=== PATIENT | female | born 1955 | race Caucasian/White ===

== ENCOUNTER → 2021-04-14 12:00 | Outpatient (CLI) | payer BC, MEDICARE, SELFPAY ==
[2021-04-14 13:32] LABS: Alanine Aminotransferase 19 IU/L (<35); Albumin 4.6 g/dL (3.5-5.0); Albumin Globulin Ratio 1.8 (1.0-2.8); Alkaline Phosphatase 68 U/L (38-126); Aspartate Aminotransferase 23 IU/L (14-36); BUN Creatinine Ratio 15.7 (6-22); Bilirubin Total 0.5 mg/dL (0.2-1.3); Blood Urea Nitrogen 17 mg/dL (7-17); Calcium 10.2 mg/dL (8.4-10.2); Carbon Dioxide 30 mmol/L (22-32); Chloride 105 mmol/L (98-107); Cholesterol 207 mg/dL (140-199); Estimated Glomerular Filt Rate 50.9 mL/min (>60); Globulin 2.5 g/dL (1.7-4.1); Glucose 101 mg/dL (80-110); HDL Cholesterol 75 mg/dL (40-60); HEMOLYSIS < 15 (0-50); LDL Cholesterol Calculated 109 mg/dL (<100); Sodium 140 mmol/L (137-145); Total Protein 7.1 g/dL (6.3-8.2); Triglycerides 116 mg/dL (35-150)
== END ==
PROVIDERS: PCP Internal Medicine; Referring Provider Internal Medicine; Visit Provider Internal Medicine
DX: I10 Essential (primary) hypertension (principal); Z13.220 Encounter for screening for lipoid disorders
CPT/HCPCS: 36415; 80053; 80061; 84443

== ENCOUNTER → 2021-12-23 15:49 | Outpatient (CLI) | payer BC, MEDICARE, SELFPAY ==
--- NOTE | 2021-12-23 15:51 | DI.MG.S_ITS ---
BILATERAL DIGITAL SCREENING MAMMOGRAM 3D/2D WITH CAD: 12/23/2021 CLINICAL: Routine screening. Family history of breast cancer. Comparison is made to exams dated: 11/26/2020 mammogram, 10/07/2019 mammogram, and 04/11/2018 mammogram - outside facility. There are scattered areas of fibroglandular density in both breasts (category b / 25%-50% glandular tissue). Current study was also evaluated with a Computer Aided Detection (CAD) system. No significant masses, calcifications, or other findings are seen in either breast. There has been no significant interval change. IMPRESSION: NEGATIVE There is no mammographic evidence of malignancy. A 1 year screening mammogram is recommended. This exam was interpreted at Station ID: [id number]. NOTE: For mammograms, a report in lay terms will be sent to the patient. Approximately 15% of breast malignancies will not be visualized mammographically. In the management of a palpable breast mass, a negative mammogram must not discourage biopsy of a clinically suspicious lesion. Electronically Signed By: Audi Moore M.D., jr/lina:12/26/2021 10:44:18 letter sent: Normal Exam ACR BI-RADS Category 1: Negative [id number]
== END ==
PROVIDERS: PCP Internal Medicine; Referring Provider Internal Medicine; Visit Provider Internal Medicine
DX: Z12.31 Encounter for screening mammogram for malignant neoplasm of breast (principal); Z80.3 Family history of malignant neoplasm of breast
CPT/HCPCS: 77063; 77067

== ENCOUNTER → 2022-06-29 12:20 | Outpatient (CLI) | payer MEDICARE, OTHER, SELFPAY ==
[2022-06-29 13:01] LABS: Add Manual Diff / Slide Review NO; Basophils Absolute Auto 100 /uL (0-100); Basophils Percent Auto 0.9 % (0-2); Eosinophils Absolute Auto 200 /uL (0-450); Eosinophils Percent Auto 2.9 % (2-4); Hematocrit 40.2 % (36-46); Hemoglobin 13.6 g/dL (12.0-16.0); Lymphocytes Absolute Auto 1100 /uL (1100-4500); Lymphocytes Percent Auto 16.3 % (25-40); Mean Corpuscular HGB Conc 33.9 % (30-36); Mean Corpuscular Hemoglobin 30.3 PG (26-34); Mean Corpuscular Volume 89.5 fL (80-100); Monocytes Absolute Auto 600 /uL (0-900); Monocytes Percent Auto 9.2 % (3-14); Neutrophils Absolute Auto 4700 /uL (1500-7000); Neutrophils Percent Auto 70.7 % (50-75); Platelet Count 244 X10^3/uL (150-400); Red Cell Distribution Width 13.7 % (11.6-14.8); White Blood Cell Count 6.6 X10^3/uL (4.5-11.0)
[2022-06-29 13:45] LABS: Alanine Aminotransferase 31 IU/L (<35); Albumin 4.3 g/dL (3.5-5.0); Albumin Globulin Ratio 1.3 (1.0-2.8); Alkaline Phosphatase 69 U/L (38-126); Aspartate Aminotransferase 29 IU/L (14-36); BUN Creatinine Ratio 19.3 (6-22); Bilirubin Total 0.3 mg/dL (0.2-1.3); Blood Urea Nitrogen 23 mg/dL (7-17); Calcium 10.1 mg/dL (8.4-10.2); Carbon Dioxide 27 mmol/L (22-32); Chloride 103 mmol/L (98-107); Estimated Glomerular Filt Rate 50 mL/min (>60); Globulin 3.2 g/dL (1.7-4.1); Glucose 108 mg/dL (80-110); HEMOLYSIS < 15 (0-50); Magnesium 1.9 mg/dL (1.6-2.3); Potassium 3.4 mmol/L (3.4-5.1); Sodium 139 mmol/L (137-145); Total Protein 7.5 g/dL (6.3-8.2)
[2022-06-29 13:47] LABS: D Dimer 774 ng/ml (<500)
[2022-06-29 14:14] LABS: Free T4, Direct Thyroxine 1.29 ng/dL (0.78-2.19)
[2022-06-29 14:28] LABS: Thyroid Stimulating Hormone 2.31 uIU/mL (0.47-4.68)
== END ==
PROVIDERS: PCP Internal Medicine; Referring Provider Internal Medicine; Visit Provider Internal Medicine
DX: I10 Essential (primary) hypertension (principal); N18.31 Chronic kidney disease, stage 3a; R00.1 Bradycardia, unspecified; R55 Syncope and collapse
CPT/HCPCS: 36415; 80053; 83735; 84439; 84443; 85025; 85379

== ENCOUNTER → 2022-06-30 12:42 | Outpatient (CLI) | payer MEDICARE, OTHER, SELFPAY ==
--- NOTE | 2022-06-30 12:44 | DI.US.S_ITS ---
PROCEDURE: US PERIPH VENOUS LOW EXTREM LT INDICATIONS: R/O DVT TECHNIQUE: Real-time imaging, as well as color and pulse Doppler interrogation, were performed of the lower extremity deep veins from the inguinal ligament to the popliteal fossa. COMPARISON: None. FINDINGS: The common femoral, femoral and popliteal veins are normally compressible, and free of intraluminal thrombus. Color and pulse Doppler demonstrate normal phasic intraluminal flow. There is normal augmentation response to distal compression maneuver. IMPRESSION: No DVT found left lower extremity. Dictated by: Lester Garduno M.D. on 06/30/2022 at 15:37 Approved by: Lester Garduno M.D. on 06/30/2022 at 15:37
== END ==
PROVIDERS: PCP Internal Medicine; Referring Provider Internal Medicine; Visit Provider Internal Medicine
DX: I82.409 Acute embolism and thrombosis of unspecified deep veins of unspecified lower extremity (principal); R22.42 Localized swelling, mass and lump, left lower limb
CPT/HCPCS: 93971

== ENCOUNTER 2022-07-04 11:41 | Observation (INO) | payer MEDICARE, OTHER, SELFPAY ==
[2022-07-04] VITALS (22 sets, daily range): BP systolic 147–231; BP diastolic 69–110; PULSE 25–130; RESP 16–20; TEMP 36.4–36.9; O2SAT 92–98; BMI 37.2
--- NOTE | 2022-07-04 11:48 | DI.RAD.S_ITS ---
PROCEDURE: XR CHEST 1V INDICATIONS: chest pain TECHNIQUE: One view of the chest was acquired. COMPARISON: None. FINDINGS: Surgical changes and devices: None. Lungs and pleura: Lungs are clear. No pleural effusions or pneumothorax. Mediastinum: Mediastinal contours appear normal. Heart size is normal. Bones and chest wall: No suspicious bony lesions. Overlying soft tissues appear unremarkable. IMPRESSION: No acute cardiopulmonary abnormality. Dictated by: Micky Hollins M.D. on 07/04/2022 at 12:17 Approved by: Micky Hollins M.D. on 07/04/2022 at 12:19
[2022-07-04] MEDS: ASPIRIN 81 MG CHEW TAB 324 MG PO (11:55)
--- NOTE | 2022-07-04 12:08 | PC.NURSE ---
Pt reports similar episodes in April, May, and May. Lasting from 12 hours to 24 hours. States she has followed up regarding events with her PCP, but was not able to catch an abnormal rhythms as she was not seen during an episode. Has a Holter Monitor scheduled in approximately 2 weeks.
[2022-07-04 12:15] LABS: Add Manual Diff / Slide Review NO; Basophils Absolute Auto 100 /uL (0-100); Basophils Percent Auto 0.7 % (0-2); Eosinophils Absolute Auto 300 /uL (0-450); Eosinophils Percent Auto 3.5 % (2-4); Hematocrit 42.7 % (36-46); Hemoglobin 14.3 g/dL (12.0-16.0); Lymphocytes Absolute Auto 1900 /uL (1100-4500); Lymphocytes Percent Auto 24.9 % (25-40); Mean Corpuscular HGB Conc 33.5 % (30-36); Mean Corpuscular Volume 89.6 fL (80-100); Monocytes Absolute Auto 800 /uL (0-900); Monocytes Percent Auto 9.9 % (3-14); Neutrophils Absolute Auto 4700 /uL (1500-7000); Platelet Count 237 X10^3/uL (150-400); Red Blood Cell Count 4.77 X10^6/uL (4.0-5.2); Red Cell Distribution Width 14.1 % (11.6-14.8); White Blood Cell Count 7.8 X10^3/uL (4.5-11.0)
[2022-07-04 12:17] LABS: Prothrombin Time 10.9 SECONDS (10.1-12.7)
[2022-07-04 12:19] LABS: PTT Partial Thromboplastin Tim 31 SECONDS (26-36)
[2022-07-04 12:23] LABS: Alanine Aminotransferase 29 IU/L (<35); Albumin 4.5 g/dL (3.5-5.0); Albumin Globulin Ratio 1.4 (1.0-2.8); Alkaline Phosphatase 79 U/L (38-126); Aspartate Aminotransferase 27 IU/L (14-36); BUN Creatinine Ratio 23.9 (6-22); Bilirubin Total 0.5 mg/dL (0.2-1.3); Blood Urea Nitrogen 21 mg/dL (7-17); Calcium 10.2 mg/dL (8.4-10.2); Carbon Dioxide 25 mmol/L (22-32); Chloride 105 mmol/L (98-107); Creatine Kinase 159 U/L (30-135); Estimated Glomerular Filt Rate > 60 mL/min (>60); Globulin 3.2 g/dL (1.7-4.1); Glucose 123 mg/dL (80-110); HEMOLYSIS < 15 (0-50); Lipase 74 U/L (23-300); Magnesium 1.9 mg/dL (1.6-2.3); Potassium 3.4 mmol/L (3.4-5.1); Sodium 140 mmol/L (137-145); Total Protein 7.7 g/dL (6.3-8.2)
[2022-07-04 12:24] LABS: COVID19 -Nasal RAPID Negative (Negative)
[2022-07-04 12:33] LABS: Troponin I 0.018 ng/mL (0.01-0.034)
--- NOTE | 2022-07-04 12:34 | ED_ITS ---
HPI - Chest Pain General Chief Complaint: Chest Pain Stated Complaint: sent by DR/chest pain/pressure/SOB Time Seen by Provider: 07/04/22 12:00 Source: patient Mode of arrival: Wheelchair Limitations: no limitations History of Present Illness HPI narrative: Patient 67-year-old female history hypertension, presenting today palpitations. She is had at least 3 episodes over the past few months palpitations and dizz iness associated with it. She saw her PCP 5 days ago who tried sitting up Holter monitor can be set up until next week. Today she describes irregular heart beat and some dizziness. No shortness of breath no lightheadedness no nausea or vomiting. She has a watch to help monitor her heart rate. This is happened to her April, May and now July. She denies any prior stroke. She is on atenolol for blood pressure control she has cut that down from 25 mg 3 times a day to 12.5 mg in the morning and 12.5 in the afternoon 25 at bedtime. She reports that she did this because her heart rate dropped into the 40s. Her heart rate currently in the emergency department anywhere from 105 -140 irregular atrial fibrillation. She reports that she has had PVCs in the past but this is different. Related Data Home Medications Medication Instructions Recorded Confirmed Calcium Carbonate 1 tab PO DAILY 03/17/21 06/29/22 Magnesium Malate 1 tab PO DAILY 03/17/21 06/29/22 Probiotic 10 Capsule 1 tab PO DAILY 03/17/21 06/29/22 Turmeric 1 tab PO DAILY 03/17/21 06/29/22 Vitamin D 1 tab PO DAILY 03/17/21 06/29/22 ascorbic acid (vitamin C) 1,000 mg 1 g PO DAILY 03/17/21 06/29/22 tablet cranberry extract 650 mg capsule 650 mg PO DAILY 03/17/21 06/29/22 multivitamin 1 tab PO DAILY 03/17/21 06/29/22 atenolol 25 mg tablet 25 mg PO BID 06/29/22 06/29/22 Previous Rx's Medication Instructions Recorded amlodipine 10 mg tablet 10 mg PO DAILY #90 tabs 11/25/21 ramipril 10 mg capsule 10 mg PO BID #180 caps 11/25/21 terazosin 10 mg capsule 10 mg PO BID #180 caps 11/25/21 nystatin 100,000 unit/gram topical 1 applic topical TID #60 grams 06/29/22 powder Allergies Allergy/AdvReac Type Severity Reaction Status Date / Time guanfacine [From Tenex] AdvReac Intermediate arrythmia Verified 07/04/22 11:49 Review of Systems Review of Systems ROS Unobtainable: All systems reviewed & are unremarkable except as noted in HPI and below Patient History Medical History Cataracts, bilateral (~2017) Chicken pox (~1962) Chronic migraine Chronic renal failure, stage 3a Diverticular disease of colon (~1987) Endometriosis (~1995) Essential hypertension (~1989) Fractures (~2010) Frequent UTI Measles (~1964) Migraines Near sighted Ovarian cyst (~1995) Urinary incontinence (~2001) Surgical History Anesthesia History of foot surgery (~2010) Status post appendectomy (~1995) Status post right oophorectomy (~1995) Family History Father History of heart disease Hypertension Hyperlipidemia Mother Breast cancer Stroke Brother History of heart disease Hyperlipidemia Hypertension Brother Diabetes mellitus Hypertension Grandfather History of heart disease Hyperlipidemia Hypertension Grandmother Stroke Grandfather History of heart disease Hyperlipidemia Hypertension Grandmother Tuberculosis Social History household members: spouse Smoking Status: Never smoker Smoking Status: Never smoker alcohol intake frequency: holidays/special occasions only Substance Use Type: does not use Exam Initial Vital Signs Initial Vital Signs: Vital Signs Temperature 98.4 F 07/04/22 11:43 Pulse Rate 65 07/04/22 11:43 Respiratory Rate 20 07/04/22 11:43 Blood Pressure 160/95 H 07/04/22 11:43 Pulse Oximetry 97 07/04/22 11:43 Oxygen Delivery Method Room Air 07/04/22 11:43 GENERAL: Alert pleasant 67-year-old female and in no acute distress. HEENT: Head atraumatic,EOMI, pupils reactive, face symmetric, moist mucous membranes CARDIOVASCULAR: Irregularly irregular RESPIRATORY: Breath sounds equal bilaterally, no wheezes rales or rhonchi. ABDOMEN: Soft, nontender. Normoactive bowel sounds all 4 quadrants. No guarding or rebound. : No CVA tenderness EXTREMITIES: Normal range of motion, no clubbing or edema. Neurovascularly in tact NEUROLOGICAL: Alert and oriented x4. SKIN: Warm, dry, no laceration, no petechiae, no rashes or lesions. Course Orders Ordered: ED Orders 07/04/22 11:48 XR chest 1V Stat BNP [NT-proBNP (BNP-Adult 18+)] Stat Complete Blood Count AUTO DIFF Stat Comprehensive Metabolic Panel Stat Lipase Stat Magnesium Stat PTT Partial Thromboplastin Donte Stat Prothrombin Time INR Stat TSH [Thyroid Stimulating Hormone] Stat Troponin & CK Cardiac Panel Stat EKG-12 Lead Stat 07/04/22 11:53 COVID19 -Nasal RAPID Stat 07/04/22 15:09 EC echo doppler complete Routine Free T4, Direct Thyroxine Routine Acetaminophen (Acetaminophen 325 Mg Tablet) 650 mg PO Q6H PRN PRN Reason: Fever/Mild Pain (1-3) Apixaban (Apixaban 5 Mg Tablet) 5 mg PO BID [facility] Diltiazem HCl (Diltiazem 30 Mg Tablet) 30 mg PO TID [facility] Last Admin: 07/04/22 16:06 Dose: 30 mg Documented By: AA Naloxone HCl (Naloxone 0.4 Mg/Ml Vial) 0.2 mg IV Q2MIN PRN PRN Reason: Opiate Reversal Ramipril 10 Mg (Capsule) 10 mg PO BID [facility] Terazosin HCl (Terazosin 5 Mg Capsule) 10 mg PO BID [facility] Discontinued Medications Aspirin (Aspirin 81 Mg Chew Tab) 324 mg PO NOW ONE Stop: 07/04/22 11:49 Last Admin: 07/04/22 11:55 Dose: 324 mg Documented By: VANESSA Diltiazem HCl (Diltiazem 5 Mg/Ml Sdv) 5 mg IV NOW ONE Stop: 07/04/22 13:08 Last Admin: 07/04/22 13:35 Dose: Not Given Documented By: FIDE Diltiazem HCl (Diltiazem Sr 60 Mg) 30 mg PO TID [facility] Vital Signs Vital signs: Vital Signs - 8 hr 07/04/22 11:43 07/04/22 11:46 07/04/22 11:47 Temperature 98.4 F Pulse Rate 65 76 Respiratory Rate 20 Blood Pressure 160/95 H Pulse Oximetry 97 97 92 Oxygen Delivery Method Room Air Room Air 07/04/22 11:47 07/04/22 12:00 07/04/22 12:00 Temperature Pulse Rate 130 H Respiratory Rate Blood Pressure 160/95 H 166/69 H Pulse Oximetry 95 Oxygen Delivery Method Room Air 07/04/22 12:30 07/04/22 12:30 07/04/22 13:00 Temperature Pulse Rate 128 H 25 L Respiratory Rate Blood Pressure 171/110 H Pulse Oximetry 95 96 Oxygen Delivery Method 07/04/22 13:01 07/04/22 13:01 07/04/22 13:35 Temperature Pulse Rate 50 L 51 L Respiratory Rate Blood Pressure 164/108 H 186/89 H Pulse Oximetry 96 Oxygen Delivery Method 07/04/22 13:24 07/04/22 13:24 07/04/22 13:30 Temperature Pulse Rate 54 L Respiratory Rate Blood Pressure 178/80 H 186/89 H Pulse Oximetry 98 Oxygen Delivery Method 07/04/22 13:30 07/04/22 14:00 07/04/22 14:01 Temperature Pulse Rate 50 L 44 L Respiratory Rate Blood Pressure 182/82 H Pulse Oximetry 97 98 Oxygen Delivery Method Room Air Room Air 07/04/22 14:01 07/04/22 14:30 07/04/22 14:31 Temperature Pulse Rate 44 L 56 L Respiratory Rate Blood Pressure 170/84 H Pulse Oximetry 98 96 Oxygen Delivery Method 07/04/22 14:31 Temperature Pulse Rate 55 L Respiratory Rate Blood Pressure Pulse Oximetry 97 Oxygen Delivery Method Room Air MDM - Chest Pain Lab Data 07/04/22 11:48 07/04/22 11:48 Labs: Lab Results 07/04/22 07/04/22 07/04/22 Range/Units 11:48 11:48 11:48 WBC 7.8 (4.5-11.0) X10^3/uL RBC 4.77 (4.0-5.2) X10^6/uL Hgb 14.3 (12.0-16.0) g/dL Hct 42.7 (36-46) % MCV 89.6 (80-100) fL MCH 30.0 (26-34) PG MCHC 33.5 (30-36) % RDW 14.1 (11.6-14.8) % Plt Count 237 (150-400) X10^3/uL Neut % (Auto) 61.0 (50-75) % Lymph % (Auto) 24.9 L (25-40) % [place] % (Auto) 9.9 (3-14) % Eos % (Auto) 3.5 (2-4) % Baso % (Auto) 0.7 (0-2) % Neut # (Auto) 4700 (1010-9366) /uL Lymph # (Auto) 1900 (6493-2164) /uL [place] # (Auto) 800 (0-900) /uL Eos # (Auto) 300 (0-450) /uL Baso # (Auto) 100 (0-100) /uL PT 10.9 (10.1-12.7) SECONDS INR 1.0 (0.9-1.3) APTT 31 (26-36) SECONDS Sodium 140 (137-145) mmol/L Potassium 3.4 (3.4-5.1) mmol/L Chloride 105 (98-107) mmol/L Carbon Dioxide 25 (22-32) mmol/L BUN 21 H (7-17) mg/dL Creatinine 0.88 (0.52-1.04) mg/dL Estimated GFR > 60 (>60) mL/min BUN/Creatinine Ratio 23.9 H (6-22) Glucose 123 H (80-110) mg/dL Calcium 10.2 (8.4-10.2) mg/dL Magnesium 1.9 (1.6-2.3) mg/dL Total Bilirubin 0.5 (0.2-1.3) mg/dL AST 27 (14-36) IU/L ALT 29 (<35) IU/L Alkaline Phosphatase 79 (38-126) U/L Total Creatine Kinase 159 H (30-135) U/L CK-MB (CK-2) 3.63 H (<2.37) ng/mL CK-MB (CK-2) Rel Index 2.3 (1.5-5.0) % Troponin I 0.018 (0.01-0.034) ng/mL NT-Pro-B Natriuret Pep (<125) pg/mL Total Protein 7.7 (6.3-8.2) g/dL Albumin 4.5 (3.5-5.0) g/dL Globulin 3.2 (1.7-4.1) g/dL Albumin/Globulin Ratio 1.4 (1.0-2.8) Lipase 74 (23-300) U/L TSH (0.47-4.68) uIU/mL SARS-CoV-2 (PCR) (Negative) 07/04/22 07/04/22 07/04/22 Range/Units 11:48 11:48 11:53 WBC (4.5-11.0) X10^3/uL RBC (4.0-5.2) X10^6/uL Hgb (12.0-16.0) g/dL Hct (36-46) % MCV (80-100) fL MCH (26-34) PG MCHC (30-36) % RDW (11.6-14.8) % Plt Count (150-400) X10^3/uL Neut % (Auto) (50-75) % Lymph % (Auto) (25-40) % [place] % (Auto) (3-14) % Eos % (Auto) (2-4) % Baso % (Auto) (0-2) % Neut # (Auto) (7825-1163) /uL Lymph # (Auto) (9104-4929) /uL [place] # (Auto) (0-900) /uL Eos # (Auto) (0-450) /uL Baso # (Auto) (0-100) /uL PT (10.1-12.7) SECONDS INR (0.9-1.3) APTT (26-36) SECONDS Sodium (137-145) mmol/L Potassium (3.4-5.1) mmol/L Chloride (98-107) mmol/L Carbon Dioxide (22-32) mmol/L BUN (7-17) mg/dL Creatinine (0.52-1.04) mg/dL Estimated GFR (>60) mL/min BUN/Creatinine Ratio (6-22) Glucose (80-110) mg/dL Calcium (8.4-10.2) mg/dL Magnesium (1.6-2.3) mg/dL Total Bilirubin (0.2-1.3) mg/dL AST (14-36) IU/L ALT (<35) IU/L Alkaline Phosphatase (38-126) U/L Total Creatine Kinase (30-135) U/L CK-MB (CK-2) (<2.37) ng/mL CK-MB (CK-2) Rel Index (1.5-5.0) % Troponin I (0.01-0.034) ng/mL NT-Pro-B Natriuret Pep 457 H (<125) pg/mL Total Protein (6.3-8.2) g/dL Albumin (3.5-5.0) g/dL Globulin (1.7-4.1) g/dL Albumin/Globulin Ratio (1.0-2.8) Lipase (23-300) U/L TSH 2.85 D (0.47-4.68) uIU/mL SARS-CoV-2 (PCR) Negative (Negative) Urine Dip Bedside Urine Glucose Negative Bedside Urine Bilirubin - Negative Bedside Urine Ketone - Negative Urine Specific [place] 1.005 Bedside Urine Occult Blood - Negative Bedside Urine pH 6.5 Bedside Urine Protein - Negative Bedside Urine Urobilinogen - Negative Bedside Urine Nitrite - Negative Bedside Urine Leukocytes - Negative Esterase Imaging Data Chest x-ray: Radiologist's Impression: PROCEDURE:? XR CHEST 1V ? INDICATIONS:? chest pain ? TECHNIQUE:? One view of the chest was acquired.? ? COMPARISON:? None. ? FINDINGS:? ? Surgical changes and devices:? None.? ? Lungs and pleura:? Lungs are clear.? No pleural effusions or pneumothorax.? ? Mediastinum:? Mediastinal contours appear normal.? Heart size is normal.? ? Bones and chest wall:? No suspicious bony lesions.? Overlying soft tissues appear unremarkable.? ? IMPRESSION:? No acute cardiopulmonary abnormality. ? ? ? Dictated by: Micky Hollins M.D. on 07/04/2022 at 12:17 ? ? Approved by: Micky Hollins M.D. on 07/04/2022 at 12:19 ? ECG Data Interpretation: AFib with RVR rate 137 no priors to compare EKG 2. Sinus rhythm rate 49 DC interval 188 QRS [address] changes Q-wave noted in lead 3 MDM Narrative Medical decision making narrative: Patient 67-year-old female history of hypertension presents with probable paroxysmal atrial fibrillation. Currently AFib RVR heart rate into the 140s. She reports that she has reactive vitals typically gets very tachycardic and hypertensive. Blood work overall reassuring no leukocytosis no anemia no electrolyte abnormality no JESSICA troponin is negative. TSH was checked last week and 2.31. Was going to give a small dose of diltiazem however patient self converted into a sinus bradycardia heart rate in the 40s. Patient is already taking half of the atenolol that she normally should. She is asymptomatic. Chads Vasc score of 3 needs anticoagulation. I have discussed this with patient. She is very hesitant to take any medication she is had multiple side effects from many 14:30 Dr. Combs cardiology updated patient's symptoms test results. At this time due to patient's bradycardia from secondary to atenolol and paroxysmal AFib recommends transitioning over to Cardizem however due to severe bradycardia would suggest doing in the hospital. Also recommends getting referred over to Dr. Rose Mary GARCIA for probable pacemaker. Dr. Cintron updated patient's symptoms test results Cardiology recommendations and kindly accepts GLENDY?DS?-VASc Score for Atrial Fibrillation Stroke Risk from [email or web address] on 07/04/2022 All calculations should be rechecked by clinician prior to use RESULT SUMMARY: 3 points Stroke risk was 3.2% per year in >90,000 patients (the [place] Atrial Fibrillation Cohort Study) and 4.6% risk of stroke/TIA/systemic embolism. One recommendation suggests a 0 score for men or 1 score for women (no clinical risk factors) is ?low? risk and may not require anticoagulation; a 1 score for men or 2 score for women is ?low-moderate? risk and should consider antiplatelet or anticoagulation; and a score >= for men or >= for women is ?moderate-high? risk and should otherwise be an anticoagulation candidate. INPUTS: Age ?> 1 = 65-74 Sex ?> 1 = Female CHF history ?> 0 = No Hypertension history ?> 1 = Yes Stroke/TIA/thromboembolism history ?> 0 = No Vascular disease history (prior [place], peripheral artery disease, or aortic plaque) ?> 0 = No Diabetes history ?> 0 = No Discharge Plan Departure Patient Disposition: Admitted as Observation Clinical Impression: AF (paroxysmal atrial fibrillation), Bradycardia, Hypertension Admit Date/Time: 07/04/22 14:35 Admit Provider: Raymundo Cintron
[2022-07-04 12:38] LABS: CKMB % Relative Index 2.3 % (1.5-5.0); Creatine Kinase MB 3.63 ng/mL (<2.37)
[2022-07-04 13:01] LABS: NT-proBNP (BNP-Adult 18+) 457 pg/mL (<125)
--- NOTE | 2022-07-04 14:02 | PC.NURSE ---
At approximately 1320, pt heart rate noted at 55. Dr. Mcgee notified.
[2022-07-04 14:20] LABS: Thyroid Stimulating Hormone 2.85 uIU/mL (0.47-4.68)
--- NOTE | 2022-07-04 14:35 | P.HP_ITS ---
History of Present Illness History of Present Illness Date Patient Seen: 07/04/22 Time Patient Seen: 14:36 Chief complaint: sent by DR/chest pain/pressure/SOB Narrative: 67-year-old female who had several episodes of heart palpitations while traveling in [place] in the process of having this evaluated who had persistent symptoms today. She came to my office with the symptoms I directed her to the emergency department where she is found to be in atrial fibrillation with rapid ventricular response. She spontaneously converted back to sinus rhythm with a heart rate in the 40s. Patient apparently has a longstanding history of significant bradycardia to m edication has proven to be very sensitive to medication when tried for her hypertension and is quite apprehensive about different cardiac medications After conversion her heart rate was in the 40s blood pressure was in the 180 systolic. She was relatively asymptomatic. Cardiology was consulted who recommended switching her to oral diltiazem in an effort to better control her atrial fibrillation and her blood pressure. She would then need to be seen by an web site designer for further evaluation as she may well be someone who needs pacemaker placement to allow for appropriate treatment of her atrial fibrillation and its associated tachycardia As noted above patient longstanding history of hypertension on an interesting an unusual combination of antihypertensives because of her intolerance of various medications (details of which are not available, except for concerns around bradycardia) [facility] Medical History Cataracts, bilateral (~2017) Chicken pox (~1962) Chronic migraine Chronic renal failure, stage 3a Diverticular disease of colon (~1987) Endometriosis (~1995) Essential hypertension (~1989) Fractures (~2010) Frequent UTI Measles (~1964) Migraines Near sighted Ovarian cyst (~1995) Urinary incontinence (~2001) Surgical History Anesthesia History of foot surgery (~2010) Status post appendectomy (~1995) Status post right oophorectomy (~1995) Family History Father History of heart disease Hypertension Hyperlipidemia Mother Breast cancer Stroke Brother History of heart disease Hyperlipidemia Hypertension Brother Diabetes mellitus Hypertension Grandfather History of heart disease Hyperlipidemia Hypertension Grandmother Stroke Grandfather History of heart disease Hyperlipidemia Hypertension Grandmother Tuberculosis Social History Smoking Status: Never smoker Meds Home Medications and Allergies Home Medications Medication Instructions Recorded Confirmed Type Calcium Carbonate 1 tab PO DAILY 03/17/21 06/29/22 History Magnesium Malate 1 tab PO DAILY 03/17/21 06/29/22 History Probiotic 10 Capsule 1 tab PO DAILY 03/17/21 06/29/22 History Turmeric 1 tab PO DAILY 03/17/21 06/29/22 History Vitamin D 1 tab PO DAILY 03/17/21 06/29/22 History ascorbic acid (vitamin C) 1,000 mg 1 g PO DAILY 03/17/21 06/29/22 History tablet cranberry extract 650 mg capsule 650 mg PO DAILY 03/17/21 06/29/22 History multivitamin 1 tab PO DAILY 03/17/21 06/29/22 History amlodipine 10 mg tablet 10 mg PO DAILY #90 tabs 11/25/21 06/29/22 Rx ramipril 10 mg capsule 10 mg PO BID #180 caps 11/25/21 06/29/22 Rx terazosin 10 mg capsule 10 mg PO BID #180 caps 11/25/21 06/29/22 Rx atenolol 25 mg tablet 25 mg PO BID 06/29/22 06/29/22 History nystatin 100,000 unit/gram topical 1 applic topical TID #60 grams 06/29/22 06/29/22 Rx powder Allergies Allergy/AdvReac Type Severity Reaction Status Date / Time guanfacine [From Tenex] AdvReac Intermediate arrythmia Verified 07/04/22 11:49 Review of Systems Review of Systems ROS: Yes All systems reviewed with the patient and are negative except as otherwise documented Exam Vital Signs (past 8 hours): - 07/04/22 11:43 07/04/22 11:46 07/04/22 11:47 Temperature 98.4 F Pulse Rate 65 76 Respiratory Rate 20 Blood Pressure 160/95 H Pulse Oximetry 97 97 92 Oxygen Delivery Method Room Air Room Air 07/04/22 11:47 07/04/22 12:00 07/04/22 12:00 Temperature Pulse Rate 130 H Respiratory Rate Blood Pressure 160/95 H 166/69 H Pulse Oximetry 95 Oxygen Delivery Method Room Air 07/04/22 12:30 07/04/22 12:30 07/04/22 13:00 Temperature Pulse Rate 128 H 25 L Respiratory Rate Blood Pressure 171/110 H Pulse Oximetry 95 96 Oxygen Delivery Method 07/04/22 13:01 07/04/22 13:01 07/04/22 13:35 Temperature Pulse Rate 50 L 51 L Respiratory Rate Blood Pressure 164/108 H 186/89 H Pulse Oximetry 96 Oxygen Delivery Method 07/04/22 13:24 07/04/22 13:24 07/04/22 13:30 Temperature Pulse Rate 54 L Respiratory Rate Blood Pressure 178/80 H 186/89 H Pulse Oximetry 98 Oxygen Delivery Method 07/04/22 13:30 07/04/22 14:00 07/04/22 14:01 Temperature Pulse Rate 50 L 44 L Respiratory Rate Blood Pressure 182/82 H Pulse Oximetry 97 98 Oxygen Delivery Method Room Air Room Air 07/04/22 14:01 Temperature Pulse Rate 44 L Respiratory Rate Blood Pressure Pulse Oximetry 98 Oxygen Delivery Method Oxygen Delivery Method Room Air Objective Labs 07/04/22 11:48 07/04/22 11:48 Labs: Laboratory Results - last 24 hr 07/04/22 07/04/22 07/04/22 11:48 11:48 11:48 WBC 7.8 RBC 4.77 Hgb 14.3 Hct 42.7 MCV 89.6 MCH 30.0 MCHC 33.5 RDW 14.1 Plt Count 237 Neut % (Auto) 61.0 Lymph % (Auto) 24.9 L Ciales % (Auto) 9.9 Eos % (Auto) 3.5 Baso % (Auto) 0.7 Neut # (Auto) 4700 Lymph # (Auto) 1900 C[place] # (Auto) 800 Eos # (Auto) 300 Baso # (Auto) 100 PT 10.9 INR 1.0 APTT 31 Sodium 140 Potassium 3.4 Chloride 105 Carbon Dioxide 25 BUN 21 H Creatinine 0.88 Estimated GFR > 60 BUN/Creatinine Ratio 23.9 H Glucose 123 H Calcium 10.2 Magnesium 1.9 Total Bilirubin 0.5 AST 27 ALT 29 Alkaline Phosphatase 79 Total Creatine Kinase 159 H CK-MB (CK-2) 3.63 H CK-MB (CK-2) Rel Index 2.3 Troponin I 0.018 NT-Pro-B Natriuret Pep Total Protein 7.7 Albumin 4.5 Globulin 3.2 Albumin/Globulin Ratio 1.4 Lipase 74 TSH SARS-CoV-2 (PCR) 07/04/22 07/04/22 07/04/22 11:48 11:48 11:53 WBC RBC Hgb Hct MCV MCH MCHC RDW Plt Count Neut % (Auto) Lymph % (Auto) Ciales % (Auto) Eos % (Auto) Baso % (Auto) Neut # (Auto) Lymph # (Auto) Cial[place] # (Auto) Eos # (Auto) Baso # (Auto) PT INR APTT Sodium Potassium Chloride Carbon Dioxide BUN Creatinine Estimated GFR BUN/Creatinine Ratio Glucose Calcium Magnesium Total Bilirubin AST ALT Alkaline Phosphatase Total Creatine Kinase CK-MB (CK-2) CK-MB (CK-2) Rel Index Troponin I NT-Pro-B Natriuret Pep 457 H Total Protein Albumin Globulin Albumin/Globulin Ratio Lipase TSH 2.85 D SARS-CoV-2 (PCR) Negative Assessment & Plan Assessment & Plan narrative: 1. New onset atrial fibrillation-patient has been having episodes of this would seem based on her history. She spontaneously converted back to sinus rhythm actually sinus bradycardia as above. As per Cardiology will try her on immediate release diltiazem and assuming she tolerates 1 or 2 doses of this will switch her to long-acting diltiazem presumably tomorrow. She needs her thyroid evaluated with her blood work and would recommend echocardiography as well. Eventually she will need cardiac stress testing for evaluation of possible myocardial ischemia but that is not essential for this hospitalization I would agree that eventually she would best be served by seeing an web site designer for consideration of ongoing treatment of her atrial fibrillation and possible need for pacemaker placement because of tachy-dipesh syndrome kind of a process She would also benefit from anticoagulation with a direct oral anticoagulant and so Eliquis has been ordered as well. This will be for stroke risk reduction given her episodic paroxysmal atrial fibrillation 2. Hypertension-patient is somewhat hypertensive as above. Will cautiously try diltiazem in addition to the HANY-inhibitor she is already on. May need to bump up the HANY-inhibitor depending on response till diltiazem. As part of this we are going to discontinue her amlodipine and atenolol. 3. Chronic renal failure stage 3 a-patient's numbers are actually quite stable to somewhat improved. No active issues here. Her renal dysfunction is not alejandro ugh to be concerned about a direct oral anticoagulant 4. VTE prophylaxis-as above patient be started on a direct oral anticoagulant for stroke risk reduction and further anticoagulation for VTE prophylaxis not indicated 5. Code status-patient should be a full code event of sudden cardiac or resp iratory arrest which is her wishes well
--- NOTE | 2022-07-04 15:09 | DI.ECHO.S_ITS ---
[place] [facility]---------+ [facility] +---------+ : : [address] : : : : [id number] : : : : Phone: [phone] Echocardiogram Report + + :Name: JACQUELYN PANCHAL Study Date: 07/05/2022 Height: 68 in : :[facility] ReadingLocation: Weight: 245 lb : : Gender: Female BSA: 2.2 m2 : :: 1955 Age: 67 yrs BP: 188/83 mmHg: :Reason For Study: ATRIAL FIBRILLATION : :Ordering Physician: MICHAEL, : :THMO Land Performed By: Ragini Baeza : :Referring: THOM RODRIGUEZ : + + Interpretation Summary There is mild concentric left ventricular hypertrophy. The ejection fraction is estimated to be 60-65%. Diastolic function could not be accurately assessed due to contradictory data. The left atrium is mildly dilated. The right ventricle is normal in size and function. There is mild tricuspid regurgitation. The right ventricular systolic pressure is estimated to be at least 31 mmHg based on an estimated right atrial pressure of 3 mm Hg. Procedure: A two-dimensional transthoracic echocardiogram with color flow and Doppler was performed. The study quality was technically adequate. There is no prior echocardiogram noted for this patient. The patient was in sinus bradycardia with heart rates between 47-55 bpm during the exam. Left Ventricle: The left ventricle is normal in size. There is mild concentric left ventricular hypertrophy. The ejection fraction is estimated to be 60-65%. Diastolic function could not be accurately assessed due to contradictory data. Right Ventricle: The right ventricle is normal in size and function. Atria: The left atrium is mildly dilated. Right atrial size is normal. There is no Doppler evidence for an interatrial shunt. Mitral Valve: The mitral valve is normal in structure and function. There is trace mitral regurgitation. Aortic Valve: The aortic valve is trileaflet. The aortic valve opens well. The aortic valve is slightly calcified. There is no aortic valve stenosis. No aortic regurgitation is present. Tricuspid Valve: The tricuspid valve is normal in structure and function. There is mild tricuspid regurgitation. The right ventricular systolic pressure is estimated to be at least 31 mmHg based on an estimated right atrial pressure of 3 mm Hg. Pulmonic Valve: The pulmonic valve leaflets are thin and pliable; valve motion is normal. There is no pulmonic valvular regurgitation. Great Vessels: The aortic root is normal size. The dimensions of the ascending aorta are normal. The IVC is of normal diameter and collapses greater than 50% with a sniff. This suggests a low right atrial pressure of 3 mm Hg. Pericardium/ Pleura There is no pericardial effusion. There is no pleural effusion. MMode/2D Measurements & Calculations LVIDd: 5.1 cm LVOT diam: 2.2 cm LVIDs: 3.0 cm Ao root diam: 2.9 cm FS: 42.1 % asc Aorta Diam: 3.5 cm EPSS: 0.60 cm Ao Arch Diam (Prox Trans): 2.6 cm IVSd: 1.1 cm LVPWd: 1.0 cm LV hinds. diameter/BSA (cm/m^2): 2.3 LV sys. diameter/BSA (cm/m^2): 1.3 LA A2 area: 19.6 cm2 RA long axis: 4.1 cm LA A4 area: 20.1 cm2 RA area: 16.0 cm2 LA length (vol): 5.2 cm RA vol: 52.4 ml LA vol: 64.7 ml RA : 23.5 ml/m2 LA vol index: 29.0 ml/m2 IVC diam: 1.7 cm RVD1 (basal): 2.8 cm TAPSE: 1.8 cm Doppler Measurements & Calculations Ao V2 max: 177.2 cm/sec LVOT Max Ayaan: 115.8 cm/sec Ao V2 mean: 115.6 cm/sec LV V1 max P.4 mmHg Ao max P.6 mmHg LV V1 VTI: 27.4 cm Ao mean P.1 mmHg SRINIVAS(I,D): 2.7 cm2 Ao V2 VTI: 40.5 cm SRINIVAS(V,D): 2.6 cm2 sev ratio: 0.68 SRINIVAS indexed to BSA (cm^2/m^2): 1.2 MV E max ayaan: 61.8 cm/sec TR max ayaan: 263.7 cm/sec MV A max ayaan: 62.2 cm/sec TR max P.8 mmHg MV E/A: 0.99 PA V2 max: 134.1 cm/sec Med Peak E' Ayaan: 4.4 cm/sec PA V2 mean: 87.7 cm/sec E/E' med: 14.1 PA mean P.6 mmHg Lat Peak E' Ayaan: 7.2 cm/sec E/E' lat: 8.5 E/e' average: 11.3 MV dec time: 0.32 sec SV(LVOT): 107.9 ml Reading Physician:10:56 AM
[2022-07-04 16:02] LABS: Free T4, Direct Thyroxine 1.52 ng/dL (0.78-2.19)
[2022-07-04] MEDS: dilTIAZem 30 MG TABLET PO ×2 (16:06→20:57)
[2022-07-04] MEDS: TERAZOSIN 5 MG CAPSULE 10 MG PO (20:55)
[2022-07-04] MEDS: APIXABAN 5 MG TABLET PO (20:55)
[2022-07-05] VITALS (7 sets, daily range): BP systolic 155–210; BP diastolic 63–83; PULSE 50–66; RESP 15–18; TEMP 36.1–36.7; O2SAT 96–98
[2022-07-05] MEDS: APIXABAN 5 MG TABLET PO ×2 (08:46→20:35)
[2022-07-05] MEDS: NYSTATIN POWDER 15GM 1 APPLIC TOP ×2 (08:46→20:36)
[2022-07-05] MEDS: TERAZOSIN 5 MG CAPSULE 10 MG PO ×2 (08:46→20:35)
[2022-07-05] MEDS: dilTIAZem CD 180 MG CAP PO (08:46)
--- NOTE | 2022-07-05 10:45 | PC.NURSE ---
Day Shift Alert and oriented x3. Denies dizziness when up but instructed to notify nursing staff if she does experience any dizziness. SBA/indep in room. SB in the 40-50s. Received long acting diltiazem this AM per MD order. Call light within reach, using appropriately to make needs known.
--- NOTE | 2022-07-05 11:10 | PM.PN.1 ---
Subjective Subjective Date Patient Seen: 07/05/22 Time Patient Seen: 08:15 Interval history: Patient with an uneventful evening. Somewhat hypertensive but otherwise uneventful. No further dysrhythmias Heart rate has been been in the 50s consistently Exam Vital Signs (past 8 hours): - 07/05/22 04:00 07/05/22 08:00 07/05/22 08:50 Temperature 97.3 F L 97.2 F L Pulse Rate 50 L 55 L Respiratory Rate 17 15 Blood Pressure 187/80 H 210/83 H Pulse Oximetry 97 97 Oxygen Delivery Method Room Air Oxygen Flow Rate 0 07/05/22 08:50 Temperature Pulse Rate Respiratory Rate Blood Pressure Pulse Oximetry 97 Oxygen Delivery Method Room Air Oxygen Flow Rate 0 Oxygen Delivery Method Room Air Oxygen Flow Rate 0 Objective Imaging Echo: Radiologist's impression: ? Echocardiogram Report + + :Name: JACQUELYN PANCHAL ? Study Date: 07/05/2022 ? Height: 68 in? : :[facility] ? ? ReadingLocation: ? Weight: 245 lb : : ? Gender: Female ? BSA: 2.2 m2? ? : :: 1955? Age: 67 yrs? BP: 188/83 mmHg: :Reason For Study: ATRIAL FIBRILLATION? : :Ordering Physician: MICHAEL,? : :THOM Land ? Performed By: Ragini Baeza? : :Referring: THOM CINTRON? : + + Interpretation Summary There is mild concentric left ventricular hypertrophy. The ejection fraction is estimated to be 60-65%. Diastolic function could not be accurately assessed due to contradictory data. The left atrium is mildly dilated. The right ventricle is normal in size and function. There is mild tricuspid regurgitation. The right ventricular systolic pressure is estimated to be at least 31 mmHg based on an estimated right atrial pressure of 3 mm Hg. ? Procedure: ? A two-dimensional transthoracic echocardiogram with color flow and Doppler was performed. The study quality was technically adequate. There is no prior echocardiogram noted for this patient. The patient was in sinus bradycardia with heart rates between 47-55 bpm during the exam. Left Ventricle: ? The left ventricle is normal in size. There is mild concentric left ventricular hypertrophy. The ejection fraction is estimated to be 60-65%. Diastolic function could not be accurately assessed due to contradictory data. Right Ventricle: ? The right ventricle is normal in size and function. Atria: ? The left atrium is mildly dilated. Right atrial size is normal. There is no Doppler evidence for an interatrial shunt. Mitral Valve: ? The mitral valve is normal in structure and function. There is trace mitral regurgitation. Aortic Valve: ? The aortic valve is trileaflet. The aortic valve opens well. The aortic valve is slightly calcified. There is no aortic valve stenosis. No aortic regurgitation is present. Tricuspid Valve: ? The tricuspid valve is normal in structure and function. There is mild tricuspid regurgitation. The right ventricular systolic pressure is estimated to be at least 31 mmHg based on an estimated right atrial pressure of 3 mm Hg. Pulmonic Valve: ? The pulmonic valve leaflets are thin and pliable; valve motion is normal. There is no pulmonic valvular regurgitation. Great Vessels: ? The aortic root is normal size. The dimensions of the ascending aorta are normal. The IVC is of normal diameter and collapses greater than 50% with a sniff. This suggests a low right atrial pressure of 3 mm Hg. Pericardium/ Pleura ? There is no pericardial effusion. There is no pleural effusion. ? MMode/2D Measurements & Calculations LVIDd: 5.1 cm? LVOT diam: 2.2 cm LVIDs: 3.0 cm? Ao root diam: 2.9 cm FS: 42.1 % ? asc Aorta Diam: 3.5 cm EPSS: 0.60 cm? Ao Arch Diam (Prox Trans): 2.6 cm IVSd: 1.1 cm LVPWd: 1.0 cm LV hinds. diameter/BSA (cm/m^2): 2.3 LV sys. diameter/BSA (cm/m^2): 1.3 ? LA A2 area: 19.6 cm2 ? RA long axis: 4.1 cm LA A4 area: 20.1 cm2 ? RA area: 16.0 cm2 LA length (vol): 5.2 cm? RA vol: 52.4 ml LA vol: 64.7 ml? RA : 23.5 ml/m2 LA vol index: 29.0 ml/m2 ? IVC diam: 1.7 cm ? RVD1 (basal): 2.8 cm TAPSE: 1.8 cm ? Doppler Measurements & Calculations Ao V2 max: 177.2 cm/sec ? LVOT Max Ayaan: 115.8 cm/sec Ao V2 mean: 115.6 cm/sec? LV V1 max P.4 mmHg Ao max P.6 mmHg? LV V1 VTI: 27.4 cm Ao mean P.1 mmHg? SRINIVAS(I,D): 2.7 cm2 Ao V2 VTI: 40.5 cm? SRINIVAS(V,D): 2.6 cm2 ? sev ratio: 0.68 ? SRINIVAS indexed to BSA (cm^2/m^2): 1.2 ? MV E max ayaan: 61.8 cm/sec ? TR max ayaan: 263.7 cm/sec MV A max ayaan: 62.2 cm/sec ? TR max P.8 mmHg MV E/A: 0.99? PA V2 max: 134.1 cm/sec Med Peak E' Ayaan: 4.4 cm/sec ? ? ? PA V2 mean: 87.7 cm/sec E/E' med: 14.1? PA mean P.6 mmHg Lat Peak E' Ayaan: 7.2 cm/sec E/E' lat: 8.5 E/e' average: 11.3 MV dec time: 0.32 sec ? SV(LVOT): 107.9 ml Labs 07/04/22 11:48 07/04/22 11:48 Labs: Laboratory Results - last 24 hr 07/04/22 07/04/22 07/04/22 11:48 11:48 11:48 WBC 7.8 RBC 4.77 Hgb 14.3 Hct 42.7 MCV 89.6 MCH 30.0 MCHC 33.5 RDW 14.1 Plt Count 237 Neut % (Auto) 61.0 Lymph % (Auto) 24.9 L Elbert % (Auto) 9.9 Eos % (Auto) 3.5 Baso % (Auto) 0.7 Neut # (Auto) 4700 Lymph # (Auto) 1900 Elbert # (Auto) 800 Eos # (Auto) 300 Baso # (Auto) 100 PT 10.9 INR 1.0 APTT 31 Sodium 140 Potassium 3.4 Chloride 105 Carbon Dioxide 25 BUN 21 H Creatinine 0.88 Estimated GFR > 60 BUN/Creatinine Ratio 23.9 H Glucose 123 H Calcium 10.2 Magnesium 1.9 Total Bilirubin 0.5 AST 27 ALT 29 Alkaline Phosphatase 79 Total Creatine Kinase 159 H CK-MB (CK-2) 3.63 H CK-MB (CK-2) Rel Index 2.3 Troponin I 0.018 NT-Pro-B Natriuret Pep Total Protein 7.7 Albumin 4.5 Globulin 3.2 Albumin/Globulin Ratio 1.4 Lipase 74 TSH Free T4 SARS-CoV-2 (PCR) 07/04/22 07/04/22 07/04/22 11:48 11:48 11:53 WBC RBC Hgb Hct MCV MCH MCHC RDW Plt Count Neut % (Auto) Lymph % (Auto) Elbert % (Auto) Eos % (Auto) Baso % (Auto) Neut # (Auto) Lymph # (Auto) Elbert # (Auto) Eos # (Auto) Baso # (Auto) PT INR APTT Sodium Potassium Chloride Carbon Dioxide BUN Creatinine Estimated GFR BUN/Creatinine Ratio Glucose Calcium Magnesium Total Bilirubin AST ALT Alkaline Phosphatase Total Creatine Kinase CK-MB (CK-2) CK-MB (CK-2) Rel Index Troponin I NT-Pro-B Natriuret Pep 457 H Total Protein Albumin Globulin Albumin/Globulin Ratio Lipase TSH 2.85 D Free T4 SARS-CoV-2 (PCR) Negative 07/04/22 15:09 WBC RBC Hgb Hct MCV MCH MCHC RDW Plt Count Neut % (Auto) Lymph % (Auto) Elbert % (Auto) Eos % (Auto) Baso % (Auto) Neut # (Auto) Lymph # (Auto) Elbert # (Auto) Eos # (Auto) Baso # (Auto) PT INR APTT Sodium Potassium Chloride Carbon Dioxide BUN Creatinine Estimated GFR BUN/Creatinine Ratio Glucose Calcium Magnesium Total Bilirubin AST ALT Alkaline Phosphatase Total Creatine Kinase CK-MB (CK-2) CK-MB (CK-2) Rel Index Troponin I NT-Pro-B Natriuret Pep Total Protein Albumin Globulin Albumin/Globulin Ratio Lipase TSH Free T4 1.52 SARS-CoV-2 (PCR) [facility] Medical History Cataracts, bilateral (~2017) Chicken pox (~1962) Chronic migraine Chronic renal failure, stage 3a Diverticular disease of colon (~1987) Endometriosis (~1995) Essential hypertension (~1989) Fractures (~2010) Frequent UTI Measles (~1964) Migraines Near sighted Ovarian cyst (~1995) Urinary incontinence (~2001) Surgical History Anesthesia History of foot surgery (~2010) Status post appendectomy (~1995) Status post right oophorectomy (~1995) Family History Father History of heart disease Hypertension Hyperlipidemia Mother Breast cancer Stroke Brother History of heart disease Hyperlipidemia Hypertension Brother Diabetes mellitus Hypertension Grandfather History of heart disease Hyperlipidemia Hypertension Grandmother Stroke Grandfather History of heart disease Hyperlipidemia Hypertension Grandmother Tuberculosis Social History household members: spouse Smoking Status: Never smoker Assessment & Plan Assessment & Plan narrative: 1. Paroxysmal atrial fibrillation-no evidence of recurrence. Continue with calcium channel mathieu switching to long-acting version today. Echo shows mild left ventricular hypertrophy consistent with her known long-term diagnosis of hypertension otherwise no significant valvular disease and only mild dilatation of left atrium. Thyroid studies normal. Continues on anticoagulation which should be continued at discharge as well 2. Hypertension-not well controlled. Now off atenolol and off amlodipine trying to find a correct dose of diltiazem. Continue with ramipril and terazosin which are both of her antihypertensives. Thus far it seems like she can tolerate a fair dose of the diltiazem, and will likely be able to discharge her perhaps later today on that combination Quality VTE Deep Vein Thrombosis/Pulmonary Embolism Present on Admission: No
--- NOTE | 2022-07-05 12:14 | CM.DANOTE ---
DC Assessment: Patient is a 67 yr old female who was admitted for AFIB with RVR. CM met with patient at the bedside who was alert and oriented x4 during meeting. patient currently lives in [place] with her Amrik who is currently out of the state until next . Patient states she is Independent with all ADls and drives at her baseline. Patient plans on DC home with no need will just need her medications sent to [facility] so she can pick them up here before she DC home when she is medically stable to do so. PCP: Dr lyles Insurance: MCR and [employer] PLAN: DC home when medically stable with new RX sent to [facility] here at the hospital so she can refill them prior to DC home when medically ready. CM team will continue to follow to help support patient with any new DC planning needs that may arise. Mariela Seth RNbankruptcy attorney Discharge Planning/Care Management CM Discharge Assessment Start: 07/05/22 12:13 Freq: Status: Active Protocol: Document 07/05/22 12:13 HS (Rec: 07/05/22 12:14 HS [id number]) Discharge Planning Assessment Assigned Tradeshow Worker Mariela Seth RNadvertising traffic manager Advance Directives? No History Provided By Patient,Medical Record Has Patient been admitted in last 30 No days? Prior Living Arrangements House Household Members spouse Type of transporation used prior to Drives own vehicle admit Independent with ADL's Yes Is patient alert and oriented? Yes Caregiver for Another No Barriers to Discharge No Discharge Plan Home Referrals Initiated None needed Whiteboard Updated in Patient Room with Yes name and ext. # of Tradeshow Worker Review Status In Process Next Review Type Continued Stay Review
[2022-07-06] VITALS: BP 156/77; PULSE 57; RESP 17; TEMP 36.1; O2SAT 98
[2022-07-06 04:00] VITALS: BP 153/75; PULSE 55; RESP 16; TEMP 36.4; O2SAT 98
--- NOTE | 2022-07-06 06:43 | P.DS_ITS ---
History of Present Illness History of Present Illness Date Patient Seen: 07/06/22 Time Patient Seen: 06:44 Chief complaint: sent by DR/chest pain/pressure/SOB Narrative: 67-year-old female who had several episodes of heart palpitations while traveling in [place] in the process of having this evaluated who had persistent symptoms today. She came to my office with the symptoms I directed her to the emergency department where she is found to be in atrial fibrillation with rapid ventricular response. She spontaneously converted back to sinus rhythm with a heart rate in the 40s. Patient apparently has a longstanding history of significant bradycardia to m edication has proven to be very sensitive to medication when tried for her hypertension and is quite apprehensive about different cardiac medications After conversion her heart rate was in the 40s blood pressure was in the 180 systolic. She was relatively asymptomatic. Cardiology was consulted who recommended switching her to oral diltiazem in an effort to better control her atrial fibrillation and her blood pressure. She would then need to be seen by an charter boat operator for further evaluation as she may well be someone who needs pacemaker placement to allow for appropriate treatment of her atrial fibrillation and its associated tachycardia As noted above patient longstanding history of hypertension on an interesting an unusual combination of antihypertensives because of her intolerance of various medications (details of which are not available, except for concerns around bradycardia) Discharge Providers Provider Date of admission: 07/04/22 14:35 Discharge Date: 07/06/22 Primary care physician: Raymundo Cintron MD Discharge provider: Raymundo Cintron MD Summary Hospital Course Discharge Diagnosis: 1. Paroxysmal atrial fibrillation 2. Sinus bradycardia 3. Hypertension 4. Chronic renal failure stage 3 a 5. Chronic migraine headache disorder Hospital Course: Patient presented to the emergency department with atrial fibrillation and rapid ventricular response. She spontaneously self converted back to sinus rhythm with sinus bradycardia. Discussion was held with Cardiology as noted in her history and physical who recommended discontinuing beta-mathieu therapy and instituting diltiazem orally in effort to better control rate and or prevent recurrent atrial fibrillation. This was successful. She came into the hospital taking amlodipine plus atenolol and both of these were discontinued in favor of diltiazem CD which seem to be fairly accurate in controlling blood pressure. Patient continued on her alpha mathieu and HANY inhibitor as well. There is no evidence of recurrent atrial fibrillation Echocardiography was essentially unremarkable although perhaps early signs of le ft ventricular hypertrophy consistent with a longstanding history of hypertension Status at Discharge Cognitive/behavioral status at discharge: at baseline, oriented Functional status at discharge: independent ambulation Overall status at discharge: patient is back to baseline Exam Vital Signs (past 8 hours): - 07/06/22 00:00 07/06/22 04:00 Temperature 97.0 F L 97.6 F Pulse Rate 57 L 55 L Respiratory Rate 17 16 Blood Pressure 156/77 H 153/75 H Pulse Oximetry 98 98 Oxygen Delivery Method Room Air Oxygen Flow Rate 0 Objective Labs 07/04/22 11:48 07/04/22 11:48 [facility] Medical History Cataracts, bilateral (~2017) Chicken pox (~1962) Chronic migraine Chronic renal failure, stage 3a Diverticular disease of colon (~1987) Endometriosis (~1995) Essential hypertension (~1989) Fractures (~2010) Frequent UTI Measles (~1964) Migraines Near sighted Ovarian cyst (~1995) Urinary incontinence (~2001) Surgical History Anesthesia History of foot surgery (~2010) Status post appendectomy (~1995) Status post right oophorectomy (~1995) Family History Father History of heart disease Hypertension Hyperlipidemia Mother Breast cancer Stroke Brother History of heart disease Hyperlipidemia Hypertension Brother Diabetes mellitus Hypertension Grandfather History of heart disease Hyperlipidemia Hypertension Grandmother Stroke Grandfather History of heart disease Hyperlipidemia Hypertension Grandmother Tuberculosis Social History household members: spouse Smoking Status: Never smoker Discharge Assessment & Plan Assessment and Plan Plan of Treatment: Patient will be discharged on listed medications which is basically discontinuation of atenolol and amlodipine in favor of diltiazem 180 mg CD Patient will be set up for an outpatient evaluation with electrophysiology at [facility] Patient also be seen in the outpatient clinic by Dr. Cintron, her PCP Discharge Plan Discharge Plan Patient Disposition: Home Discharge orders & Medications Prescriptions: New Eliquis 5 mg Tablet 5 mg PO BID Qty: 60 8RF diltiazem HCl 180 mg capsule,extended release 24hr 180 mg PO DAILY Qty: 30 6RF Continued ramipril 10 mg capsule 10 mg PO BID Qty: 180 3RF terazosin 10 mg capsule 10 mg PO BID Qty: 180 3RF Calcium Carbonate 1,200 mg 1 tab PO DAILY multivitamin Tablet 1 tab PO DAILY Vitamin D 60 mcg 1 tab PO DAILY ascorbic acid (vitamin C) 1,000 mg tablet 1 g PO DAILY cranberry extract 650 mg capsule 650 mg PO DAILY Rx Instructions: administer with a meal Magnesium Malate 625 mg 1 tab PO DAILY Probiotic 10 Capsule 170 mg 1 tab PO DAILY nystatin 100,000 unit/gram powder 1 applic topical TID Qty: 60 3RF Discontinued amlodipine 10 mg tablet 10 mg PO DAILY Qty: 90 3RF atenolol 25 mg tablet 25 mg PO BID Patient Comments: 12.5 in am, 12.5 afternoon, 25 at bedtime Follow up/Referrals: Raymundo Cintron MD [Primary Care Provider] - 1 Week Discharge Health Status Multidrug resistant organism: No MDRO Diet/Activity/Treatments Diet: Diet as Tolerated Visit Report/Discharge Packet Stand Alone Forms: Patient Portal/API Discharge Data Primary Care Provider: Raymundo Cintron Attending Provider: Raymundo Cintron Admit Date/Time: 07/04/22 14:35 Quality VTE Deep Vein Thrombosis/Pulmonary Embolism Present on Admission: No
[2022-07-06 07:00] VITALS: O2SAT 96
--- NOTE | 2022-07-06 07:00 | PC.NURSE ---
Pt has slept most of the shift; she ambulates in the halls independently; she is probable discharge for today
[2022-07-06 08:00] VITALS: BP 110/59; PULSE 85; RESP 20; TEMP 36.2; O2SAT 96
[2022-07-06] MEDS: TERAZOSIN 5 MG CAPSULE 10 MG PO (08:50)
[2022-07-06] MEDS: dilTIAZem CD 180 MG CAP PO (08:50)
[2022-07-06] MEDS: APIXABAN 5 MG TABLET PO (08:50)
[2022-07-06] MEDS: NYSTATIN POWDER 15GM 1 APPLIC TOP (08:51)
--- NOTE | 2022-07-06 15:09 | CM.DPNOTE ---
DC Note Discharge home as expected, close outpatient follow up, no CM team needs identified JW
== END 2022-07-06 11:15 | disposition home or self-care (01) ==
LOC: ED 14:29 → AC 14:36
PROVIDERS: Admitting Provider Internal Medicine; Emergency Provider Emergency Medicine; PCP Internal Medicine; Referring Provider Emergency Medicine; Visit Provider Internal Medicine
DX: I48.0 Paroxysmal atrial fibrillation (principal); R00.1 Bradycardia, unspecified; I12.9 Hypertensive chronic kidney disease with stage 1 through stage 4 chronic kidney disease, or unspecified chronic kidney disease; N18.31 Chronic kidney disease, stage 3a; G43.809 Other migraine, not intractable, without status migrainosus; Z20.822 Contact with and (suspected) exposure to COVID-19
CPT/HCPCS: 36415; 71045; 80053; 81003; 82550; 82553; 83690; 83735; 83880; 84439; 84443; 84484; 85025; 85610; 85730; 87635; 93005; 93306; 99223; 99233; 99238; 99284; C9803; G0378

== ENCOUNTER → 2022-07-19 13:21 | Outpatient (CLI) | payer MEDICARE, OTHER, SELFPAY ==
[2022-07-04 15:10] VITALS: BMI 37.2
--- NOTE | 2022-07-19 13:41 | DI.US.S_ITS ---
PROCEDURE: [facility] VENOUS LOW EXTREM LT INDICATIONS: LEFT POSTERIOR KNEE PAIN TECHNIQUE: Real-time imaging, as well as color and pulse Doppler interrogation, were performed of the lower extremity deep veins from the inguinal ligament to the popliteal fossa. COMPARISON: [facility], , [facility] VENOUS LOW EXTREM LT, 06/30/2022, 13:23. FINDINGS: The common femoral, femoral and popliteal veins are normally compressible, and free of intraluminal thrombus. Color and pulse Doppler demonstrate normal phasic intraluminal flow. There is normal augmentation response to distal compression maneuver. There is a popliteal fossa cyst which measures 2.3 x 3.7 x 1.2 cm. IMPRESSION: 1. No deep vein thrombosis of the left lower extremity. 2. Su's cyst. Dictated by: Tabitha Sorto M.D. on 07/19/2022 at 14:28 Approved by: Tabitha Sorto M.D. on 07/19/2022 at 14:29
== END ==
PROVIDERS: Family Provider Internal Medicine; PCP Internal Medicine; Referring Provider Physician Assistant; Visit Provider Physician Assistant
DX: M71.22 Synovial cyst of popliteal space [Baker], left knee (principal); M79.652 Pain in left thigh
CPT/HCPCS: 93971

== ENCOUNTER → 2022-08-23 10:18 | Outpatient (CLI) | payer MEDICARE, OTHER, SELFPAY ==
[2022-07-04 15:10] VITALS: BMI 37.2
--- NOTE | 2022-08-23 | DI.NM.S_ITS ---
PROCEDURE: NM NOEMI PERF SPECT R&S PHARM Rest and pharmacological stress myocardial perfusion SPECT with gated imaging and ejection fraction RADIOPHARMACEUTICAL: 24.8 mCi Tc-99m tetrafosmin IV at rest and 24.6 mCi Tc-99m tetrafosmin IV at peak effect of pharmacological stress. [id number] was performed. INDICATIONS: Chest pain, unspecified TECHNIQUE: Radiopharmaceutical was injected at peak stress test, and also at rest. SPECT images were obtained. SPECT myocardial perfusion images were displayed in short axis, horizontal long axis, and vertical long axis views. Gated images were reviewed using [employer] software. COMPARISON: None. CARDIAC STRESS: A pharmacologic stress test was performed under the supervision of an attending staff, using an infusion of regadenoson 0.4 mg IV. Hemodynamic data: There is normal blood pressure and heart rate response to pharmacologic stress. Symptoms: The patient denied anginal chest pain. EKG: No diagnostic changes of ischemia; no ectopy. FINDINGS: Raw data: There is good myocardial uptake of radiotracer. No significant motion artifacts. Left ventricle function: Gated images demonstrate normal left ventricular wall thickening. No segmental wall motion abnormalities. No transient ischemic dilation; TID is 0.91 (normal less than 1.3). Left ventricle resting end diastolic volume is 142 mL. Left ventricle stress ejection fraction is 72%; normal range is above 45%. Myocardial perfusion: There is small size, mild intensity fixed anterior apical defect that resolves in prone imaging. No reversible perfusion defects. IMPRESSION: Low risk study. No evidence of pharmacologic induced ischemia or scar. The fixed anteroapical wall defect resolves in prone imaging making this most consistent with attenuation artifact. Normal LV function with an increased calculated LVEDV. Dictated by: Deja Andrews D.O. on 08/24/2022 at 15:27 Approved by: Deja Andrews D.O. on 08/24/2022 at 15:31
== END ==
PROVIDERS: Family Provider Internal Medicine; PCP Internal Medicine; Referring Provider Internal Medicine Cardiovascular Disease; Visit Provider Internal Medicine Cardiovascular Disease
DX: R07.89 Other chest pain (principal)
CPT/HCPCS: 78452; 93017; A9502; J2785

== ENCOUNTER → 2022-10-17 10:50 | Outpatient (CLI) | payer MEDICARE, OTHER, SELFPAY ==
[2022-08-25 14:35] VITALS: BMI 37.2
[2022-10-17 12:15] LABS: Cholesterol 267 mg/dL (140-199); HDL Cholesterol 71 mg/dL (40-60); LDL Cholesterol Calculated 167 mg/dL (<100); Triglycerides 146 mg/dL (35-150)
[2022-10-17 12:45] LABS: TSH w/ Reflex to FT4 2.77 uIU/mL (0.47-4.68)
[2022-10-18 06:05] LABS: Labcorp Hemoglobin (Hb) A1c 5.4 % (4.8-5.6)
== END ==
PROVIDERS: Family Provider Internal Medicine; PCP Internal Medicine; Referring Provider Internal Medicine Cardiovascular Disease; Visit Provider Internal Medicine Cardiovascular Disease
DX: I48.0 Paroxysmal atrial fibrillation (principal); R73.9 Hyperglycemia, unspecified; Z13.220 Encounter for screening for lipoid disorders
CPT/HCPCS: 36415; 80061; 83036; 84443

== ENCOUNTER 2022-10-18 12:00 | Outpatient (RCR) | payer MEDICARE, OTHER, SELFPAY ==
[2022-07-04 15:10] VITALS: BMI 37.2
--- NOTE | 2022-07-27 11:23 | PT.OIE ---
Current Diagnoses Pain in left knee (07/26/22) Past Medical History (Last Reviewed 07/14/22 @ 11:13 by Jenna Alexandra PA-C) Cataracts, bilateral (~2017) Chicken pox (~1962) Chronic migraine Chronic renal failure, stage 3a Diverticular disease of colon (~1987) Endometriosis (~1995) Essential hypertension (~1989) Fractures (~2010) Frequent UTI Measles (~1964) Migraines Near sighted Ovarian cyst (~1995) Urinary incontinence (~2001) Past Surgical History (Last Reviewed 07/14/22 @ 11:13 by Jenna Alexandra PA-C) Anesthesia History of foot surgery (~2010) Status post appendectomy (~1995) Status post right oophorectomy (~1995) Visit Care Team Role Provider Type Raymundo Cintron MD Attending Provider Physician Family Provider Primary Care Provider Referring Provider Specialty: Internal Medicine Address: [address] [place] [address], [facility] Email: [email or web address] Physical Therapy Initial Evaluation PT-OP-A Visit Information Start: 07/26/22 10:09 Freq: Status: Active Protocol: Document 07/26/22 10:27 [facility] (Rec: 07/26/22 10:52 [facility] [id number]) Out-Patient Physical Therapy Visit Information Visit Information Visit Type Initial Evaluation Visit Start Time 10:30 Visit Stop Time 11:15 Total Visit Minutes 45 Visit Number 1 Evaluation Information Evaluation Date 07/26/22 PT-OP-B Current Condition Start: 07/26/22 10:09 Freq: Status: Active Protocol: Document 07/26/22 10:27 [facility] (Rec: 07/26/22 10:52 [facility] [id number]) Current Condition History of Current Condition Onset Date mid may 2022 History of Current Condition She was walking 6 days a week 45 min - 1 hour. One day she didn't have much sleep the night before and she was in her recliner with her body turned to the left. A hour leter when she got up she had pain down the back of the left leg with pain behind her knee . Now if she sits down everytime she gets up she has pain behind her left knee. After she has been standing for a while the pain seems to decrease. Recently the pain started to radiate up the lateral side of her left leg and lateral side. Being in the car for a long time is the worst. Once she gets out it takes a bit for her to be able to walk off the pain. After she has walked around for awhile it decreases. She has tried icing but it didn't make any difference. She is unable to sleep on either side at this time. She tries to keep her left leg straight, its something about having it bent that causes pain. If she straightens her legs out for 30 min before getting out of bed it helps her walking. pain is in the back but more on the outside. Prior Treatments and Tests SHe had a ultrasound last sunday that was negative for blood clot but did show a bakers cysts. PT-OP-C Subjective Start: 07/26/22 10:09 Freq: Status: Active Protocol: Document 07/26/22 10:30 [facility] (Rec: 07/26/22 13:50 [facility] [id number]) Patient Questionnaires Lower Extremity Functional Scale LEFS Score 33 LEFS Impairment 40 to 59% Impaired (Score 32- 47) OP-PT Pain Assessment Location left knee posterior lateral pain Intensity 6 Scale Used Numeric (0 - 10) Description- Other worse after and with sitting PT-OP-F Manual Assessment Start: 07/26/22 10:09 Freq: Status: Active Protocol: Document 07/26/22 10:30 [facility] (Rec: 07/27/22 11:14 [facility] [id number]) Manual Assessments Soft Tissue Assessment Soft Tissue Mobility Assessment tightness in the lateral gastroc musculature and peroneal muscles, tightness from distal ITB insertion up the lateral left leg, tightness throughout the left hamstrings especially at distal insertions Joint Mobility Assessment Joint Mobility Assessment tenderness over the left tib/ fib joint, difficult to assess joint mobility, pain with knee flexion, pt notes improvement of symptoms with knee extension PT-OP-J Posture/Palpation/Skin Start: 07/26/22 10:09 Freq: Status: Active Protocol: Document 07/26/22 10:30 [facility] (Rec: 07/26/22 11:43 [facility] [id number]) Palpation Assessment Location left lateral gastroc musculature Palpation Findings Soft Tissue Tightness,Muscle Guarding,Tenderness LEFT ITB Palpation Findings Soft Tissue Tightness,Spasm, Muscle Guarding,Tenderness Palpation Details tenderness along the left lateral ITB from orgin to insertion especially at the lateral tibia attachment left lateral tib fib joint Palpation Findings Soft Tissue Tightness,Spasm, Tenderness Palpation Details tenderness to palpation at the left lateral tib/fib joint PT-OP-K Range of Motion Start: 07/26/22 10:09 Freq: Status: Active Protocol: Document 07/26/22 10:30 [facility] (Rec: 07/26/22 11:43 [facility] [id number]) Hip Goniometric Range of Motion Hip Right Hip ROM WFL No Testing Position Supine Straight Leg Raise 55 Left Hip ROM WFL No Testing Position Supine Straight Leg Raise 45 Hip ROM Limitations Hip ROM Limitations Soft Tissue Tightness Comments left greater than right hamstring and ITB tightness Knee Goniometric Range of Motion Knee Left Knee ROM WFL No Patient Position Supine Flexion Active (degrees) 118 Flexion Passive (degrees) 120 Comments pain is reproduced at the lateral posterior knee with knee flexion PT-OP-M Strength Start: 07/26/22 10:09 Freq: Status: Active Protocol: Document 07/26/22 10:30 [facility] (Rec: 07/27/22 11:11 [facility] [id number]) Knee Strength Knee Manual Muscle Testing Left Flexion (S2) 3 Fair Extension (L3) 3 Fair Comments pain with resisted knee flexion at the lateral knee PT-OP-Q Treatments Start: 07/26/22 10:09 Freq: Status: Active Protocol: Document 07/26/22 11:37 [facility] (Rec: 07/26/22 11:43 [facility] [id number]) Therapeutic Exercises Supine Exercises SUPINE ITB STRETCH Reps/Minutes 2 reps holding 30sec to 1 min Comments opp knee bent SUPINE HAMSTRING STRETCH WITH STRAP Side bilateral Reps/Minutes 2 reps holding 30 sec to 1 min Comments opp knee bent Sitting Exercises seated hamstring stretch Reps/Minutes hold 1-2 min Standing Exercises standing calf stretch Side bilateral Reps/Minutes hold 30 sec to 1 min x 2 Comments cues to keep back foot straight Manual Therapy Treatment Soft Tissue Mobilization STM over the lateral tib fib calf and ITB attachments Mobilization Type Myofascial Release Intensity/Depth Moderate Body Position Prone Comments good tolerance and pt noted decreased tenderness following MFR techniques PT-OP-T Assessment and Plan Start: 07/26/22 10:09 Freq: Status: Active Protocol: Document 07/26/22 10:30 [facility] (Rec: 07/26/22 13:47 [facility] [id number]) Physical Therapy Assessment Rehab Potential Rehabilitation Potential Good Evaluation Complexity Number of Personal Factors/Comorbidities 0 Number of Body Systems Impaired 1-2 Clinical Presentation at Evaluation Stable Impairments Impairments Activity Tolerance,Edema, Functional Activities, Functional Mobility,Gait,Pain, ROM,Soft Tissue Mobility, Strength Goals 3 Impairment pt notes quite a bit of difficulty with functional activities such at going up and down a flight of stairs and walking more than 2 blocks . Hat Braider Goal (LTG) Kelsie is able to return to her walks of 2-3 miles adding in stretches at the end of her walks to decrease tightness and pulling on her knee, she is able to return to her baseline for functional activities such as her ability to ambulate up and down stairs. LTG Duration 12 weeks 2 Impairment tightness of the ITB distal attachments on the left, lateral calf musculature, and hamstring tightness Short Term Goal (STG) pt is educated in a home stretching program for her calf, ITB, and hamstrings STG Duration 4 weeks Long-Term Goal (LTG) Pt demonstrates with decreased tightness and improvements in muscle length. Her SLR is 50 deg or greater on the left side LTG Duration 12 weeks 1 Impairment pain in the left lateral and posterior knee rated 6/10, worse after she has been sitting or after riding in the car Long-Term Goal (LTG) With PT and a home stretching program Kelsie reports a overall reduction in her pain levels to 1-2/10 and notes she is able to sit without a increase pain in her left knee LTG Duration 12 weeks Assessment Summary Assessment Kelsie is a 67 year old female referred to PT with c/o left sided posterior lateral knee pain that began in May 2022. Pt notes her pain came on with in insidious onset after she had been sitting in her recliner with both knees turned to the left and fell asleep in this position x 1 hour. Her pain is worse with sitting or driving and better as she walks. She has pain initially after standing and she has to walk out the pain and then things get better. Kelsie has had a ultrasound to rule out blood clots and this was negative for a blood clot but did show a bakers cyst behind the left knee. She had been walking 45 min - 1 hour 6-7 days a week prior to her pain beginning in may . Pt notes that she has found if she straightens her legs out in bed prior to getting up it makes the pain decrease. With examination today she is tender along the ITB attachment and especially at the lateral tibia. She has tenderness at the proximal tib /fib joint and along the lateral calf attachments to the LE. There is some tenderness over the bakers cyst region but not as much tenderness as at the lateral tib fib joint. Kelsie is tight in her hamstrings, ITB and calf muscles left greater than right. She lacks full knee ROM into flexion on the left and pain is reproduced at 118 degrees flexion. Kelsie would benefit from a LE stretching program that she can do after her walks as well as throughout the day to help with pain. I did do some MFR over the ITB and lateral calf attachment today and Kelsie tolerated this well. Our goal will be to return her to walking. She is nervous at this time to go out walking that her knee will start to hurt and she won't be able to get back home. We discussed getting a set of walking sticks for extra support for her and to try a flat trail with shorter distances such as the walking path around [place]. Kelsie tolerated treatment well today and is a good candidate for PT Physical Therapy Plan Frequency and Duration Frequency of Treatment 2x/Week Duration of treatment (weeks) 12 Plan of Care Start Date 07/26/22 Plan of Care End Date 10/18/22 Therapeutic Interventions Therapeutic Interventions Home Exercise Program,Manual Therapy,Patient/Caregiver Education,Self-Care/Home Management,Soft Tissue Mobilization,Therapeutic Exercises Modalities Cold Pack/Ice Massage Next Visit Focus/Plan Next Note Type Treatment Note Next Visit Plan review stretches given today, manual therapy work over the calf and ITB attachments to the tib/fib joint, trial of the recumbent bike or biodex next visit
--- NOTE | 2022-08-01 12:52 | PT.OTN ---
Current Diagnoses Pain in left knee (08/01/22) Physical Therapy Treatment Note PT-OP-A Visit Information Start: 07/26/22 10:09 Freq: Status: Active Protocol: Document 08/01/22 09:00 [facility] (Rec: 08/01/22 09:48 [facility] [id number]) Out-Patient Physical Therapy Visit Information Visit Information Visit Type Treatment Note Visit Start Time 09:00 Visit Stop Time 09:45 Total Visit Minutes 45 Visit Number 2 Evaluation Information Evaluation Date 07/26/22 PT-OP-B Current Condition Start: 07/26/22 10:09 Freq: Status: Active Protocol: Document 07/26/22 10:27 [facility] (Rec: 07/26/22 10:52 [facility] [id number]) Current Condition History of Current Condition Onset Date mid may 2022 History of Current Condition She was walking 6 days a week 45 min - 1 hour. One day she didn't have much sleep the night before and she was in her recliner with her body turned to the left. A hour leter when she got up she had pain down the back of the left leg with pain behind her knee . Now if she sits down everytime she gets up she has pain behind her left knee. After she has been standing for a while the pain seems to decrease. Recently the pain started to radiate up the lateral side of her left leg and lateral side. Being in the car for a long time is the worst. Once she gets out it takes a bit for her to be able to walk off the pain. After she has walked around for awhile it decreases. She has tried icing but it didn't make any difference. She is unable to sleep on either side at this time. She tries to keep her left leg straight, its something about having it bent that causes pain. If she straightens her legs out for 30 min before getting out of bed it helps her walking. pain is in the back but more on the outside. Prior Treatments and Tests SHe had a ultrasound last sunday that was negative for blood clot but did show a bakers cysts. PT-OP-C Subjective Start: 07/26/22 10:09 Freq: Status: Active Protocol: Document 08/01/22 09:00 [facility] (Rec: 08/01/22 09:48 [facility] [id number]) OP-PT Subjective Patient Comments Patient Comments pt reports the stretches help but they are only temporary. If she sits for any length of time she will feel tight again especially when she stands in the left posterior lateral knee PT-OP-F Manual Assessment Start: 07/26/22 10:09 Freq: Status: Active Protocol: Document 07/26/22 10:30 [facility] (Rec: 07/27/22 11:14 [facility] [id number]) Manual Assessments Soft Tissue Assessment Soft Tissue Mobility Assessment tightness in the lateral gastroc musculature and peroneal muscles, tightness from distal ITB insertion up the lateral left leg, tightness throughout the left hamstrings especially at distal insertions Joint Mobility Assessment Joint Mobility Assessment tenderness over the left tib/ fib joint, difficult to assess joint mobility, pain with knee flexion, pt notes improvement of symptoms with knee extension PT-OP-J Posture/Palpation/Skin Start: 07/26/22 10:09 Freq: Status: Active Protocol: Document 07/26/22 10:30 [facility] (Rec: 07/26/22 11:43 [facility] [id number]) Palpation Assessment Location left lateral gastroc musculature Palpation Findings Soft Tissue Tightness,Muscle Guarding,Tenderness LEFT ITB Palpation Findings Soft Tissue Tightness,Spasm, Muscle Guarding,Tenderness Palpation Details tenderness along the left lateral ITB from orgin to insertion especially at the lateral tibia attachment left lateral tib fib joint Palpation Findings Soft Tissue Tightness,Spasm, Tenderness Palpation Details tenderness to palpation at the left lateral tib/fib joint PT-OP-K Range of Motion Start: 07/26/22 10:09 Freq: Status: Active Protocol: Document 07/26/22 10:30 [facility] (Rec: 07/26/22 11:43 [facility] [id number]) Hip Goniometric Range of Motion Hip Right Hip ROM WFL No Testing Position Supine Straight Leg Raise 55 Left Hip ROM WFL No Testing Position Supine Straight Leg Raise 45 Hip ROM Limitations Hip ROM Limitations Soft Tissue Tightness Comments left greater than right hamstring and ITB tightness Knee Goniometric Range of Motion Knee Left Knee ROM WFL No Patient Position Supine Flexion Active (degrees) 118 Flexion Passive (degrees) 120 Comments pain is reproduced at the lateral posterior knee with knee flexion PT-OP-M Strength Start: 07/26/22 10:09 Freq: Status: Active Protocol: Document 07/26/22 10:30 [facility] (Rec: 07/27/22 11:11 [facility] [id number]) Knee Strength Knee Manual Muscle Testing Left Flexion (S2) 3 Fair Extension (L3) 3 Fair Comments pain with resisted knee flexion at the lateral knee PT-OP-Q Treatments Start: 07/26/22 10:09 Freq: Status: Active Protocol: Document 08/01/22 09:00 [facility] (Rec: 08/01/22 09:48 [facility] [id number]) Therapeutic Exercises Supine Exercises quad set Reps/Minutes x 10 supine bridge with theraband and slight hip abduction Equipment Used level 3 theraband Reps/Minutes x 10 reps supine hip ER with level 3 theraband Equipment Used level 3 resistance Reps/Minutes 3x10 SUPINE ITB STRETCH Reps/Minutes 2 reps holding 30sec to 1 min Comments opp knee bent SUPINE HAMSTRING STRETCH WITH STRAP Side bilateral Reps/Minutes 2 reps holding 30 sec to 1 min Comments opp knee bent Sitting Exercises seated hamstring stretch Reps/Minutes hold 1-2 min Comments pt to pull up her foot into DF for calf stretch as well Standing Exercises standing calf stretch Standing Exercise Name HOLD Comments pt notes she cant feel the stretch as well with this exercise Manual Therapy Treatment Soft Tissue Mobilization STM over the lateral tib fib calf and ITB attachments Body Location left side Mobilization Type Myofascial Release Intensity/Depth Moderate Body Position Prone Comments good tolerance and pt noted decreased tenderness following MFR techniques Manual Techniques prone quad stretch L Type left side Body Location quad Body Position Prone Reps/Duration 2 min hold Comments manual quad stretch in prone PT-OP-T Assessment and Plan Start: 07/26/22 10:09 Freq: Status: Active Protocol: Document 08/01/22 09:00 [facility] (Rec: 08/01/22 09:48 [facility] [id number]) Physical Therapy Assessment Assessment Summary Assessment pts left hip tends to IR in sitting, I added in hip ER today and we discussed slight hip ER prior to standing up to avoid torque at her proximal tib/fib joint. She notes her knee is always fine when it is stretched out, its after bending that it hurts. Her quad did go into a spasm today when working on her stretches for her hamstrings. She is tight as well in her quads so I added in manual prone quad stretch. If she tolerated this well we can add to HEP next visit. The bakers cyst was felt today and is more lateral on her posterior left knee. Physical Therapy Plan Frequency and Duration Frequency of Treatment 2x/Week Duration of treatment (weeks) 12 Plan of Care Start Date 07/26/22 Plan of Care End Date 10/18/22 Therapeutic Interventions Therapeutic Interventions Home Exercise Program,Manual Therapy,Patient/Caregiver Education,Self-Care/Home Management,Soft Tissue Mobilization,Therapeutic Exercises Modalities Cold Pack/Ice Massage Next Visit Focus/Plan Next Note Type Treatment Note Next Visit Plan review new exercises added in last visit, check in with how pt is doing watching that she doesn't let her left knee IR when going from sit-stand, add in a quad stretch if pt tolerated this. MFR techniques for the lateral calf and ITB attachments
--- NOTE | 2022-08-08 17:06 | PT.OTN ---
Current Diagnoses Pain in left knee (08/08/22) Physical Therapy Treatment Note PT-OP-A Visit Information Start: 07/26/22 10:09 Freq: Status: Active Protocol: Document 08/08/22 16:01 [facility] (Rec: 08/08/22 17:06 [facility] [id number]) Out-Patient Physical Therapy Visit Information Visit Information Visit Type Treatment Note Visit Start Time 16:00 Visit Stop Time 16:45 Total Visit Minutes 45 Visit Number 3 PT-OP-B Current Condition Start: 07/26/22 10:09 Freq: Status: Active Protocol: Document 07/26/22 10:27 [facility] (Rec: 07/26/22 10:52 [facility] [id number]) Current Condition History of Current Condition Onset Date mid may 2022 History of Current Condition She was walking 6 days a week 45 min - 1 hour. One day she didn't have much sleep the night before and she was in her recliner with her body turned to the left. A hour leter when she got up she had pain down the back of the left leg with pain behind her knee . Now if she sits down everytime she gets up she has pain behind her left knee. After she has been standing for a while the pain seems to decrease. Recently the pain started to radiate up the lateral side of her left leg and lateral side. Being in the car for a long time is the worst. Once she gets out it takes a bit for her to be able to walk off the pain. After she has walked around for awhile it decreases. She has tried icing but it didn't make any difference. She is unable to sleep on either side at this time. She tries to keep her left leg straight, its something about having it bent that causes pain. If she straightens her legs out for 30 min before getting out of bed it helps her walking. pain is in the back but more on the outside. Prior Treatments and Tests SHe had a ultrasound last sunday that was negative for blood clot but did show a bakers cysts. PT-OP-C Subjective Start: 07/26/22 10:09 Freq: Status: Active Protocol: Document 08/08/22 16:01 [facility] (Rec: 08/08/22 17:06 [facility] [id number]) OP-PT Subjective Patient Comments Patient Comments pt notes she has been trying to walk [place] she does like the benches to rest but every step is hurting her. She feels like anything that bends her knee is aggravating her. She walked 3 laps today and before that it wasd 2 laps PT-OP-F Manual Assessment Start: 07/26/22 10:09 Freq: Status: Active Protocol: Document 07/26/22 10:30 [facility] (Rec: 07/27/22 11:14 [facility] [id number]) Manual Assessments Soft Tissue Assessment Soft Tissue Mobility Assessment tightness in the lateral gastroc musculature and peroneal muscles, tightness from distal ITB insertion up the lateral left leg, tightness throughout the left hamstrings especially at distal insertions Joint Mobility Assessment Joint Mobility Assessment tenderness over the left tib/ fib joint, difficult to assess joint mobility, pain with knee flexion, pt notes improvement of symptoms with knee extension PT-OP-J Posture/Palpation/Skin Start: 07/26/22 10:09 Freq: Status: Active Protocol: Document 07/26/22 10:30 [facility] (Rec: 07/26/22 11:43 [facility] [id number]) Palpation Assessment Location left lateral gastroc musculature Palpation Findings Soft Tissue Tightness,Muscle Guarding,Tenderness LEFT ITB Palpation Findings Soft Tissue Tightness,Spasm, Muscle Guarding,Tenderness Palpation Details tenderness along the left lateral ITB from orgin to insertion especially at the lateral tibia attachment left lateral tib fib joint Palpation Findings Soft Tissue Tightness,Spasm, Tenderness Palpation Details tenderness to palpation at the left lateral tib/fib joint PT-OP-K Range of Motion Start: 07/26/22 10:09 Freq: Status: Active Protocol: Document 07/26/22 10:30 [facility] (Rec: 07/26/22 11:43 [facility] [id number]) Hip Goniometric Range of Motion Hip Right Hip ROM WFL No Testing Position Supine Straight Leg Raise 55 Left Hip ROM WFL No Testing Position Supine Straight Leg Raise 45 Hip ROM Limitations Hip ROM Limitations Soft Tissue Tightness Comments left greater than right hamstring and ITB tightness Knee Goniometric Range of Motion Knee Left Knee ROM WFL No Patient Position Supine Flexion Active (degrees) 118 Flexion Passive (degrees) 120 Comments pain is reproduced at the lateral posterior knee with knee flexion PT-OP-M Strength Start: 07/26/22 10:09 Freq: Status: Active Protocol: Document 07/26/22 10:30 [facility] (Rec: 07/27/22 11:11 [facility] [id number]) Knee Strength Knee Manual Muscle Testing Left Flexion (S2) 3 Fair Extension (L3) 3 Fair Comments pain with resisted knee flexion at the lateral knee PT-OP-Q Treatments Start: 07/26/22 10:09 Freq: Status: Active Protocol: Document 08/08/22 16:01 [facility] (Rec: 08/08/22 17:06 [facility] [id number]) Cardio Equipment Recumbent Elliptical (Biodex) Resistance 2 Seat Position 5 Therapeutic Exercises Supine Exercises quad set Supine Exercise Name HEP supine bridge with theraband and slight hip abduction Supine Exercise Name HEP supine hip ER with level 3 theraband Equipment Used level 3 resistance Reps/Minutes 3x10 SUPINE ITB STRETCH Supine Exercise Name HEP SUPINE HAMSTRING STRETCH WITH STRAP Supine Exercise Name HEP Sitting Exercises sit-stand with theraband Reps/Minutes x 10 reps seated hamstring stretch Reps/Minutes hold 1-2 min Comments pt to pull up her foot into DF for calf stretch as well Standing Exercises standing side steps with theraband Equipment Used level 2 theraband Reps/Minutes x 3 min Comments in parallel bars Other Exercises standing calf stretch on the LILIANE Reps/Minutes 2 x 30 sec Comments pt notes good calf stretch with the LILIANE Manual Therapy Treatment Soft Tissue Mobilization STM over the lateral tib fib calf and ITB attachments Body Location left side Mobilization Type Myofascial Release Intensity/Depth Moderate Body Position Prone Comments good tolerance and pt noted decreased tenderness following MFR techniques PT-OP-T Assessment and Plan Start: 07/26/22 10:09 Freq: Status: Active Protocol: Document 08/08/22 16:01 [facility] (Rec: 08/08/22 17:06 [facility] [id number]) Physical Therapy Assessment Assessment Summary Assessment worked on cueing hip ER with sit-stand, used band around thighs for sit-stand and side steps with TB. Started the biodex today and Kelsie tolerated this well, she will start using her recumbant bike at home. I can still feel the bakers cyst on the posterior lateral aspect of her knee. Her calf muscles were not as night today. She is still photographer at the distal ITB attachment. Continue working on lateral hip stabilization as well as stretching Physical Therapy Plan Frequency and Duration Frequency of Treatment 2x/Week Duration of treatment (weeks) 12 Plan of Care Start Date 07/26/22 Plan of Care End Date 10/18/22 Therapeutic Interventions Therapeutic Interventions Home Exercise Program,Manual Therapy,Patient/Caregiver Education,Self-Care/Home Management,Soft Tissue Mobilization,Therapeutic Exercises Modalities Cold Pack/Ice Massage Next Visit Focus/Plan Next Note Type Treatment Note Next Visit Plan begin with recumbent bike, review new exercises added in last visit, check in with how pt is doing watching that she doesn't let her left knee IR when going from sit-stand, add in a quad stretch if pt tolerated this. MFR techniques for the lateral calf and ITB attachments
--- NOTE | 2022-08-10 16:53 | PT.OTN ---
Current Diagnoses Pain in left knee (08/10/22) Physical Therapy Treatment Note PT-OP-A Visit Information Start: 07/26/22 10:09 Freq: Status: Active Protocol: Document 08/10/22 14:17 [facility] (Rec: 08/10/22 15:05 [facility] [id number]) Out-Patient Physical Therapy Visit Information Visit Information Visit Type Treatment Note Visit Start Time 14:20 Visit Stop Time 15:15 Total Visit Minutes 40 Visit Number 4 PT-OP-B Current Condition Start: 07/26/22 10:09 Freq: Status: Active Protocol: Document 07/26/22 10:27 [facility] (Rec: 07/26/22 10:52 [facility] [id number]) Current Condition History of Current Condition Onset Date mid may 2022 History of Current Condition She was walking 6 days a week 45 min - 1 hour. One day she didn't have much sleep the night before and she was in her recliner with her body turned to the left. A hour leter when she got up she had pain down the back of the left leg with pain behind her knee . Now if she sits down everytime she gets up she has pain behind her left knee. After she has been standing for a while the pain seems to decrease. Recently the pain started to radiate up the lateral side of her left leg and lateral side. Being in the car for a long time is the worst. Once she gets out it takes a bit for her to be able to walk off the pain. After she has walked around for awhile it decreases. She has tried icing but it didn't make any difference. She is unable to sleep on either side at this time. She tries to keep her left leg straight, its something about having it bent that causes pain. If she straightens her legs out for 30 min before getting out of bed it helps her walking. pain is in the back but more on the outside. Prior Treatments and Tests SHe had a ultrasound last sunday that was negative for blood clot but did show a bakers cysts. PT-OP-C Subjective Start: 07/26/22 10:09 Freq: Status: Active Protocol: Document 08/10/22 14:17 [facility] (Rec: 08/10/22 15:05 [facility] [id number]) OP-PT Subjective Patient Comments Patient Comments pt reports after stretching she is loose for awhile and her knee feels better but as soon as she has to sit in the car she has pain getting out in the lateral posterior knee. She was able to walk 30 min around [employer] and has been riding her stationary bike at home. Stretching helps, sittingmakes it worse Patient Reported Progress Improving PT-OP-F Manual Assessment Start: 07/26/22 10:09 Freq: Status: Active Protocol: Document 07/26/22 10:30 [facility] (Rec: 07/27/22 11:14 [facility] [id number]) Manual Assessments Soft Tissue Assessment Soft Tissue Mobility Assessment tightness in the lateral gastroc musculature and peroneal muscles, tightness from distal ITB insertion up the lateral left leg, tightness throughout the left hamstrings especially at distal insertions Joint Mobility Assessment Joint Mobility Assessment tenderness over the left tib/ fib joint, difficult to assess joint mobility, pain with knee flexion, pt notes improvement of symptoms with knee extension PT-OP-J Posture/Palpation/Skin Start: 07/26/22 10:09 Freq: Status: Active Protocol: Document 07/26/22 10:30 [facility] (Rec: 07/26/22 11:43 [facility] [id number]) Palpation Assessment Location left lateral gastroc musculature Palpation Findings Soft Tissue Tightness,Muscle Guarding,Tenderness LEFT ITB Palpation Findings Soft Tissue Tightness,Spasm, Muscle Guarding,Tenderness Palpation Details tenderness along the left lateral ITB from orgin to insertion especially at the lateral tibia attachment left lateral tib fib joint Palpation Findings Soft Tissue Tightness,Spasm, Tenderness Palpation Details tenderness to palpation at the left lateral tib/fib joint PT-OP-K Range of Motion Start: 07/26/22 10:09 Freq: Status: Active Protocol: Document 07/26/22 10:30 [facility] (Rec: 07/26/22 11:43 [facility] [id number]) Hip Goniometric Range of Motion Hip Right Hip ROM WFL No Testing Position Supine Straight Leg Raise 55 Left Hip ROM WFL No Testing Position Supine Straight Leg Raise 45 Hip ROM Limitations Hip ROM Limitations Soft Tissue Tightness Comments left greater than right hamstring and ITB tightness Knee Goniometric Range of Motion Knee Left Knee ROM WFL No Patient Position Supine Flexion Active (degrees) 118 Flexion Passive (degrees) 120 Comments pain is reproduced at the lateral posterior knee with knee flexion PT-OP-M Strength Start: 07/26/22 10:09 Freq: Status: Active Protocol: Document 07/26/22 10:30 [facility] (Rec: 07/27/22 11:11 [facility] [id number]) Knee Strength Knee Manual Muscle Testing Left Flexion (S2) 3 Fair Extension (L3) 3 Fair Comments pain with resisted knee flexion at the lateral knee PT-OP-Q Treatments Start: 07/26/22 10:09 Freq: Status: Active Protocol: Document 08/10/22 14:17 [facility] (Rec: 08/10/22 15:05 [facility] [id number]) Cardio Equipment Recumbent Elliptical (Biodex) Resistance 2 Seat Position 5 Therapeutic Exercises Supine Exercises supine bridge with theraband and slight hip abduction Supine Exercise Name HEP supine hip ER with level 3 theraband Equipment Used level 3 resistance Reps/Minutes 3x10 SUPINE ITB STRETCH Supine Exercise Name HEP SUPINE HAMSTRING STRETCH WITH STRAP Supine Exercise Name HEP Sitting Exercises sit-stand with theraband Equipment Used level 2 TB Reps/Minutes x 10 reps seated hamstring stretch Reps/Minutes hold 1-2 min Comments pt to pull up her foot into DF for calf stretch as well Standing Exercises standing side steps with theraband Equipment Used level 2 theraband Reps/Minutes x 3 min Comments in parallel bars Other Exercises standing hamstring stretch in stair case Side bilateral Reps/Minutes 1-2 min standing calf stretch on the LILIANE Reps/Minutes 2 x 30 sec Comments pt notes good calf stretch with the LILIANE Manual Therapy Treatment Soft Tissue Mobilization STM over the lateral tib fib calf and ITB attachments Body Location left side Mobilization Type Myofascial Release Intensity/Depth Moderate Body Position Prone Comments the left lateral calf muscle was not as tight today and overall decreased tenderness PT-OP-T Assessment and Plan Start: 07/26/22 10:09 Freq: Status: Active Protocol: Document 08/10/22 14:17 [facility] (Rec: 08/10/22 16:53 [facility] [id number]) Physical Therapy Assessment Assessment Summary Assessment pt is doing well not letting her left knee IR with standing , her calf muscle was not as tight today so this is improving. Continue working hip stability. I think the Bakers cyst is contributing to her pain she gets with sitting and getting in and out of the car Physical Therapy Plan Frequency and Duration Frequency of Treatment 2x/Week Duration of treatment (weeks) 12 Plan of Care Start Date 07/26/22 Plan of Care End Date 10/18/22 Therapeutic Interventions Therapeutic Interventions Home Exercise Program,Manual Therapy,Patient/Caregiver Education,Self-Care/Home Management,Soft Tissue Mobilization,Therapeutic Exercises Modalities Cold Pack/Ice Massage Next Visit Focus/Plan Next Note Type Treatment Note Next Visit Plan begin with recumbent bike, review new exercises added in last visit, check in with how pt is doing watching that she doesn't let her left knee IR when going from sit-stand, add in a quad stretch if pt tolerated this. MFR techniques for the lateral calf and ITB attachments
--- NOTE | 2022-08-16 13:36 | PT.OTN ---
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 One day she didn't have much sleep the night before and she was in her recliner with her body turned to the left. A hour leter when she got up she had pain down the back of the left leg with pain behind her knee . Now if she sits down everytime she gets up she has pain behind her left knee. After she has been standing for a while the pain seems to decrease. Recently the pain started to radiate up the lateral side of her left leg and lateral side. Being in the car for a long time is the worst. Once she gets out it takes a bit for her to be able to walk off the pain. After she has walked around for awhile it decreases. She has tried icing but it didn't make any difference. She is unable to sleep on either side at this time. She tries to keep her left leg straight, its something about having it bent that causes pain. If she straightens her legs out for 30 min before getting out of bed it helps her walking. pain is in the back but more on the outside. Prior Treatments and Tests SHe had a ultrasound last sunday that was negative for blood clot but did show a bakers cysts. PT-OP-C Subjective Start: 07/26/22 10:09 Freq: Status: Active Protocol: Document 08/16/22 12:50 SP (Rec: 08/16/22 13:37 SP [id number]) OP-PT Subjective Patient Comments Patient Comments Pt reports continues to have tightness posterolateral L sub distal HS attachment. She has to stop 1/2 through walk at [employer] to restretch at curb. Pt reports TB didn't seem very strong, loose. PT-OP-F Manual Assessment Start: 07/26/22 10:09 Freq: Status: Active Protocol: Document 07/26/22 10:30 [facility] (Rec: 07/27/22 11:14 [facility] [id number]) Manual Assessments Soft Tissue Assessment Soft Tissue Mobility Assessment tightness in the lateral gastroc musculature and peroneal muscles, tightness from distal ITB insertion up the lateral left leg, tightness throughout the left hamstrings especially at distal insertions Joint Mobility Assessment Joint Mobility Assessment tenderness over the left tib/ fib joint, difficult to assess joint mobility, pain with knee flexion, pt notes improvement of symptoms with knee extension PT-OP-J Posture/Palpation/Skin Start: 07/26/22 10:09 Freq: Status: Active Protocol: Document 07/26/22 10:30 [facility] (Rec: 07/26/22 11:43 [facility] [id number]) Palpation Assessment Location left lateral gastroc musculature Palpation Findings Soft Tissue Tightness,Muscle Guarding,Tenderness LEFT ITB Palpation Findings Soft Tissue Tightness,Spasm, Muscle Guarding,Tenderness Palpation Details tenderness along the left lateral ITB from orgin to insertion especially at the lateral tibia attachment left lateral tib fib joint Palpation Findings Soft Tissue Tightness,Spasm, Tenderness Palpation Details tenderness to palpation at the left lateral tib/fib joint PT-OP-K Range of Motion Start: 07/26/22 10:09 Freq: Status: Active Protocol: Document 07/26/22 10:30 [facility] (Rec: 07/26/22 11:43 [facility] [id number]) Hip Goniometric Range of Motion Hip Right Hip ROM WFL No Testing Position Supine Straight Leg Raise 55 Left Hip ROM WFL No Testing Position Supine Straight Leg Raise 45 Hip ROM Limitations Hip ROM Limitations Soft Tissue Tightness Comments left greater than right hamstring and ITB tightness Knee Goniometric Range of Motion Knee Left Knee ROM WFL No Patient Position Supine Flexion Active (degrees) 118 Flexion Passive (degrees) 120 Comments pain is reproduced at the lateral posterior knee with knee flexion PT-OP-M Strength Start: 07/26/22 10:09 Freq: Status: Active Protocol: Document 07/26/22 10:30 [facility] (Rec: 07/27/22 11:11 [facility] [id number]) Knee Strength Knee Manual Muscle Testing Left Flexion (S2) 3 Fair Extension (L3) 3 Fair Comments pain with resisted knee flexion at the lateral knee PT-OP-Q Treatments Start: 07/26/22 10:09 Freq: Status: Active Protocol: Document 08/16/22 12:50 SP (Rec: 08/16/22 13:37 SP [id number]) Therapeutic Exercises Supine Exercises supine bridge with theraband and slight hip abduction Supine Exercise Name HEP supine hip ER with level 3 theraband Equipment Used level 3 green> blue #4 Reps/Minutes 3x10 SUPINE ITB STRETCH Supine Exercise Name HEP Side bilateral Equipment Used w/ Strap support Reps/Minutes 60 Comments good form SUPINE HAMSTRING STRETCH WITH STRAP Supine Exercise Name HEP: 3 positions added 08/16 Side bilateral Equipment Used w/ Strap Reps/Minutes 60 4x/day Sitting Exercises sit-stand with theraband Equipment Used level 2>4 TB Reps/Minutes x 10 reps Comments good effort response Standing Exercises standing side steps with theraband Equipment Used level 2 theraband> #4 blue Reps/Minutes x 3 min Comments open space Other Exercises standing calf stretch on the LILIANE Other Exercise Name 3 position: more emphasis on lateral stretch Resistance off step Reps/Minutes 2 x 30 sec Comments pt notes good medial calf stretch toe turned out off step Manual Therapy Treatment Soft Tissue Mobilization STM over the lateral tib fib calf and ITB attachments Body Location left side Mobilization Type Myofascial Release Intensity/Depth Moderate Body Position Prone Comments the left lateral calf muscle was not as tight today, sensitive sub distal bicep femoris/ ITB and overall decreased tenderness post manual. PT-OP-T Assessment and Plan Start: 07/26/22 10:09 Freq: Status: Active Protocol: Document 08/16/22 12:50 SP (Rec: 08/16/22 13:37 SP [id number]) Physical Therapy Assessment Goals 3 Impairment pt notes quite a bit of difficulty with functional activities such at going up and down a flight of stairs and walking more than 2 blocks . Display Coordinator Goal (LTG) Kelsie is able to return to her walks of 2-3 miles adding in stretches at the end of her walks to decrease tightness and pulling on her knee, she is able to return to her baseline for functional activities such as her ability to ambulate up and down stairs. LTG Duration 12 weeks 2 Impairment tightness of the ITB distal attachments on the left, lateral calf musculature, and hamstring tightness Short Term Goal (STG) pt is educated in a home stretching program for her calf, ITB, and hamstrings STG Duration 4 weeks Residential Goal (LTG) Pt demonstrates with decreased tightness and improvements in muscle length. Her SLR is 50 deg or greater on the left side LTG Duration 12 weeks 1 Impairment pain in the left lateral and posterior knee rated 6/10, worse after she has been sitting or after riding in the car Display Coordinator Goal (LTG) With PT and a home stretching program Kelsie reports a overall reduction in her pain levels to 1-2/10 and notes she is able to sit without a increase pain in her left knee LTG Duration 12 weeks Assessment Summary Assessment Pt good feedback response to manual. CUed hip IR with HS strap stretch better lateral distal HS focus and calf stretch off step toe turned in for lateral calf focus stretch. Pt good feedback inc rease resistance to resisted side step and hip abd supine with slow eccentric return control. Physical Therapy Plan Frequency and Duration Frequency of Treatment 2x/Week Duration of treatment (weeks) 12 Plan of Care Start Date 07/26/22 Plan of Care End Date 10/18/22 Therapeutic Interventions Therapeutic Interventions Home Exercise Program,Manual Therapy,Patient/Caregiver Education,Self-Care/Home Management,Soft Tissue Mobilization,Therapeutic Exercises Modalities Cold Pack/Ice Massage Next Visit Focus/Plan Next Note Type Treatment Note Next Visit Plan begin with recumbent bike, review new exercises added in last visit, add in a quad stretch if pt tolerated this. MFR techniques for the lateral calf prox, distal sub HS bicep femoris and ITB attachments
--- NOTE | 2022-08-18 10:50 | PT.OTN ---
Current Diagnoses Pain in left knee (08/18/22) Physical Therapy Treatment Note PT-OP-A Visit Information Start: 07/26/22 10:09 Freq: Status: Active Protocol: Document 08/18/22 10:02 SP (Rec: 08/18/22 10:56 SP [id number]) Out-Patient Physical Therapy Visit Information Visit Information Visit Type Treatment Note Visit Start Time 10:02 Visit Stop Time 10:50 Total Visit Minutes 48 Visit Number 6 Number of ADULT BASIC EDUCATION MANAGER Visits 2 Evaluation Information Evaluation Date 07/26/22 PT-OP-B Current Condition Start: 07/26/22 10:09 Freq: Status: Active Protocol: Document 07/26/22 10:27 [facility] (Rec: 07/26/22 10:52 AM[facility] [id number]) Current Condition History of Current Condition Onset Date mid may 2022 History of Current Condition She was walking 6 days a week 45 min - 1 hour. One day she didn't have much sleep the night before and she was in her recliner with her body turned to the left. A hour leter when she got up she had pain down the back of the left leg with pain behind her knee . Now if she sits down everytime she gets up she has pain behind her left knee. After she has been standing for a while the pain seems to decrease. Recently the pain started to radiate up the lateral side of her left leg and lateral side. Being in the car for a long time is the worst. Once she gets out it takes a bit for her to be able to walk off the pain. After she has walked around for awhile it decreases. She has tried icing but it didn't make any difference. She is unable to sleep on either side at this time. She tries to keep her left leg straight, its something about having it bent that causes pain. If she straightens her legs out for 30 min before getting out of bed it helps her walking. pain is in the back but more on the outside. Prior Treatments and Tests SHe had a ultrasound last sunday that was negative for blood clot but did show a bakers cysts. PT-OP-C Subjective Start: 07/26/22 10:09 Freq: Status: Active Protocol: Document 08/18/22 10:02 SP (Rec: 08/18/22 10:56 SP [id number]) OP-PT Subjective Patient Comments Patient Comments Pt reports rest of day after last tx did grab as much, walked more freely, think got to better angle of tightness. She found the resistance last tx was helpful and found more effective but forgot to bring home, wants to get more today. The dorothy of turning foot out for lateral stretch was good Patient Reported Progress Improving PT-OP-F Manual Assessment Start: 07/26/22 10:09 Freq: Status: Active Protocol: Document 07/26/22 10:30 [facility] (Rec: 07/27/22 11:14 [facility] [id number]) Manual Assessments Soft Tissue Assessment Soft Tissue Mobility Assessment tightness in the lateral gastroc musculature and peroneal muscles, tightness from distal ITB insertion up the lateral left leg, tightness throughout the left hamstrings especially at distal insertions Joint Mobility Assessment Joint Mobility Assessment tenderness over the left tib/ fib joint, difficult to assess joint mobility, pain with knee flexion, pt notes improvement of symptoms with knee extension PT-OP-J Posture/Palpation/Skin Start: 07/26/22 10:09 Freq: Status: Active Protocol: Document 07/26/22 10:30 [facility] (Rec: 07/26/22 11:43 [facility] [id number]) Palpation Assessment Location left lateral gastroc musculature Palpation Findings Soft Tissue Tightness,Muscle Guarding,Tenderness LEFT ITB Palpation Findings Soft Tissue Tightness,Spasm, Muscle Guarding,Tenderness Palpation Details tenderness along the left lateral ITB from orgin to insertion especially at the lateral tibia attachment left lateral tib fib joint Palpation Findings Soft Tissue Tightness,Spasm, Tenderness Palpation Details tenderness to palpation at the left lateral tib/fib joint PT-OP-K Range of Motion Start: 07/26/22 10:09 Freq: Status: Active Protocol: Document 07/26/22 10:30 [facility] (Rec: 07/26/22 11:43 [facility] [id number]) Hip Goniometric Range of Motion Hip Right Hip ROM WFL No Testing Position Supine Straight Leg Raise 55 Left Hip ROM WFL No Testing Position Supine Straight Leg Raise 45 Hip ROM Limitations Hip ROM Limitations Soft Tissue Tightness Comments left greater than right hamstring and ITB tightness Knee Goniometric Range of Motion Knee Left Knee ROM WFL No Patient Position Supine Flexion Active (degrees) 118 Flexion Passive (degrees) 120 Comments pain is reproduced at the lateral posterior knee with knee flexion PT-OP-M Strength Start: 07/26/22 10:09 Freq: Status: Active Protocol: Document 07/26/22 10:30 [facility] (Rec: 07/27/22 11:11 [facility] [id number]) Knee Strength Knee Manual Muscle Testing Left Flexion (S2) 3 Fair Extension (L3) 3 Fair Comments pain with resisted knee flexion at the lateral knee PT-OP-Q Treatments Start: 07/26/22 10:09 Freq: Status: Active Protocol: Document 08/18/22 10:02 SP (Rec: 08/18/22 10:56 SP [id number]) Therapeutic Exercises Other Exercises quad and ITB stretch Other Exercise Name added to HEP- standing Side bilateral Equipment Used rail support grasp ankle vs on chair, R wt shift toward wall Reps/Minutes 2 reps 10 sec hold Comments good feedback, R alot tighter than L standing hamstring stretch in stair case Side bilateral Reps/Minutes 1-2 min standing calf stretch on the LILIANE Other Exercise Name 3 position: more emphasis on lateral stretch Resistance off step Reps/Minutes 2 x 30 sec Comments pt notes good medial calf stretch toe turned out off step Manual Therapy Treatment Soft Tissue Mobilization STM over the lateral tib fib calf and ITB attachments Body Location L Lateral prox: gastroc, bicep femoris tendons, poplieus, ITB Mobilization Type Myofascial Release Intensity/Depth Moderate Body Position Hooklying Comments the left lateral calf muscle was not as tight today, sensitive sub distal bicep femoris/ ITB/ popliteus, prox gastroc and overall decreased tenderness post manual. Joint Mobilizations L knee Joint tibfemoral PA& AP, tib fib prox and distal AP, patella med/lat/sup/inf Comments Good feedback response, painfree- felt L knee bending better. PT-OP-T Assessment and Plan Start: 07/26/22 10:09 Freq: Status: Active Protocol: Document 08/18/22 10:02 SP (Rec: 08/18/22 10:56 SP [id number]) Physical Therapy Assessment Goals 3 Impairment pt notes quite a bit of difficulty with functional activities such at going up and down a flight of stairs and walking more than 2 blocks . Oil Well Directional Surveyor Goal (LTG) Kelsie is able to return to her walks of 2-3 miles adding in stretches at the end of her walks to decrease tightness and pulling on her knee, she is able to return to her baseline for functional activities such as her ability to ambulate up and down stairs. LTG Duration 12 weeks 2 Impairment tightness of the ITB distal attachments on the left, lateral calf musculature, and hamstring tightness Short Term Goal (STG) pt is educated in a home stretching program for her calf, ITB, and hamstrings STG Duration 4 weeks Oil Well Directional Surveyor Goal (LTG) Pt demonstrates with decreased tightness and improvements in muscle length. Her SLR is 50 deg or greater on the left side LTG Duration 12 weeks 1 Impairment pain in the left lateral and posterior knee rated 6/10, worse after she has been sitting or after riding in the car [facility] Goal (LTG) With PT and a home stretching program Kelsie reports a overall reduction in her pain levels to 1-2/10 and notes she is able to sit without a increase pain in her left knee LTG Duration 12 weeks Assessment Summary Assessment Pt reports good releases posterolateral L knee and quad post manual, and good response to added quad and ITB stretching this tx. She reported R anterior hip still tight but less than when arrived. She is going to head to [email or web address] and see if able to walk further before posterior knee tightens up today. Physical Therapy Plan Frequency and Duration Frequency of Treatment 2x/Week Duration of treatment (weeks) 12 Plan of Care Start Date 07/26/22 Plan of Care End Date 10/18/22 Therapeutic Interventions Therapeutic Interventions Home Exercise Program,Manual Therapy,Patient/Caregiver Education,Self-Care/Home Management,Soft Tissue Mobilization,Therapeutic Exercises Modalities Cold Pack/Ice Massage Next Visit Focus/Plan Next Note Type Treatment Note Next Visit Plan Review new exercises added in last visit. Initiate recumbent bike. MFR techniques for the lateral calf prox, distal sub HS bicep femoris and ITB attachments
--- NOTE | 2022-08-25 13:38 | PT.OTN ---
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 One day she didn't have much sleep the night before and she was in her recliner with her body turned to the left. A hour leter when she got up she had pain down the back of the left leg with pain behind her knee . Now if she sits down everytime she gets up she has pain behind her left knee. After she has been standing for a while the pain seems to decrease. Recently the pain started to radiate up the lateral side of her left leg and lateral side. Being in the car for a long time is the worst. Once she gets out it takes a bit for her to be able to walk off the pain. After she has walked around for awhile it decreases. She has tried icing but it didn't make any difference. She is unable to sleep on either side at this time. She tries to keep her left leg straight, its something about having it bent that causes pain. If she straightens her legs out for 30 min before getting out of bed it helps her walking. pain is in the back but more on the outside. Prior Treatments and Tests SHe had a ultrasound last sunday that was negative for blood clot but did show a bakers cysts. PT-OP-C Subjective Start: 07/26/22 10:09 Freq: Status: Active Protocol: Document 08/25/22 12:46 SP (Rec: 08/25/22 13:38 SP [id number]) OP-PT Subjective Patient Comments Patient Comments Pt reports had to have some testing on Wed and sit for >1 HR without much mobility and now pain behind knee and feels bigger than was before. She hasnt' been able to walk more than short distances in home and conscious of what can do. 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 Patient Reported Progress Worse PT-OP-F Manual Assessment Start: 07/26/22 10:09 Freq: Status: Active Protocol: Document 07/26/22 10:30 [facility] (Rec: 07/27/22 11:14 [facility] [id number]) Manual Assessments Soft Tissue Assessment Soft Tissue Mobility Assessment tightness in the lateral gastroc musculature and peroneal muscles, tightness from distal ITB insertion up the lateral left leg, tightness throughout the left hamstrings especially at distal insertions Joint Mobility Assessment Joint Mobility Assessment tenderness over the left tib/ fib joint, difficult to assess joint mobility, pain with knee flexion, pt notes improvement of symptoms with knee extension PT-OP-J Posture/Palpation/Skin Start: 07/26/22 10:09 Freq: Status: Active Protocol: Document 07/26/22 10:30 [facility] (Rec: 07/26/22 11:43 [facility] [id number]) Palpation Assessment Location left lateral gastroc musculature Palpation Findings Soft Tissue Tightness,Muscle Guarding,Tenderness LEFT ITB Palpation Findings Soft Tissue Tightness,Spasm, Muscle Guarding,Tenderness Palpation Details tenderness along the left lateral ITB from orgin to insertion especially at the lateral tibia attachment left lateral tib fib joint Palpation Findings Soft Tissue Tightness,Spasm, Tenderness Palpation Details tenderness to palpation at the left lateral tib/fib joint PT-OP-K Range of Motion Start: 07/26/22 10:09 Freq: Status: Active Protocol: Document 07/26/22 10:30 [facility] (Rec: 07/26/22 11:43 [facility] [id number]) Hip Goniometric Range of Motion Hip Right Hip ROM WFL No Testing Position Supine Straight Leg Raise 55 Left Hip ROM WFL No Testing Position Supine Straight Leg Raise 45 Hip ROM Limitations Hip ROM Limitations Soft Tissue Tightness Comments left greater than right hamstring and ITB tightness Knee Goniometric Range of Motion Knee Left Knee ROM WFL No Patient Position Supine Flexion Active (degrees) 118 Flexion Passive (degrees) 120 Comments pain is reproduced at the lateral posterior knee with knee flexion PT-OP-M Strength Start: 07/26/22 10:09 Freq: Status: Active Protocol: Document 07/26/22 10:30 [facility] (Rec: 07/27/22 11:11 [facility] [id number]) Knee Strength Knee Manual Muscle Testing Left Flexion (S2) 3 Fair Extension (L3) 3 Fair Comments pain with resisted knee flexion at the lateral knee PT-OP-Q Treatments Start: 07/26/22 10:09 Freq: Status: Active Protocol: Document 08/25/22 12:46 SP (Rec: 08/25/22 13:38 SP [id number]) Cardio Equipment Recumbent Bicycle Duration (Minutes) 6 Resistance 5 Seat Position in 5 Other cued allow ankle ROM- good fluid more relaxed ankle & knee on L Therapeutic Exercises Supine Exercises SUPINE ITB STRETCH Supine Exercise Name HEP (leg held over opp LE) Side bilateral Equipment Used w/ Strap support on foot Reps/Minutes 60 Comments good feedback lateral thigh to knee stretch into needed tendons SUPINE HAMSTRING STRETCH WITH STRAP Supine Exercise Name HEP: Side bilateral Equipment Used towel behind distal thigh vs foot 08/25 Reps/Minutes sustained hold 30, then ankle pump 10 reps Comments cues slow ankle pump- reported good active hs, calf and quad last few reps Other Exercises standing calf stretch on the LILIANE Other Exercise Name 3 position: more emphasis on lateral stretch Side bilateral Resistance L>R Equipment Used off step and curb assimulation (front 4 step) Reps/Minutes 2 x 30 sec pos Comments Good feedback stretch each position Manual Therapy Treatment Soft Tissue Mobilization STM over the lateral tib fib calf and ITB attachments Body Location L Lateral prox: gastroc, bicep femoris tendons, poplieus, Mobilization Type Myofascial Release,Rolling Intensity/Depth Moderate Body Position Hooklying Comments Noted dime size lateral L knee HS tendons and mid posterior knee today golf ball swelling. IMproved post manual to gone mid knee and only feeling muscular tendons and slight decrease lateral knee. PT-OP-R Modalities Start: 07/26/22 10:09 Freq: Status: Active Protocol: Document 08/25/22 12:46 SP (Rec: 08/25/22 13:38 SP [id number]) Hot Pack/Cold Pack Treatment CP Location post L>R knee end tx Patient Position Hooklying Treatment Duration (minutes) 10 Patient Tolerance Good Comments good response [id number] PT-OP-T Assessment and Plan Start: 07/26/22 10:09 Freq: Status: Active Protocol: Document 08/25/22 12:46 SP (Rec: 08/25/22 13:38 SP [id number]) Physical Therapy Assessment Goals 3 Impairment pt notes quite a bit of difficulty with functional activities such at going up and down a flight of stairs and walking more than 2 blocks . Senior Living Goal (LTG) Kelsie is able to return to her walks of 2-3 miles adding in stretches at the end of her walks to decrease tightness and pulling on her knee, she is able to return to her baseline for functional activities such as her ability to ambulate up and down stairs. LTG Duration 12 weeks 2 Impairment tightness of the ITB distal attachments on the left, lateral calf musculature, and hamstring tightness Short Term Goal (STG) pt is educated in a home stretching program for her calf, ITB, and hamstrings STG Duration 4 weeks [employer] Goal (LTG) Pt demonstrates with decreased tightness and improvements in muscle length. Her SLR is 50 deg or greater on the left side LTG Duration 12 weeks 1 Impairment pain in the left lateral and posterior knee rated 6/10, worse after she has been sitting or after riding in the car Senior Living Goal (LTG) With PT and a home stretching program Kelsie reports a overall reduction in her pain levels to 1-2/10 and notes she is able to sit without a increase pain in her left knee LTG Duration 12 weeks Assessment Summary Assessment Pt good feedback response to manual, noted decreased swelling posterior L knee post manual from dime to pencil eraser size post L lateral and mid knee. Good response to recumbent bike with ankle ROM cues less tension posterior knee and calf safety to continue at home. She finds calf stretch use curb better posterior knee stretch than off step. Pt welcoming of CP end tx for assist swelling and pain control, has appt with Dr Cintron at 2. Physical Therapy Plan Frequency and Duration Frequency of Treatment 2x/Week Duration of treatment (weeks) 12 Plan of Care Start Date 07/26/22 Plan of Care End Date 10/18/22 Therapeutic Interventions Therapeutic Interventions Home Exercise Program,Manual Therapy,Patient/Caregiver Education,Self-Care/Home Management,Soft Tissue Mobilization,Therapeutic Exercises Modalities Cold Pack/Ice Massage Next Visit Focus/Plan Next Note Type Treatment Note Next Visit Plan Continue recumbent bike, ask response to Dr Cintron appt post PT. POC: MFR techniques for the lateral calf prox, distal sub HS bicep femoris and ITB attachments
--- NOTE | 2022-08-30 14:00 | PT.OTN ---
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 One day she didn't have much sleep the night before and she was in her recliner with her body turned to the left. A hour leter when she got up she had pain down the back of the left leg with pain behind her knee . Now if she sits down everytime she gets up she has pain behind her left knee. After she has been standing for a while the pain seems to decrease. Recently the pain started to radiate up the lateral side of her left leg and lateral side. Being in the car for a long time is the worst. Once she gets out it takes a bit for her to be able to walk off the pain. After she has walked around for awhile it decreases. She has tried icing but it didn't make any difference. She is unable to sleep on either side at this time. She tries to keep her left leg straight, its something about having it bent that causes pain. If she straightens her legs out for 30 min before getting out of bed it helps her walking. pain is in the back but more on the outside. Prior Treatments and Tests SHe had a ultrasound last sunday that was negative for blood clot but did show a bakers cysts. PT-OP-C Subjective Start: 07/26/22 10:09 Freq: Status: Active Protocol: Document 09/05/22 09:21 [facility] (Rec: 08/30/22 13:52 [facility] [id number]) OP-PT Subjective Patient Comments Patient Comments pt still feels that after she has been sitting when she goes to stand she gets pain. The walking seems to aggravate her symptoms. She saw Dr. Cintron last sunday and he did give her a referral to ortho. She notes a few times a day she will feel numbness into her foot Patient Reported Progress Same PT-OP-F Manual Assessment Start: 07/26/22 10:09 Freq: Status: Active Protocol: Document 07/26/22 10:30 [facility] (Rec: 07/27/22 11:14 [facility] [id number]) Manual Assessments Soft Tissue Assessment Soft Tissue Mobility Assessment tightness in the lateral gastroc musculature and peroneal muscles, tightness from distal ITB insertion up the lateral left leg, tightness throughout the left hamstrings especially at distal insertions Joint Mobility Assessment Joint Mobility Assessment tenderness over the left tib/ fib joint, difficult to assess joint mobility, pain with knee flexion, pt notes improvement of symptoms with knee extension PT-OP-J Posture/Palpation/Skin Start: 07/26/22 10:09 Freq: Status: Active Protocol: Document 07/26/22 10:30 [facility] (Rec: 07/26/22 11:43 [facility] [id number]) Palpation Assessment Location left lateral gastroc musculature Palpation Findings Soft Tissue Tightness,Muscle Guarding,Tenderness LEFT ITB Palpation Findings Soft Tissue Tightness,Spasm, Muscle Guarding,Tenderness Palpation Details tenderness along the left lateral ITB from orgin to insertion especially at the lateral tibia attachment left lateral tib fib joint Palpation Findings Soft Tissue Tightness,Spasm, Tenderness Palpation Details tenderness to palpation at the left lateral tib/fib joint PT-OP-K Range of Motion Start: 07/26/22 10:09 Freq: Status: Active Protocol: Document 07/26/22 10:30 [facility] (Rec: 07/26/22 11:43 [facility] [id number]) Hip Goniometric Range of Motion Hip Right Hip ROM WFL No Testing Position Supine Straight Leg Raise 55 Left Hip ROM WFL No Testing Position Supine Straight Leg Raise 45 Hip ROM Limitations Hip ROM Limitations Soft Tissue Tightness Comments left greater than right hamstring and ITB tightness Knee Goniometric Range of Motion Knee Left Knee ROM WFL No Patient Position Supine Flexion Active (degrees) 118 Flexion Passive (degrees) 120 Comments pain is reproduced at the lateral posterior knee with knee flexion PT-OP-M Strength Start: 07/26/22 10:09 Freq: Status: Active Protocol: Document 07/26/22 10:30 [facility] (Rec: 07/27/22 11:11 [facility] [id number]) Knee Strength Knee Manual Muscle Testing Left Flexion (S2) 3 Fair Extension (L3) 3 Fair Comments pain with resisted knee flexion at the lateral knee PT-OP-Q Treatments Start: 07/26/22 10:09 Freq: Status: Active Protocol: Document 09/01/22 12:01 SP (Rec: 09/01/22 12:49 SP [id number]) Therapeutic Exercises Prone Exercises eccentric HS curl Prone Exercise Name initiated in PT and added HEP Side bilateral Resistance AROM Reps/Minutes knee flexion, slow eccentric lower, pause stretch 10SH x10 Comments cued pillow under pelvis, slow eccentric HS curl for active lengthing Sitting Exercises LAQ Sitting Exercise Name added to HEP Side bilateral Resistance 5# leg wt, #4 blue TB at ankles Reps/Minutes 3 SH x10 Comments cued slow flexion return Other Exercises standing calf stretch on the LILIANE Other Exercise Name 3 position: more emphasis on lateral stretch Side bilateral Resistance L>R Equipment Used off step and curb assimulation (front 4 step) Reps/Minutes 2 x 30 sec pos Comments Good feedback stretch each position Manual Therapy Treatment Soft Tissue Mobilization STM over the lateral tib fib calf and ITB attachments Body Location L Lateral prox: gastroc, bicep femoris tendons, poplieus, distl semi mem/te Mobilization Type Myofascial Release,Rolling, Strumming Intensity/Depth Moderate Body Position Hooklying Comments Noted dime size lateral L knee HS tendons and mid posterior knee today golf ball swelling. IMproved post manual to gone mid knee and only feeling muscular tendons and slight decrease lateral knee. Joint Mobilizations L knee Joint tibfemoral PA& AP, tib fib prox and distal AP, patella med/lat/sup/inf Comments Good feedback response, painfree- felt L knee bending better. PT-OP-R Modalities Start: 07/26/22 10:09 Freq: Status: Active Protocol: Document 08/25/22 12:46 SP (Rec: 08/25/22 13:38 SP [id number]) Hot Pack/Cold Pack Treatment CP Location post L>R knee end tx Patient Position Hooklying Treatment Duration (minutes) 10 Patient Tolerance Good Comments good response 1246 PT-OP-T Assessment and Plan Start: 07/26/22 10:09 Freq: Status: Active Protocol: Document 09/01/22 12:01 SP (Rec: 09/01/22 12:49 SP [id number]) Physical Therapy Assessment Goals 3 Impairment pt notes quite a bit of difficulty with functional activities such at going up and down a flight of stairs and walking more than 2 blocks . Prison Goal (LTG) Kelsie is able to return to her walks of 2-3 miles adding in stretches at the end of her walks to decrease tightness and pulling on her knee, she is able to return to her baseline for functional activities such as her ability to ambulate up and down stairs. LTG Duration 12 weeks 2 Impairment tightness of the ITB distal attachments on the left, lateral calf musculature, and hamstring tightness Short Term Goal (STG) pt is educated in a home stretching program for her calf, ITB, and hamstrings STG Duration 4 weeks [employer] Goal (LTG) Pt demonstrates with decreased tightness and improvements in muscle length. Her SLR is 50 deg or greater on the left side LTG Duration 12 weeks 1 Impairment pain in the left lateral and posterior knee rated 6/10, worse after she has been sitting or after riding in the car [employer] Goal (LTG) With PT and a home stretching program Kelsie reports a overall reduction in her pain levels to 1-2/10 and notes she is able to sit without a increase pain in her left knee LTG Duration 12 weeks Assessment Summary Assessment Pt responds well to manual STMs. Tx trialed eccentric HS curl to provide active lengthening and concentric quad strengthening to decrease stress on distal HS tendons. Pt demonstrated improved TKE walking but continues to be stiff and pain initial stand posteromedial L knee HS tendon region. Physical Therapy Plan Frequency and Duration Frequency of Treatment 2x/Week Duration of treatment (weeks) 12 Plan of Care Start Date 07/26/22 Plan of Care End Date 10/18/22 Therapeutic Interventions Therapeutic Interventions Home Exercise Program,Manual Therapy,Patient/Caregiver Education,Self-Care/Home Management,Soft Tissue Mobilization,Therapeutic Exercises Modalities Cold Pack/Ice Massage Next Visit Focus/Plan Next Note Type Progress Note Next Visit Plan 10th visit PN next tx POC: Continue recumbent bike, ask response to Dr Cintron appt post PT. POC: MFR techniques for the lateral calf prox, distal sub HS bicep femoris and ITB attachments
--- NOTE | 2022-09-01 12:47 | PT.OTN ---
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 One day she didn't have much sleep the night before and she was in her recliner with her body turned to the left. A hour leter when she got up she had pain down the back of the left leg with pain behind her knee . Now if she sits down everytime she gets up she has pain behind her left knee. After she has been standing for a while the pain seems to decrease. Recently the pain started to radiate up the lateral side of her left leg and lateral side. Being in the car for a long time is the worst. Once she gets out it takes a bit for her to be able to walk off the pain. After she has walked around for awhile it decreases. She has tried icing but it didn't make any difference. She is unable to sleep on either side at this time. She tries to keep her left leg straight, its something about having it bent that causes pain. If she straightens her legs out for 30 min before getting out of bed it helps her walking. pain is in the back but more on the outside. Prior Treatments and Tests SHe had a ultrasound last sunday that was negative for blood clot but did show a bakers cysts. PT-OP-C Subjective Start: 07/26/22 10:09 Freq: Status: Active Protocol: Document 09/01/22 12:01 SP (Rec: 09/01/22 12:49 SP [id number]) OP-PT Subjective Patient Comments Patient Comments Pt reports doesn't seem signficant improvement feels the same lately. She states as she walks further she feels her tendons tighten up so has to go sit and stretch out HS and calf but short lived, she can't make it fully around [place]. She saw physician and being referred to orthopedic for further assessment. Patient Reported Progress Same PT-OP-F Manual Assessment Start: 07/26/22 10:09 Freq: Status: Active Protocol: Document 07/26/22 10:30 [facility] (Rec: 07/27/22 11:14 [facility] [id number]) Manual Assessments Soft Tissue Assessment Soft Tissue Mobility Assessment tightness in the lateral gastroc musculature and peroneal muscles, tightness from distal ITB insertion up the lateral left leg, tightness throughout the left hamstrings especially at distal insertions Joint Mobility Assessment Joint Mobility Assessment tenderness over the left tib/ fib joint, difficult to assess joint mobility, pain with knee flexion, pt notes improvement of symptoms with knee extension PT-OP-J Posture/Palpation/Skin Start: 07/26/22 10:09 Freq: Status: Active Protocol: Document 07/26/22 10:30 [facility] (Rec: 07/26/22 11:43 [facility] [id number]) Palpation Assessment Location left lateral gastroc musculature Palpation Findings Soft Tissue Tightness,Muscle Guarding,Tenderness LEFT ITB Palpation Findings Soft Tissue Tightness,Spasm, Muscle Guarding,Tenderness Palpation Details tenderness along the left lateral ITB from orgin to insertion especially at the lateral tibia attachment left lateral tib fib joint Palpation Findings Soft Tissue Tightness,Spasm, Tenderness Palpation Details tenderness to palpation at the left lateral tib/fib joint PT-OP-K Range of Motion Start: 07/26/22 10:09 Freq: Status: Active Protocol: Document 07/26/22 10:30 [facility] (Rec: 07/26/22 11:43 [facility] [id number]) Hip Goniometric Range of Motion Hip Right Hip ROM WFL No Testing Position Supine Straight Leg Raise 55 Left Hip ROM WFL No Testing Position Supine Straight Leg Raise 45 Hip ROM Limitations Hip ROM Limitations Soft Tissue Tightness Comments left greater than right hamstring and ITB tightness Knee Goniometric Range of Motion Knee Left Knee ROM WFL No Patient Position Supine Flexion Active (degrees) 118 Flexion Passive (degrees) 120 Comments pain is reproduced at the lateral posterior knee with knee flexion PT-OP-M Strength Start: 07/26/22 10:09 Freq: Status: Active Protocol: Document 07/26/22 10:30 [facility] (Rec: 07/27/22 11:11 [facility] [id number]) Knee Strength Knee Manual Muscle Testing Left Flexion (S2) 3 Fair Extension (L3) 3 Fair Comments pain with resisted knee flexion at the lateral knee PT-OP-Q Treatments Start: 07/26/22 10:09 Freq: Status: Active Protocol: Document 09/01/22 12:01 SP (Rec: 09/01/22 12:49 SP [id number]) Therapeutic Exercises Prone Exercises eccentric HS curl Prone Exercise Name initiated in PT and added HEP Side bilateral Resistance AROM Reps/Minutes knee flexion, slow eccentric lower, pause stretch 10SH x10 Comments cued pillow under pelvis, slow eccentric HS curl for active lengthing Sitting Exercises LAQ Sitting Exercise Name added to HEP Side bilateral Resistance 5# leg wt, #4 blue TB at ankles Reps/Minutes 3 SH x10 Comments cued slow flexion return Other Exercises standing calf stretch on the LILIANE Other Exercise Name 3 position: more emphasis on lateral stretch Side bilateral Resistance L>R Equipment Used off step and curb assimulation (front 4 step) Reps/Minutes 2 x 30 sec pos Comments Good feedback stretch each position Manual Therapy Treatment Soft Tissue Mobilization STM over the lateral tib fib calf and ITB attachments Body Location L Lateral prox: gastroc, bicep femoris tendons, poplieus, distl semi mem/te Mobilization Type Myofascial Release,Rolling, Strumming Intensity/Depth Moderate Body Position Hooklying Comments Noted dime size lateral L knee HS tendons and mid posterior knee today golf ball swelling. IMproved post manual to gone mid knee and only feeling muscular tendons and slight decrease lateral knee. Joint Mobilizations L knee Joint tibfemoral PA& AP, tib fib prox and distal AP, patella med/lat/sup/inf Comments Good feedback response, painfree- felt L knee bending better. PT-OP-R Modalities Start: 07/26/22 10:09 Freq: Status: Active Protocol: Document 08/25/22 12:46 SP (Rec: 08/25/22 13:38 SP [id number]) Hot Pack/Cold Pack Treatment CP Location post L>R knee end tx Patient Position Hooklying Treatment Duration (minutes) 10 Patient Tolerance Good Comments good response [id number] PT-OP-T Assessment and Plan Start: 07/26/22 10:09 Freq: Status: Active Protocol: Document 09/01/22 12:01 SP (Rec: 09/01/22 12:49 SP [id number]) Physical Therapy Assessment Goals 3 Impairment pt notes quite a bit of difficulty with functional activities such at going up and down a flight of stairs and walking more than 2 blocks . Detention Goal (LTG) Kelsie is able to return to her walks of 2-3 miles adding in stretches at the end of her walks to decrease tightness and pulling on her knee, she is able to return to her baseline for functional activities such as her ability to ambulate up and down stairs. LTG Duration 12 weeks 2 Impairment tightness of the ITB distal attachments on the left, lateral calf musculature, and hamstring tightness Short Term Goal (STG) pt is educated in a home stretching program for her calf, ITB, and hamstrings STG Duration 4 weeks Detention Goal (LTG) Pt demonstrates with decreased tightness and improvements in muscle length. Her SLR is 50 deg or greater on the left side LTG Duration 12 weeks 1 Impairment pain in the left lateral and posterior knee rated 6/10, worse after she has been sitting or after riding in the car Manager English Goal (LTG) With PT and a home stretching program Kelsie reports a overall reduction in her pain levels to 1-2/10 and notes she is able to sit without a increase pain in her left knee LTG Duration 12 weeks Assessment Summary Assessment Pt responds well to manual STMs. Tx trialed eccentric HS curl to provide active lengthening and concentric quad strengthening to decrease stress on distal HS tendons. Pt demonstrated improved TKE walking but continues to be stiff and pain initial stand posteromedial L knee HS tendon region. Physical Therapy Plan Frequency and Duration Frequency of Treatment 2x/Week Duration of treatment (weeks) 12 Plan of Care Start Date 07/26/22 Plan of Care End Date 10/18/22 Therapeutic Interventions Therapeutic Interventions Home Exercise Program,Manual Therapy,Patient/Caregiver Education,Self-Care/Home Management,Soft Tissue Mobilization,Therapeutic Exercises Modalities Cold Pack/Ice Massage Next Visit Focus/Plan Next Note Type Progress Note Next Visit Plan 10th visit PN next tx POC: Continue recumbent bike, ask response to Dr Cintron appt post PT. POC: MFR techniques for the lateral calf prox, distal sub HS bicep femoris and ITB attachments
--- NOTE | 2022-09-06 14:12 | PT.OTN ---
Current Diagnoses Pain in left knee (09/06/22) Physical Therapy Treatment Note PT-OP-A Visit Information Start: 07/26/22 10:09 Freq: Status: Active Protocol: Document 09/06/22 12:12 [facility] (Rec: 09/06/22 13:04 [facility] [id number]) Out-Patient Physical Therapy Visit Information Visit Information Visit Type Progress Note Visit Start Time 12:15 Visit Stop Time 13:00 Total Visit Minutes 45 Visit Number 10 PT-OP-B Current Condition Start: 07/26/22 10:09 Freq: Status: Active Protocol: Document 07/26/22 10:27 [facility] (Rec: 07/26/22 10:52 [facility] [id number]) Current Condition History of Current Condition Onset Date mid may 2022 History of Current Condition She was walking 6 days a week 45 min - 1 hour. One day she didn't have much sleep the night before and she was in her recliner with her body turned to the left. A hour leter when she got up she had pain down the back of the left leg with pain behind her knee . Now if she sits down everytime she gets up she has pain behind her left knee. After she has been standing for a while the pain seems to decrease. Recently the pain started to radiate up the lateral side of her left leg and lateral side. Being in the car for a long time is the worst. Once she gets out it takes a bit for her to be able to walk off the pain. After she has walked around for awhile it decreases. She has tried icing but it didn't make any difference. She is unable to sleep on either side at this time. She tries to keep her left leg straight, its something about having it bent that causes pain. If she straightens her legs out for 30 min before getting out of bed it helps her walking. pain is in the back but more on the outside. Prior Treatments and Tests SHe had a ultrasound last sunday that was negative for blood clot but did show a bakers cysts. PT-OP-C Subjective Start: 07/26/22 10:09 Freq: Status: Active Protocol: Document 09/06/22 12:12 [facility] (Rec: 09/06/22 13:04 [facility] [id number]) OP-PT Subjective Patient Comments Patient Comments Kelsie reports she has a appointment with ortho September 20. She is still feeling the numbness but it is intermittent. She did increase her cycling to 20 min and has been tolerating that. Kelsie would like to pause PT until after her MD appointment so that she does not go through all her insurance visits. Patient Reported Progress Same PT-OP-F Manual Assessment Start: 07/26/22 10:09 Freq: Status: Active Protocol: Document 07/26/22 10:30 [facility] (Rec: 07/27/22 11:14 [facility] [id number]) Manual Assessments Soft Tissue Assessment Soft Tissue Mobility Assessment tightness in the lateral gastroc musculature and peroneal muscles, tightness from distal ITB insertion up the lateral left leg, tightness throughout the left hamstrings especially at distal insertions Joint Mobility Assessment Joint Mobility Assessment tenderness over the left tib/ fib joint, difficult to assess joint mobility, pain with knee flexion, pt notes improvement of symptoms with knee extension PT-OP-J Posture/Palpation/Skin Start: 07/26/22 10:09 Freq: Status: Active Protocol: Document 07/26/22 10:30 [facility] (Rec: 07/26/22 11:43 [facility] [id number]) Palpation Assessment Location left lateral gastroc musculature Palpation Findings Soft Tissue Tightness,Muscle Guarding,Tenderness LEFT ITB Palpation Findings Soft Tissue Tightness,Spasm, Muscle Guarding,Tenderness Palpation Details tenderness along the left lateral ITB from orgin to insertion especially at the lateral tibia attachment left lateral tib fib joint Palpation Findings Soft Tissue Tightness,Spasm, Tenderness Palpation Details tenderness to palpation at the left lateral tib/fib joint PT-OP-K Range of Motion Start: 07/26/22 10:09 Freq: Status: Active Protocol: Document 07/26/22 10:30 [facility] (Rec: 07/26/22 11:43 [facility] [id number]) Hip Goniometric Range of Motion Hip Right Hip ROM WFL No Testing Position Supine Straight Leg Raise 55 Left Hip ROM WFL No Testing Position Supine Straight Leg Raise 45 Hip ROM Limitations Hip ROM Limitations Soft Tissue Tightness Comments left greater than right hamstring and ITB tightness Knee Goniometric Range of Motion Knee Left Knee ROM WFL No Patient Position Supine Flexion Active (degrees) 118 Flexion Passive (degrees) 120 Comments pain is reproduced at the lateral posterior knee with knee flexion PT-OP-M Strength Start: 07/26/22 10:09 Freq: Status: Active Protocol: Document 07/26/22 10:30 [facility] (Rec: 07/27/22 11:11 [facility] [id number]) Knee Strength Knee Manual Muscle Testing Left Flexion (S2) 3 Fair Extension (L3) 3 Fair Comments pain with resisted knee flexion at the lateral knee PT-OP-Q Treatments Start: 07/26/22 10:09 Freq: Status: Active Protocol: Document 09/06/22 12:12 [facility] (Rec: 09/06/22 13:04 [facility] [id number]) Cardio Equipment Recumbent Elliptical (Biodex) Resistance 2 Seat Position 5 Therapeutic Exercises Sitting Exercises sit-stand with theraband Equipment Used level 2>4 TB Reps/Minutes x 10 reps Comments good effort response Standing Exercises standing side steps with theraband Equipment Used level 2 theraband> #4 blue Reps/Minutes x 3 min Comments open space Other Exercises standing calf stretch on the LILIANE Other Exercise Name 3 position: more emphasis on lateral stretch Side bilateral Resistance L>R Equipment Used off step and curb assimulation (front 4 step) Reps/Minutes 2 x 30 sec pos Comments Good feedback stretch each position Manual Therapy Treatment Soft Tissue Mobilization STM over the lateral tib fib calf and ITB attachments Body Location L Lateral prox: gastroc, bicep femoris tendons, poplieus, distl semi mem/te Mobilization Type Myofascial Release,Rolling, Strumming Intensity/Depth Moderate Body Position Hooklying Comments Noted dime size lateral L knee HS tendons and mid posterior knee today golf ball swelling. IMproved post manual to gone mid knee and only feeling muscular tendons and slight decrease lateral knee. Manual Techniques prone quad stretch L Type left side Body Location quad Body Position Prone Reps/Duration 2 min hold Comments manual quad stretch in prone PT-OP-R Modalities Start: 07/26/22 10:09 Freq: Status: Active Protocol: Document 08/25/22 12:46 SP (Rec: 08/25/22 13:38 SP [id number]) Hot Pack/Cold Pack Treatment CP Location post L>R knee end tx Patient Position Hooklying Treatment Duration (minutes) 10 Patient Tolerance Good Comments good response [id number] PT-OP-T Assessment and Plan Start: 07/26/22 10:09 Freq: Status: Active Protocol: Document 09/06/22 14:05 [facility] (Rec: 09/06/22 14:08 [facility] [id number]) Physical Therapy Assessment Goals 3 Impairment pt notes quite a bit of difficulty with functional activities such at going up and down a flight of stairs and walking more than 2 blocks . Fusion Juncture Grinder Goal (LTG) Kelsie is able to return to her walks of 2-3 miles adding in stretches at the end of her walks to decrease tightness and pulling on her knee, she is able to return to her baseline for functional activities such as her ability to ambulate up and down stairs. Goal not met as walking continues to aggravate her posterior lateral knee LTG Duration 12 weeks 2 Impairment tightness of the ITB distal attachments on the left, lateral calf musculature, and hamstring tightness Short Term Goal (STG) pt is educated in a home stretching program for her calf, ITB, and hamstrings GOAL MET STG Duration 4 weeks Nursing Home Goal (LTG) Pt demonstrates with decreased tightness and improvements in muscle length. Her SLR is 50 deg or greater on the left side excellent progress LTG Duration 12 weeks 1 Impairment pain in the left lateral and posterior knee rated 6/10, worse after she has been sitting or after riding in the car Fusion Juncture Grinder Goal (LTG) With PT and a home stretching program Kelsie reports a overall reduction in her pain levels to 1-2/10 and notes she is able to sit without a increase pain in her left knee Kelsie still experiences pain after being in a seated position LTG Duration 12 weeks Assessment Summary Assessment Kelsie has an appointment September 20 with the orthopedics doctor at [facility]. We will pause her visits until after this appointment. Her calf and hamstring is looser now and she is doing all her exercises for home. The lu's cyst is lateral in the popliteal fossa and does seem that it aggravates the perineal nerve as well as causes pain when she sits and walks. We will resume PT the end of August once she sees MD for consult. Physical Therapy Plan Frequency and Duration Frequency of Treatment 2x/Week Duration of treatment (weeks) 12 Plan of Care Start Date 09/06/22 Plan of Care End Date 11/29/22 Therapeutic Interventions Therapeutic Interventions Home Exercise Program,Manual Therapy,Patient/Caregiver Education,Self-Care/Home Management,Soft Tissue Mobilization,Therapeutic Exercises Modalities Cold Pack/Ice Massage Next Visit Focus/Plan Next Note Type Treatment Note Next Visit Plan Recheck in with Kelsie following her ortho consult
--- NOTE | 2022-09-06 14:12 | PT.OPPOC ---
Physical, Occupational & Speech Therapy At [facility] Current Diagnoses Pain in left knee (09/06/22) Visit Care Team Role Provider Type Raymundo Cintron MD Attending Provider Physician Family Provider Primary Care Provider Referring Provider Specialty: Internal Medicine Address: [address] [place] [address], [address], [address] Email: [email or web address] Plan Of Care PT-OP-T Assessment and Plan Start: 07/26/22 10:09 Freq: Status: Active Protocol: Document 09/06/22 14:05 [facility] (Rec: 09/06/22 14:08 [facility] [id number]) Physical Therapy Assessment Goals 3 Impairment pt notes quite a bit of difficulty with functional activities such at going up and down a flight of stairs and walking more than 2 blocks . Grocery Packer Goal (LTG) Kelsie is able to return to her walks of 2-3 miles adding in stretches at the end of her walks to decrease tightness and pulling on her knee, she is able to return to her baseline for functional activities such as her ability to ambulate up and down stairs. Goal not met as walking continues to aggravate her posterior lateral knee LTG Duration 12 weeks 2 Impairment tightness of the ITB distal attachments on the left, lateral calf musculature, and hamstring tightness Short Term Goal (STG) pt is educated in a home stretching program for her calf, ITB, and hamstrings GOAL MET STG Duration 4 weeks Grocery Packer Goal (LTG) Pt demonstrates with decreased tightness and improvements in muscle length. Her SLR is 50 deg or greater on the left side excellent progress LTG Duration 12 weeks 1 Impairment pain in the left lateral and posterior knee rated 6/10, worse after she has been sitting or after riding in the car Fdc Goal (LTG) With PT and a home stretching program Kelsie reports a overall reduction in her pain levels to 1-2/10 and notes she is able to sit without a increase pain in her left knee Kelsie still experiences pain after being in a seated position LTG Duration 12 weeks Assessment Summary Assessment Kelsie has an appointment September 20 with the orthopedics doctor at [facility]. We will pause her visits until after this appointment. Her calf and hamstring is looser now and she is doing all her exercises for home. The lu's cyst is lateral in the popliteal fossa and does seem that it aggravates the perineal nerve as well as causes pain when she sits and walks. We will resume PT the end of August once she sees MD for consult. Physical Therapy Plan Frequency and Duration Frequency of Treatment 2x/Week Duration of treatment (weeks) 12 Plan of Care Start Date 09/06/22 Plan of Care End Date 11/29/22 Therapeutic Interventions Therapeutic Interventions Home Exercise Program,Manual Therapy,Patient/Caregiver Education,Self-Care/Home Management,Soft Tissue Mobilization,Therapeutic Exercises Modalities Cold Pack/Ice Massage Next Visit Focus/Plan Next Note Type Treatment Note Next Visit Plan Recheck in with Kelsie following her ortho consult Plan of Care Dates Plan of Care Start Date 09/06/22 Plan of Care End Date 11/29/22 Electronically Signed by: Rosenda Spain, PT 09/06/22 1784 If you are in agreement with this Plan of Care, please return a signed and dated copy. I have reviewed this Plan of Care and certify that the skilled therapy services above are required to meet the patient?s needs. Physician Signature Date Printed Name and Credentials Clinical Instructor Signature Printed Name and Credentials
--- NOTE | 2022-09-27 13:45 | PT.OTN ---
Addendum entered and electronically signed by Kelsey Priest PTA 09/27/22 14:16: Pt will cancel SOCIAL WORKER ASSISTANT appts in August/september and follow up with PT 10/18, see how does with HEP til then if ready to transition to own/community program. Original Note: Current Diagnoses Pain in left knee (09/27/22) Physical Therapy Treatment Note PT-OP-A Visit Information Start: 07/26/22 10:09 Freq: Status: Active Protocol: Document 09/27/22 12:59 SP (Rec: 09/27/22 14:15 SP [id number]) Out-Patient Physical Therapy Visit Information Visit Information Visit Type Treatment Note Visit Start Time 13:00 Visit Stop Time 13:45 Total Visit Minutes 45 Visit Number 11 Number of SOCIAL WORKER ASSISTANT Visits 1 Evaluation Information Evaluation Date 07/26/22 PT-OP-B Current Condition Start: 07/26/22 10:09 Freq: Status: Active Protocol: Document 07/26/22 10:27 [facility] (Rec: 07/26/22 10:52 [facility] [id number]) Current Condition History of Current Condition Onset Date mid may 2022 History of Current Condition She was walking 6 days a week 45 min - 1 hour. One day she didn't have much sleep the night before and she was in her recliner with her body turned to the left. A hour leter when she got up she had pain down the back of the left leg with pain behind her knee . Now if she sits down everytime she gets up she has pain behind her left knee. After she has been standing for a while the pain seems to decrease. Recently the pain started to radiate up the lateral side of her left leg and lateral side. Being in the car for a long time is the worst. Once she gets out it takes a bit for her to be able to walk off the pain. After she has walked around for awhile it decreases. She has tried icing but it didn't make any difference. She is unable to sleep on either side at this time. She tries to keep her left leg straight, its something about having it bent that causes pain. If she straightens her legs out for 30 min before getting out of bed it helps her walking. pain is in the back but more on the outside. Prior Treatments and Tests SHe had a ultrasound last sunday that was negative for blood clot but did show a bakers cysts. PT-OP-C Subjective Start: 07/26/22 10:09 Freq: Status: Active Protocol: Document 09/27/22 12:59 SP (Rec: 09/27/22 14:15 SP [id number]) OP-PT Subjective Patient Comments Patient Comments Pt reports saw Dr Andrade at [facility] 09/20 and reviewed xray with no hands and discussed maybe can give injection in L knee but with no pain now not sure need to do anything. Pt reports woke up Sat 09/16 L knee feels great , painfree and returning to almost normal activities. She wants to know what exercises to progress own. She states able to sit for while and gets up and can walk right away, walk Neurodyn full 4 laps painfree, but stretches at 2 and 4 laps for mindful recovery, muscle tiring. Wants to cancel next appts with SOCIAL WORKER ASSISTANT , keep PT appt for time see how doing and if well will ask if anything progressive can do on own and DC with PT 10/18. PT-OP-F Manual Assessment Start: 07/26/22 10:09 Freq: Status: Active Protocol: Document 07/26/22 10:30 [facility] (Rec: 07/27/22 11:14 [facility] [id number]) Manual Assessments Soft Tissue Assessment Soft Tissue Mobility Assessment tightness in the lateral gastroc musculature and peroneal muscles, tightness from distal ITB insertion up the lateral left leg, tightness throughout the left hamstrings especially at distal insertions Joint Mobility Assessment Joint Mobility Assessment tenderness over the left tib/ fib joint, difficult to assess joint mobility, pain with knee flexion, pt notes improvement of symptoms with knee extension PT-OP-J Posture/Palpation/Skin Start: 07/26/22 10:09 Freq: Status: Active Protocol: Document 07/26/22 10:30 [facility] (Rec: 07/26/22 11:43 [facility] [id number]) Palpation Assessment Location left lateral gastroc musculature Palpation Findings Soft Tissue Tightness,Muscle Guarding,Tenderness LEFT ITB Palpation Findings Soft Tissue Tightness,Spasm, Muscle Guarding,Tenderness Palpation Details tenderness along the left lateral ITB from orgin to insertion especially at the lateral tibia attachment left lateral tib fib joint Palpation Findings Soft Tissue Tightness,Spasm, Tenderness Palpation Details tenderness to palpation at the left lateral tib/fib joint PT-OP-K Range of Motion Start: 07/26/22 10:09 Freq: Status: Active Protocol: Document 07/26/22 10:30 [facility] (Rec: 07/26/22 11:43 [facility] [id number]) Hip Goniometric Range of Motion Hip Right Hip ROM WFL No Testing Position Supine Straight Leg Raise 55 Left Hip ROM WFL No Testing Position Supine Straight Leg Raise 45 Hip ROM Limitations Hip ROM Limitations Soft Tissue Tightness Comments left greater than right hamstring and ITB tightness Knee Goniometric Range of Motion Knee Left Knee ROM WFL No Patient Position Supine Flexion Active (degrees) 118 Flexion Passive (degrees) 120 Comments pain is reproduced at the lateral posterior knee with knee flexion PT-OP-M Strength Start: 07/26/22 10:09 Freq: Status: Active Protocol: Document 07/26/22 10:30 [facility] (Rec: 07/27/22 11:11 [facility] [id number]) Knee Strength Knee Manual Muscle Testing Left Flexion (S2) 3 Fair Extension (L3) 3 Fair Comments pain with resisted knee flexion at the lateral knee PT-OP-Q Treatments Start: 07/26/22 10:09 Freq: Status: Active Protocol: Document 09/27/22 12:59 SP (Rec: 09/27/22 14:15 SP [id number]) Therapeutic Exercises Supine Exercises supine bridge with theraband and slight hip abduction Supine Exercise Name bridge w/ hip abd Resistance Tb #4 blue at thighs Reps/Minutes 3x10 Comments good quad, glut,core fac tiring effort, painfree Sitting Exercises LAQ Sitting Exercise Name REviewed HEP- discussed not performed Side bilateral Resistance #4 blue TB at ankles Equipment Used Ortho suggested continue Reps/Minutes 3 SH x10 Comments cued slow flexion return sit-stand with theraband Sitting Exercise Name HEP reviewed Equipment Used level 4 TB Blue Reps/Minutes 5 reps x2 Comments good effort response Standing Exercises step ups Standing Exercise Name added HEP: fwd, lateral Side bilateral Equipment Used rail support contact, 6 step Reps/Minutes x10 Comments tiring muscle effort calf raises off step Standing Exercise Name added to HEP Side bilateral Equipment Used rail contact Reps/Minutes x10 Comments good feedback ankle muscle effort standing side steps with theraband Standing Exercise Name HEP reviewed Equipment Used level #4 blue Reps/Minutes x 3 min Comments open space Self-Care/Home Management Treatment Education Patient Education Home Exercise Program,Joint Protection,Pain Management Other Education SOCIAL WORKER ASSISTANT discussed avenues with progressed community gyms/ programs/ 1:1 instruction: [employer], senior center classes and pool fitness center and Danielle Ahum[employer] Functional Carburetor Repairer with welcoming knowledge for self ready activity. PT-OP-R Modalities Start: 07/26/22 10:09 Freq: Status: Active Protocol: Document 08/25/22 12:46 SP (Rec: 08/25/22 13:38 SP [id number]) Hot Pack/Cold Pack Treatment CP Location post L>R knee end tx Patient Position Hooklying Treatment Duration (minutes) 10 Patient Tolerance Good Comments good response [id number] PT-OP-T Assessment and Plan Start: 07/26/22 10:09 Freq: Status: Active Protocol: Document 09/27/22 12:59 SP (Rec: 09/27/22 14:15 SP [id number]) Physical Therapy Assessment Goals 3 Impairment pt notes quite a bit of difficulty with functional activities such at going up and down a flight of stairs and walking more than 2 blocks . Group Home Goal (LTG) Kelsie is able to return to her walks of 2-3 miles adding in stretches at the end of her walks to decrease tightness and pulling on her knee, she is able to return to her baseline for functional activities such as her ability to ambulate up and down stairs. 09/27/22: GOAL MET: able do 4 laps [place] painfree, does do some stretching for prevention. Able to asc/desc 3 stairs home painfree LTG Duration 12 weeks GOAL M ET 09/27/22 2 Impairment tightness of the ITB distal attachments on the left, lateral calf musculature, and hamstring tightness Short Term Goal (STG) pt is educated in a home stretching program for her calf, ITB, and hamstrings GOAL MET STG Duration 4 weeks Chuck Splitter Goal (LTG) Pt demonstrates with decreased tightness and improvements in muscle length. Her SLR is 50 deg or greater on the left side excellent progress 09/27/22: able to get up from sitting while without painfree /tightness LTG Duration 12 weeks progressing 09/27/22 1 Impairment pain in the left lateral and posterior knee rated 6/10, worse after she has been sitting or after riding in the car Chuck Splitter Goal (LTG) With PT and a home stretching program Kelsie reports a overall reduction in her pain levels to 1-2/10 and notes she is able to sit without a increase pain in her left knee 09/27/22: progressing: once in while with busy day L lateral leg pain gone, some achiness B legs. HEP: bridge w/ HABD, resisted band walk, step ups and single repeated, calf raises, resisted STS along with stretching program already doing on own. LTG Duration 12 weeks progressing 09/27/22 Assessment Summary Assessment Pt responded well to ther ex, reports good calf, quad, hip muscle tiring effort painfree. Good understanding of progressed HEP. SOCIAL WORKER ASSISTANT discussed also can look into gyms: [employer], senior center classes and pool fitness center and Danielle Zita Functional Carburetor Repairer with welcoming knowledge for self ready activity. Pt reports feels pretty good leaving. Physical Therapy Plan Frequency and Duration Frequency of Treatment 2x/Week Duration of treatment (weeks) 12 Plan of Care Start Date 09/06/22 Plan of Care End Date 11/29/22 Therapeutic Interventions Therapeutic Interventions Home Exercise Program,Manual Therapy,Patient/Caregiver Education,Self-Care/Home Management,Soft Tissue Mobilization,Therapeutic Exercises Modalities Cold Pack/Ice Massage Next Visit Focus/Plan Next Note Type Treatment Note Next Visit Plan 1 more appt, Recheck in with progressed HEP and potentially DC to own HEP, give more progression if find need or gym classes.
--- NOTE | 2022-10-18 12:48 | PT.OTN ---
Current Diagnoses Pain in left knee (10/18/22) Physical Therapy Treatment Note PT-OP-A Visit Information Start: 07/26/22 10:09 Freq: Status: Active Protocol: Document 10/18/22 12:09 [facility] (Rec: 10/18/22 12:48 [facility] [id number]) Out-Patient Physical Therapy Visit Information Visit Information Visit Type Treatment Note Visit Start Time 13:00 Visit Stop Time 13:30 Total Visit Minutes 30 Visit Number 12 Number of LEDGER CLERK Visits 0 PT-OP-B Current Condition Start: 07/26/22 10:09 Freq: Status: Active Protocol: Document 07/26/22 10:27 [facility] (Rec: 07/26/22 10:52 [facility] [id number]) Current Condition History of Current Condition Onset Date mid may 2022 History of Current Condition She was walking 6 days a week 45 min - 1 hour. One day she didn't have much sleep the night before and she was in her recliner with her body turned to the left. A hour leter when she got up she had pain down the back of the left leg with pain behind her knee . Now if she sits down everytime she gets up she has pain behind her left knee. After she has been standing for a while the pain seems to decrease. Recently the pain started to radiate up the lateral side of her left leg and lateral side. Being in the car for a long time is the worst. Once she gets out it takes a bit for her to be able to walk off the pain. After she has walked around for awhile it decreases. She has tried icing but it didn't make any difference. She is unable to sleep on either side at this time. She tries to keep her left leg straight, its something about having it bent that causes pain. If she straightens her legs out for 30 min before getting out of bed it helps her walking. pain is in the back but more on the outside. Prior Treatments and Tests SHe had a ultrasound last sunday that was negative for blood clot but did show a bakers cysts. PT-OP-C Subjective Start: 07/26/22 10:09 Freq: Status: Active Protocol: Document 10/18/22 12:09 [facility] (Rec: 10/18/22 12:48 [facility] [id number]) OP-PT Subjective Patient Comments Patient Comments pt notes 3 weeks ago she woke up without pain and has been doing good since. She is no longer aware of the bakers cyst. She has not felt even a twinge. She is now walking 40 min each day and doing her calf stretch before and after her walking. She doesn't have to sit down and is able to do it 6 days per week. PT-OP-F Manual Assessment Start: 07/26/22 10:09 Freq: Status: Active Protocol: Document 10/18/22 12:09 [facility] (Rec: 10/18/22 12:48 [facility] [id number]) Manual Assessments Soft Tissue Assessment Soft Tissue Mobility Assessment no longer feeling the tightness from the lateral ITB and lateral hamstring, no tenderness along the tib fib joint Joint Mobility Assessment Joint Mobility Assessment WNL PT-OP-J Posture/Palpation/Skin Start: 07/26/22 10:09 Freq: Status: Active Protocol: Document 07/26/22 10:30 [facility] (Rec: 07/26/22 11:43 [facility] [id number]) Palpation Assessment Location left lateral gastroc musculature Palpation Findings Soft Tissue Tightness,Muscle Guarding,Tenderness LEFT ITB Palpation Findings Soft Tissue Tightness,Spasm, Muscle Guarding,Tenderness Palpation Details tenderness along the left lateral ITB from orgin to insertion especially at the lateral tibia attachment left lateral tib fib joint Palpation Findings Soft Tissue Tightness,Spasm, Tenderness Palpation Details tenderness to palpation at the left lateral tib/fib joint PT-OP-K Range of Motion Start: 07/26/22 10:09 Freq: Status: Active Protocol: Document 07/26/22 10:30 [facility] (Rec: 07/26/22 11:43 [facility] [id number]) Hip Goniometric Range of Motion Hip Right Hip ROM WFL No Testing Position Supine Straight Leg Raise 55 Left Hip ROM WFL No Testing Position Supine Straight Leg Raise 45 Hip ROM Limitations Hip ROM Limitations Soft Tissue Tightness Comments left greater than right hamstring and ITB tightness Knee Goniometric Range of Motion Knee Left Knee ROM WFL No Patient Position Supine Flexion Active (degrees) 118 Flexion Passive (degrees) 120 Comments pain is reproduced at the lateral posterior knee with knee flexion PT-OP-M Strength Start: 07/26/22 10:09 Freq: Status: Active Protocol: Document 07/26/22 10:30 [facility] (Rec: 07/27/22 11:11 [facility] [id number]) Knee Strength Knee Manual Muscle Testing Left Flexion (S2) 3 Fair Extension (L3) 3 Fair Comments pain with resisted knee flexion at the lateral knee PT-OP-Q Treatments Start: 07/26/22 10:09 Freq: Status: Active Protocol: Document 10/18/22 12:09 [facility] (Rec: 10/18/22 12:48 [facility] [id number]) Manual Therapy Treatment Other Other Manual Treatments manual reassessment of soft tissue mobility of the hamstrings, ITB, calf attachments to the knee and bakers cyst. Self-Care/Home Management Treatment Education Patient Education Home Exercise Program,Joint Protection,Pain Management Other Education reviewed HEP for pt continue working on her exercises to support her knee PT-OP-R Modalities Start: 07/26/22 10:09 Freq: Status: Active Protocol: Document 08/25/22 12:46 SP (Rec: 08/25/22 13:38 SP [id number]) Hot Pack/Cold Pack Treatment CP Location post L>R knee end tx Patient Position Hooklying Treatment Duration (minutes) 10 Patient Tolerance Good Comments good response [id number] PT-OP-T Assessment and Plan Start: 07/26/22 10:09 Freq: Status: Active Protocol: Document 10/18/22 12:09 [facility] (Rec: 10/18/22 12:48 [facility] [id number]) Physical Therapy Assessment Goals 3 Impairment pt notes quite a bit of difficulty with functional activities such at going up and down a flight of stairs and walking more than 2 blocks . Record Changer Assembler Goal (LTG) Kelsie is able to return to her walks of 2-3 miles adding in stretches at the end of her walks to decrease tightness and pulling on her knee, she is able to return to her baseline for functional activities such as her ability to ambulate up and down stairs GOAL MET LTG Duration 12 weeks GOAL M ET 09/27/22 2 Impairment tightness of the ITB distal attachments on the left, lateral calf musculature, and hamstring tightness Short Term Goal (STG) pt is educated in a home stretching program for her calf, ITB, and hamstrings GOAL MET STG Duration 4 weeks Jail Goal (LTG) Pt demonstrates with decreased tightness and improvements in muscle length. Her SLR is 50 deg or greater on the left side excellent progress 10/18/22 goal met LTG Duration 12 weeks progressing 09/27/22 1 Impairment pain in the left lateral and posterior knee rated 6/10, worse after she has been sitting or after riding in the car Jail Goal (LTG) With PT and a home stretching program Kelsie reports a overall reduction in her pain levels to 1-2/10 and notes she is able to sit without a increase pain in her left knee 09/27/22: progressing: once in while with busy day L lateral leg pain gone, some acheyness B legs. HEP: bridge w/ HABD, resisted band walk, step ups and single repeated, calf raises, resisted STS along with stretching program already doing on own. LTG Duration 12 weeks progressing 09/27/22 Assessment Summary Assessment pt has met all her above stated goals Time was spent today with reassessment of her tests and measures and her SLR is now 90 deg on the left and 80 right. Calf ROM is WNL. Hip strength is improved and pt is independent with her HEP. At this time she will be discharged to a [facility] Physical Therapy Plan Discharge Physical Therapy Discharge Reasons Goals Met
== END 2022-10-20 15:14 | disposition home or self-care (01) ==
LOC: PHYS 12:00
PROVIDERS: Family Provider Internal Medicine; PCP Internal Medicine; Referring Provider Internal Medicine; Visit Provider Internal Medicine
DX: M25.562 Pain in left knee (principal)
CPT/HCPCS: 97110; 97140; 97161; 97535

== ENCOUNTER → 2022-12-28 16:14 | Outpatient (CLI) | payer MEDICARE, OTHER, SELFPAY ==
[2022-08-25 14:35] VITALS: BMI 37.2
--- NOTE | 2022-12-28 16:22 | DI.RAD.S_ITS ---
PROCEDURE: XR WRIST RT MIN 3V INDICATIONS: Right wrist pain TECHNIQUE: For views of the wrist were acquired. COMPARISON: None. FINDINGS: Bones: No fractures or dislocations. No suspicious bony lesions. Scaphoid view: Scaphoid is intact. Soft tissues: No suspicious soft tissue calcifications. IMPRESSION: No fracture. No osseous lesion. If symptoms and/or clinical suspicion for pathology persists, further assessment with repeat radiographs (7-10 days) or advanced imaging (e.g. CT, MRI or bone scan) should be considered. Dictated by: Kamille Payton MD, PhD on 12/28/2022 at 16:35 Approved by: Kamille Payton MD, PhD on 12/28/2022 at 16:35
== END ==
PROVIDERS: Family Provider Internal Medicine; PCP Internal Medicine; Referring Provider Nurse Practitioner Family; Visit Provider Nurse Practitioner Family
DX: M25.531 Pain in right wrist (principal)
CPT/HCPCS: 73110

== ENCOUNTER → 2023-01-19 12:47 | Outpatient (CLI) | payer MEDICARE, OTHER, SELFPAY ==
[2022-08-25 14:35] VITALS: BMI 37.2
--- NOTE | 2023-01-19 12:48 | DI.MRI.S_ITS ---
PROCEDURE: MR WRIST RT WO CON INDICATIONS: right wrist pain TECHNIQUE: Noncontrast coronal proton density fast spin echo and T2 fast spin echo with fat saturation; coronal 3-D gradient echo, axial T1 spin echo and T2 fast spin echo with fat saturation, sagittal T1 spin echo through the wrist. COMPARISON: None. FINDINGS: Image quality: Excellent. Bones and cartilage: Osteoarthritic changes are noted throughout wrist joints with joint space narrowing, subchondral sclerosis more notably involving scaphoid trapezial joint and 1st CMC joint. No acute fracture or dislocation. No evidence of avascular necrosis. Carpal ligaments: There is ruptured scapholunate ligament and widening of scapholunate interval. The lunotriquetral ligament is intact. In the absence of intra-articular contrast, the extrinsic carpal ligaments are not well identified. On sagittal images, the pisohamate ligament appears intact. Triangular fibrocartilage complex: The triangular fibrocartilage appears intact. The adjacent meniscal homolog appears normal in the absence of intra-articular contrast. The extensor carpi ulnaris tendon is mildly thickened at the level of ulnar styloid Tendons and soft tissues: The carpal tunnel structures appear normal, including the median nerve. The ulnar nerve appears normal within Guyon's canal. All six extensor tendon compartments demonstrate normal morphology, without pathologic tendon sheath fluid. No soft tissue ganglion cysts. IMPRESSION: 1. Right wrist joint osteoarthritis. No gross acute fracture or dislocation. No evidence of avascular necrosis . 2. Ruptured scapholunate ligament with widened scapholunate interval. The lunotriquetral ligament is intact. 3. Low-grade tendinosis involving extensor carpi ulnaris tendon at the level of ulnar styloid. Rest of the wrist tendons are intact. 4. No gross focal triangular fibrocartilage tear. Dictated by: Jorge Fisher M.D. on 01/21/2023 at 9:44 Approved by: Jorge Fisher M.D. on 01/21/2023 at 9:47
== END ==
PROVIDERS: Family Provider Internal Medicine; PCP Internal Medicine; Referring Provider Internal Medicine; Visit Provider Internal Medicine
DX: M25.531 Pain in right wrist (principal); M19.031 Primary osteoarthritis, right wrist; S63.391A Traumatic rupture of other ligament of right wrist, initial encounter
CPT/HCPCS: 73221

== ENCOUNTER → 2023-02-02 12:04 | Outpatient (CLI) | payer MEDICARE, OTHER, SELFPAY ==
[2022-08-25 14:35] VITALS: BMI 37.2
--- NOTE | 2023-02-02 12:09 | DI.MG.S_ITS ---
BILATERAL DIGITAL DIAGNOSTIC MAMMOGRAM 3D/2D: 02/02/2023 CLINICAL: Right breast pain. Due for Bilateral routine. Comparison is made to exams dated: 12/23/2021 mammogram - [facility], 11/26/2020 mammogram, and 10/07/2019 mammogram - outside facility. There are scattered areas of fibroglandular density in both breasts (category b / 25%-50% glandular tissue). No significant masses, calcifications, or other findings are seen in either breast. No abnormality which corresponds with the area of pain is identified. There has been no significant interval change. IMPRESSION: NEGATIVE There is no abnormality seen in the right breast to correspond with the pain in the lateral aspect. There is no mammographic evidence of malignancy. Return to annual mammogram screening schedule is recommended. Based on the Tyrer Cuzick model (a risk assessment model) the patient's lifetime risk is 16.7% and her 10 year risk is 9.2%. According to the ACR, ACS, and NCCN guidelines, an annual breast MRI exam along with mammogram is recommended if the patient's lifetime risk is 20% or greater. This exam was interpreted at Station ID: [id number]. NOTE: For mammograms, a report in lay terms will be sent to the patient. Approximately 15% of breast malignancies will not be visualized mammographically. In the management of a palpable breast mass, a negative mammogram must not discourage biopsy of a clinically suspicious lesion. Electronically Signed By: Henrry Edwards M.D. acr/:02/05/2023 16:38:03 Entry: - 02/05/2023 16:38:03 letter sent: Normal Exam ACR BI-RADS Category 1: Negative [id number]
== END ==
PROVIDERS: Family Provider Internal Medicine; PCP Internal Medicine; Referring Provider Physician Assistant Medical; Visit Provider Physician Assistant Medical
DX: N64.4 Mastodynia (principal); Z80.3 Family history of malignant neoplasm of breast
CPT/HCPCS: 77066; G0279

== ENCOUNTER 2023-02-15 08:05 | Day surgery (SDC) | payer MEDICARE, OTHER, SELFPAY ==
[2022-08-25 14:35] VITALS: BMI 37.2
[2023-02-08 08:24] VITALS: BMI 40.3
[2023-02-15] VITALS (8 sets, daily range): BP systolic 110–134; BP diastolic 57–75; PULSE 51–72; RESP 12–18; TEMP 36.4–36.6; O2SAT 92–97; BMI 40.3
--- NOTE | 2023-02-15 08:23 | PM.PREOP ---
Pre-operative Note Interval Note History & Physical reviewed/Exam performed by Physician: Yes Changes to H&P: No
[2023-02-15] MEDS: LACTATED RINGERS 1,000 ML 42 ML IV (08:50)
[2023-02-15] MEDS: CEFAZOLIN 2 GM/100 ML PREMIX 100 ML IV (09:15)
--- NOTE | 2023-02-15 09:32 | SUR.OPER ---
Supine on padded OR bed, head on pillow, operative arm on padded arm table, left arm secured on padded arm boards at <90 degrees abduction, legs uncrossed, safety belt at thigh, tape over blanket over lower legs.
[2023-02-15] MEDS: BUPIVACAINE 0.5% (PF) 30 ML, EPINEPHrine 0.15 MG INJ (10:15)
--- NOTE | 2023-02-15 10:36 | P.OP_ITS ---
Operative Date/Time/Diagnoses Date of procedure: 02/15/23 Time of procedure: 09:00 Pre-op diagnosis: Right scapholunate ligament rupture Post-op diagnosis: same Procedure & Clinicians Procedure: Right scapholunate ligament reconstruction using tendon graft Same procedure as scheduled: Yes Indications: Complete rupture of the scapholunate ligament Surgeon: Eric Aparicio Click Yes if Unassisted: Yes Anesthesia Type: General Operative Notes Findings: Complete rupture of the scapholunate ligament with quite a bit of diastasis. The diastasis was easily correctable with no sign of any fixed deformity. Some signs of cartilage loss on the scaphoid but no sign of any cartilage loss to the lunate. Some signs of cartilage loss at the scaphoid fossa on the radius but not at the lunate fossa. No sign of any carpal collapse. Closure Type: primary Applied: implant(s) (Three Arthrex anchors as well as 2 K-wires.) Estimated Blood Loss (mL): 0 Tourniquet time (min): 57 Procedure in detail: On date of service, patient was met in the holding area where his operative site was signed and witnessed by the OR staff. The surgery is once again discussed with the patient in remaining questions or concerns he had were answered fully. Patient was taken back to the operating theater and placed on the operating table in a supine position. Great care was taken to ensure that all bony prominences were appropriately padded. A well-padded tourniquet was placed up along the upper extremity. Time-out was performed verifying patient's name, procedure, and operative site. The limb was prepped and draped in the normal sterile fashion. An Esmarch was u sed to exsanguinate the limb the tourniquet was turned up to 250 mm of mercury. Longitudinal incision was made. The incision was ulnar to the Geraldo's tubercle. It was centered over the radiocarpal joint. Fifteen blade was used to incise through skin and fascial tissue. Sharp dissection was continued with a 15 blade until the extensor mechanism was identified. Branches of the superficial radial nerve were identified and protected as well as branches coming off ulnarly. Once we had the extensor mechanism identified and was split allowing a release of the EPL tendon. This was also done ulnarly opening up 4th extensor compartment and then done radially opening up the 2nd extensor compartment. This allowed us to retract the extensor tendons. We next took a small strip of tendon tissue from the ECR be which was then whip stitched and then set aside to be used later. Next, the radiocarpal joint was opened preserving the carpal ligaments. This gave us good visualization of the scapholunate interval. There was a complete rupture to the scapholunate ligament. Sign of any radiocarpal arthritic changes as discussed above. K-wire was placed in to the scaphoid and 1 into the lunate and the scapholunate interval was reduced. There was quite a bit of flexion of the scaphoid which was reduced as well as extension of the lunate. These 2 K- wires were then held together to close down any diastasis. Another K-wire was placed between the scaphoid and the capitate to keep it from falling back into flexion. There was still some motion at the scapholunate interval so a another K-wire was placed between the scaphoid and lunate to hold the reduction. Next, 3 guidewires were placed 1 in the lunate and 2 in the scaphoid 1 by the scapholunate interval and then 1 very distally. C-arm used to verify reduction of the scapholunate interval as well as guidewire positioning. Once we were satisfied with the positioning cannulated drill was used to drill over the 3 guidewires. The bony hole tunnels were then copiously irrigated removing any remaining tissue. We then turned our attention back to our tendon graft. This plus suture tape was tenodesed into the 1st hole in the scaphoid. Then under tension this was then placed into the 2nd hole into the lunate going across the scapholunate interval 18 OD seen the attendant as well as the graft providing a solid repair of the scapholunate interval. Next, the tendon and suture material were then brought up to the distal hole into the scaphoid and retain noticed there to once again help keep the scaphoid from falling into flexion. C-arm was brought in to verify maintenance of reduction. The 2 reducing K-wires were removed and there was no gapping at the scapholunate interval once those K-wires were removed. We were able to flex and extend the wrist with no abnormal motion of the scapholunate interval been no sign of any diastasis. Good signs of a solid repair of the scapholunate interval. The wound was then copiously irrigated. The capsule was closed and repaired using 3-0 FiberWire. The extensor mechanism was closed with Vicryl recreating the 4th extensor compartment as well as the 3rd and 2nd extensor compartments. The rest of the wound was closed in layered fashion. Patient's hand and arm was cleaned dried and dressed. Patient was placed into a splint and taken to the PACU in stable condition. Complications: none Post-operative Condition: stable Disposition: PACU Plan for aftercare: Patient will be immobilized for 6 weeks. After 6 weeks K-wires will be removed and patient will be placed into a removable brace.
[2023-02-15] MEDS: ACETAMINOPHEN 325 MG TABLET 650 MG PO (10:58)
[2023-02-15] MEDS: OXYCODONE IR 5 MG TABLET PO (10:58)
== END 2023-02-15 12:40 | disposition home or self-care (01) ==
PROVIDERS: Family Provider Internal Medicine; PCP Internal Medicine; Referring Provider Orthopaedic Surgery; Visit Provider Orthopaedic Surgery
PROC: (CPT 25320; principal; 2023-02-15 10:45)
DX: S63.8X1A Sprain of other part of right wrist and hand, initial encounter (principal); W18.30XA Fall on same level, unspecified, initial encounter
CPT/HCPCS: 25320; C1713; J0171; J0690; J1100; J2405; J2704; J3010

== ENCOUNTER 2023-09-24 13:45 | Outpatient (RCR) | payer MEDICARE, OTHER, SELFPAY ==
[2022-08-25 14:35] VITALS: BMI 37.2
--- NOTE | 2023-06-07 17:43 | PT.OIE ---
Current Diagnoses Pain in right shoulder (06/07/23) Pain in thoracic spine (06/07/23) Weakness (06/07/23) Past Medical History (Last Updated 01/16/23 @ 15:43 by Raymundo Cintron MD) Cataracts, bilateral (~2017) Chicken pox (~1962) Chronic migraine Chronic renal failure, stage 3a Diverticular disease of colon (~1987) Endometriosis (~1995) Essential hypertension (~1989) Fractures (~2010) Frequent UTI Measles (~1964) Migraines Near sighted Ovarian cyst (~1995) Urinary incontinence (~2001) Past Surgical History (Last Reviewed 07/14/22 @ 11:13 by Jenna Alexandra PA-C) Anesthesia History of foot surgery (~2010) Status post appendectomy (~1995) Status post right oophorectomy (~1995) Visit Care Team Role Provider Type Raymundo Cintron MD Attending Provider Physician Family Provider Primary Care Provider Referring Provider Specialty: Internal Medicine Address: [address] [place] [address], [facility] Email: [email or web address] Physical Therapy Initial Evaluation PT-OP-A Visit Information Start: 06/06/23 17:36 Freq: Status: Active Protocol: Document 06/07/23 13:49 NM (Rec: 06/07/23 17:40 NM [id number]) Out-Patient Physical Therapy Visit Information Visit Information Visit Type Initial Evaluation Visit Note KX after 19 visits Visit Start Time 13:45 Visit Stop Time 14:35 Visit Number 1 Evaluation Information Evaluation Date 06/07/23 Precautions Precautions R hand surgery, unable to make fist Monitor vitals with activity PT-OP-B Current Condition Start: 06/06/23 17:36 Freq: Status: Active Protocol: Document 06/07/23 13:49 NM (Rec: 06/07/23 17:40 NM [id number]) Current Condition History of Current Condition Onset Date December 2022-April 2023 Current Complaints R shoulder mobility, weakness History of Current Condition Pt presents with R shoulder pain related to shoulder positioning due to previous R hand surgery. She fell on outstretched hand on 12/15/22. 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 Due to immobilization and then subsequent elevation of arm on pillows and brace for several months, hand was elevated in air in ER with elbow bent until Apr 11 due to swelling. Her shoulder began to bother her at that point in time. She has been doing exercises (e.g . shoulder flexion) prescribed by hand therapist in meantime . Continued to have swelling after removal of hand stitches in April. Currently has difficulty with using R hand post-op and is in OT for her hand. Pt has to wear an extension brace for 30 min 3x/ day, her shoulder hurts during this due to positioning; positioned on a pillow per instructions. She reports difficulty with dressing (e.g bra), reaching (abd, up), movement. No imaging, no prior shoulder/arm injuries or problems. Pt reports no neck or thoracic discomfort, no numbness or tingling. Prior Treatments and Tests Concurrent treatment from OT for hand therapy Prior Functional Status Baseline Function- ADL's Independent Baseline Function- Mobility Independent Baseline Function- Other Pain with sleeping due to position Current Functional Impairments (Reported) Functional Limitations- ADL's Difficulty dressing, lifting/ reaching PT-OP-C Subjective Start: 06/06/23 17:36 Freq: Status: Active Protocol: Document 06/07/23 13:49 NM (Rec: 06/07/23 17:40 NM [id number]) OP-PT Subjective Patient Comments Patient Comments see hx above for pt report Patient Questionnaires Quick Dash- Upper Extremity Quick Dash UE Score 77% (score 45- due to R hand surgery) OP-PT Pain Assessment Pain Assessment Grid Paper Pain Assessment Grid Completed Yes Location R shoulder Pain Location Details posterior cuff, biceps muscle Intensity 4 Scale Used Numeric (0 - 10) Description Tender,Tightness Description- Other sore Frequency Intermittent Pain Aggravating Factors Position,Activity,Exercise Other Pain Aggravating Factors sleeping (on back or in sidelying with arm elevated) Pain Alleviating Factors Sitting,Rest Other Pain Alleviating Factors walking Home Pain Medication Use Pain Medications Used No Comments Pain Comments Due to pain with sleeping, sleeps with arms across chest PT-OP-E Functional Tests Start: 06/06/23 17:36 Freq: Status: Active Protocol: Document 06/07/23 13:49 NM (Rec: 06/07/23 17:40 NM [id number]) Functional Tests Apley's Scratch Test Action 1- Left supraspinatus Action 1- Right post cuff, painful Action 2- Left T4 Action 2- Right T4, painful Action 3- Left T7 Action 3- Right L1, painful PT-OP-F Manual Assessment Start: 06/06/23 17:36 Freq: Status: Active Protocol: Document 06/07/23 13:49 NM (Rec: 06/07/23 17:40 NM [id number]) Manual Assessments Soft Tissue Assessment Soft Tissue Mobility Assessment Restrictions R latissimus, posterior rotator cuff, R upper trapezius. Demos swelling and redness of R forearm and wrist related to previous surgery. Joint Mobility Assessment Joint Mobility Assessment Capsular restrictions R shoulder (Abd, ER, IR). Empty end feel at end range flexion, abduction, ER/IR. Anterior humeral head position bilaterally, increased with Apley IR. Normal AC joint space. Elevated R first rib PT-OP-G Mobility & Gait Start: 06/06/23 17:36 Freq: Status: Active Protocol: Document 06/07/23 13:49 NM (Rec: 06/07/23 17:40 NM [id number]) OP Gait Assessment Gait Gait Assistance Required: Independent Distance (Feet) 150 Comments Gait Comments Decreased arm swing PT-OP-H Neuro Start: 06/06/23 17:36 Freq: Status: Active Protocol: Document 06/07/23 13:49 NM (Rec: 06/07/23 17:40 NM [id number]) Sensation Evaluation Comments Summary Comments Will formally assess in next session. Reports no changes in sensation PT-OP-J Posture/Palpation/Skin Start: 06/06/23 17:36 Freq: Status: Active Protocol: Document 06/07/23 13:49 NM (Rec: 06/07/23 17:40 NM [id number]) Posture Evaluation Position Standing Head/C-Spine Posture Forward Head T-Spine Posture Increased Kyphosis Shoulder Posture (L) Rounded,(R) Rounded Scapula Posture (L) Protracted,(R) Protracted Arm Posture (L) Internally Rotated,(R) Internally Rotated Pelvis Posture Anteriorly Tilted Hip Posture (L) Externally Rotated,(R) Externally Rotated Knee Posture (L) Genu Valgus,(R) Genu Valgus Ankle/Foot Posture (L) Pronated,(R) Pronated Palpation Assessment Location R shoulder Palpation Location rotator cuff, biceps, AC joint , SC joint, pec/lat Palpation Findings Soft Tissue Tightness Palpation Details No tenderness to palpation of biceps or rotator cuff on scapula. Minimal tenderness along posterolateral shoulder. PT-OP-K Range of Motion Start: 06/06/23 17:36 Freq: Status: Active Protocol: Document 06/07/23 13:49 NM (Rec: 06/07/23 17:40 NM [id number]) Cervical Spine Range of Motion Cervical Spine Active Degrees Flexion 45 Extension 45 Rotation Left 70 Rotation Right 55 Lateral Flexion Left 25 Lateral Flexion Right 25 ROM Limitations Soft Tissue Tightness Comments No pain with cervical spine motion Shoulder Goniometric Range of Motion Shoulder Right PROM Testing Position Supine Flexion 150 Abduction 110 External Rotation at 90 degrees 40 Abduction External Rotation at 0 degrees Abduction 90 Internal Rotation 75 Comments Pain with abduction, ER at 90 deg when at end range Left Flexion 150 Extension 60 Abduction 170 External Rotation at 0 degrees Abduction 85 Internal Rotation 70 Right Flexion 140 Extension 55 Abduction 100 External Rotation at 0 degrees Abduction 60 Internal Rotation 75 Comments most pain with abd; minimal pain with ER at 0 deg abd PT-OP-L Special Tests Start: 06/06/23 17:36 Freq: Status: Active Protocol: Document 06/07/23 13:49 NM (Rec: 06/07/23 17:40 NM [id number]) Special Tests Cervical Spine Special Tests Distraction Test Results - Spurling's Test Results - Shoulder Special Tests Lift-Off Rotator Cuff Test Results - Comments Able to resist minimally Drop Arm Rotator Cuff Test Results - External Rotation Lag Sign Test Results - Empty Can Test Results - Speed's Biceps Test Results - Davidrsadaf's Biceps Test Results - Mike Rancho Impingement Test Results - Neer Impingement Test Results + Elevation Impingement Test Results + PT-OP-M Strength Start: 06/06/23 17:36 Freq: Status: Active Protocol: Document 06/07/23 13:49 NM (Rec: 06/07/23 17:40 NM [id number]) Cervical Spine Strength Cervical Spine Manual Muscle Testing Flexion (C1-2) 4 Good Extension 4 Good Rotation Left 4 Good Rotation Right 4 Good Lateral Flexion Left (C3) 4 Good Lateral Flexion Right (C3) 4 Good Scapula Strength Scapula Manual Muscle Testing Left Elevation (C4) 4+ Good+ Adduction 4+ Good+ Abduction 4+ Good+ Depression 4+ Good+ Right Elevation (C4) 4- Good- Adduction 4- Good- Abduction 4- Good- Depression 4- Good- Comments Not painful Shoulder Strength Shoulder Manual Muscle Testing Right Flexion 4 Good Extension 4 Good Abduction (C5) 4- Good- Adduction 4 Good External Rotation 4 Good Internal Rotation 4 Good Horizontal Abduction 4 Good Horizontal Adduction 4 Good Comments Minimal pain with resisted abduction Left Flexion 4+ Good+ Extension 4+ Good+ Abduction (C5) 4+ Good+ Adduction 4+ Good+ External Rotation 4+ Good+ Internal Rotation 4+ Good+ Horizontal Abduction 4+ Good+ Horizontal Adduction 4+ Good+ Elbow/Forearm Strength Elbow and Forearm Manual Muscle Testing Right Flexion (C6) 4+ Good+ Extension (C7) 4+ Good+ Comments No pain with resisted biceps Left Flexion (C6) 4+ Good+ Extension (C7) 4+ Good+ PT-OP-T Assessment and Plan Start: 06/06/23 17:36 Freq: Status: Active Protocol: Document 06/07/23 13:49 NM (Rec: 06/07/23 17:40 NM [id number]) Physical Therapy Assessment Rehab Potential Rehabilitation Potential Good Evaluation Complexity Number of Personal Factors/Comorbidities 3 or More Number of Body Systems Impaired 1-2 Clinical Presentation at Evaluation Stable Impairments Impairments Activity Tolerance,Balance, Coordination,Edema,Functional Activities,Functional Mobility ,Gait,Integument,Pain,Posture, ROM,Sensation,Soft Tissue Mobility,Strength,Transfers Other Impairments R hand use Goals 5 Impairment AROM Impairment R shoulder ER 60 deg at 0 deg abd Short Term Goal (STG) Pt will increase R shoulder ER to at least 70 deg in order to demonstrate improved R shoulder AROM for dressing and ADLs STG Duration 4 weeks Correction Goal (LTG) Pt will increase R shoulder ER to at least 80 deg in order to demonstrate improved R shoulder AROM for dressing and ADLs LTG Duration 8 weeks 4 Impairment function Impairment pain with sleeping Short Term Goal (STG) Pt will report waking less than 3x due to R shoulder pain in order to demonstrate improved pain management and QOL STG Duration 4 weeks Correction Goal (LTG) Pt will report not waking due to R shoulder pain in order to demonstrate improved pain management and QOL LTG Duration 8 weeks 3 Impairment strength Impairment R shoulder strength 4-/5 for abduction, 4/5 for all other motions Correction Goal (LTG) Pt will increase R shoulder strength to at least 4+/5 in order to demonstrate improved strength for lifting, reaching , and ADLs LTG Duration 8 weeks 2 Impairment AROM Impairment Apley IR L1 Short Term Goal (STG) Pt will improve R apley IR to at least T10 with pain <4/10 in order to demonstrate improved ability to dress and QOL STG Duration 4 weeks Yardage Caller Goal (LTG) Pt will improve R apley IR to at least T8 with pain <4/10 in order to demonstrate improved ability to dress and QOL LTG Duration 8 weeks 1 Impairment AROM Impairment R shoulder abduction AROM 100 deg Short Term Goal (STG) Pt will increase R shoulder abduction to at least 125 deg without compensation for improved reaching and ADLs STG Duration 4 weeks Yardage Caller Goal (LTG) Pt will increase R shoulder abduction to at least 140 deg without compensation for improved reaching and ADLs LTG Duration 8 weeks Assessment Summary Assessment Pt is a 68 y.o. female presenting with R shoulder pain beginning after R arm immobilization following FOOSH form December 2022. Pt presents with capsular restrictions, most limited and painful with abduction. Pt has difficulty with dressing, reaching, and other ADLs due to pain and decreased R shoulder mobility. Pt's R shoulder AROM is limited in flexion, abduction, ER and IR. She also has limitations in R shoulder PROM with abduction most affected. Pt's R shoulder strength is comparable to her L shoulder, but there is still weakness. Resisted abduction is only painful motion; likely not rotator cuff related. Her R shoulder is not tender to palpation except at posterolateral shoulder near rotator cuff insertion. Impingement tests are positive (~130 deg flex), but pt likely has decreased R shoulder mobility related to immobility , decreased rotator cuff strength, and positioning with R hand therapy activities. She is currently still seeing a hand therapist (OT) for her hand post-operatively. PT and pt discussed exam findings, POC, and several positions to try during hand therapy activities to minimize painful R shoulder positions. Depending on pt progression with PT, pt will be referred back to physician for further assessment and imaging. Pt would benefit from skilled PT for R shoulder mobilization and strengthening in order to decrease pain symptoms, improve QOL, and return to PLOF. Physical Therapy Plan Frequency and Duration Frequency of Treatment 1-2/wk Duration of treatment (weeks) 8 Plan of Care Start Date 06/07/23 Plan of Care End Date 08/10/23 Therapeutic Interventions Therapeutic Interventions Aquatic Therapy,Coordination Training,Gait Training,Home Exercise Program,Joint Mobilizations,Manual Therapy, Neuromuscular Re-education, Orthotic/Prosthetic Management ,Patient/Caregiver Education, Self-Care/Home Management, Sensory Integration,Soft Tissue Mobilization,Taping, Therapeutic Activities, Therapeutic Exercises Modalities Biofeedback,Cold Pack/Ice Massage,Electric Stimulation, Hot Packs,Ultrasound, Vasopneumatic Devices Next Visit Focus/Plan Next Note Type Treatment Note Next Visit Plan Initiate HEP. R shoulder AAROM > AROM, inferior glide mobilization, prone periscapular. Sleep posture and sitting posture with hand extension education Manual: mobilizations, soft tissue mobilization Difficulty gripping with R hand
--- NOTE | 2023-06-13 12:24 | PT.OTN ---
Current Diagnoses Pain in right shoulder (06/13/23) Pain in thoracic spine (06/13/23) Weakness (06/13/23) Physical Therapy Treatment Note PT-OP-A Visit Information Start: 06/06/23 17:36 Freq: Status: Active Protocol: Document 06/13/23 11:15 NM (Rec: 06/13/23 11:16 NM [id number]) Out-Patient Physical Therapy Visit Information Visit Information Visit Type Treatment Note Visit Start Time 11:16 Visit Stop Time 12:00 Visit Number 2 Evaluation Information Evaluation Date 06/07/23 PT-OP-B Current Condition Start: 06/06/23 17:36 Freq: Status: Active Protocol: Document 06/07/23 13:49 NM (Rec: 06/07/23 17:40 NM [id number]) Current Condition History of Current Condition Onset Date December 2022-April 2023 Current Complaints R shoulder mobility, weakness History of Current Condition Pt presents with R shoulder pain related to shoulder positioning due to previous R hand surgery. She fell on outstretched hand on 12/15/22. 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 Due to immobilization and then subsequent elevation of arm on pillows and brace for several months, hand was elevated in air in ER with elbow bent until Apr 11 due to swelling. Her shoulder began to bother her at that point in time. She has been doing exercises (e.g . shoulder flexion) prescribed by hand therapist in meantime . Continued to have swelling after removal of hand stitches in April. Currently has difficulty with using R hand post-op and is in OT for her hand. Pt has to wear an extension brace for 30 min 3x/ day, her shoulder hurts during this due to positioning; positioned on a pillow per instructions. She reports difficulty with dressing (e.g bra), reaching (abd, up), movement. No imaging, no prior shoulder/arm injuries or problems. Pt reports no neck or thoracic discomfort, no numbness or tingling. Prior Treatments and Tests Concurrent treatment from OT for hand therapy Prior Functional Status Baseline Function- ADL's Independent Baseline Function- Mobility Independent Baseline Function- Other Pain with sleeping due to position Current Functional Impairments (Reported) Functional Limitations- ADL's Difficulty dressing, lifting/ reaching PT-OP-C Subjective Start: 06/06/23 17:36 Freq: Status: Active Protocol: Document 06/13/23 11:15 NM (Rec: 06/13/23 11:21 NM [id number]) OP-PT Subjective Patient Comments Patient Comments Pt reports no changes since IE . Reports tenderness along posterior shoulder/cuff. She brought her extensor stretching device for wrist. PT-OP-E Functional Tests Start: 06/06/23 17:36 Freq: Status: Active Protocol: Document 06/07/23 13:49 NM (Rec: 06/07/23 17:40 NM [id number]) Functional Tests Apley's Scratch Test Action 1- Left supraspinatus Action 1- Right post cuff, painful Action 2- Left T4 Action 2- Right T4, painful Action 3- Left T7 Action 3- Right L1, painful PT-OP-F Manual Assessment Start: 06/06/23 17:36 Freq: Status: Active Protocol: Document 06/07/23 13:49 NM (Rec: 06/07/23 17:40 NM [id number]) Manual Assessments Soft Tissue Assessment Soft Tissue Mobility Assessment Restrictions R latissimus, posterior rotator cuff, R upper trapezius. Demos swelling and redness of R forearm and wrist related to previous surgery. Joint Mobility Assessment Joint Mobility Assessment Capsular restrictions R shoulder (Abd, ER, IR). Empty end feel at end range flexion, abduction, ER/IR. Anterior humeral head position bilaterally, increased with Apley IR. Normal AC joint space. Elevated R first rib PT-OP-G Mobility & Gait Start: 06/06/23 17:36 Freq: Status: Active Protocol: Document 06/07/23 13:49 NM (Rec: 06/07/23 17:40 NM [id number]) OP Gait Assessment Gait Gait Assistance Required: Independent Distance (Feet) 150 Comments Gait Comments Decreased arm swing PT-OP-H Neuro Start: 06/06/23 17:36 Freq: Status: Active Protocol: Document 06/07/23 13:49 NM (Rec: 06/07/23 17:40 NM [id number]) Sensation Evaluation Comments Summary Comments Will formally assess in next session. Reports no changes in sensation PT-OP-J Posture/Palpation/Skin Start: 06/06/23 17:36 Freq: Status: Active Protocol: Document 06/07/23 13:49 NM (Rec: 06/07/23 17:40 NM [id number]) Posture Evaluation Position Standing Head/C-Spine Posture Forward Head T-Spine Posture Increased Kyphosis Shoulder Posture (L) Rounded,(R) Rounded Scapula Posture (L) Protracted,(R) Protracted Arm Posture (L) Internally Rotated,(R) Internally Rotated Pelvis Posture Anteriorly Tilted Hip Posture (L) Externally Rotated,(R) Externally Rotated Knee Posture (L) Genu Valgus,(R) Genu Valgus Ankle/Foot Posture (L) Pronated,(R) Pronated Palpation Assessment Location R shoulder Palpation Location rotator cuff, biceps, AC joint , SC joint, pec/lat Palpation Findings Soft Tissue Tightness Palpation Details No tenderness to palpation of biceps or rotator cuff on scapula. Minimal tenderness along posterolateral shoulder. PT-OP-K Range of Motion Start: 06/06/23 17:36 Freq: Status: Active Protocol: Document 06/07/23 13:49 NM (Rec: 06/07/23 17:40 NM [id number]) Cervical Spine Range of Motion Cervical Spine Active Degrees Flexion 45 Extension 45 Rotation Left 70 Rotation Right 55 Lateral Flexion Left 25 Lateral Flexion Right 25 ROM Limitations Soft Tissue Tightness Comments No pain with cervical spine motion Shoulder Goniometric Range of Motion Shoulder Right PROM Testing Position Supine Flexion 150 Abduction 110 External Rotation at 90 degrees 40 Abduction External Rotation at 0 degrees Abduction 90 Internal Rotation 75 Comments Pain with abduction, ER at 90 deg when at end range Left Flexion 150 Extension 60 Abduction 170 External Rotation at 0 degrees Abduction 85 Internal Rotation 70 Right Flexion 140 Extension 55 Abduction 100 External Rotation at 0 degrees Abduction 60 Internal Rotation 75 Comments most pain with abd; minimal pain with ER at 0 deg abd PT-OP-L Special Tests Start: 06/06/23 17:36 Freq: Status: Active Protocol: Document 06/07/23 13:49 NM (Rec: 06/07/23 17:40 NM [id number]) Special Tests Cervical Spine Special Tests Distraction Test Results - Spurling's Test Results - Shoulder Special Tests Lift-Off Rotator Cuff Test Results - Comments Able to resist minimally Drop Arm Rotator Cuff Test Results - External Rotation Lag Sign Test Results - Empty Can Test Results - Speed's Biceps Test Results - Donovan's Biceps Test Results - Mike Rancho Impingement Test Results - Neer Impingement Test Results + Elevation Impingement Test Results + PT-OP-M Strength Start: 06/06/23 17:36 Freq: Status: Active Protocol: Document 06/07/23 13:49 NM (Rec: 06/07/23 17:40 NM [id number]) Cervical Spine Strength Cervical Spine Manual Muscle Testing Flexion (C1-2) 4 Good Extension 4 Good Rotation Left 4 Good Rotation Right 4 Good Lateral Flexion Left (C3) 4 Good Lateral Flexion Right (C3) 4 Good Scapula Strength Scapula Manual Muscle Testing Left Elevation (C4) 4+ Good+ Adduction 4+ Good+ Abduction 4+ Good+ Depression 4+ Good+ Right Elevation (C4) 4- Good- Adduction 4- Good- Abduction 4- Good- Depression 4- Good- Comments Not painful Shoulder Strength Shoulder Manual Muscle Testing Right Flexion 4 Good Extension 4 Good Abduction (C5) 4- Good- Adduction 4 Good External Rotation 4 Good Internal Rotation 4 Good Horizontal Abduction 4 Good Horizontal Adduction 4 Good Comments Minimal pain with resisted abduction Left Flexion 4+ Good+ Extension 4+ Good+ Abduction (C5) 4+ Good+ Adduction 4+ Good+ External Rotation 4+ Good+ Internal Rotation 4+ Good+ Horizontal Abduction 4+ Good+ Horizontal Adduction 4+ Good+ Elbow/Forearm Strength Elbow and Forearm Manual Muscle Testing Right Flexion (C6) 4+ Good+ Extension (C7) 4+ Good+ Comments No pain with resisted biceps Left Flexion (C6) 4+ Good+ Extension (C7) 4+ Good+ PT-OP-Q Treatments Start: 06/06/23 17:36 Freq: Status: Active Protocol: Document 06/13/23 11:15 NM (Rec: 06/13/23 11:16 NM [id number]) Therapeutic Exercises Supine Exercises scapular protraction Side bilateral Resistance AROM Reps/Minutes 1x10 with 5 hold Comments PT facilitating at scap initially,cued for form Sitting Exercises scapular retractions Side bilateral Resistance AROM Equipment Used hands on lap Reps/Minutes 1x10 with 5 hold Comments PT cue scap dep/retract, squeeze fingers for cues pulleys Sitting Exercise Name AAROM: fwd flex, scaption Side right Equipment Used L assisting R Reps/Minutes 1x10 with 2 hold at end range Comments no pain with flexion or scaption Standing Exercises R shoulder stretch Standing Exercise Name 1. flexion, 2. abduction Side right Equipment Used hand against wall Reps/Minutes 1x60 Comments no pain with flexion, min pain with end range abd, none w decreased ROM abduction AAROM Side right Equipment Used L assisting R, dowel Reps/Minutes 1x10 with 3 hold flexion AAROM Side right Equipment Used L assisting R, dowel Reps/Minutes 1x10 with 3 hold Comments cued for max range, no UT comp ; improved w reps; reports no pain IR/ER AAROM Side right Equipment Used L assisting R, dowel Reps/Minutes 1x10 with 3 hold Comments cued for no trunk rotation, elbow by side; reports no pain Other Exercises self soft tissue mobilization Other Exercise Name biceps, LH biceps, pec, rotator cuff Side right Equipment Used racquetball and pillow case Reps/Minutes 3 min Comments reports good feedback with self soft tissue mobilization Manual Therapy Treatment Soft Tissue Mobilization R shoulder Body Location lat, pec, biceps muscle and LH biceps Mobilization Type Myofascial Release,Rolling Intensity/Depth Moderate Body Position Hooklying Comments Soft tissue restrictions of pectoralis and lat. Reports minimal tenderness of R pec near coracoid, pain reduction and improvement in muscle restrictions with soft tissue mobilization. Educated on use of small racquetball at home for HEP Joint Mobilizations R shoulder Joint GHJ Direction Inferior, posterior Grade II Body Position Hooklying Reps/Duration 2x30 ea Comments For pain reduction, initiate gentle mobility. Pt tolerates well without any reports of pain. ABD up to 120 deg Self-Care/Home Management Treatment Education Patient Education Body Mechanics,Home Exercise Program,Joint Protection,Pain Management Other Education 10 minutes: Educated on body mechanics during wrist extension stretch device. Recommended placement next to pt on couch, with pillow behind pt for lumbar support and possible pillow under device to elevate prn; educated on having shoulder in relaxed, depressed position with slight posterior roll back to prevent anterior movement forward. HEP: STM, scapular retractions, shoulder flex/abd/ER AAROM, shoulder flex/abd wall stretch PT-OP-T Assessment and Plan Start: 06/06/23 17:36 Freq: Status: Active Protocol: Document 06/13/23 11:15 NM (Rec: 06/13/23 11:16 NM [id number]) Physical Therapy Assessment Goals 5 Impairment AROM Impairment R shoulder ER 60 deg at 0 deg abd Short Term Goal (STG) Pt will increase R shoulder ER to at least 70 deg in order to demonstrate improved R shoulder AROM for dressing and ADLs STG Duration 4 weeks Group Home Goal (LTG) Pt will increase R shoulder ER to at least 80 deg in order to demonstrate improved R shoulder AROM for dressing and ADLs LTG Duration 8 weeks 4 Impairment function Impairment pain with sleeping Short Term Goal (STG) Pt will report waking less than 3x due to R shoulder pain in order to demonstrate improved pain management and QOL STG Duration 4 weeks Group Home Goal (LTG) Pt will report not waking due to R shoulder pain in order to demonstrate improved pain management and QOL LTG Duration 8 weeks 3 Impairment strength Impairment R shoulder strength 4-/5 for abduction, 4/5 for all other motions Group Home Goal (LTG) Pt will increase R shoulder strength to at least 4+/5 in order to demonstrate improved strength for lifting, reaching , and ADLs LTG Duration 8 weeks 2 Impairment AROM Impairment Apley IR L1 Short Term Goal (STG) Pt will improve R apley IR to at least T10 with pain <4/10 in order to demonstrate improved ability to dress and QOL STG Duration 4 weeks Group Home Goal (LTG) Pt will improve R apley IR to at least T8 with pain <4/10 in order to demonstrate improved ability to dress and QOL LTG Duration 8 weeks 1 Impairment AROM Impairment R shoulder abduction AROM 100 deg Short Term Goal (STG) Pt will increase R shoulder abduction to at least 125 deg without compensation for improved reaching and ADLs STG Duration 4 weeks Group Home Goal (LTG) Pt will increase R shoulder abduction to at least 140 deg without compensation for improved reaching and ADLs LTG Duration 8 weeks Assessment Summary Assessment Pt tolerated session well. She reports no R shoulder pain with activity, except during abduction stretch (resolved with decreased range). Requires increased time with activity. Initiated R shoulder AAROM globally. Pt requires mirror for visual feedback to assist with decreasing compensations at shoulder and trunk. PT also verbally cuing pt with occasional facilitation at scapula and shoulder for correct execution . Will initiate strengthening and further postural education /stabilization in upcoming sessions as pt progresses with mobility. Manual treatment initiating grade II mobilizations and soft tissue mobilization for pain reduction and to begin improving pt range of motion. Pt tolerates well without any increased pain. PT educated pt on soft tissue mobilization as part of HEP to assist with decreasing muscle pain symptoms. PT further educated pt on shoulder position with wrist extension device, ergonomic sitting posture to limit strain on R shoulder and assist with pain reduction. Issued HEP. Pt would benefit from skilled PT for R shoulder mobility and strengthening in order to improve activity tolerance and return to PLOF. Physical Therapy Plan Frequency and Duration Frequency of Treatment 1-2/wk Duration of treatment (weeks) 8 Plan of Care Start Date 06/07/23 Plan of Care End Date 08/10/23 Therapeutic Interventions Therapeutic Interventions Aquatic Therapy,Coordination Training,Gait Training,Home Exercise Program,Joint Mobilizations,Manual Therapy, Neuromuscular Re-education, Orthotic/Prosthetic Management ,Patient/Caregiver Education, Self-Care/Home Management, Sensory Integration,Soft Tissue Mobilization,Taping, Therapeutic Activities, Therapeutic Exercises Modalities Biofeedback,Cold Pack/Ice Massage,Electric Stimulation, Hot Packs,Ultrasound, Vasopneumatic Devices Next Visit Focus/Plan Next Note Type Treatment Note Next Visit Plan Next session: R shoulder AAROM > AROM, inferior glide mobilization, prone periscapular (if tolerates) vs R shoulder isometrics, sidelying AROM with scapular mechanics Educate: Sleep posture and sitting posture with hand extension education Manual: mobilizations, soft tissue mobilization Difficulty gripping with R hand
--- NOTE | 2023-06-20 15:26 | PT.OTN ---
Current Diagnoses Pain in right shoulder (06/20/23) Pain in thoracic spine (06/20/23) Weakness (06/20/23) Physical Therapy Treatment Note PT-OP-A Visit Information Start: 06/06/23 17:36 Freq: Status: Active Protocol: Document 06/20/23 14:36 SP (Rec: 06/20/23 15:50 SP [id number]) Out-Patient Physical Therapy Visit Information Visit Information Visit Type Treatment Note Visit Start Time 14:36 Visit Stop Time 15:26 Visit Number 3 Number of MECHANICAL ENGINEERING TECHNICIAN Visits 1 Evaluation Information Evaluation Date 06/07/23 Precautions Precautions R hand surgery, unable to make fist Monitor vitals with activity PT-OP-B Current Condition Start: 06/06/23 17:36 Freq: Status: Active Protocol: Document 06/07/23 13:49 NM (Rec: 06/07/23 17:40 NM [id number]) Current Condition History of Current Condition Onset Date December 2022-April 2023 Current Complaints R shoulder mobility, weakness History of Current Condition Pt presents with R shoulder pain related to shoulder positioning due to previous R hand surgery. She fell on outstretched hand on 12/15/22. 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 Due to immobilization and then subsequent elevation of arm on pillows and brace for several months, hand was elevated in air in ER with elbow bent until Apr 11 due to swelling. Her shoulder began to bother her at that point in time. She has been doing exercises (e.g . shoulder flexion) prescribed by hand therapist in meantime . Continued to have swelling after removal of hand stitches in April. Currently has difficulty with using R hand post-op and is in OT for her hand. Pt has to wear an extension brace for 30 min 3x/ day, her shoulder hurts during this due to positioning; positioned on a pillow per instructions. She reports difficulty with dressing (e.g bra), reaching (abd, up), movement. No imaging, no prior shoulder/arm injuries or problems. Pt reports no neck or thoracic discomfort, no numbness or tingling. Prior Treatments and Tests Concurrent treatment from OT for hand therapy Prior Functional Status Baseline Function- ADL's Independent Baseline Function- Mobility Independent Baseline Function- Other Pain with sleeping due to position Current Functional Impairments (Reported) Functional Limitations- ADL's Difficulty dressing, lifting/ reaching PT-OP-C Subjective Start: 06/06/23 17:36 Freq: Status: Active Protocol: Document 06/20/23 14:36 SP (Rec: 06/20/23 15:50 SP [id number]) OP-PT Subjective Patient Comments Patient Comments Pt reports still in hand therapy at [facility] for her R hand strengthening. she sleeps on her back since R hand surgery PT-OP-E Functional Tests Start: 06/06/23 17:36 Freq: Status: Active Protocol: Document 06/07/23 13:49 NM (Rec: 06/07/23 17:40 NM [id number]) Functional Tests Apley's Scratch Test Action 1- Left supraspinatus Action 1- Right post cuff, painful Action 2- Left T4 Action 2- Right T4, painful Action 3- Left T7 Action 3- Right L1, painful PT-OP-F Manual Assessment Start: 06/06/23 17:36 Freq: Status: Active Protocol: Document 06/07/23 13:49 NM (Rec: 06/07/23 17:40 NM [id number]) Manual Assessments Soft Tissue Assessment Soft Tissue Mobility Assessment Restrictions R latissimus, posterior rotator cuff, R upper trapezius. Demos swelling and redness of R forearm and wrist related to previous surgery. Joint Mobility Assessment Joint Mobility Assessment Capsular restrictions R shoulder (Abd, ER, IR). Empty end feel at end range flexion, abduction, ER/IR. Anterior humeral head position bilaterally, increased with Apley IR. Normal AC joint space. Elevated R first rib PT-OP-G Mobility & Gait Start: 06/06/23 17:36 Freq: Status: Active Protocol: Document 06/07/23 13:49 NM (Rec: 06/07/23 17:40 NM [id number]) OP Gait Assessment Gait Gait Assistance Required: Independent Distance (Feet) 150 Comments Gait Comments Decreased arm swing PT-OP-H Neuro Start: 06/06/23 17:36 Freq: Status: Active Protocol: Document 06/07/23 13:49 NM (Rec: 06/07/23 17:40 NM [id number]) Sensation Evaluation Comments Summary Comments Will formally assess in next session. Reports no changes in sensation PT-OP-J Posture/Palpation/Skin Start: 06/06/23 17:36 Freq: Status: Active Protocol: Document 06/07/23 13:49 NM (Rec: 06/07/23 17:40 NM [id number]) Posture Evaluation Position Standing Head/C-Spine Posture Forward Head T-Spine Posture Increased Kyphosis Shoulder Posture (L) Rounded,(R) Rounded Scapula Posture (L) Protracted,(R) Protracted Arm Posture (L) Internally Rotated,(R) Internally Rotated Pelvis Posture Anteriorly Tilted Hip Posture (L) Externally Rotated,(R) Externally Rotated Knee Posture (L) Genu Valgus,(R) Genu Valgus Ankle/Foot Posture (L) Pronated,(R) Pronated Palpation Assessment Location R shoulder Palpation Location rotator cuff, biceps, AC joint , SC joint, pec/lat Palpation Findings Soft Tissue Tightness Palpation Details No tenderness to palpation of biceps or rotator cuff on scapula. Minimal tenderness along posterolateral shoulder. PT-OP-K Range of Motion Start: 06/06/23 17:36 Freq: Status: Active Protocol: Document 06/07/23 13:49 NM (Rec: 06/07/23 17:40 NM [id number]) Cervical Spine Range of Motion Cervical Spine Active Degrees Flexion 45 Extension 45 Rotation Left 70 Rotation Right 55 Lateral Flexion Left 25 Lateral Flexion Right 25 ROM Limitations Soft Tissue Tightness Comments No pain with cervical spine motion Shoulder Goniometric Range of Motion Shoulder Right PROM Testing Position Supine Flexion 150 Abduction 110 External Rotation at 90 degrees 40 Abduction External Rotation at 0 degrees Abduction 90 Internal Rotation 75 Comments Pain with abduction, ER at 90 deg when at end range Left Flexion 150 Extension 60 Abduction 170 External Rotation at 0 degrees Abduction 85 Internal Rotation 70 Right Flexion 140 Extension 55 Abduction 100 External Rotation at 0 degrees Abduction 60 Internal Rotation 75 Comments most pain with abd; minimal pain with ER at 0 deg abd PT-OP-L Special Tests Start: 06/06/23 17:36 Freq: Status: Active Protocol: Document 06/07/23 13:49 NM (Rec: 06/07/23 17:40 NM [id number]) Special Tests Cervical Spine Special Tests Distraction Test Results - Spurling's Test Results - Shoulder Special Tests Lift-Off Rotator Cuff Test Results - Comments Able to resist minimally Drop Arm Rotator Cuff Test Results - External Rotation Lag Sign Test Results - Empty Can Test Results - Speed's Biceps Test Results - Davidrsadaf's Biceps Test Results - Mike Rancho Impingement Test Results - Neer Impingement Test Results + Elevation Impingement Test Results + PT-OP-M Strength Start: 06/06/23 17:36 Freq: Status: Active Protocol: Document 06/07/23 13:49 NM (Rec: 06/07/23 17:40 NM [id number]) Cervical Spine Strength Cervical Spine Manual Muscle Testing Flexion (C1-2) 4 Good Extension 4 Good Rotation Left 4 Good Rotation Right 4 Good Lateral Flexion Left (C3) 4 Good Lateral Flexion Right (C3) 4 Good Scapula Strength Scapula Manual Muscle Testing Left Elevation (C4) 4+ Good+ Adduction 4+ Good+ Abduction 4+ Good+ Depression 4+ Good+ Right Elevation (C4) 4- Good- Adduction 4- Good- Abduction 4- Good- Depression 4- Good- Comments Not painful Shoulder Strength Shoulder Manual Muscle Testing Right Flexion 4 Good Extension 4 Good Abduction (C5) 4- Good- Adduction 4 Good External Rotation 4 Good Internal Rotation 4 Good Horizontal Abduction 4 Good Horizontal Adduction 4 Good Comments Minimal pain with resisted abduction Left Flexion 4+ Good+ Extension 4+ Good+ Abduction (C5) 4+ Good+ Adduction 4+ Good+ External Rotation 4+ Good+ Internal Rotation 4+ Good+ Horizontal Abduction 4+ Good+ Horizontal Adduction 4+ Good+ Elbow/Forearm Strength Elbow and Forearm Manual Muscle Testing Right Flexion (C6) 4+ Good+ Extension (C7) 4+ Good+ Comments No pain with resisted biceps Left Flexion (C6) 4+ Good+ Extension (C7) 4+ Good+ PT-OP-Q Treatments Start: 06/06/23 17:36 Freq: Status: Active Protocol: Document 06/20/23 14:36 SP (Rec: 06/20/23 15:50 SP [id number]) Therapeutic Exercises Sidelying Exercises open book Sidelying Exercise Name added to HEP Side right Resistance AROM Reps/Minutes 8 reps Comments occasional cues for no UT, slower pacing pnfree range- feels fine R shld Sidelying Exercise Name ABD aprox 150 deg, FF approx 160 deg Side right Resistance AAROM> 10%A Equipment Used cued no UT, elbow ext, serr press midrange asc/ecc Reps/Minutes 8 reps each Comments tactile & VCs for scapular inf /UR glide, humeral inf & long axis ER glideOH Sitting Exercises pulleys Sitting Exercise Name AAROM: fwd flex, scaption Side right Equipment Used L assisting R Reps/Minutes 1x10 with 2 hold at end range Comments no pain with flexion or scaption Standing Exercises R shoulder stretch Standing Exercise Name 1. flexion, 2. abduction Side right Equipment Used hand against wall Reps/Minutes 1x60 Comments no pain with flexion, min pain with end range abd, none w decreased ROM Other Exercises self soft tissue mobilization Other Exercise Name biceps, LH biceps, pec, rotator cuff Side right Equipment Used racquetball and pillow case Reps/Minutes 3 min Comments reports good feedback with self soft tissue mobilization Manual Therapy Treatment Soft Tissue Mobilization R shoulder Body Location lat, pec, biceps muscle and LH biceps Mobilization Type Myofascial Release,Rolling Intensity/Depth Moderate Body Position side Comments Soft tissue restrictions of distal pectoralis and lat. Reports minimal tenderness of R pec near coracoid, teres Major and distal posterior deltoid, pain reduction and improvement in muscle restrictions with soft tissue mobilization. Revewed educated on use of small racquetball at home for HEP Joint Mobilizations R scapulothoracic Direction inferior, UR/DR, retraction/ protraction Grade II Body Position L SL Comments MWM /c FM open book, ABD, FF R shoulder Joint GHJ Direction Inferior, posterior Grade II Body Position side Comments MWM /c FM FF, ABD Self-Care/Home Management Treatment Education Patient Education Body Mechanics,Home Exercise Program,Joint Protection,Pain Management Other Education 15 min: time spent ed with pillow usage good between BLEs on L side added under RUE and little front arm to reduce anterior shoulder sliding tightness. R SL pillow between BLEs and behind back improved Supine/hooklying Under R arm and thighs for spinal and R shld support. PT-OP-T Assessment and Plan Start: 06/06/23 17:36 Freq: Status: Active Protocol: Document 06/20/23 14:36 SP (Rec: 06/20/23 15:50 SP [id number]) Physical Therapy Assessment Goals 5 Impairment AROM Impairment R shoulder ER 60 deg at 0 deg abd Short Term Goal (STG) Pt will increase R shoulder ER to at least 70 deg in order to demonstrate improved R shoulder AROM for dressing and ADLs STG Duration 4 weeks Penitentiary Goal (LTG) Pt will increase R shoulder ER to at least 80 deg in order to demonstrate improved R shoulder AROM for dressing and ADLs LTG Duration 8 weeks 4 Impairment function Impairment pain with sleeping Short Term Goal (STG) Pt will report waking less than 3x due to R shoulder pain in order to demonstrate improved pain management and QOL STG Duration 4 weeks Cleaning Staff Supervisor Goal (LTG) Pt will report not waking due to R shoulder pain in order to demonstrate improved pain management and QOL LTG Duration 8 weeks 3 Impairment strength Impairment R shoulder strength 4-/5 for abduction, 4/5 for all other motions Penitentiary Goal (LTG) Pt will increase R shoulder strength to at least 4+/5 in order to demonstrate improved strength for lifting, reaching , and ADLs LTG Duration 8 weeks 2 Impairment AROM Impairment Apley IR L1 Short Term Goal (STG) Pt will improve R apley IR to at least T10 with pain <4/10 in order to demonstrate improved ability to dress and QOL STG Duration 4 weeks Cleaning Staff Supervisor Goal (LTG) Pt will improve R apley IR to at least T8 with pain <4/10 in order to demonstrate improved ability to dress and QOL LTG Duration 8 weeks 1 Impairment AROM Impairment R shoulder abduction AROM 100 deg Short Term Goal (STG) Pt will increase R shoulder abduction to at least 125 deg without compensation for improved reaching and ADLs STG Duration 4 weeks Penitentiary Goal (LTG) Pt will increase R shoulder abduction to at least 140 deg without compensation for improved reaching and ADLs LTG Duration 8 weeks Assessment Summary Assessment Pt reports decreased discomfort with tactile and VCing during trial R UE against gravity FF, ABD, max cuing required continue progress in PT. Good response and form during openbook. Cued for set up arm supported on corner wall FF OH stretch step forward LLE fwd vs HO RLE. Pt stated felt more mobility and better understanding use pillows sleeping on side for support, pn free. Physical Therapy Plan Frequency and Duration Frequency of Treatment 1-2/wk Duration of treatment (weeks) 8 Plan of Care Start Date 06/07/23 Plan of Care End Date 08/10/23 Therapeutic Interventions Therapeutic Interventions Aquatic Therapy,Coordination Training,Gait Training,Home Exercise Program,Joint Mobilizations,Manual Therapy, Neuromuscular Re-education, Orthotic/Prosthetic Management ,Patient/Caregiver Education, Self-Care/Home Management, Sensory Integration,Soft Tissue Mobilization,Taping, Therapeutic Activities, Therapeutic Exercises Modalities Biofeedback,Cold Pack/Ice Massage,Electric Stimulation, Hot Packs,Ultrasound, Vasopneumatic Devices Next Visit Focus/Plan Next Note Type Treatment Note Next Visit Plan Continue: R shoulder AAROM> AROM, inferior glide mobilization. Next session: prone periscapular (if tolerates) vs R shoulder isometrics, sidelying AROM with scapular mechanics Educate: Sleep posture and sitting posture with hand extension education Manual: mobilizations, soft tissue mobilization Difficulty gripping with R hand
--- NOTE | 2023-06-25 15:39 | PT.OTN ---
Current Diagnoses Pain in right shoulder (06/25/23) Pain in thoracic spine (06/25/23) Weakness (06/25/23) Physical Therapy Treatment Note PT-OP-A Visit Information Start: 06/06/23 17:36 Freq: Status: Active Protocol: Document 06/25/23 14:35 NM (Rec: 06/25/23 15:39 NM [id number]) Out-Patient Physical Therapy Visit Information Visit Information Visit Type Treatment Note Visit Start Time 14:35 Visit Stop Time 15:15 Visit Number 4 Evaluation Information Evaluation Date 06/07/23 Precautions Precautions R hand surgery, unable to make fist Monitor vitals with activity PT-OP-B Current Condition Start: 06/06/23 17:36 Freq: Status: Active Protocol: Document 06/07/23 13:49 NM (Rec: 06/07/23 17:40 NM [id number]) Current Condition History of Current Condition Onset Date December 2022-April 2023 Current Complaints R shoulder mobility, weakness History of Current Condition Pt presents with R shoulder pain related to shoulder positioning due to previous R hand surgery. She fell on outstretched hand on 12/15/22. 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 Due to immobilization and then subsequent elevation of arm on pillows and brace for several months, hand was elevated in air in ER with elbow bent until Apr 11 due to swelling. Her shoulder began to bother her at that point in time. She has been doing exercises (e.g . shoulder flexion) prescribed by hand therapist in meantime . Continued to have swelling after removal of hand stitches in April. Currently has difficulty with using R hand post-op and is in OT for her hand. Pt has to wear an extension brace for 30 min 3x/ day, her shoulder hurts during this due to positioning; positioned on a pillow per instructions. She reports difficulty with dressing (e.g bra), reaching (abd, up), movement. No imaging, no prior shoulder/arm injuries or problems. Pt reports no neck or thoracic discomfort, no numbness or tingling. Prior Treatments and Tests Concurrent treatment from OT for hand therapy Prior Functional Status Baseline Function- ADL's Independent Baseline Function- Mobility Independent Baseline Function- Other Pain with sleeping due to position Current Functional Impairments (Reported) Functional Limitations- ADL's Difficulty dressing, lifting/ reaching PT-OP-C Subjective Start: 06/06/23 17:36 Freq: Status: Active Protocol: Document 06/25/23 14:35 NM (Rec: 06/25/23 15:39 NM [id number]) OP-PT Subjective Patient Comments Patient Comments Pt reports soreness in R shoulder. She thinks it's from sleeping on her back. PT-OP-E Functional Tests Start: 06/06/23 17:36 Freq: Status: Active Protocol: Document 06/07/23 13:49 NM (Rec: 06/07/23 17:40 NM [id number]) Functional Tests Apley's Scratch Test Action 1- Left supraspinatus Action 1- Right post cuff, painful Action 2- Left T4 Action 2- Right T4, painful Action 3- Left T7 Action 3- Right L1, painful PT-OP-F Manual Assessment Start: 06/06/23 17:36 Freq: Status: Active Protocol: Document 06/07/23 13:49 NM (Rec: 06/07/23 17:40 NM [id number]) Manual Assessments Soft Tissue Assessment Soft Tissue Mobility Assessment Restrictions R latissimus, posterior rotator cuff, R upper trapezius. Demos swelling and redness of R forearm and wrist related to previous surgery. Joint Mobility Assessment Joint Mobility Assessment Capsular restrictions R shoulder (Abd, ER, IR). Empty end feel at end range flexion, abduction, ER/IR. Anterior humeral head position bilaterally, increased with Apley IR. Normal AC joint space. Elevated R first rib PT-OP-G Mobility & Gait Start: 06/06/23 17:36 Freq: Status: Active Protocol: Document 06/07/23 13:49 NM (Rec: 06/07/23 17:40 NM [id number]) OP Gait Assessment Gait Gait Assistance Required: Independent Distance (Feet) 150 Comments Gait Comments Decreased arm swing PT-OP-H Neuro Start: 06/06/23 17:36 Freq: Status: Active Protocol: Document 06/07/23 13:49 NM (Rec: 06/07/23 17:40 NM [id number]) Sensation Evaluation Comments Summary Comments Will formally assess in next session. Reports no changes in sensation PT-OP-J Posture/Palpation/Skin Start: 06/06/23 17:36 Freq: Status: Active Protocol: Document 06/07/23 13:49 NM (Rec: 06/07/23 17:40 NM [id number]) Posture Evaluation Position Standing Head/C-Spine Posture Forward Head T-Spine Posture Increased Kyphosis Shoulder Posture (L) Rounded,(R) Rounded Scapula Posture (L) Protracted,(R) Protracted Arm Posture (L) Internally Rotated,(R) Internally Rotated Pelvis Posture Anteriorly Tilted Hip Posture (L) Externally Rotated,(R) Externally Rotated Knee Posture (L) Genu Valgus,(R) Genu Valgus Ankle/Foot Posture (L) Pronated,(R) Pronated Palpation Assessment Location R shoulder Palpation Location rotator cuff, biceps, AC joint , SC joint, pec/lat Palpation Findings Soft Tissue Tightness Palpation Details No tenderness to palpation of biceps or rotator cuff on scapula. Minimal tenderness along posterolateral shoulder. PT-OP-K Range of Motion Start: 06/06/23 17:36 Freq: Status: Active Protocol: Document 06/07/23 13:49 NM (Rec: 06/07/23 17:40 NM [id number]) Cervical Spine Range of Motion Cervical Spine Active Degrees Flexion 45 Extension 45 Rotation Left 70 Rotation Right 55 Lateral Flexion Left 25 Lateral Flexion Right 25 ROM Limitations Soft Tissue Tightness Comments No pain with cervical spine motion Shoulder Goniometric Range of Motion Shoulder Right PROM Testing Position Supine Flexion 150 Abduction 110 External Rotation at 90 degrees 40 Abduction External Rotation at 0 degrees Abduction 90 Internal Rotation 75 Comments Pain with abduction, ER at 90 deg when at end range Left Flexion 150 Extension 60 Abduction 170 External Rotation at 0 degrees Abduction 85 Internal Rotation 70 Right Flexion 140 Extension 55 Abduction 100 External Rotation at 0 degrees Abduction 60 Internal Rotation 75 Comments most pain with abd; minimal pain with ER at 0 deg abd PT-OP-L Special Tests Start: 06/06/23 17:36 Freq: Status: Active Protocol: Document 06/07/23 13:49 NM (Rec: 06/07/23 17:40 NM [id number]) Special Tests Cervical Spine Special Tests Distraction Test Results - Spurling's Test Results - Shoulder Special Tests Lift-Off Rotator Cuff Test Results - Comments Able to resist minimally Drop Arm Rotator Cuff Test Results - External Rotation Lag Sign Test Results - Empty Can Test Results - Speed's Biceps Test Results - Davidrsadaf's Biceps Test Results - Mike Rancho Impingement Test Results - Neer Impingement Test Results + Elevation Impingement Test Results + PT-OP-M Strength Start: 06/06/23 17:36 Freq: Status: Active Protocol: Document 06/07/23 13:49 NM (Rec: 06/07/23 17:40 NM [id number]) Cervical Spine Strength Cervical Spine Manual Muscle Testing Flexion (C1-2) 4 Good Extension 4 Good Rotation Left 4 Good Rotation Right 4 Good Lateral Flexion Left (C3) 4 Good Lateral Flexion Right (C3) 4 Good Scapula Strength Scapula Manual Muscle Testing Left Elevation (C4) 4+ Good+ Adduction 4+ Good+ Abduction 4+ Good+ Depression 4+ Good+ Right Elevation (C4) 4- Good- Adduction 4- Good- Abduction 4- Good- Depression 4- Good- Comments Not painful Shoulder Strength Shoulder Manual Muscle Testing Right Flexion 4 Good Extension 4 Good Abduction (C5) 4- Good- Adduction 4 Good External Rotation 4 Good Internal Rotation 4 Good Horizontal Abduction 4 Good Horizontal Adduction 4 Good Comments Minimal pain with resisted abduction Left Flexion 4+ Good+ Extension 4+ Good+ Abduction (C5) 4+ Good+ Adduction 4+ Good+ External Rotation 4+ Good+ Internal Rotation 4+ Good+ Horizontal Abduction 4+ Good+ Horizontal Adduction 4+ Good+ Elbow/Forearm Strength Elbow and Forearm Manual Muscle Testing Right Flexion (C6) 4+ Good+ Extension (C7) 4+ Good+ Comments No pain with resisted biceps Left Flexion (C6) 4+ Good+ Extension (C7) 4+ Good+ PT-OP-Q Treatments Start: 06/06/23 17:36 Freq: Status: Active Protocol: Document 06/25/23 14:35 NM (Rec: 06/25/23 15:39 NM [id number]) Therapeutic Exercises Sidelying Exercises R shld Sidelying Exercise Name 1. Fwd flex, 2. ABD, 3. scap protract/retract, 4. ER Side right Resistance AAROM>AROM Equipment Used cued no UT, elbow ext, serr press midrange asc/ecc Reps/Minutes 1x10 ea Comments tactile cue for humeral inf glide and long axis distraction Standing Exercises Bent Over Standing Exercise Name 1. I, T, Row, 2. Trialed in PT : shldr ext, rows Side right Equipment Used bent over with L hand on elevated plinth Reps/Minutes 1. 2x8 ea AROM, 2. trialed: orange tb 1x5 (pain free) Comments pain free, but decreased scapular mobility. PT cueing with fingers R shoulder stretch Standing Exercise Name reviewed for HEP:1. flexion, 2 . abduction Side right Equipment Used hand against wall Reps/Minutes 1x60 Comments no pain with flexion, min pain with end range abd, none w decreased ROM Manual Therapy Treatment Soft Tissue Mobilization R shoulder Body Location lat, RTC, pec, biceps muscle and LH biceps, deltoid Mobilization Type Cross-Friction,Myofascial Release,Rolling,Sustained Pressure Intensity/Depth Moderate Body Position side Comments Soft tissue restrictions of lat near axilla, rotator cuff, pec, biceps, lateral deltoid. Cross friction of LH biceps tendon. Reports improvement in symptoms post soft tissue mobilization Joint Mobilizations R scapulothoracic Direction inferior, UR/DR, retraction/ protraction Grade III Body Position L SL Comments Mobilization with movement foward flexion, abduction, scapular retraction/ protraction with posterior shoulder setting R shoulder Joint GHJ Direction Inferior, posterior Grade III Body Position side Comments At end range, forward flexion and abduction for improved mobility and pain reduction Self-Care/Home Management Treatment Education Patient Education Body Mechanics,Pain Management ,Posture Other Education 10 minutes: Education on sleeping position in sidelying with arm elevated on pillow, in pocket, with pillows to support back and front. Pt demonstrating positioning, adjusting pillows to find most supportive position for R shoulder. HEP: bent over horizontal abd, shoulder extension, rows. PT-OP-T Assessment and Plan Start: 06/06/23 17:36 Freq: Status: Active Protocol: Document 06/25/23 14:35 NM (Rec: 06/25/23 15:39 NM [id number]) Physical Therapy Assessment Goals 5 Impairment AROM Impairment R shoulder ER 60 deg at 0 deg abd Short Term Goal (STG) Pt will increase R shoulder ER to at least 70 deg in order to demonstrate improved R shoulder AROM for dressing and ADLs STG Duration 4 weeks Project Account Manager Goal (LTG) Pt will increase R shoulder ER to at least 80 deg in order to demonstrate improved R shoulder AROM for dressing and ADLs LTG Duration 8 weeks 4 Impairment function Impairment pain with sleeping Short Term Goal (STG) Pt will report waking less than 3x due to R shoulder pain in order to demonstrate improved pain management and QOL STG Duration 4 weeks Jail Goal (LTG) Pt will report not waking due to R shoulder pain in order to demonstrate improved pain management and QOL LTG Duration 8 weeks 3 Impairment strength Impairment R shoulder strength 4-/5 for abduction, 4/5 for all other motions Jail Goal (LTG) Pt will increase R shoulder strength to at least 4+/5 in order to demonstrate improved strength for lifting, reaching , and ADLs LTG Duration 8 weeks 2 Impairment AROM Impairment Apley IR L1 Short Term Goal (STG) Pt will improve R apley IR to at least T10 with pain <4/10 in order to demonstrate improved ability to dress and QOL STG Duration 4 weeks Jail Goal (LTG) Pt will improve R apley IR to at least T8 with pain <4/10 in order to demonstrate improved ability to dress and QOL LTG Duration 8 weeks 1 Impairment AROM Impairment R shoulder abduction AROM 100 deg Short Term Goal (STG) Pt will increase R shoulder abduction to at least 125 deg without compensation for improved reaching and ADLs STG Duration 4 weeks Jail Goal (LTG) Pt will increase R shoulder abduction to at least 140 deg without compensation for improved reaching and ADLs LTG Duration 8 weeks Assessment Summary Assessment Pt reports improvement in symptoms post session. Pt requires extensive cues to limit upper trapezius compensation and for scapular control. Initiated periscapular strengthening after scapular mobility to reinforce scapular mechanics during arm elevation. Cued to limit compensations, maintain posterior scapular setting, which pt reports decrease symptoms during arm elevation. Manual treatment to improve scapular and glenohumeral mobility. Pt continues to have pain at end range abduction and flexion. PT educated pt sleeping position to decrease pain symptoms. Pt would benefit from skilled PT for R shoulder mobility, periscapular and rotator cuff strength in order to decrease pain symptoms and improve ADL tolerance. Physical Therapy Plan Frequency and Duration Frequency of Treatment 1-2/wk Duration of treatment (weeks) 8 Plan of Care Start Date 06/07/23 Plan of Care End Date 08/10/23 Therapeutic Interventions Therapeutic Interventions Aquatic Therapy,Coordination Training,Gait Training,Home Exercise Program,Joint Mobilizations,Manual Therapy, Neuromuscular Re-education, Orthotic/Prosthetic Management ,Patient/Caregiver Education, Self-Care/Home Management, Sensory Integration,Soft Tissue Mobilization,Taping, Therapeutic Activities, Therapeutic Exercises Modalities Biofeedback,Cold Pack/Ice Massage,Electric Stimulation, Hot Packs,Ultrasound, Vasopneumatic Devices Next Visit Focus/Plan Next Note Type Treatment Note Next Visit Plan Continue: R shoulder AAROM> AROM, sidelying scapular control, periscapular (add resistance if good scapular form), inferior glide mobilization. Next session: prone periscapular (if tolerates) vs R shoulder isometrics, sidelying AROM with scapular mechanics Educate: Sleep posture and sitting posture with hand extension education Manual: mobilizations, soft tissue mobilization Difficulty gripping with R hand
--- NOTE | 2023-07-04 15:52 | PT.OTN ---
Current Diagnoses Pain in right shoulder (07/04/23) Pain in thoracic spine (07/04/23) Weakness (07/04/23) Physical Therapy Treatment Note PT-OP-A Visit Information Start: 06/06/23 17:36 Freq: Status: Active Protocol: Document 07/04/23 13:48 NM (Rec: 07/04/23 14:31 NM [id number]) Out-Patient Physical Therapy Visit Information Visit Information Visit Type Treatment Note Visit Start Time 13:48 Visit Stop Time 14:30 Visit Number 5 PT-OP-B Current Condition Start: 06/06/23 17:36 Freq: Status: Active Protocol: Document 06/07/23 13:49 NM (Rec: 06/07/23 17:40 NM [id number]) Current Condition History of Current Condition Onset Date December 2022-April 2023 Current Complaints R shoulder mobility, weakness History of Current Condition Pt presents with R shoulder pain related to shoulder positioning due to previous R hand surgery. She fell on outstretched hand on 12/15/22. 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 Due to immobilization and then subsequent elevation of arm on pillows and brace for several months, hand was elevated in air in ER with elbow bent until Apr 11 due to swelling. Her shoulder began to bother her at that point in time. She has been doing exercises (e.g . shoulder flexion) prescribed by hand therapist in meantime . Continued to have swelling after removal of hand stitches in April. Currently has difficulty with using R hand post-op and is in OT for her hand. Pt has to wear an extension brace for 30 min 3x/ day, her shoulder hurts during this due to positioning; positioned on a pillow per instructions. She reports difficulty with dressing (e.g bra), reaching (abd, up), movement. No imaging, no prior shoulder/arm injuries or problems. Pt reports no neck or thoracic discomfort, no numbness or tingling. Prior Treatments and Tests Concurrent treatment from OT for hand therapy Prior Functional Status Baseline Function- ADL's Independent Baseline Function- Mobility Independent Baseline Function- Other Pain with sleeping due to position Current Functional Impairments (Reported) Functional Limitations- ADL's Difficulty dressing, lifting/ reaching PT-OP-C Subjective Start: 06/06/23 17:36 Freq: Status: Active Protocol: Document 07/04/23 13:48 NM (Rec: 07/04/23 14:31 NM [id number]) OP-PT Subjective Patient Comments Patient Comments Pt reports that her shoulder is improving especially with pain levels. She reports improvement in sleeping without letting her shoulder roll forward; she has also been able to sleep on her R shoulder without issue. PT-OP-E Functional Tests Start: 06/06/23 17:36 Freq: Status: Active Protocol: Document 06/07/23 13:49 NM (Rec: 06/07/23 17:40 NM [id number]) Functional Tests Apley's Scratch Test Action 1- Left supraspinatus Action 1- Right post cuff, painful Action 2- Left T4 Action 2- Right T4, painful Action 3- Left T7 Action 3- Right L1, painful PT-OP-F Manual Assessment Start: 06/06/23 17:36 Freq: Status: Active Protocol: Document 06/07/23 13:49 NM (Rec: 06/07/23 17:40 NM [id number]) Manual Assessments Soft Tissue Assessment Soft Tissue Mobility Assessment Restrictions R latissimus, posterior rotator cuff, R upper trapezius. Demos swelling and redness of R forearm and wrist related to previous surgery. Joint Mobility Assessment Joint Mobility Assessment Capsular restrictions R shoulder (Abd, ER, IR). Empty end feel at end range flexion, abduction, ER/IR. Anterior humeral head position bilaterally, increased with Apley IR. Normal AC joint space. Elevated R first rib PT-OP-G Mobility & Gait Start: 06/06/23 17:36 Freq: Status: Active Protocol: Document 06/07/23 13:49 NM (Rec: 06/07/23 17:40 NM [id number]) OP Gait Assessment Gait Gait Assistance Required: Independent Distance (Feet) 150 Comments Gait Comments Decreased arm swing PT-OP-H Neuro Start: 06/06/23 17:36 Freq: Status: Active Protocol: Document 06/07/23 13:49 NM (Rec: 06/07/23 17:40 NM [id number]) Sensation Evaluation Comments Summary Comments Will formally assess in next session. Reports no changes in sensation PT-OP-J Posture/Palpation/Skin Start: 06/06/23 17:36 Freq: Status: Active Protocol: Document 06/07/23 13:49 NM (Rec: 06/07/23 17:40 NM [id number]) Posture Evaluation Position Standing Head/C-Spine Posture Forward Head T-Spine Posture Increased Kyphosis Shoulder Posture (L) Rounded,(R) Rounded Scapula Posture (L) Protracted,(R) Protracted Arm Posture (L) Internally Rotated,(R) Internally Rotated Pelvis Posture Anteriorly Tilted Hip Posture (L) Externally Rotated,(R) Externally Rotated Knee Posture (L) Genu Valgus,(R) Genu Valgus Ankle/Foot Posture (L) Pronated,(R) Pronated Palpation Assessment Location R shoulder Palpation Location rotator cuff, biceps, AC joint , SC joint, pec/lat Palpation Findings Soft Tissue Tightness Palpation Details No tenderness to palpation of biceps or rotator cuff on scapula. Minimal tenderness along posterolateral shoulder. PT-OP-K Range of Motion Start: 06/06/23 17:36 Freq: Status: Active Protocol: Document 07/04/23 13:48 NM (Rec: 07/04/23 14:31 NM [id number]) Shoulder Goniometric Range of Motion Shoulder Right Flexion 140 Extension 55 Abduction 100 External Rotation at 0 degrees Abduction 60 Internal Rotation 75 Comments most pain with abd; minimal pain with ER at 0 deg abd 07/04/23: 80 deg ER at 0 deg abd , IR to T10, 150 deg abd w/ pulling sensation, 140 deg flexion PT-OP-L Special Tests Start: 06/06/23 17:36 Freq: Status: Active Protocol: Document 06/07/23 13:49 NM (Rec: 06/07/23 17:40 NM [id number]) Special Tests Cervical Spine Special Tests Distraction Test Results - Spurling's Test Results - Shoulder Special Tests Lift-Off Rotator Cuff Test Results - Comments Able to resist minimally Drop Arm Rotator Cuff Test Results - External Rotation Lag Sign Test Results - Empty Can Test Results - Speed's Biceps Test Results - Davidrsadaf's Biceps Test Results - Mike Rancho Impingement Test Results - Neer Impingement Test Results + Elevation Impingement Test Results + PT-OP-M Strength Start: 06/06/23 17:36 Freq: Status: Active Protocol: Document 07/04/23 13:48 NM (Rec: 07/04/23 14:31 NM [id number]) Shoulder Strength Shoulder Manual Muscle Testing Right Flexion 4 Good Extension 4 Good Abduction (C5) 4- Good- Adduction 4 Good External Rotation 4 Good Internal Rotation 4 Good Horizontal Abduction 4 Good Horizontal Adduction 4 Good Comments Minimal pain with resisted abduction 07/04/23: 4/10 for all, no pain PT-OP-Q Treatments Start: 06/06/23 17:36 Freq: Status: Active Protocol: Document 07/04/23 13:48 NM (Rec: 07/04/23 14:31 NM [id number]) Therapeutic Exercises Supine Exercises B ER with flexion Supine Exercise Name trialed in PT; added to HEP Side bilateral Resistance lvl 1 blue tb Reps/Minutes 1x10 Comments pain free; cued to not perform bicep flexion Sidelying Exercises R shld Sidelying Exercise Name 1. Fwd flex, 2. ABD, 3. ER Side right Resistance AROM > 1# db Equipment Used cued no UT, elbow ext, serr press midrange asc/ecc Reps/Minutes 1x10 AROM ea, 1x10 with 1# Comments prn cues to limit UT comp; post scap set Standing Exercises shoulder ext Side bilateral Resistance lvl 3 tb Reps/Minutes 2x10 Comments pain free; cued relax shoulders rows Standing Exercise Name 1. high rows, 2. mid rows Side bilateral Resistance lvl 3 tb Reps/Minutes 2x10 Comments pain free; cued post scap setting Bent Over Standing Exercise Name I, T, Row Side right Resistance 2# db Equipment Used bent over with L hand on elevated plinth Reps/Minutes 1x10 Comments pain free, but decreased scapular mobility. PT cueing with fingers R shoulder stretch Standing Exercise Name post capsule stretch (cross arm) Side right Equipment Used L hand holding R Reps/Minutes 1x30 Comments d/c due to burning feeling in deltoid Manual Therapy Treatment Soft Tissue Mobilization R shoulder Body Location lat, RTC, pec, biceps muscle and LH biceps, deltoid Mobilization Type Cross-Friction,Myofascial Release,Rolling,Sustained Pressure Intensity/Depth Moderate Body Position side Comments soft tissue restriction of biceps LH tendon, deltoid, rotator cuff. Cross friction of LH biceps tendon, tender to palpation. Improvement in soreness post mobilization Joint Mobilizations R scapulothoracic Direction inferior/depression, UR/DR, Grade III Body Position L SL Comments Mobilization with movement foward flexion, abductionwith posterior shoulder setting R shoulder Joint GHJ Direction Inferior, posterior Grade III Body Position side Reps/Duration 1x20 ea Comments At end range, forward flexion and abduction for improved mobility and pain reduction. With IR bias at 60-90 deg abd to improve mobility. Pain free Self-Care/Home Management Treatment Education Patient Education Home Exercise Program Other Education HEP: shoulder flexion + B ER in supine, high rows, mid rows with band PT-OP-T Assessment and Plan Start: 06/06/23 17:36 Freq: Status: Active Protocol: Document 07/04/23 13:48 NM (Rec: 07/04/23 14:31 NM [id number]) Physical Therapy Assessment Goals 5 Impairment AROM Impairment R shoulder ER 60 deg at 0 deg abd Short Term Goal (STG) Pt will increase R shoulder ER to at least 70 deg in order to demonstrate improved R shoulder AROM for dressing and ADLs 07/04/23: 80 deg at 0 deg abd without pulling sensation today STG Duration 4 weeks Skilled Nursing Goal (LTG) Pt will increase R shoulder ER to at least 80 deg in order to demonstrate improved R shoulder AROM for dressing and ADLs 07/04/23: 80 deg at 0 deg abd without pulling sensation today LTG Duration 8 weeks MET 4 Impairment function Impairment pain with sleeping Short Term Goal (STG) Pt will report waking less than 3x due to R shoulder pain in order to demonstrate improved pain management and QOL 07/04/23: none for shoulder pain STG Duration 4 weeks Skilled Nursing Goal (LTG) Pt will report not waking due to R shoulder pain in order to demonstrate improved pain management and QOL 07/04/23: none for shoulder pain LTG Duration 8 weeks MET 3 Impairment strength Impairment R shoulder strength 4-/5 for abduction, 4/5 for all other motions Skilled Nursing Goal (LTG) Pt will increase R shoulder strength to at least 4+/5 in order to demonstrate improved strength for lifting, reaching , and ADLs 07/04/23: 4/5 for all, pain free LTG Duration 8 weeks 2 Impairment AROM Impairment Apley IR L1 Short Term Goal (STG) Pt will improve R apley IR to at least T10 with pain <4/10 in order to demonstrate improved ability to dress and QOL 07/04/23: T10 but anterior shoulder pain/bicep pain, 2/10 STG Duration 4 weeks MET Skilled Nursing Goal (LTG) Pt will improve R apley IR to at least T8 with pain <4/10 in order to demonstrate improved ability to dress and QOL LTG Duration 8 weeks 1 Impairment AROM Impairment R shoulder abduction AROM 100 deg Short Term Goal (STG) Pt will increase R shoulder abduction to at least 125 deg without compensation for improved reaching and ADLs 07/04/23: 150 deg but pulling sensation STG Duration 4 weeks PROGRESSING Tissue Inserter Goal (LTG) Pt will increase R shoulder abduction to at least 140 deg without compensation for improved reaching and ADLs LTG Duration 8 weeks Progress Towards Goals Progress Towards Goals Progressing Toward Goals Assessment Summary Assessment Pt continues to demonstrate improvement in symptom management, scapular control, and ROM. Progressed to resisted bent over periscapular strengthening and sidelying AROM with 1# db. Pt demos improved scapular mobility and control; however, requires cues for correct form with activity. Progressed to banded periscapular strengthening. Cues for shoulder relaxation, posterior scapular setting. Manual treatment to improve soft tissue restrictions of R shoulder; continues to have deltoid pain prn, long head biceps tenderness. Improved ROM post joint mobilizations, bias into shoulder IR with mobilizations to limit mobility restrictions. Pt limited in activity tolerance by R wrist due to previous surgery. However, progressing well toward goals, especially with managing pain levels during day/sleeping. Pt would benefit from skilled PT for R shoulder mobility and periscapular/rotator cuff strengthening in order to improve activity tolerance and decrease pain symptoms. Physical Therapy Plan Frequency and Duration Frequency of Treatment 1-2/wk Duration of treatment (weeks) 8 Plan of Care Start Date 06/07/23 Plan of Care End Date 08/10/23 Therapeutic Interventions Therapeutic Interventions Aquatic Therapy,Coordination Training,Gait Training,Home Exercise Program,Joint Mobilizations,Manual Therapy, Neuromuscular Re-education, Orthotic/Prosthetic Management ,Patient/Caregiver Education, Self-Care/Home Management, Sensory Integration,Soft Tissue Mobilization,Taping, Therapeutic Activities, Therapeutic Exercises Modalities Biofeedback,Cold Pack/Ice Massage,Electric Stimulation, Hot Packs,Ultrasound, Vasopneumatic Devices Next Visit Focus/Plan Next Note Type Treatment Note Next Visit Plan Continue: banded RC at 0 deg abd, progress rows/shoulder ext/lat pull down, IR towel stretch, B ER + flex standing, cont periscapular, address deltoid/LH biceps, s/l AROM prn with weight Manual: mobilizations, soft tissue mobilization Difficulty gripping with R hand
--- NOTE | 2023-07-10 14:49 | PT.OTN ---
Current Diagnoses Pain in right shoulder (07/10/23) Pain in thoracic spine (07/10/23) Weakness (07/10/23) Physical Therapy Treatment Note PT-OP-A Visit Information Start: 06/06/23 17:36 Freq: Status: Active Protocol: Document 07/10/23 13:52 NBM (Rec: 07/10/23 14:48 NBM [id number]) Out-Patient Physical Therapy Visit Information Visit Information Visit Type Treatment Note Visit Start Time 13:52 Visit Stop Time 14:42 Visit Number 6 Number of WARP TIER Visits 1 PT-OP-B Current Condition Start: 06/06/23 17:36 Freq: Status: Active Protocol: Document 06/07/23 13:49 NM (Rec: 06/07/23 17:40 NM [id number]) Current Condition History of Current Condition Onset Date December 2022-April 2023 Current Complaints R shoulder mobility, weakness History of Current Condition Pt presents with R shoulder pain related to shoulder positioning due to previous R hand surgery. She fell on outstretched hand on 12/15/22. 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 Due to immobilization and then subsequent elevation of arm on pillows and brace for several months, hand was elevated in air in ER with elbow bent until Apr 11 due to swelling. Her shoulder began to bother her at that point in time. She has been doing exercises (e.g . shoulder flexion) prescribed by hand therapist in meantime . Continued to have swelling after removal of hand stitches in April. Currently has difficulty with using R hand post-op and is in OT for her hand. Pt has to wear an extension brace for 30 min 3x/ day, her shoulder hurts during this due to positioning; positioned on a pillow per instructions. She reports difficulty with dressing (e.g bra), reaching (abd, up), movement. No imaging, no prior shoulder/arm injuries or problems. Pt reports no neck or thoracic discomfort, no numbness or tingling. Prior Treatments and Tests Concurrent treatment from OT for hand therapy Prior Functional Status Baseline Function- ADL's Independent Baseline Function- Mobility Independent Baseline Function- Other Pain with sleeping due to position Current Functional Impairments (Reported) Functional Limitations- ADL's Difficulty dressing, lifting/ reaching PT-OP-C Subjective Start: 06/06/23 17:36 Freq: Status: Active Protocol: Document 07/10/23 13:52 NBM (Rec: 07/10/23 14:48 NBM [id number]) OP-PT Subjective Patient Comments Patient Comments Kelsie reports she is doing better overall. She is sleeping as advised and the pain was the worst with waking up and is now better. The ex' s are helping and now the most painful is lifting her arm straight up and out to the side (demos R shoulder abduction). 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 Patient Reported Progress Improving PT-OP-E Functional Tests Start: 06/06/23 17:36 Freq: Status: Active Protocol: Document 06/07/23 13:49 NM (Rec: 06/07/23 17:40 NM [id number]) Functional Tests Apley's Scratch Test Action 1- Left supraspinatus Action 1- Right post cuff, painful Action 2- Left T4 Action 2- Right T4, painful Action 3- Left T7 Action 3- Right L1, painful PT-OP-F Manual Assessment Start: 06/06/23 17:36 Freq: Status: Active Protocol: Document 06/07/23 13:49 NM (Rec: 06/07/23 17:40 NM [id number]) Manual Assessments Soft Tissue Assessment Soft Tissue Mobility Assessment Restrictions R latissimus, posterior rotator cuff, R upper trapezius. Demos swelling and redness of R forearm and wrist related to previous surgery. Joint Mobility Assessment Joint Mobility Assessment Capsular restrictions R shoulder (Abd, ER, IR). Empty end feel at end range flexion, abduction, ER/IR. Anterior humeral head position bilaterally, increased with Apley IR. Normal AC joint space. Elevated R first rib PT-OP-G Mobility & Gait Start: 06/06/23 17:36 Freq: Status: Active Protocol: Document 06/07/23 13:49 NM (Rec: 06/07/23 17:40 NM [id number]) OP Gait Assessment Gait Gait Assistance Required: Independent Distance (Feet) 150 Comments Gait Comments Decreased arm swing PT-OP-H Neuro Start: 06/06/23 17:36 Freq: Status: Active Protocol: Document 06/07/23 13:49 NM (Rec: 06/07/23 17:40 NM [id number]) Sensation Evaluation Comments Summary Comments Will formally assess in next session. Reports no changes in sensation PT-OP-J Posture/Palpation/Skin Start: 06/06/23 17:36 Freq: Status: Active Protocol: Document 06/07/23 13:49 NM (Rec: 06/07/23 17:40 NM [id number]) Posture Evaluation Position Standing Head/C-Spine Posture Forward Head T-Spine Posture Increased Kyphosis Shoulder Posture (L) Rounded,(R) Rounded Scapula Posture (L) Protracted,(R) Protracted Arm Posture (L) Internally Rotated,(R) Internally Rotated Pelvis Posture Anteriorly Tilted Hip Posture (L) Externally Rotated,(R) Externally Rotated Knee Posture (L) Genu Valgus,(R) Genu Valgus Ankle/Foot Posture (L) Pronated,(R) Pronated Palpation Assessment Location R shoulder Palpation Location rotator cuff, biceps, AC joint , SC joint, pec/lat Palpation Findings Soft Tissue Tightness Palpation Details No tenderness to palpation of biceps or rotator cuff on scapula. Minimal tenderness along posterolateral shoulder. PT-OP-K Range of Motion Start: 06/06/23 17:36 Freq: Status: Active Protocol: Document 07/04/23 13:48 NM (Rec: 07/04/23 14:31 NM [id number]) Shoulder Goniometric Range of Motion Shoulder Right Flexion 140 Extension 55 Abduction 100 External Rotation at 0 degrees Abduction 60 Internal Rotation 75 Comments most pain with abd; minimal pain with ER at 0 deg abd 07/04/23: 80 deg ER at 0 deg abd , IR to T10, 150 deg abd w/ pulling sensation, 140 deg flexion PT-OP-L Special Tests Start: 06/06/23 17:36 Freq: Status: Active Protocol: Document 06/07/23 13:49 NM (Rec: 06/07/23 17:40 NM [id number]) Special Tests Cervical Spine Special Tests Distraction Test Results - Spurling's Test Results - Shoulder Special Tests Lift-Off Rotator Cuff Test Results - Comments Able to resist minimally Drop Arm Rotator Cuff Test Results - External Rotation Lag Sign Test Results - Empty Can Test Results - Speed's Biceps Test Results - Donovan's Biceps Test Results - Mike Rancho Impingement Test Results - Neer Impingement Test Results + Elevation Impingement Test Results + PT-OP-M Strength Start: 06/06/23 17:36 Freq: Status: Active Protocol: Document 07/04/23 13:48 NM (Rec: 07/04/23 14:31 NM [id number]) Shoulder Strength Shoulder Manual Muscle Testing Right Flexion 4 Good Extension 4 Good Abduction (C5) 4- Good- Adduction 4 Good External Rotation 4 Good Internal Rotation 4 Good Horizontal Abduction 4 Good Horizontal Adduction 4 Good Comments Minimal pain with resisted abduction 07/04/23: 4/10 for all, no pain PT-OP-Q Treatments Start: 06/06/23 17:36 Freq: Status: Active Protocol: Document 07/10/23 13:52 NBM (Rec: 07/10/23 14:48 NBM [id number]) Therapeutic Exercises Supine Exercises B ER with flexion Supine Exercise Name trialed in PT; HEP - verbal review Side bilateral Resistance lvl 1 blue tb Reps/Minutes 1x10 Comments pain free; cued to not perform bicep flexion Sidelying Exercises open book Side right Resistance AROM Reps/Minutes 2 reps Comments occasional cues for no UT, dc' d d/t pain in RUE R shld Sidelying Exercise Name 1. Fwd flex, 2. ABD, 3. ER Side right Resistance 1# db Equipment Used cued no UT, elbow ext, serr press midrange asc/ecc Reps/Minutes x10 with 1# Comments RUE pain resolves w/ cueing for scapular setting bilaterally Standing Exercises shoulder ext Side bilateral Resistance lvl 3 tb Reps/Minutes x10 Comments cued scapular setting, chin tuck rows Standing Exercise Name 1. high rows, 2. mid rows Side bilateral Resistance lvl 3 tb Reps/Minutes x10 Comments vc post scap setting Bent Over Standing Exercise Name I, T, Row Side right Resistance 1# db Equipment Used bent over with L hand on elevated plinth Reps/Minutes 1x10 Comments pain free, but decreased scapular mobility. PT cueing with fingers R shoulder stretch Standing Exercise Name reviewed for HEP:1. flexion, 2 . abduction (finger crawl resolves RUE pain) Side right Equipment Used hand against wall Reps/Minutes 1x60 Comments cues for scapular setting and UT overactivation abduction AAROM Side right Equipment Used L assisting R, dowel Reps/Minutes 1x10 with 3 hold flexion AAROM Side right Equipment Used L assisting R, dowel Reps/Minutes 1x10 with 3 hold Comments cued for max range, no UT comp ; improved w reps; reports no pain IR/ER AAROM Side right Equipment Used L assisting R, dowel Reps/Minutes 1x10 with 3 hold Comments cued for no trunk rotation, elbow by side; reports no pain Manual Therapy Treatment Soft Tissue Mobilization R shoulder Body Location lat, RTC, pec, biceps muscle and LH biceps, deltoid Mobilization Type Cross-Friction,Myofascial Release,Rolling,Sustained Pressure Intensity/Depth Moderate Body Position side Comments soft tissue restriction of biceps LH tendon, deltoid, rotator cuff. Cross friction of LH biceps tendon. Improvement in soreness post mobilization PT-OP-T Assessment and Plan Start: 06/06/23 17:36 Freq: Status: Active Protocol: Document 07/10/23 13:52 NBM (Rec: 07/10/23 14:48 NBM [id number]) Physical Therapy Assessment Goals 5 Impairment AROM Impairment R shoulder ER 60 deg at 0 deg abd Short Term Goal (STG) Pt will increase R shoulder ER to at least 70 deg in order to demonstrate improved R shoulder AROM for dressing and ADLs 07/04/23: 80 deg at 0 deg abd without pulling sensation today STG Duration 4 weeks Internal Control Manager Goal (LTG) Pt will increase R shoulder ER to at least 80 deg in order to demonstrate improved R shoulder AROM for dressing and ADLs 07/04/23: 80 deg at 0 deg abd without pulling sensation today LTG Duration 8 weeks MET 4 Impairment function Impairment pain with sleeping Short Term Goal (STG) Pt will report waking less than 3x due to R shoulder pain in order to demonstrate improved pain management and QOL 07/04/23: none for shoulder pain STG Duration 4 weeks Fpc Goal (LTG) Pt will report not waking due to R shoulder pain in order to demonstrate improved pain management and QOL 07/04/23: none for shoulder pain LTG Duration 8 weeks MET 3 Impairment strength Impairment R shoulder strength 4-/5 for abduction, 4/5 for all other motions Internal Control Manager Goal (LTG) Pt will increase R shoulder strength to at least 4+/5 in order to demonstrate improved strength for lifting, reaching , and ADLs 07/04/23: 4/5 for all, pain free LTG Duration 8 weeks 2 Impairment AROM Impairment Apley IR L1 Short Term Goal (STG) Pt will improve R apley IR to at least T10 with pain <4/10 in order to demonstrate improved ability to dress and QOL 07/04/23: T10 but anterior shoulder pain/bicep pain, 2/10 STG Duration 4 weeks MET Internal Control Manager Goal (LTG) Pt will improve R apley IR to at least T8 with pain <4/10 in order to demonstrate improved ability to dress and QOL LTG Duration 8 weeks 1 Impairment AROM Impairment R shoulder abduction AROM 100 deg Short Term Goal (STG) Pt will increase R shoulder abduction to at least 125 deg without compensation for improved reaching and ADLs 07/04/23: 150 deg but pulling sensation STG Duration 4 weeks PROGRESSING Fpc Goal (LTG) Pt will increase R shoulder abduction to at least 140 deg without compensation for improved reaching and ADLs LTG Duration 8 weeks Assessment Summary Assessment Treatment focus on HEP review. Kelsie requires cues for scapular setting and UT overactivation and her self- awareness and carryover improve significantly throughout treatment. RUE pain with sidelying ex's resolves or improves w/ scapular setting bilaterally, except for open book stretch which is discontinued due to pain. Pt requires cues for UT overactivation with fatigue. Pt encouraged to modified HEP as needed from two sets of each daily to one set of each daily with focus on form. Physical Therapy Plan Frequency and Duration Frequency of Treatment 1-2/wk Duration of treatment (weeks) 8 Plan of Care Start Date 06/07/23 Plan of Care End Date 08/10/23 Therapeutic Interventions Therapeutic Interventions Aquatic Therapy,Coordination Training,Gait Training,Home Exercise Program,Joint Mobilizations,Manual Therapy, Neuromuscular Re-education, Orthotic/Prosthetic Management ,Patient/Caregiver Education, Self-Care/Home Management, Sensory Integration,Soft Tissue Mobilization,Taping, Therapeutic Activities, Therapeutic Exercises Modalities Biofeedback,Cold Pack/Ice Massage,Electric Stimulation, Hot Packs,Ultrasound, Vasopneumatic Devices Next Visit Focus/Plan Next Note Type Treatment Note Next Visit Plan Continue: banded RC at 0 deg abd, progress rows/shoulder ext/lat pull down, IR towel stretch, B ER + flex standing, cont periscapular, address deltoid/LH biceps, s/l AROM prn with weight Manual: mobilizations, soft tissue mobilization Difficulty gripping with R hand
--- NOTE | 2023-07-17 15:45 | PT.OTN ---
Current Diagnoses Pain in right shoulder (07/17/23) Pain in thoracic spine (07/17/23) Weakness (07/17/23) Physical Therapy Treatment Note PT-OP-A Visit Information Start: 06/06/23 17:36 Freq: Status: Active Protocol: Document 07/17/23 14:33 NM (Rec: 07/17/23 15:45 NM [id number]) Out-Patient Physical Therapy Visit Information Visit Information Visit Type Progress Note Visit Start Time 14:34 Visit Stop Time 15:15 Visit Number 7 Evaluation Information Evaluation Date 06/07/23 PT-OP-B Current Condition Start: 06/06/23 17:36 Freq: Status: Active Protocol: Document 06/07/23 13:49 NM (Rec: 06/07/23 17:40 NM [id number]) Current Condition History of Current Condition Onset Date December 2022-April 2023 Current Complaints R shoulder mobility, weakness History of Current Condition Pt presents with R shoulder pain related to shoulder positioning due to previous R hand surgery. She fell on outstretched hand on 12/15/22. 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 Due to immobilization and then subsequent elevation of arm on pillows and brace for several months, hand was elevated in air in ER with elbow bent until Apr 11 due to swelling. Her shoulder began to bother her at that point in time. She has been doing exercises (e.g . shoulder flexion) prescribed by hand therapist in meantime . Continued to have swelling after removal of hand stitches in April. Currently has difficulty with using R hand post-op and is in OT for her hand. Pt has to wear an extension brace for 30 min 3x/ day, her shoulder hurts during this due to positioning; positioned on a pillow per instructions. She reports difficulty with dressing (e.g bra), reaching (abd, up), movement. No imaging, no prior shoulder/arm injuries or problems. Pt reports no neck or thoracic discomfort, no numbness or tingling. Prior Treatments and Tests Concurrent treatment from OT for hand therapy Prior Functional Status Baseline Function- ADL's Independent Baseline Function- Mobility Independent Baseline Function- Other Pain with sleeping due to position Current Functional Impairments (Reported) Functional Limitations- ADL's Difficulty dressing, lifting/ reaching PT-OP-C Subjective Start: 06/06/23 17:36 Freq: Status: Active Protocol: Document 07/17/23 14:33 NM (Rec: 07/17/23 15:45 NM [id number]) OP-PT Subjective Patient Comments Patient Comments Pt reports improvement in R shoulder pain levels if she sleeps without arm rolling forward. She still reports difficulty with R shoulder abduction, no difficulty with exercises. States can hook her bra now PT-OP-E Functional Tests Start: 06/06/23 17:36 Freq: Status: Active Protocol: Document 06/07/23 13:49 NM (Rec: 06/07/23 17:40 NM [id number]) Functional Tests Apley's Scratch Test Action 1- Left supraspinatus Action 1- Right post cuff, painful Action 2- Left T4 Action 2- Right T4, painful Action 3- Left T7 Action 3- Right L1, painful PT-OP-F Manual Assessment Start: 06/06/23 17:36 Freq: Status: Active Protocol: Document 06/07/23 13:49 NM (Rec: 06/07/23 17:40 NM [id number]) Manual Assessments Soft Tissue Assessment Soft Tissue Mobility Assessment Restrictions R latissimus, posterior rotator cuff, R upper trapezius. Demos swelling and redness of R forearm and wrist related to previous surgery. Joint Mobility Assessment Joint Mobility Assessment Capsular restrictions R shoulder (Abd, ER, IR). Empty end feel at end range flexion, abduction, ER/IR. Anterior humeral head position bilaterally, increased with Apley IR. Normal AC joint space. Elevated R first rib PT-OP-G Mobility & Gait Start: 06/06/23 17:36 Freq: Status: Active Protocol: Document 06/07/23 13:49 NM (Rec: 06/07/23 17:40 NM [id number]) OP Gait Assessment Gait Gait Assistance Required: Independent Distance (Feet) 150 Comments Gait Comments Decreased arm swing PT-OP-H Neuro Start: 06/06/23 17:36 Freq: Status: Active Protocol: Document 06/07/23 13:49 NM (Rec: 06/07/23 17:40 NM [id number]) Sensation Evaluation Comments Summary Comments Will formally assess in next session. Reports no changes in sensation PT-OP-J Posture/Palpation/Skin Start: 06/06/23 17:36 Freq: Status: Active Protocol: Document 06/07/23 13:49 NM (Rec: 06/07/23 17:40 NM [id number]) Posture Evaluation Position Standing Head/C-Spine Posture Forward Head T-Spine Posture Increased Kyphosis Shoulder Posture (L) Rounded,(R) Rounded Scapula Posture (L) Protracted,(R) Protracted Arm Posture (L) Internally Rotated,(R) Internally Rotated Pelvis Posture Anteriorly Tilted Hip Posture (L) Externally Rotated,(R) Externally Rotated Knee Posture (L) Genu Valgus,(R) Genu Valgus Ankle/Foot Posture (L) Pronated,(R) Pronated Palpation Assessment Location R shoulder Palpation Location rotator cuff, biceps, AC joint , SC joint, pec/lat Palpation Findings Soft Tissue Tightness Palpation Details No tenderness to palpation of biceps or rotator cuff on scapula. Minimal tenderness along posterolateral shoulder. PT-OP-K Range of Motion Start: 06/06/23 17:36 Freq: Status: Active Protocol: Document 07/17/23 14:33 NM (Rec: 07/17/23 15:45 NM [id number]) Shoulder Goniometric Range of Motion Shoulder Right Flexion 140 Extension 55 Abduction 100 External Rotation at 0 degrees Abduction 60 Internal Rotation 75 Comments most pain with abd; minimal pain with ER at 0 deg abd 07/04/23: 80 deg ER at 0 deg abd , IR to T10, 150 deg abd w/ pulling sensation, 140 deg flexion 07/17/23: 160 deg abd (pulling) , 165 deg flexion, 90 deg ER, T9 IR PT-OP-L Special Tests Start: 06/06/23 17:36 Freq: Status: Active Protocol: Document 06/07/23 13:49 NM (Rec: 06/07/23 17:40 NM [id number]) Special Tests Cervical Spine Special Tests Distraction Test Results - Spurling's Test Results - Shoulder Special Tests Lift-Off Rotator Cuff Test Results - Comments Able to resist minimally Drop Arm Rotator Cuff Test Results - External Rotation Lag Sign Test Results - Empty Can Test Results - Speed's Biceps Test Results - Donovan's Biceps Test Results - Mike Rancho Impingement Test Results - Neer Impingement Test Results + Elevation Impingement Test Results + PT-OP-M Strength Start: 06/06/23 17:36 Freq: Status: Active Protocol: Document 07/17/23 14:33 NM (Rec: 07/17/23 15:45 NM [id number]) Shoulder Strength Shoulder Manual Muscle Testing Right Flexion 4 Good Extension 4 Good Abduction (C5) 4- Good- Adduction 4 Good External Rotation 4 Good Internal Rotation 4 Good Horizontal Abduction 4 Good Horizontal Adduction 4 Good Comments Minimal pain with resisted abduction 07/04/23: 4/ for all, no pain 07/17/23: 4/5 for all, no pain but pulling with IR and abduction PT-OP-Q Treatments Start: 06/06/23 17:36 Freq: Status: Active Protocol: Document 07/17/23 14:33 NM (Rec: 07/17/23 15:45 NM [id number]) Therapeutic Exercises Standing Exercises rotator cuff strengthening Standing Exercise Name ER only Side right Resistance lvl 1 band Equipment Used towel roll between arm Reps/Minutes 2x8 Comments pain free until last several reps (ant shldr); cued post scap setting serratus punch Standing Exercise Name trialed Side right Resistance AROM Equipment Used back against wall for tactile cue Reps/Minutes 2x10 Comments reports pulling in ant shldr, decreased w/ post scap setting B ER + flexion Standing Exercise Name added to HEP Side bilateral Resistance lvl 1 tb Equipment Used back against wall for tactile cue Reps/Minutes 1x10 Comments pain free; fatiguing; good post scap setting IR towel stretch Standing Exercise Name added to HEP Side right Equipment Used L assisting R Reps/Minutes 3x30 Comments reports can't go any further , tight in ant shldr, no pain Manual Therapy Treatment Soft Tissue Mobilization R shoulder Body Location lat, rotator cuff, deltoid Mobilization Type Cross-Friction,Rolling Intensity/Depth Moderate Body Position side Comments Tenderness of R deltoid and rotator cuff at insertion, performed rolling, cross friction. Reports less tenderness and soreness post mobilization, improved overall since I Joint Mobilizations R shoulder Joint GHJ Direction Inferior, posterior Grade III Body Position side Reps/Duration 2x30 ea Comments At end range, forward flexion and abduction for improved mobility and pain reduction. With IR bias at 90 deg abd to improve mobility. Pain free, reports less pulling in anterior arm with IR Followed by IR and extension stretch below table, pain free , 2x20 PT-OP-T Assessment and Plan Start: 06/06/23 17:36 Freq: Status: Active Protocol: Document 07/17/23 14:33 NM (Rec: 07/17/23 15:45 NM [id number]) Physical Therapy Assessment Goals 5 Impairment AROM Impairment R shoulder ER 60 deg at 0 deg abd Short Term Goal (STG) Pt will increase R shoulder ER to at least 70 deg in order to demonstrate improved R shoulder AROM for dressing and ADLs 07/04/23: 80 deg at 0 deg abd without pulling sensation today STG Duration 4 weeks [facility] Goal (LTG) Pt will increase R shoulder ER to at least 80 deg in order to demonstrate improved R shoulder AROM for dressing and ADLs 07/04/23: 80 deg at 0 deg abd without pulling sensation today 07/17/23: 90 deg ER at 0 deg abd w/o pulling sensation LTG Duration 8 weeks MET 4 Impairment function Impairment pain with sleeping Short Term Goal (STG) Pt will report waking less than 3x due to R shoulder pain in order to demonstrate improved pain management and QOL 07/04/23: none for shoulder pain STG Duration 4 weeks [facility] Goal (LTG) Pt will report not waking due to R shoulder pain in order to demonstrate improved pain management and QOL 07/04/23: none for shoulder pain LTG Duration 8 weeks MET 3 Impairment strength Impairment R shoulder strength 4-/5 for abduction, 4/5 for all other motions [facility] Goal (LTG) Pt will increase R shoulder strength to at least 4+/5 in order to demonstrate improved strength for lifting, reaching , and ADLs 07/04/23: 4/5 for all, pain free 07/17/23: 4/5 for all, pulling with IR and abduction LTG Duration 8 weeks 2 Impairment AROM Impairment Apley IR L1 Short Term Goal (STG) Pt will improve R apley IR to at least T10 with pain <4/10 in order to demonstrate improved ability to dress and QOL 07/04/23: T10 but anterior shoulder pain/bicep pain, 2/10 07/17/23: T9 but anterior shoulder pain STG Duration 4 weeks MET Intermediate Goal (LTG) Pt will improve R apley IR to at least T8 with pain <4/10 in order to demonstrate improved ability to dress and QOL 07/17/23: T9 but anterior shoulder pain LTG Duration 8 weeks 1 Impairment AROM Impairment R shoulder abduction AROM 100 deg Short Term Goal (STG) Pt will increase R shoulder abduction to at least 125 deg without compensation for improved reaching and ADLs 07/04/23: 150 deg but pulling sensation 07/17/23: 165 deg with pulling sensation STG Duration 4 weeks PROGRESSING Intermediate Goal (LTG) Pt will increase R shoulder abduction to at least 140 deg without compensation for improved reaching and ADLs 07/17/23: 165 deg with pulling sensation LTG Duration 8 weeks Assessment Summary Assessment Pt tolerated session well; she reports pulling sensation in anterior shoulder with R shoulder IR and abduction. Initiated rotator cuff and serratus anterior strengthening. Emphasis on posterior scapular setting and scapular control/ stabilization in order to improve R shoulder ROM and decrease pulling sensation/ symptoms. Pt demonstrates good self cueing with B shoulder ER and flexion today; pain free with movement and good feedback with activity, but fatigues easily. Pt had pain with R shoulder ER at 0 deg abduction as fatigued during last several reps. Initiated R shoulder IR towel stretch to improve R shoulder IR ROM. During manual treatment, pt has fewer tender areas of R shoulder muscles compared to previous sessions. She continues to have tenderness at R deltoid and rotator cuff muscle insertion. Demos improved inferior glide today with mobilization and no anterior shoulder pain with IR after posterior glide. Pt would benefit from skilled PT for R shoulder mobility and strength, in addition to body mechanics in order to decrease pain symptoms and improve ability to participate in ADLs . Pt has been seen x6 visits for R shoulder pain since IE in June 2023. She is progressing well toward goals and has met several STGs. Pt has also met LTG related to sleeping. Pt's R shoulder strength is improving, now 4/5 MMT with pulling sensation only with resisted IR and abduction. She also has improved R shoulder mobility, but continues to have pulling sensation with IR and abduction. Pt would benefit from skilled PT for R shoulder mobility and strength , in addition to body mechanics in order to decrease pain symptoms and improve ability to participate in ADLs . Physical Therapy Plan Frequency and Duration Frequency of Treatment 1-2/wk Duration of treatment (weeks) 8 Plan of Care Start Date 06/07/23 Plan of Care End Date 08/10/23 Therapeutic Interventions Therapeutic Interventions Aquatic Therapy,Coordination Training,Gait Training,Home Exercise Program,Joint Mobilizations,Manual Therapy, Neuromuscular Re-education, Orthotic/Prosthetic Management ,Patient/Caregiver Education, Self-Care/Home Management, Sensory Integration,Soft Tissue Mobilization,Taping, Therapeutic Activities, Therapeutic Exercises Modalities Biofeedback,Cold Pack/Ice Massage,Electric Stimulation, Hot Packs,Ultrasound, Vasopneumatic Devices Next Visit Focus/Plan Next Note Type Treatment Note Next Visit Plan Next session: review serratus punhc, resisted IR vs sidelying IR, trial front raise Continue: banded RC at 0 deg abd, progress rows/shoulder ext/lat pull down, IR towel stretch, B ER + flex standing, cont periscapular, address deltoid/LH biceps, s/l AROM prn with weight Manual: mobilizations, soft tissue mobilization Difficulty gripping with R hand
--- NOTE | 2023-07-24 15:53 | PT.OTN ---
Current Diagnoses Pain in right shoulder (07/24/23) Pain in thoracic spine (07/24/23) Weakness (07/24/23) Physical Therapy Treatment Note PT-OP-A Visit Information Start: 06/06/23 17:36 Freq: Status: Active Protocol: Document 07/24/23 13:47 NM (Rec: 07/24/23 14:34 NM [id number]) Out-Patient Physical Therapy Visit Information Visit Information Visit Type Treatment Note Visit Start Time 13:48 Visit Stop Time 14:30 Visit Number 8 Evaluation Information Evaluation Date 06/07/23 PT-OP-B Current Condition Start: 06/06/23 17:36 Freq: Status: Active Protocol: Document 06/07/23 13:49 NM (Rec: 06/07/23 17:40 NM [id number]) Current Condition History of Current Condition Onset Date December 2022-April 2023 Current Complaints R shoulder mobility, weakness History of Current Condition Pt presents with R shoulder pain related to shoulder positioning due to previous R hand surgery. She fell on outstretched hand on 12/15/22. 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 Due to immobilization and then subsequent elevation of arm on pillows and brace for several months, hand was elevated in air in ER with elbow bent until Apr 11 due to swelling. Her shoulder began to bother her at that point in time. She has been doing exercises (e.g . shoulder flexion) prescribed by hand therapist in meantime . Continued to have swelling after removal of hand stitches in April. Currently has difficulty with using R hand post-op and is in OT for her hand. Pt has to wear an extension brace for 30 min 3x/ day, her shoulder hurts during this due to positioning; positioned on a pillow per instructions. She reports difficulty with dressing (e.g bra), reaching (abd, up), movement. No imaging, no prior shoulder/arm injuries or problems. Pt reports no neck or thoracic discomfort, no numbness or tingling. Prior Treatments and Tests Concurrent treatment from OT for hand therapy Prior Functional Status Baseline Function- ADL's Independent Baseline Function- Mobility Independent Baseline Function- Other Pain with sleeping due to position Current Functional Impairments (Reported) Functional Limitations- ADL's Difficulty dressing, lifting/ reaching PT-OP-C Subjective Start: 06/06/23 17:36 Freq: Status: Active Protocol: Document 07/24/23 13:47 NM (Rec: 07/24/23 14:34 NM [id number]) OP-PT Subjective Patient Comments Patient Comments Pt states noticing small improvements with R shoulder mobility and lifting to the side. States she can reach behind. Continues to have pulling or soreness with abduction above 90 deg, states sore. No difficulty with HEP, breaking up into 2 sets PT-OP-E Functional Tests Start: 06/06/23 17:36 Freq: Status: Active Protocol: Document 06/07/23 13:49 NM (Rec: 06/07/23 17:40 NM [id number]) Functional Tests Apley's Scratch Test Action 1- Left supraspinatus Action 1- Right post cuff, painful Action 2- Left T4 Action 2- Right T4, painful Action 3- Left T7 Action 3- Right L1, painful PT-OP-F Manual Assessment Start: 06/06/23 17:36 Freq: Status: Active Protocol: Document 06/07/23 13:49 NM (Rec: 06/07/23 17:40 NM [id number]) Manual Assessments Soft Tissue Assessment Soft Tissue Mobility Assessment Restrictions R latissimus, posterior rotator cuff, R upper trapezius. Demos swelling and redness of R forearm and wrist related to previous surgery. Joint Mobility Assessment Joint Mobility Assessment Capsular restrictions R shoulder (Abd, ER, IR). Empty end feel at end range flexion, abduction, ER/IR. Anterior humeral head position bilaterally, increased with Apley IR. Normal AC joint space. Elevated R first rib PT-OP-G Mobility & Gait Start: 06/06/23 17:36 Freq: Status: Active Protocol: Document 06/07/23 13:49 NM (Rec: 06/07/23 17:40 NM [id number]) OP Gait Assessment Gait Gait Assistance Required: Independent Distance (Feet) 150 Comments Gait Comments Decreased arm swing PT-OP-H Neuro Start: 06/06/23 17:36 Freq: Status: Active Protocol: Document 06/07/23 13:49 NM (Rec: 06/07/23 17:40 NM [id number]) Sensation Evaluation Comments Summary Comments Will formally assess in next session. Reports no changes in sensation PT-OP-J Posture/Palpation/Skin Start: 06/06/23 17:36 Freq: Status: Active Protocol: Document 06/07/23 13:49 NM (Rec: 06/07/23 17:40 NM [id number]) Posture Evaluation Position Standing Head/C-Spine Posture Forward Head T-Spine Posture Increased Kyphosis Shoulder Posture (L) Rounded,(R) Rounded Scapula Posture (L) Protracted,(R) Protracted Arm Posture (L) Internally Rotated,(R) Internally Rotated Pelvis Posture Anteriorly Tilted Hip Posture (L) Externally Rotated,(R) Externally Rotated Knee Posture (L) Genu Valgus,(R) Genu Valgus Ankle/Foot Posture (L) Pronated,(R) Pronated Palpation Assessment Location R shoulder Palpation Location rotator cuff, biceps, AC joint , SC joint, pec/lat Palpation Findings Soft Tissue Tightness Palpation Details No tenderness to palpation of biceps or rotator cuff on scapula. Minimal tenderness along posterolateral shoulder. PT-OP-K Range of Motion Start: 06/06/23 17:36 Freq: Status: Active Protocol: Document 07/17/23 14:33 NM (Rec: 07/17/23 15:45 NM [id number]) Shoulder Goniometric Range of Motion Shoulder Right Flexion 140 Extension 55 Abduction 100 External Rotation at 0 degrees Abduction 60 Internal Rotation 75 Comments most pain with abd; minimal pain with ER at 0 deg abd 07/04/23: 80 deg ER at 0 deg abd , IR to T10, 150 deg abd w/ pulling sensation, 140 deg flexion 07/17/23: 160 deg abd (pulling) , 165 deg flexion, 90 deg ER, T9 IR PT-OP-L Special Tests Start: 06/06/23 17:36 Freq: Status: Active Protocol: Document 06/07/23 13:49 NM (Rec: 06/07/23 17:40 NM [id number]) Special Tests Cervical Spine Special Tests Distraction Test Results - Spurling's Test Results - Shoulder Special Tests Lift-Off Rotator Cuff Test Results - Comments Able to resist minimally Drop Arm Rotator Cuff Test Results - External Rotation Lag Sign Test Results - Empty Can Test Results - Speed's Biceps Test Results - Donovan's Biceps Test Results - Mike Rancho Impingement Test Results - Neer Impingement Test Results + Elevation Impingement Test Results + PT-OP-M Strength Start: 06/06/23 17:36 Freq: Status: Active Protocol: Document 07/17/23 14:33 NM (Rec: 07/17/23 15:45 NM [id number]) Shoulder Strength Shoulder Manual Muscle Testing Right Flexion 4 Good Extension 4 Good Abduction (C5) 4- Good- Adduction 4 Good External Rotation 4 Good Internal Rotation 4 Good Horizontal Abduction 4 Good Horizontal Adduction 4 Good Comments Minimal pain with resisted abduction 07/04/23: 4/ for all, no pain 07/17/23: 4/5 for all, no pain but pulling with IR and abduction PT-OP-Q Treatments Start: 06/06/23 17:36 Freq: Status: Active Protocol: Document 07/24/23 13:47 NM (Rec: 07/24/23 14:34 NM [id number]) Therapeutic Exercises Sidelying Exercises R shld Sidelying Exercise Name ER/IR Side right Resistance 2# db Equipment Used towel roll btwn shoulder Reps/Minutes 2x12 Comments pain free in R shoulder, min wrist pain Standing Exercises flexion Standing Exercise Name forward flexion Side right Resistance AROM Reps/Minutes 1x10 Comments pain free with scapular setting serratus roll up Side bilateral Resistance AROM Equipment Used small foam roller Reps/Minutes 1x10 Comments improved protraction PNF Standing Exercise Name trialed w/ band but d/c due to pain in ant shdlr Side right Resistance AROM Reps/Minutes 1x10 AROM, 2 reps w/ lvl 1 band Comments pain free with post scapular setting rotator cuff strengthening Standing Exercise Name 1. ER, 2. IR Side right Resistance lvl 1 band Equipment Used towel roll between arm Reps/Minutes 2x10 Comments cued scap setting (improved w/ reps), less bicep shoulder ext Side bilateral Resistance lvl 4 tb Reps/Minutes 2x10 Comments improved scapular setting Manual Therapy Treatment Soft Tissue Mobilization R shoulder Body Location lat, rotator cuff, deltoid Mobilization Type Cross-Friction,Rolling Intensity/Depth Moderate Body Position side Comments Less tenderness of R deltoid; continues to have mild rotator cuff tenderness at insertion. Reports symptom decrease with soft tissue mobilization Joint Mobilizations R scapulothoracic Direction inferior/depression, UR/DR, elevation Grade III Body Position L SL Reps/Duration 1x10 ea Comments Mobilization with scapular protraction/retraction, AROM R shoulder Joint GHJ Direction Inferior, posterior Grade III Body Position side Reps/Duration 4x30 ea Comments At end range, forward flexion and abduction for improved mobility and pain reduction. With IR bias at 90 deg abd to improve mobility. Improved mobility and less pt guarding today. flexion 150 deg, abduction 160 deg post mobilization, fewer symptoms at end range Self-Care/Home Management Treatment Education Patient Education Home Exercise Program Other Education HEP: resisted ER and IR with towel between arm PT-OP-T Assessment and Plan Start: 06/06/23 17:36 Freq: Status: Active Protocol: Document 07/24/23 13:47 NM (Rec: 07/24/23 14:34 NM [id number]) Physical Therapy Assessment Goals 5 Impairment AROM Impairment R shoulder ER 60 deg at 0 deg abd Short Term Goal (STG) Pt will increase R shoulder ER to at least 70 deg in order to demonstrate improved R shoulder AROM for dressing and ADLs 07/04/23: 80 deg at 0 deg abd without pulling sensation today STG Duration 4 weeks Assisted Goal (LTG) Pt will increase R shoulder ER to at least 80 deg in order to demonstrate improved R shoulder AROM for dressing and ADLs 07/04/23: 80 deg at 0 deg abd without pulling sensation today 07/17/23: 90 deg ER at 0 deg abd w/o pulling sensation LTG Duration 8 weeks MET 4 Impairment function Impairment pain with sleeping Short Term Goal (STG) Pt will report waking less than 3x due to R shoulder pain in order to demonstrate improved pain management and QOL 07/04/23: none for shoulder pain STG Duration 4 weeks Hybrid Derivatives Trader Goal (LTG) Pt will report not waking due to R shoulder pain in order to demonstrate improved pain management and QOL 07/04/23: none for shoulder pain LTG Duration 8 weeks MET 3 Impairment strength Impairment R shoulder strength 4-/5 for abduction, 4/5 for all other motions Hybrid Derivatives Trader Goal (LTG) Pt will increase R shoulder strength to at least 4+/5 in order to demonstrate improved strength for lifting, reaching , and ADLs 07/04/23: 4/5 for all, pain free 07/17/23: 4/5 for all, pulling with IR and abduction LTG Duration 8 weeks 2 Impairment AROM Impairment Apley IR L1 Short Term Goal (STG) Pt will improve R apley IR to at least T10 with pain <4/10 in order to demonstrate improved ability to dress and QOL 07/04/23: T10 but anterior shoulder pain/bicep pain, 2/10 07/17/23: T9 but anterior shoulder pain STG Duration 4 weeks MET Hybrid Derivatives Trader Goal (LTG) Pt will improve R apley IR to at least T8 with pain <4/10 in order to demonstrate improved ability to dress and QOL 07/17/23: T9 but anterior shoulder pain LTG Duration 8 weeks 1 Impairment AROM Impairment R shoulder abduction AROM 100 deg Short Term Goal (STG) Pt will increase R shoulder abduction to at least 125 deg without compensation for improved reaching and ADLs 07/04/23: 150 deg but pulling sensation 07/17/23: 165 deg with pulling sensation STG Duration 4 weeks PROGRESSING Hybrid Derivatives Trader Goal (LTG) Pt will increase R shoulder abduction to at least 140 deg without compensation for improved reaching and ADLs 07/17/23: 165 deg with pulling sensation LTG Duration 8 weeks Assessment Summary Assessment Pt tolerated session well without any increased R shoulder pain. Initiated resisted IR with theraband, continued with resisted ER. Trialed PNF and forward raise. Able to perform AROM but painful in anterior shoulder with resistance. Cued to maintain scapular positioning and setting for stabilization. Good form with serratus rolls with cueing for scapular protraction. Manual treatment to improve R shoulder mobility into abduction, ER and IR. During soft tissue mobilization, pt with less tenderness of R shoulder and periscapular musculature compared to previous sessions. Pt continues to have R rotator cuff pain with increased activity and impingement symptoms at end range. Pt would benefit from skilled PT in order to strengthen R shoulder and periscapular muscles, in addition to improve R shoulder mobility at end range in order to improve pain management and activity tolerance. Physical Therapy Plan Frequency and Duration Frequency of Treatment 1-2/wk Duration of treatment (weeks) 8 Plan of Care Start Date 06/07/23 Plan of Care End Date 08/10/23 Therapeutic Interventions Therapeutic Interventions Aquatic Therapy,Coordination Training,Gait Training,Home Exercise Program,Joint Mobilizations,Manual Therapy, Neuromuscular Re-education, Orthotic/Prosthetic Management ,Patient/Caregiver Education, Self-Care/Home Management, Sensory Integration,Soft Tissue Mobilization,Taping, Therapeutic Activities, Therapeutic Exercises Modalities Biofeedback,Cold Pack/Ice Massage,Electric Stimulation, Hot Packs,Ultrasound, Vasopneumatic Devices Next Visit Focus/Plan Next Note Type Progress Note Next Visit Plan Next session: retry PNF and front raise with AROM>lvl 1 band. Trial p/u plus, RTC strengthening Manual: mobilizations, soft tissue mobilization Difficulty gripping with R hand
--- NOTE | 2023-07-31 15:49 | PT.OTN ---
Current Diagnoses Pain in right shoulder (07/31/23) Pain in thoracic spine (07/31/23) Weakness (07/31/23) Physical Therapy Treatment Note PT-OP-A Visit Information Start: 06/06/23 17:36 Freq: Status: Active Protocol: Document 07/31/23 13:48 NM (Rec: 07/31/23 15:48 NM [id number]) Out-Patient Physical Therapy Visit Information Visit Information Visit Type Progress Note Visit Start Time 13:48 Visit Stop Time 14:30 Visit Number 9 Evaluation Information Evaluation Date 06/07/23 PT-OP-B Current Condition Start: 06/06/23 17:36 Freq: Status: Active Protocol: Document 06/07/23 13:49 NM (Rec: 06/07/23 17:40 NM [id number]) Current Condition History of Current Condition Onset Date December 2022-April 2023 Current Complaints R shoulder mobility, weakness History of Current Condition Pt presents with R shoulder pain related to shoulder positioning due to previous R hand surgery. She fell on outstretched hand on 12/15/22. 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 Due to immobilization and then subsequent elevation of arm on pillows and brace for several months, hand was elevated in air in ER with elbow bent until Apr 11 due to swelling. Her shoulder began to bother her at that point in time. She has been doing exercises (e.g . shoulder flexion) prescribed by hand therapist in meantime . Continued to have swelling after removal of hand stitches in April. Currently has difficulty with using R hand post-op and is in OT for her hand. Pt has to wear an extension brace for 30 min 3x/ day, her shoulder hurts during this due to positioning; positioned on a pillow per instructions. She reports difficulty with dressing (e.g bra), reaching (abd, up), movement. No imaging, no prior shoulder/arm injuries or problems. Pt reports no neck or thoracic discomfort, no numbness or tingling. Prior Treatments and Tests Concurrent treatment from OT for hand therapy Prior Functional Status Baseline Function- ADL's Independent Baseline Function- Mobility Independent Baseline Function- Other Pain with sleeping due to position Current Functional Impairments (Reported) Functional Limitations- ADL's Difficulty dressing, lifting/ reaching PT-OP-C Subjective Start: 06/06/23 17:36 Freq: Status: Active Protocol: Document 07/31/23 13:48 NM (Rec: 07/31/23 15:48 NM [id number]) OP-PT Subjective Patient Comments Patient Comments Pt reports that she slept on her R shoulder wrong, she reports she has increased soreness today. She states that she feels like she has improved in ROM and strength since starting PT; moving more normal. She reports that she sometimes is unable to determine if she is limited by her wrist or shoulder. PT-OP-E Functional Tests Start: 06/06/23 17:36 Freq: Status: Active Protocol: Document 06/07/23 13:49 NM (Rec: 06/07/23 17:40 NM [id number]) Functional Tests Apley's Scratch Test Action 1- Left supraspinatus Action 1- Right post cuff, painful Action 2- Left T4 Action 2- Right T4, painful Action 3- Left T7 Action 3- Right L1, painful PT-OP-F Manual Assessment Start: 06/06/23 17:36 Freq: Status: Active Protocol: Document 06/07/23 13:49 NM (Rec: 06/07/23 17:40 NM [id number]) Manual Assessments Soft Tissue Assessment Soft Tissue Mobility Assessment Restrictions R latissimus, posterior rotator cuff, R upper trapezius. Demos swelling and redness of R forearm and wrist related to previous surgery. Joint Mobility Assessment Joint Mobility Assessment Capsular restrictions R shoulder (Abd, ER, IR). Empty end feel at end range flexion, abduction, ER/IR. Anterior humeral head position bilaterally, increased with Apley IR. Normal AC joint space. Elevated R first rib PT-OP-G Mobility & Gait Start: 06/06/23 17:36 Freq: Status: Active Protocol: Document 06/07/23 13:49 NM (Rec: 06/07/23 17:40 NM [id number]) OP Gait Assessment Gait Gait Assistance Required: Independent Distance (Feet) 150 Comments Gait Comments Decreased arm swing PT-OP-H Neuro Start: 06/06/23 17:36 Freq: Status: Active Protocol: Document 06/07/23 13:49 NM (Rec: 06/07/23 17:40 NM [id number]) Sensation Evaluation Comments Summary Comments Will formally assess in next session. Reports no changes in sensation PT-OP-J Posture/Palpation/Skin Start: 06/06/23 17:36 Freq: Status: Active Protocol: Document 06/07/23 13:49 NM (Rec: 06/07/23 17:40 NM [id number]) Posture Evaluation Position Standing Head/C-Spine Posture Forward Head T-Spine Posture Increased Kyphosis Shoulder Posture (L) Rounded,(R) Rounded Scapula Posture (L) Protracted,(R) Protracted Arm Posture (L) Internally Rotated,(R) Internally Rotated Pelvis Posture Anteriorly Tilted Hip Posture (L) Externally Rotated,(R) Externally Rotated Knee Posture (L) Genu Valgus,(R) Genu Valgus Ankle/Foot Posture (L) Pronated,(R) Pronated Palpation Assessment Location R shoulder Palpation Location rotator cuff, biceps, AC joint , SC joint, pec/lat Palpation Findings Soft Tissue Tightness Palpation Details No tenderness to palpation of biceps or rotator cuff on scapula. Minimal tenderness along posterolateral shoulder. PT-OP-K Range of Motion Start: 06/06/23 17:36 Freq: Status: Active Protocol: Document 07/31/23 13:48 NM (Rec: 07/31/23 15:48 NM [id number]) Shoulder Goniometric Range of Motion Shoulder Right Flexion 150 Extension 55 Abduction 160 External Rotation at 90 degrees 90 Abduction External Rotation at 0 degrees Abduction 60 Internal Rotation 75 Internal Rotation Behind Back (text) T10 Comments most pain with abd; minimal pain with ER at 0 deg abd 07/04/23: 80 deg ER at 0 deg abd , IR to T10, 150 deg abd w/ pulling sensation, 140 deg flexion 07/17/23: 160 deg abd (pulling) , 165 deg flexion, 90 deg ER, T9 IR 07/31/23: 150 deg flex (140), 160 (90), 90 deg ER, T10 IR PT-OP-L Special Tests Start: 06/06/23 17:36 Freq: Status: Active Protocol: Document 06/07/23 13:49 NM (Rec: 06/07/23 17:40 NM [id number]) Special Tests Cervical Spine Special Tests Distraction Test Results - Spurling's Test Results - Shoulder Special Tests Lift-Off Rotator Cuff Test Results - Comments Able to resist minimally Drop Arm Rotator Cuff Test Results - External Rotation Lag Sign Test Results - Empty Can Test Results - Speed's Biceps Test Results - Donovan's Biceps Test Results - Mike Rancho Impingement Test Results - Neer Impingement Test Results + Elevation Impingement Test Results + PT-OP-M Strength Start: 06/06/23 17:36 Freq: Status: Active Protocol: Document 07/31/23 13:48 NM (Rec: 07/31/23 15:48 NM [id number]) Shoulder Strength Shoulder Manual Muscle Testing Right Flexion 4 Good Extension 4 Good Abduction (C5) 4 Good Adduction 4 Good External Rotation 4 Good Internal Rotation 4 Good Horizontal Abduction 4 Good Horizontal Adduction 4 Good Comments Minimal pain with resisted abduction 07/04/23: 4/ for all, no pain 07/17/23: 4/5 for all, no pain but pulling with IR and abduction 07/31/23: 4/5 for all, no pain PT-OP-Q Treatments Start: 06/06/23 17:36 Freq: Status: Active Protocol: Document 07/31/23 13:48 NM (Rec: 07/31/23 15:48 NM [id number]) Therapeutic Exercises Standing Exercises periscapulars Standing Exercise Name 1. serratus ball rolls, 2. low row, 3. mid row Side right Resistance lvl 2 band Equipment Used small teal ball Reps/Minutes 1. 30 CW, 30 CCW, 2-3. 2x10 Comments cued straight arm, good scap mobility wall walks Standing Exercise Name chest height Side bilateral Resistance lvl 1 band around wrists Reps/Minutes 2x10 ft Comments pain free in shoulder serratus roll up Standing Exercise Name serratus slide Side right Equipment Used small blue comoran ball, staggered stance Reps/Minutes 1x15 Comments good protraction; cued push forearm into ball as roll up wall PNF Side right Resistance lvl 1 band Equipment Used slight elbow flex (less rotation in front of body) Reps/Minutes 2x10 Comments pain free today but not full PNF Manual Therapy Treatment Soft Tissue Mobilization R shoulder Body Location lat, rotator cuff, deltoid, subscapularis, teres Mobilization Type Cross-Friction,Rolling, Sustained Pressure Intensity/Depth Moderate Body Position side Comments Mild rotator cuff tenderness at insertion, increased tenderness at lat/teres/ subscapularis. Sustained pressure at lat/subscapular trigger point. Reports symptom decrease with soft tissue mobilization Joint Mobilizations R scapulothoracic Direction inferior/depression, retraction/protraction Grade III Body Position L SL Reps/Duration 1x15 ea Comments Mobilization with scapular protraction/retraction, AROM. Improved scapular depression today R shoulder Joint GHJ Direction Inferior, posterior Grade III Body Position side Reps/Duration 2x30 ea Comments At end range, forward flexion and abduction for improved mobility and pain reduction. With IR bias at 90 deg abd to improve mobility. Improved mobility and less pt guarding today. Flexion 150 deg, abduction 160 deg PT-OP-T Assessment and Plan Start: 06/06/23 17:36 Freq: Status: Active Protocol: Document 07/31/23 13:48 NM (Rec: 07/31/23 15:48 NM [id number]) Physical Therapy Assessment Goals 5 Impairment AROM Impairment R shoulder ER 60 deg at 0 deg abd Short Term Goal (STG) Pt will increase R shoulder ER to at least 70 deg in order to demonstrate improved R shoulder AROM for dressing and ADLs 07/04/23: 80 deg at 0 deg abd without pulling sensation today STG Duration 4 weeks Shelter Goal (LTG) Pt will increase R shoulder ER to at least 80 deg in order to demonstrate improved R shoulder AROM for dressing and ADLs 07/04/23: 80 deg at 0 deg abd without pulling sensation today 07/17/23: 90 deg ER at 0 deg abd w/o pulling sensation LTG Duration 8 weeks MET 4 Impairment function Impairment pain with sleeping Short Term Goal (STG) Pt will report waking less than 3x due to R shoulder pain in order to demonstrate improved pain management and QOL 07/04/23: none for shoulder pain STG Duration 4 weeks [employer] Service Mechanic Goal (LTG) Pt will report not waking due to R shoulder pain in order to demonstrate improved pain management and QOL 07/04/23: none for shoulder pain LTG Duration 8 weeks MET 3 Impairment strength Impairment R shoulder strength 4-/5 for abduction, 4/5 for all other motions Shelter Goal (LTG) Pt will increase R shoulder strength to at least 4+/5 in order to demonstrate improved strength for lifting, reaching , and ADLs 07/04/23: 4/5 for all, pain free 07/17/23: 4/5 for all, pulling with IR and abduction 07/31/23: 4/5 for all, pain free LTG Duration 8 weeks PROGRESSING, NOT MET 2 Impairment AROM Impairment Apley IR L1 Short Term Goal (STG) Pt will improve R apley IR to at least T10 with pain <4/10 in order to demonstrate improved ability to dress and QOL 07/04/23: T10 but anterior shoulder pain/bicep pain, 2/10 07/17/23: T9 but anterior shoulder pain 07/27/23: T9 STG Duration 4 weeks MET Shelter Goal (LTG) Pt will improve R apley IR to at least T8 with pain <4/10 in order to demonstrate improved ability to dress and QOL 07/17/23: T9 but anterior shoulder pain 07/31/23: T10 w/ less anterior shoulder pain but still present LTG Duration 8 weeks NOT MET 1 Impairment AROM Impairment R shoulder abduction AROM 100 deg Short Term Goal (STG) Pt will increase R shoulder abduction to at least 125 deg without compensation for improved reaching and ADLs 07/04/23: 150 deg but pulling sensation 07/17/23: 165 deg with pulling sensation STG Duration 4 weeks MET [employer] Service Mechanic Goal (LTG) Pt will increase R shoulder abduction to at least 140 deg without compensation for improved reaching and ADLs 07/17/23: 165 deg with pulling sensation 07/31/23: 160 deg w/ pulling sensation beginning about 150 deg LTG Duration 8 weeks PROGRESSING Progress Towards Goals Progress Towards Goals Progressing Toward Goals,Slow Progress due to Medical Issues ,Goals Met Progress Comments Progressing with AROM and strength goals, QOL goals. Met sleeping goal. Continues to have discomfort at rotator cuff insertion Assessment Summary Assessment Pt tolerated session well. Emphasis on rotator cuff strengthening and progressing periscapular strengthening in order to decrease pain symptoms when present and improve R shoulder mobility. Initiate low resistance D2 flexion patterns and wall walks for progressive, dynamic rotator cuff strengthening. Cued to maintain short lever arm for PNF patterns, control of trailing hand during wall walks. Pt able to perform improved scapular protraction with ball circles and serratus rolls compared to previous session, but still requires moderate cueing. During manual treatment, pt has tenderness along rotator cuff insertion and along her latissimus, which is improved with soft tissue mobilization. Physical Therapy Plan Frequency and Duration Frequency of Treatment 1-2/wk Duration of treatment (weeks) 8 Plan of Care Start Date 07/31/23 Plan of Care End Date 09/28/23 Therapeutic Interventions Therapeutic Interventions Aquatic Therapy,Coordination Training,Gait Training,Home Exercise Program,Joint Mobilizations,Manual Therapy, Neuromuscular Re-education, Orthotic/Prosthetic Management ,Patient/Caregiver Education, Self-Care/Home Management, Sensory Integration,Soft Tissue Mobilization,Taping, Therapeutic Activities, Therapeutic Exercises Modalities Biofeedback,Cold Pack/Ice Massage,Electric Stimulation, Hot Packs,Ultrasound, Vasopneumatic Devices Next Visit Focus/Plan Next Note Type Treatment Note Next Visit Plan Next session: Rotator cuff strengthening, front raise with AROM>lvl 1 band, serratus roll with protraction, PNF, trial front raises, Y lift off Manual: mobilizations, soft tissue mobilization Difficulty gripping with R hand
--- NOTE | 2023-07-31 15:50 | PT.OPPOC ---
Physical, Occupational & Speech Therapy At [facility] Current Diagnoses Pain in right shoulder (07/31/23) Pain in thoracic spine (07/31/23) Weakness (07/31/23) Visit Care Team Role Provider Type Raymundo Cintron MD Attending Provider Physician Family Provider Primary Care Provider Referring Provider Specialty: Internal Medicine Address: [address] [place] [address], [address], [facility] Email: [email or web address] Plan Of Care PT-OP-T Assessment and Plan Start: 06/06/23 17:36 Freq: Status: Active Protocol: Document 07/31/23 13:48 NM (Rec: 07/31/23 15:48 NM [id number]) Physical Therapy Assessment Goals 5 Impairment AROM Impairment R shoulder ER 60 deg at 0 deg abd Short Term Goal (STG) Pt will increase R shoulder ER to at least 70 deg in order to demonstrate improved R shoulder AROM for dressing and ADLs 07/04/23: 80 deg at 0 deg abd without pulling sensation today STG Duration 4 weeks Correction Goal (LTG) Pt will increase R shoulder ER to at least 80 deg in order to demonstrate improved R shoulder AROM for dressing and ADLs 07/04/23: 80 deg at 0 deg abd without pulling sensation today 07/17/23: 90 deg ER at 0 deg abd w/o pulling sensation LTG Duration 8 weeks MET 4 Impairment function Impairment pain with sleeping Short Term Goal (STG) Pt will report waking less than 3x due to R shoulder pain in order to demonstrate improved pain management and QOL 07/04/23: none for shoulder pain STG Duration 4 weeks Ordnance Engineer Goal (LTG) Pt will report not waking due to R shoulder pain in order to demonstrate improved pain management and QOL 07/04/23: none for shoulder pain LTG Duration 8 weeks MET 3 Impairment strength Impairment R shoulder strength 4-/5 for abduction, 4/5 for all other motions Ordnance Engineer Goal (LTG) Pt will increase R shoulder strength to at least 4+/5 in order to demonstrate improved strength for lifting, reaching , and ADLs 07/04/23: 4/5 for all, pain free 07/17/23: 4/5 for all, pulling with IR and abduction 07/31/23: 4/5 for all, pain free LTG Duration 8 weeks PROGRESSING, NOT MET 2 Impairment AROM Impairment Apley IR L1 Short Term Goal (STG) Pt will improve R apley IR to at least T10 with pain <4/10 in order to demonstrate improved ability to dress and QOL 07/04/23: T10 but anterior shoulder pain/bicep pain, 2/10 07/17/23: T9 but anterior shoulder pain 07/27/23: T9 STG Duration 4 weeks MET Ordnance Engineer Goal (LTG) Pt will improve R apley IR to at least T8 with pain <4/10 in order to demonstrate improved ability to dress and QOL 07/17/23: T9 but anterior shoulder pain 07/31/23: T10 w/ less anterior shoulder pain but still present LTG Duration 8 weeks NOT MET 1 Impairment AROM Impairment R shoulder abduction AROM 100 deg Short Term Goal (STG) Pt will increase R shoulder abduction to at least 125 deg without compensation for improved reaching and ADLs 07/04/23: 150 deg but pulling sensation 07/17/23: 165 deg with pulling sensation STG Duration 4 weeks MET Ordnance Engineer Goal (LTG) Pt will increase R shoulder abduction to at least 140 deg without compensation for improved reaching and ADLs 07/17/23: 165 deg with pulling sensation 07/31/23: 160 deg w/ pulling sensation beginning about 150 deg LTG Duration 8 weeks PROGRESSING Progress Towards Goals Progress Towards Goals Progressing Toward Goals,Slow Progress due to Medical Issues ,Goals Met Progress Comments Progressing with AROM and strength goals, QOL goals. Met sleeping goal. Continues to have discomfort at rotator cuff insertion Assessment Summary Assessment Pt has been seen x 8 visits since evaluation in May 2023 for R shoulder pain. She is progressing well toward goals, meeting her range of motion goals. Pt is still progressing toward her strength goals. Despite limitations from her R wrist, pt reports improvements in ability to reach and elevate arm during ADLs, in addition to less pain during sleep. Her quickdash score improved from 75% impairment to 50% impairment. Despite progress, pt continues to have difficulty performing ADLs/ IADLs related to her R shoulder and she is limited by pain, likely related to her rotator cuff. Pt would benefit from additional PT for further scapular mobility/ control training, in addition to periscapular and rotator cuff strengthening in order to decrease pain symptoms and improve QOL/activity tolerance . Physical Therapy Plan Frequency and Duration Frequency of Treatment 1-2/wk Duration of treatment (weeks) 8 Plan of Care Start Date 07/31/23 Plan of Care End Date 09/28/23 Therapeutic Interventions Therapeutic Interventions Aquatic Therapy,Coordination Training,Gait Training,Home Exercise Program,Joint Mobilizations,Manual Therapy, Neuromuscular Re-education, Orthotic/Prosthetic Management ,Patient/Caregiver Education, Self-Care/Home Management, Sensory Integration,Soft Tissue Mobilization,Taping, Therapeutic Activities, Therapeutic Exercises Modalities Biofeedback,Cold Pack/Ice Massage,Electric Stimulation, Hot Packs,Ultrasound, Vasopneumatic Devices Next Visit Focus/Plan Next Note Type Treatment Note Next Visit Plan Next session: Rotator cuff strengthening, front raise with AROM>lvl 1 band, serratus roll with protraction, PNF, trial front raises, Y lift off Manual: mobilizations, soft tissue mobilization Difficulty gripping with R hand Plan of Care Dates Plan of Care Start Date 07/31/23 Plan of Care End Date 09/28/23 Electronically Signed by: Claudia Delgado, PT 07/31/23 3433 If you are in agreement with this Plan of Care, please return a signed and dated copy. I have reviewed this Plan of Care and certify that the skilled therapy services above are required to meet the patient?s needs. Physician Signature Date Printed Name and Credentials Clinical Instructor Signature Printed Name and Credentials
--- NOTE | 2023-08-14 14:09 | PT.OTN ---
Current Diagnoses Pain in right shoulder (08/14/23) Pain in thoracic spine (08/14/23) Weakness (08/14/23) Physical Therapy Treatment Note PT-OP-A Visit Information Start: 06/06/23 17:36 Freq: Status: Active Protocol: Document 08/14/23 13:06 NBM (Rec: 08/14/23 14:09 NBM [id number]) Out-Patient Physical Therapy Visit Information Visit Information Visit Type Treatment Note Visit Start Time 13:06 Visit Stop Time 13:56 Visit Number 10 Number of ENGINEERING DIRECTOR Visits 1 Evaluation Information Evaluation Date 06/07/23 Precautions Precautions R hand surgery, unable to make fist PT-OP-B Current Condition Start: 06/06/23 17:36 Freq: Status: Active Protocol: Document 06/07/23 13:49 NM (Rec: 06/07/23 17:40 NM [id number]) Current Condition History of Current Condition Onset Date December 2022-April 2023 Current Complaints R shoulder mobility, weakness History of Current Condition Pt presents with R shoulder pain related to shoulder positioning due to previous R hand surgery. She fell on outstretched hand on 12/15/22. 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 Due to immobilization and then subsequent elevation of arm on pillows and brace for several months, hand was elevated in air in ER with elbow bent until Apr 11 due to swelling. Her shoulder began to bother her at that point in time. She has been doing exercises (e.g . shoulder flexion) prescribed by hand therapist in meantime . Continued to have swelling after removal of hand stitches in April. Currently has difficulty with using R hand post-op and is in OT for her hand. Pt has to wear an extension brace for 30 min 3x/ day, her shoulder hurts during this due to positioning; positioned on a pillow per instructions. She reports difficulty with dressing (e.g bra), reaching (abd, up), movement. No imaging, no prior shoulder/arm injuries or problems. Pt reports no neck or thoracic discomfort, no numbness or tingling. Prior Treatments and Tests Concurrent treatment from OT for hand therapy Prior Functional Status Baseline Function- ADL's Independent Baseline Function- Mobility Independent Baseline Function- Other Pain with sleeping due to position Current Functional Impairments (Reported) Functional Limitations- ADL's Difficulty dressing, lifting/ reaching PT-OP-C Subjective Start: 06/06/23 17:36 Freq: Status: Active Protocol: Document 08/14/23 13:06 NBM (Rec: 08/14/23 14:09 NBM [id number]) OP-PT Subjective Patient Comments Patient Comments Kelsie reports she slept on L side and R shoulder hurts again. She tries to sleep on her back but ends up curled like position. She saw a U shaped pillow commercial to help her from rolling forward or backward. Most mornings I feel like I'm starting from scratch. PT-OP-E Functional Tests Start: 06/06/23 17:36 Freq: Status: Active Protocol: Document 06/07/23 13:49 NM (Rec: 06/07/23 17:40 NM [id number]) Functional Tests Apley's Scratch Test Action 1- Left supraspinatus Action 1- Right post cuff, painful Action 2- Left T4 Action 2- Right T4, painful Action 3- Left T7 Action 3- Right L1, painful PT-OP-F Manual Assessment Start: 06/06/23 17:36 Freq: Status: Active Protocol: Document 06/07/23 13:49 NM (Rec: 06/07/23 17:40 NM [id number]) Manual Assessments Soft Tissue Assessment Soft Tissue Mobility Assessment Restrictions R latissimus, posterior rotator cuff, R upper trapezius. Demos swelling and redness of R forearm and wrist related to previous surgery. Joint Mobility Assessment Joint Mobility Assessment Capsular restrictions R shoulder (Abd, ER, IR). Empty end feel at end range flexion, abduction, ER/IR. Anterior humeral head position bilaterally, increased with Apley IR. Normal AC joint space. Elevated R first rib PT-OP-G Mobility & Gait Start: 06/06/23 17:36 Freq: Status: Active Protocol: Document 06/07/23 13:49 NM (Rec: 06/07/23 17:40 NM [id number]) OP Gait Assessment Gait Gait Assistance Required: Independent Distance (Feet) 150 Comments Gait Comments Decreased arm swing PT-OP-H Neuro Start: 06/06/23 17:36 Freq: Status: Active Protocol: Document 06/07/23 13:49 NM (Rec: 06/07/23 17:40 NM [id number]) Sensation Evaluation Comments Summary Comments Will formally assess in next session. Reports no changes in sensation PT-OP-J Posture/Palpation/Skin Start: 06/06/23 17:36 Freq: Status: Active Protocol: Document 06/07/23 13:49 NM (Rec: 06/07/23 17:40 NM [id number]) Posture Evaluation Position Standing Head/C-Spine Posture Forward Head T-Spine Posture Increased Kyphosis Shoulder Posture (L) Rounded,(R) Rounded Scapula Posture (L) Protracted,(R) Protracted Arm Posture (L) Internally Rotated,(R) Internally Rotated Pelvis Posture Anteriorly Tilted Hip Posture (L) Externally Rotated,(R) Externally Rotated Knee Posture (L) Genu Valgus,(R) Genu Valgus Ankle/Foot Posture (L) Pronated,(R) Pronated Palpation Assessment Location R shoulder Palpation Location rotator cuff, biceps, AC joint , SC joint, pec/lat Palpation Findings Soft Tissue Tightness Palpation Details No tenderness to palpation of biceps or rotator cuff on scapula. Minimal tenderness along posterolateral shoulder. PT-OP-K Range of Motion Start: 06/06/23 17:36 Freq: Status: Active Protocol: Document 07/31/23 13:48 NM (Rec: 07/31/23 15:48 NM [id number]) Shoulder Goniometric Range of Motion Shoulder Right Flexion 150 Extension 55 Abduction 160 External Rotation at 90 degrees 90 Abduction External Rotation at 0 degrees Abduction 60 Internal Rotation 75 Internal Rotation Behind Back (text) T10 Comments most pain with abd; minimal pain with ER at 0 deg abd 07/04/23: 80 deg ER at 0 deg abd , IR to T10, 150 deg abd w/ pulling sensation, 140 deg flexion 07/17/23: 160 deg abd (pulling) , 165 deg flexion, 90 deg ER, T9 IR 07/31/23: 150 deg flex (140), 160 (90), 90 deg ER, T10 IR PT-OP-L Special Tests Start: 06/06/23 17:36 Freq: Status: Active Protocol: Document 06/07/23 13:49 NM (Rec: 06/07/23 17:40 NM [id number]) Special Tests Cervical Spine Special Tests Distraction Test Results - Spurling's Test Results - Shoulder Special Tests Lift-Off Rotator Cuff Test Results - Comments Able to resist minimally Drop Arm Rotator Cuff Test Results - External Rotation Lag Sign Test Results - Empty Can Test Results - Speed's Biceps Test Results - Donovan's Biceps Test Results - Mike Rancho Impingement Test Results - Neer Impingement Test Results + Elevation Impingement Test Results + PT-OP-M Strength Start: 06/06/23 17:36 Freq: Status: Active Protocol: Document 07/31/23 13:48 NM (Rec: 07/31/23 15:48 NM [id number]) Shoulder Strength Shoulder Manual Muscle Testing Right Flexion 4 Good Extension 4 Good Abduction (C5) 4 Good Adduction 4 Good External Rotation 4 Good Internal Rotation 4 Good Horizontal Abduction 4 Good Horizontal Adduction 4 Good Comments Minimal pain with resisted abduction 07/04/23: 4/ for all, no pain 07/17/23: 4/5 for all, no pain but pulling with IR and abduction 07/31/23: 4/5 for all, no pain PT-OP-Q Treatments Start: 06/06/23 17:36 Freq: Status: Active Protocol: Document 08/14/23 13:06 NBM (Rec: 08/14/23 14:09 NBM [id number]) Therapeutic Exercises Standing Exercises periscapulars Standing Exercise Name 1. serratus ball rolls, 2. low row, 3. mid row Side right Resistance lvl 2 band Equipment Used small teal ball Reps/Minutes 1. 30 CW, 30 CCW, 2-3. 2x10 Comments cued straight arm, posture wall walks Standing Exercise Name chest height Side bilateral Resistance lvl 1 band around wrists Reps/Minutes 2x10 ft Comments pain free in shoulder serratus roll up Standing Exercise Name serratus slide Side right Equipment Used small blue french ball, staggered stance Reps/Minutes 1x15 Comments good protraction; cued push forearm into ball as roll up wall Manual Therapy Treatment Soft Tissue Mobilization R shoulder Body Location lat, rotator cuff, deltoid, subscapularis, teres Mobilization Type Cross-Friction,Rolling, Sustained Pressure Intensity/Depth Moderate Body Position side Comments Reports symptom decrease with soft tissue mobilization. Joint Mobilizations R scapulothoracic Direction inferior/depression, retraction/protraction, rotation Grade II Body Position L SL Reps/Duration 1x10 ea Comments Mobilization with AROM: R deltoid/LH biceps pain resolves w/ FM repetition. Improved scapular depression today Self-Care/Home Management Treatment Education Patient Education Home Exercise Program Other Education -Discussion w/ pt about sleeping position in sidelying with pillow in front and making sure to straighten out of position and then set shoulder blades. Pt has one pillow under head so discussion to fold in half or use two-three pillows to bring into spinal alignment. Discussion for semi-reclined position okay for relief of shoulder pain but be mindful of hip flexor tightness over time w/ consideration for hip flexor stretching. PT-OP-T Assessment and Plan Start: 06/06/23 17:36 Freq: Status: Active Protocol: Document 08/14/23 13:06 [facility] (Rec: 08/14/23 14:09 [facility] [id number]) Physical Therapy Assessment Goals 5 Impairment AROM Impairment R shoulder ER 60 deg at 0 deg abd Short Term Goal (STG) Pt will increase R shoulder ER to at least 70 deg in order to demonstrate improved R shoulder AROM for dressing and ADLs 07/04/23: 80 deg at 0 deg abd without pulling sensation today STG Duration 4 weeks Longterm Goal (LTG) Pt will increase R shoulder ER to at least 80 deg in order to demonstrate improved R shoulder AROM for dressing and ADLs 07/04/23: 80 deg at 0 deg abd without pulling sensation today 07/17/23: 90 deg ER at 0 deg abd w/o pulling sensation LTG Duration 8 weeks MET 4 Impairment function Impairment pain with sleeping Short Term Goal (STG) Pt will report waking less than 3x due to R shoulder pain in order to demonstrate improved pain management and QOL 07/04/23: none for shoulder pain STG Duration 4 weeks Longterm Goal (LTG) Pt will report not waking due to R shoulder pain in order to demonstrate improved pain management and QOL 07/04/23: none for shoulder pain LTG Duration 8 weeks MET 3 Impairment strength Impairment R shoulder strength 4-/5 for abduction, 4/5 for all other motions Finance Director Goal (LTG) Pt will increase R shoulder strength to at least 4+/5 in order to demonstrate improved strength for lifting, reaching , and ADLs 07/04/23: 4/5 for all, pain free 07/17/23: 4/5 for all, pulling with IR and abduction 07/31/23: 4/5 for all, pain free LTG Duration 8 weeks PROGRESSING, NOT MET 2 Impairment AROM Impairment Apley IR L1 Short Term Goal (STG) Pt will improve R apley IR to at least T10 with pain <4/10 in order to demonstrate improved ability to dress and QOL 07/04/23: T10 but anterior shoulder pain/bicep pain, 2/10 07/17/23: T9 but anterior shoulder pain 07/27/23: T9 STG Duration 4 weeks MET Longterm Goal (LTG) Pt will improve R apley IR to at least T8 with pain <4/10 in order to demonstrate improved ability to dress and QOL 07/17/23: T9 but anterior shoulder pain 07/31/23: T10 w/ less anterior shoulder pain but still present LTG Duration 8 weeks NOT MET 1 Impairment AROM Impairment R shoulder abduction AROM 100 deg Short Term Goal (STG) Pt will increase R shoulder abduction to at least 125 deg without compensation for improved reaching and ADLs 07/04/23: 150 deg but pulling sensation 07/17/23: 165 deg with pulling sensation STG Duration 4 weeks MET Finance Director Goal (LTG) Pt will increase R shoulder abduction to at least 140 deg without compensation for improved reaching and ADLs 07/17/23: 165 deg with pulling sensation 07/31/23: 160 deg w/ pulling sensation beginning about 150 deg LTG Duration 8 weeks PROGRESSING Assessment Summary Assessment Kelsie presents with consistent complaint of increased R shoulder pain with sidelying sleeping positioning. Treatment focus on troubleshooting sleeping positioning w/ pillow support, therapeutic ex with scapular stability focus, and soft tissue mobilization to R shoulder and neck. Pt reports improved neck and shoulder comfort L sidelying with 3 pillows instead of one and will trial at home. She requires occasional cues for posture and scapular setting w / resisted band and wall ex's. Her pain start of session 2/ 10 increases to 4/10 w/ wall exercises but improves to 0/10 end of session after manual therapy in supported sidelying position. Physical Therapy Plan Frequency and Duration Frequency of Treatment 1-2/wk Duration of treatment (weeks) 8 Plan of Care Start Date 07/31/23 Plan of Care End Date 09/28/23 Therapeutic Interventions Therapeutic Interventions Aquatic Therapy,Coordination Training,Gait Training,Home Exercise Program,Joint Mobilizations,Manual Therapy, Neuromuscular Re-education, Orthotic/Prosthetic Management ,Patient/Caregiver Education, Self-Care/Home Management, Sensory Integration,Soft Tissue Mobilization,Taping, Therapeutic Activities, Therapeutic Exercises Modalities Biofeedback,Cold Pack/Ice Massage,Electric Stimulation, Hot Packs,Ultrasound, Vasopneumatic Devices Next Visit Focus/Plan Next Note Type Treatment Note Next Visit Plan Next session: Rotator cuff strengthening, front raise with AROM>lvl 1 band, serratus roll with protraction, PNF, trial front raises, Y lift off Manual: mobilizations, soft tissue mobilization Difficulty gripping with R hand
--- NOTE | 2023-08-20 14:00 | PT.OTN ---
Current Diagnoses Pain in right shoulder (08/20/23) Pain in thoracic spine (08/20/23) Weakness (08/20/23) Physical Therapy Treatment Note PT-OP-A Visit Information Start: 06/06/23 17:36 Freq: Status: Active Protocol: Document 08/20/23 13:00 NM (Rec: 08/20/23 13:50 NM [id number]) Out-Patient Physical Therapy Visit Information Visit Information Visit Type Treatment Note Visit Start Time 13:01 Visit Stop Time 13:46 Visit Number 11 Evaluation Information Evaluation Date 06/07/23 PT-OP-B Current Condition Start: 06/06/23 17:36 Freq: Status: Active Protocol: Document 06/07/23 13:49 NM (Rec: 06/07/23 17:40 NM [id number]) Current Condition History of Current Condition Onset Date December 2022-April 2023 Current Complaints R shoulder mobility, weakness History of Current Condition Pt presents with R shoulder pain related to shoulder positioning due to previous R hand surgery. She fell on outstretched hand on 12/15/22. 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 Due to immobilization and then subsequent elevation of arm on pillows and brace for several months, hand was elevated in air in ER with elbow bent until Apr 11 due to swelling. Her shoulder began to bother her at that point in time. She has been doing exercises (e.g . shoulder flexion) prescribed by hand therapist in meantime . Continued to have swelling after removal of hand stitches in April. Currently has difficulty with using R hand post-op and is in OT for her hand. Pt has to wear an extension brace for 30 min 3x/ day, her shoulder hurts during this due to positioning; positioned on a pillow per instructions. She reports difficulty with dressing (e.g bra), reaching (abd, up), movement. No imaging, no prior shoulder/arm injuries or problems. Pt reports no neck or thoracic discomfort, no numbness or tingling. Prior Treatments and Tests Concurrent treatment from OT for hand therapy Prior Functional Status Baseline Function- ADL's Independent Baseline Function- Mobility Independent Baseline Function- Other Pain with sleeping due to position Current Functional Impairments (Reported) Functional Limitations- ADL's Difficulty dressing, lifting/ reaching PT-OP-C Subjective Start: 06/06/23 17:36 Freq: Status: Active Protocol: Document 08/20/23 13:00 NM (Rec: 08/20/23 13:50 NM [id number]) OP-PT Subjective Patient Comments Patient Comments Pt reports that she is having difficulty sleeping due to R shoulder pain, states she is 2 -3x/night; no change from evaluation. Only helps to sleep on her side with R arm next to her. She reports that her wrist/hand pain is diminished, so she is noticing her R shoulder pain more. She states though she feels it less when reaching now PT-OP-E Functional Tests Start: 06/06/23 17:36 Freq: Status: Active Protocol: Document 06/07/23 13:49 NM (Rec: 06/07/23 17:40 NM [id number]) Functional Tests Apley's Scratch Test Action 1- Left supraspinatus Action 1- Right post cuff, painful Action 2- Left T4 Action 2- Right T4, painful Action 3- Left T7 Action 3- Right L1, painful PT-OP-F Manual Assessment Start: 06/06/23 17:36 Freq: Status: Active Protocol: Document 06/07/23 13:49 NM (Rec: 06/07/23 17:40 NM [id number]) Manual Assessments Soft Tissue Assessment Soft Tissue Mobility Assessment Restrictions R latissimus, posterior rotator cuff, R upper trapezius. Demos swelling and redness of R forearm and wrist related to previous surgery. Joint Mobility Assessment Joint Mobility Assessment Capsular restrictions R shoulder (Abd, ER, IR). Empty end feel at end range flexion, abduction, ER/IR. Anterior humeral head position bilaterally, increased with Apley IR. Normal AC joint space. Elevated R first rib PT-OP-G Mobility & Gait Start: 06/06/23 17:36 Freq: Status: Active Protocol: Document 06/07/23 13:49 NM (Rec: 06/07/23 17:40 NM [id number]) OP Gait Assessment Gait Gait Assistance Required: Independent Distance (Feet) 150 Comments Gait Comments Decreased arm swing PT-OP-H Neuro Start: 06/06/23 17:36 Freq: Status: Active Protocol: Document 06/07/23 13:49 NM (Rec: 06/07/23 17:40 NM [id number]) Sensation Evaluation Comments Summary Comments Will formally assess in next session. Reports no changes in sensation PT-OP-J Posture/Palpation/Skin Start: 06/06/23 17:36 Freq: Status: Active Protocol: Document 06/07/23 13:49 NM (Rec: 06/07/23 17:40 NM [id number]) Posture Evaluation Position Standing Head/C-Spine Posture Forward Head T-Spine Posture Increased Kyphosis Shoulder Posture (L) Rounded,(R) Rounded Scapula Posture (L) Protracted,(R) Protracted Arm Posture (L) Internally Rotated,(R) Internally Rotated Pelvis Posture Anteriorly Tilted Hip Posture (L) Externally Rotated,(R) Externally Rotated Knee Posture (L) Genu Valgus,(R) Genu Valgus Ankle/Foot Posture (L) Pronated,(R) Pronated Palpation Assessment Location R shoulder Palpation Location rotator cuff, biceps, AC joint , SC joint, pec/lat Palpation Findings Soft Tissue Tightness Palpation Details No tenderness to palpation of biceps or rotator cuff on scapula. Minimal tenderness along posterolateral shoulder. PT-OP-K Range of Motion Start: 06/06/23 17:36 Freq: Status: Active Protocol: Document 07/31/23 13:48 NM (Rec: 07/31/23 15:48 NM [id number]) Shoulder Goniometric Range of Motion Shoulder Right Flexion 150 Extension 55 Abduction 160 External Rotation at 90 degrees 90 Abduction External Rotation at 0 degrees Abduction 60 Internal Rotation 75 Internal Rotation Behind Back (text) T10 Comments most pain with abd; minimal pain with ER at 0 deg abd 07/04/23: 80 deg ER at 0 deg abd , IR to T10, 150 deg abd w/ pulling sensation, 140 deg flexion 07/17/23: 160 deg abd (pulling) , 165 deg flexion, 90 deg ER, T9 IR 07/31/23: 150 deg flex (140), 160 (90), 90 deg ER, T10 IR PT-OP-L Special Tests Start: 06/06/23 17:36 Freq: Status: Active Protocol: Document 06/07/23 13:49 NM (Rec: 06/07/23 17:40 NM [id number]) Special Tests Cervical Spine Special Tests Distraction Test Results - Spurling's Test Results - Shoulder Special Tests Lift-Off Rotator Cuff Test Results - Comments Able to resist minimally Drop Arm Rotator Cuff Test Results - External Rotation Lag Sign Test Results - Empty Can Test Results - Speed's Biceps Test Results - Donovan's Biceps Test Results - [place]o Impingement Test Results - Neer Impingement Test Results + Elevation Impingement Test Results + PT-OP-M Strength Start: 06/06/23 17:36 Freq: Status: Active Protocol: Document 07/31/23 13:48 NM (Rec: 07/31/23 15:48 NM [id number]) Shoulder Strength Shoulder Manual Muscle Testing Right Flexion 4 Good Extension 4 Good Abduction (C5) 4 Good Adduction 4 Good External Rotation 4 Good Internal Rotation 4 Good Horizontal Abduction 4 Good Horizontal Adduction 4 Good Comments Minimal pain with resisted abduction 07/04/23: 4/ for all, no pain 07/17/23: 4/5 for all, no pain but pulling with IR and abduction 07/31/23: 4/5 for all, no pain PT-OP-Q Treatments Start: 06/06/23 17:36 Freq: Status: Active Protocol: Document 08/20/23 13:00 NM (Rec: 08/20/23 13:50 NM [id number]) Therapeutic Exercises Sidelying Exercises R shld Sidelying Exercise Name flex, HABD, ER Side right Resistance 1# db Reps/Minutes 2x10 with 3 eccentric and 3 concentric Comments pain free; good scapular control, shoulder feels more stable w/ weight Standing Exercises landmine press Side right Resistance 5# on dowel Reps/Minutes 1x10 Comments fatiguing; reports sore but denies pain PNF Standing Exercise Name cheerleader: 1. HABD, 2. D1/D2 Side bilateral Resistance lvl 1 Reps/Minutes 1. 1x10, 2. 2x10, Comments fatiguing; good form Manual Therapy Treatment Soft Tissue Mobilization R shoulder Body Location lat, rotator cuff, deltoid, subscapularis, teres Mobilization Type Rolling,Strumming,Sustained Pressure Intensity/Depth Moderate Body Position side Comments Tenderness and trigger points at teres major/minor, subscapularis border; spasms with palpation. Performed distally to insertion of rotator cuff. Reports symptom decrease with soft tissue mobilization R shoulder: 155 flex, 170 deg abd, 75 deg ER at 90 deg abd, T10 for IR Self-Care/Home Management Treatment Education Patient Education Home Exercise Program Other Education HEP: 1# to sidelying flexion, HABD, ER 4 minutes- Education on sleeping position, trialing new pillow position PT-OP-T Assessment and Plan Start: 06/06/23 17:36 Freq: Status: Active Protocol: Document 08/20/23 13:00 NM (Rec: 08/20/23 13:50 NM [id number]) Physical Therapy Assessment Goals 5 Impairment AROM Impairment R shoulder ER 60 deg at 0 deg abd Short Term Goal (STG) Pt will increase R shoulder ER to at least 70 deg in order to demonstrate improved R shoulder AROM for dressing and ADLs 07/04/23: 80 deg at 0 deg abd without pulling sensation today STG Duration 4 weeks [place] Goal (LTG) Pt will increase R shoulder ER to at least 80 deg in order to demonstrate improved R shoulder AROM for dressing and ADLs 07/04/23: 80 deg at 0 deg abd without pulling sensation today 07/17/23: 90 deg ER at 0 deg abd w/o pulling sensation LTG Duration 8 weeks MET 4 Impairment function Impairment pain with sleeping Short Term Goal (STG) Pt will report waking less than 3x due to R shoulder pain in order to demonstrate improved pain management and QOL 07/04/23: none for shoulder pain STG Duration 4 weeks [facility] Goal (LTG) Pt will report not waking due to R shoulder pain in order to demonstrate improved pain management and QOL 07/04/23: none for shoulder pain LTG Duration 8 weeks MET 3 Impairment strength Impairment R shoulder strength 4-/5 for abduction, 4/5 for all other motions [place] Goal (LTG) Pt will increase R shoulder strength to at least 4+/5 in order to demonstrate improved strength for lifting, reaching , and ADLs 07/04/23: 4/5 for all, pain free 07/17/23: 4/5 for all, pulling with IR and abduction 07/31/23: 4/5 for all, pain free LTG Duration 8 weeks PROGRESSING, NOT MET 2 Impairment AROM Impairment Apley IR L1 Short Term Goal (STG) Pt will improve R apley IR to at least T10 with pain <4/10 in order to demonstrate improved ability to dress and QOL 07/04/23: T10 but anterior shoulder pain/bicep pain, 2/10 07/17/23: T9 but anterior shoulder pain 07/27/23: T9 STG Duration 4 weeks MET [facility] Goal (LTG) Pt will improve R apley IR to at least T8 with pain <4/10 in order to demonstrate improved ability to dress and QOL 07/17/23: T9 but anterior shoulder pain 07/31/23: T10 w/ less anterior shoulder pain but still present LTG Duration 8 weeks NOT MET 1 Impairment AROM Impairment R shoulder abduction AROM 100 deg Short Term Goal (STG) Pt will increase R shoulder abduction to at least 125 deg without compensation for improved reaching and ADLs 07/04/23: 150 deg but pulling sensation 07/17/23: 165 deg with pulling sensation STG Duration 4 weeks MET [facility] Goal (LTG) Pt will increase R shoulder abduction to at least 140 deg without compensation for improved reaching and ADLs 07/17/23: 165 deg with pulling sensation 07/31/23: 160 deg w/ pulling sensation beginning about 150 deg LTG Duration 8 weeks PROGRESSING Assessment Summary Assessment Pt tolerated session well without any increase in R shoulder pain. Brief time spent educating pt on sleeping position and continue to troubleshoot different sleeping positions; pt wanting to trial U shaped body pillow for support. Due to increased tenderness at posterior rotator cuff, increased time spent on soft tissue mobilization. Pt has trigger points that improved with manual therapy. Progressed sidelying ER/flex/HABD with 1# resistance, trialed horizontal abduction. Pt has good tolerance for increased resistance with good form this session. Initiated horizontal ABD along with PNF patterns, land mine press for greater rotator cuff strengthening. Pt fatigues still but able to tolerate more reps before small rest break. Pt would benefit from skilled PT for symptom management and R shoulder strengthening. Physical Therapy Plan Frequency and Duration Frequency of Treatment 1-2/wk Duration of treatment (weeks) 8 Plan of Care Start Date 07/31/23 Plan of Care End Date 09/28/23 Therapeutic Interventions Therapeutic Interventions Aquatic Therapy,Coordination Training,Gait Training,Home Exercise Program,Joint Mobilizations,Manual Therapy, Neuromuscular Re-education, Orthotic/Prosthetic Management ,Patient/Caregiver Education, Self-Care/Home Management, Sensory Integration,Soft Tissue Mobilization,Taping, Therapeutic Activities, Therapeutic Exercises Modalities Biofeedback,Cold Pack/Ice Massage,Electric Stimulation, Hot Packs,Ultrasound, Vasopneumatic Devices Next Visit Focus/Plan Next Note Type Treatment Note Next Visit Plan Land mine press, front raise, serratus roll with ball and band, progress s/l trio Next session: Rotator cuff strengthening, front raise with AROM>lvl 1 band, serratus roll with protraction, PNF, trial front raises, Y lift off Manual: mobilizations, soft tissue mobilization Difficulty gripping with R hand
--- NOTE | 2023-08-28 13:53 | PT.OTN ---
Current Diagnoses Pain in right shoulder (08/28/23) Pain in thoracic spine (08/28/23) Weakness (08/28/23) Physical Therapy Treatment Note PT-OP-A Visit Information Start: 06/06/23 17:36 Freq: Status: Active Protocol: Document 08/28/23 13:03 NBM (Rec: 08/28/23 13:52 NBM [id number]) Out-Patient Physical Therapy Visit Information Visit Information Visit Type Treatment Note Visit Start Time 13:03 Visit Stop Time 13:51 Visit Number 12 Number of [employer] Visits 1 Evaluation Information Evaluation Date 06/07/23 Precautions Precautions R hand surgery, unable to make fist PT-OP-B Current Condition Start: 06/06/23 17:36 Freq: Status: Active Protocol: Document 06/07/23 13:49 NM (Rec: 06/07/23 17:40 NM [id number]) Current Condition History of Current Condition Onset Date December 2022-April 2023 Current Complaints R shoulder mobility, weakness History of Current Condition Pt presents with R shoulder pain related to shoulder positioning due to previous R hand surgery. She fell on outstretched hand on 12/15/22. 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 Due to immobilization and then subsequent elevation of arm on pillows and brace for several months, hand was elevated in air in ER with elbow bent until Apr 11 due to swelling. Her shoulder began to bother her at that point in time. She has been doing exercises (e.g . shoulder flexion) prescribed by hand therapist in meantime . Continued to have swelling after removal of hand stitches in April. Currently has difficulty with using R hand post-op and is in OT for her hand. Pt has to wear an extension brace for 30 min 3x/ day, her shoulder hurts during this due to positioning; positioned on a pillow per instructions. She reports difficulty with dressing (e.g bra), reaching (abd, up), movement. No imaging, no prior shoulder/arm injuries or problems. Pt reports no neck or thoracic discomfort, no numbness or tingling. Prior Treatments and Tests Concurrent treatment from OT for hand therapy Prior Functional Status Baseline Function- ADL's Independent Baseline Function- Mobility Independent Baseline Function- Other Pain with sleeping due to position Current Functional Impairments (Reported) Functional Limitations- ADL's Difficulty dressing, lifting/ reaching PT-OP-C Subjective Start: 06/06/23 17:36 Freq: Status: Active Protocol: Document 08/28/23 13:03 NBM (Rec: 08/28/23 13:52 NBM [id number]) OP-PT Subjective Patient Comments Patient Comments Kelsie reports no new changes. Ongoing issues with waking up from sleep with R shoulder pain. She has ordered U-shaped pillow to try. She has doubled pillows under head which has helped with neck stiffness. Sometimes she can fall asleep on her back and then she's on her side only a few hours and that makes for a much better night. Patient Reported Progress Same PT-OP-E Functional Tests Start: 06/06/23 17:36 Freq: Status: Active Protocol: Document 06/07/23 13:49 NM (Rec: 06/07/23 17:40 NM [id number]) Functional Tests Apley's Scratch Test Action 1- Left supraspinatus Action 1- Right post cuff, painful Action 2- Left T4 Action 2- Right T4, painful Action 3- Left T7 Action 3- Right L1, painful PT-OP-F Manual Assessment Start: 06/06/23 17:36 Freq: Status: Active Protocol: Document 06/07/23 13:49 NM (Rec: 06/07/23 17:40 NM [id number]) Manual Assessments Soft Tissue Assessment Soft Tissue Mobility Assessment Restrictions R latissimus, posterior rotator cuff, R upper trapezius. Demos swelling and redness of R forearm and wrist related to previous surgery. Joint Mobility Assessment Joint Mobility Assessment Capsular restrictions R shoulder (Abd, ER, IR). Empty end feel at end range flexion, abduction, ER/IR. Anterior humeral head position bilaterally, increased with Apley IR. Normal AC joint space. Elevated R first rib PT-OP-G Mobility & Gait Start: 06/06/23 17:36 Freq: Status: Active Protocol: Document 06/07/23 13:49 NM (Rec: 06/07/23 17:40 NM [id number]) OP Gait Assessment Gait Gait Assistance Required: Independent Distance (Feet) 150 Comments Gait Comments Decreased arm swing PT-OP-H Neuro Start: 06/06/23 17:36 Freq: Status: Active Protocol: Document 06/07/23 13:49 NM (Rec: 06/07/23 17:40 NM [id number]) Sensation Evaluation Comments Summary Comments Will formally assess in next session. Reports no changes in sensation PT-OP-J Posture/Palpation/Skin Start: 06/06/23 17:36 Freq: Status: Active Protocol: Document 06/07/23 13:49 NM (Rec: 06/07/23 17:40 NM [id number]) Posture Evaluation Position Standing Head/C-Spine Posture Forward Head T-Spine Posture Increased Kyphosis Shoulder Posture (L) Rounded,(R) Rounded Scapula Posture (L) Protracted,(R) Protracted Arm Posture (L) Internally Rotated,(R) Internally Rotated Pelvis Posture Anteriorly Tilted Hip Posture (L) Externally Rotated,(R) Externally Rotated Knee Posture (L) Genu Valgus,(R) Genu Valgus Ankle/Foot Posture (L) Pronated,(R) Pronated Palpation Assessment Location R shoulder Palpation Location rotator cuff, biceps, AC joint , SC joint, pec/lat Palpation Findings Soft Tissue Tightness Palpation Details No tenderness to palpation of biceps or rotator cuff on scapula. Minimal tenderness along posterolateral shoulder. PT-OP-K Range of Motion Start: 06/06/23 17:36 Freq: Status: Active Protocol: Document 07/31/23 13:48 NM (Rec: 07/31/23 15:48 NM [id number]) Shoulder Goniometric Range of Motion Shoulder Right Flexion 150 Extension 55 Abduction 160 External Rotation at 90 degrees 90 Abduction External Rotation at 0 degrees Abduction 60 Internal Rotation 75 Internal Rotation Behind Back (text) T10 Comments most pain with abd; minimal pain with ER at 0 deg abd 07/04/23: 80 deg ER at 0 deg abd , IR to T10, 150 deg abd w/ pulling sensation, 140 deg flexion 07/17/23: 160 deg abd (pulling) , 165 deg flexion, 90 deg ER, T9 IR 07/31/23: 150 deg flex (140), 160 (90), 90 deg ER, T10 IR PT-OP-L Special Tests Start: 06/06/23 17:36 Freq: Status: Active Protocol: Document 06/07/23 13:49 NM (Rec: 06/07/23 17:40 NM [id number]) Special Tests Cervical Spine Special Tests Distraction Test Results - Spurling's Test Results - Shoulder Special Tests Lift-Off Rotator Cuff Test Results - Comments Able to resist minimally Drop Arm Rotator Cuff Test Results - External Rotation Lag Sign Test Results - Empty Can Test Results - Jorge Luis's Biceps Test Results - Davidrsadaf's Biceps Test Results - Mike Rancho Impingement Test Results - Neer Impingement Test Results + Elevation Impingement Test Results + PT-OP-M Strength Start: 06/06/23 17:36 Freq: Status: Active Protocol: Document 07/31/23 13:48 NM (Rec: 07/31/23 15:48 NM [id number]) Shoulder Strength Shoulder Manual Muscle Testing Right Flexion 4 Good Extension 4 Good Abduction (C5) 4 Good Adduction 4 Good External Rotation 4 Good Internal Rotation 4 Good Horizontal Abduction 4 Good Horizontal Adduction 4 Good Comments Minimal pain with resisted abduction 07/04/23: 4/ for all, no pain 07/17/23: 4/5 for all, no pain but pulling with IR and abduction 07/31/23: 4/5 for all, no pain PT-OP-Q Treatments Start: 06/06/23 17:36 Freq: Status: Active Protocol: Document 08/28/23 13:03 NBM (Rec: 08/28/23 13:52 NBM [id number]) Therapeutic Exercises Sidelying Exercises R shld Sidelying Exercise Name flex, HABD, ER Side right Resistance 1# db Equipment Used 3 pillow support for spinal alignment Reps/Minutes 2x10 with 3 eccentric and 3 concentric Comments pain free; tactile cues for scap setting improves self- awareness. Standing Exercises landmine press Side right Resistance 5# on top of trekking pole, pole anchored Reps/Minutes 2x10 Comments fatiguing; reports feels good denies pain PNF Standing Exercise Name cheerleader: 1. HABD, 2. D1/D2 Side bilateral Resistance lvl 1 Reps/Minutes 1. 1x10, 2. x10 ea Comments fatiguing; cues for form; pt c /o thoracolumbar pain w/ #2. rotator cuff strengthening Standing Exercise Name 1. ER, 2. IR Side right Resistance lvl 1 band Equipment Used towel roll between arm Reps/Minutes 2x10 Comments cued scap setting (improved w/ reps), less bicep Manual Therapy Treatment Soft Tissue Mobilization R shoulder Body Location lat, rotator cuff, deltoid, subscapularis, teres Mobilization Type Rolling,Strumming,Sustained Pressure Intensity/Depth Moderate Body Position side Comments Tenderness and trigger points at teres major/minor, subscapularis border, positive response to trigger point release. Reports symptom decrease with soft tissue mobilization Also to thoracolumbar paraspinals Bilaterally. 3 pillow support for spinal alignment. PT-OP-T Assessment and Plan Start: 06/06/23 17:36 Freq: Status: Active Protocol: Document 08/28/23 13:03 [facility] (Rec: 08/28/23 13:52 [facility] [id number]) Physical Therapy Assessment Goals 5 Impairment AROM Impairment R shoulder ER 60 deg at 0 deg abd Short Term Goal (STG) Pt will increase R shoulder ER to at least 70 deg in order to demonstrate improved R shoulder AROM for dressing and ADLs 07/04/23: 80 deg at 0 deg abd without pulling sensation today STG Duration 4 weeks Adult [employer] In[employer] Goal (LTG) Pt will increase R shoulder ER to at least 80 deg in order to demonstrate improved R shoulder AROM for dressing and ADLs 07/04/23: 80 deg at 0 deg abd without pulling sensation today 07/17/23: 90 deg ER at 0 deg abd w/o pulling sensation LTG Duration 8 weeks MET 4 Impairment function Impairment pain with sleeping Short Term Goal (STG) Pt will report waking less than 3x due to R shoulder pain in order to demonstrate improved pain management and QOL 07/04/23: none for shoulder pain STG Duration 4 weeks Retirement Goal (LTG) Pt will report not waking due to R shoulder pain in order to demonstrate improved pain management and QOL 07/04/23: none for shoulder pain LTG Duration 8 weeks MET 3 Impairment strength Impairment R shoulder strength 4-/5 for abduction, 4/5 for all other motions Retirement Goal (LTG) Pt will increase R shoulder strength to at least 4+/5 in order to demonstrate improved strength for lifting, reaching , and ADLs 07/04/23: 4/5 for all, pain free 07/17/23: 4/5 for all, pulling with IR and abduction 07/31/23: 4/5 for all, pain free LTG Duration 8 weeks PROGRESSING, NOT MET 2 Impairment AROM Impairment Apley IR L1 Short Term Goal (STG) Pt will improve R apley IR to at least T10 with pain <4/10 in order to demonstrate improved ability to dress and QOL 07/04/23: T10 but anterior shoulder pain/bicep pain, 2/10 07/17/23: T9 but anterior shoulder pain 07/27/23: T9 STG Duration 4 weeks MET Retirement Goal (LTG) Pt will improve R apley IR to at least T8 with pain <4/10 in order to demonstrate improved ability to dress and QOL 07/17/23: T9 but anterior shoulder pain 07/31/23: T10 w/ less anterior shoulder pain but still present LTG Duration 8 weeks NOT MET 1 Impairment AROM Impairment R shoulder abduction AROM 100 deg Short Term Goal (STG) Pt will increase R shoulder abduction to at least 125 deg without compensation for improved reaching and ADLs 07/04/23: 150 deg but pulling sensation 07/17/23: 165 deg with pulling sensation STG Duration 4 weeks MET Retirement Goal (LTG) Pt will increase R shoulder abduction to at least 140 deg without compensation for improved reaching and ADLs 07/17/23: 165 deg with pulling sensation 07/31/23: 160 deg w/ pulling sensation beginning about 150 deg LTG Duration 8 weeks PROGRESSING Assessment Summary Assessment Pt arrives with no pain but PNF UE D2 pattern discontinued due to 3/10 pain in thoracolumbar region, which improves back to 0/10 after manual therapy and is unchanged through end of session. Tactile cues for scap setting improves self- awareness w/ sidelying scapular strengthening ex's. Pt self-corrects scapular setting w/ repetition. Physical Therapy Plan Frequency and Duration Frequency of Treatment 1-2/wk Duration of treatment (weeks) 8 Plan of Care Start Date 07/31/23 Plan of Care End Date 09/28/23 Therapeutic Interventions Therapeutic Interventions Aquatic Therapy,Coordination Training,Gait Training,Home Exercise Program,Joint Mobilizations,Manual Therapy, Neuromuscular Re-education, Orthotic/Prosthetic Management ,Patient/Caregiver Education, Self-Care/Home Management, Sensory Integration,Soft Tissue Mobilization,Taping, Therapeutic Activities, Therapeutic Exercises Modalities Biofeedback,Cold Pack/Ice Massage,Electric Stimulation, Hot Packs,Ultrasound, Vasopneumatic Devices Next Visit Focus/Plan Next Note Type Treatment Note Next Visit Plan Land mine press, front raise, serratus roll with ball and band, progress s/l trio Next session: Rotator cuff strengthening, front raise with AROM>lvl 1 band, serratus roll with protraction, PNF, trial front raises, Y lift off Manual: mobilizations, soft tissue mobilization Difficulty gripping with R hand
--- NOTE | 2023-09-03 15:54 | PT.OTN ---
Current Diagnoses Pain in right shoulder (09/03/23) Pain in thoracic spine (09/03/23) Weakness (09/03/23) Physical Therapy Treatment Note PT-OP-A Visit Information Start: 06/06/23 17:36 Freq: Status: Active Protocol: Document 09/03/23 13:01 NM (Rec: 09/03/23 13:48 NM [id number]) Out-Patient Physical Therapy Visit Information Visit Information Visit Type Progress Note Visit Start Time 13:01 Visit Stop Time 13:45 Visit Number 13 Evaluation Information Evaluation Date 06/07/23 PT-OP-B Current Condition Start: 06/06/23 17:36 Freq: Status: Active Protocol: Document 06/07/23 13:49 NM (Rec: 06/07/23 17:40 NM [id number]) Current Condition History of Current Condition Onset Date December 2022-April 2023 Current Complaints R shoulder mobility, weakness History of Current Condition Pt presents with R shoulder pain related to shoulder positioning due to previous R hand surgery. She fell on outstretched hand on 12/15/22. 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 Due to immobilization and then subsequent elevation of arm on pillows and brace for several months, hand was elevated in air in ER with elbow bent until Apr 11 due to swelling. Her shoulder began to bother her at that point in time. She has been doing exercises (e.g . shoulder flexion) prescribed by hand therapist in meantime . Continued to have swelling after removal of hand stitches in April. Currently has difficulty with using R hand post-op and is in OT for her hand. Pt has to wear an extension brace for 30 min 3x/ day, her shoulder hurts during this due to positioning; positioned on a pillow per instructions. She reports difficulty with dressing (e.g bra), reaching (abd, up), movement. No imaging, no prior shoulder/arm injuries or problems. Pt reports no neck or thoracic discomfort, no numbness or tingling. Prior Treatments and Tests Concurrent treatment from OT for hand therapy Prior Functional Status Baseline Function- ADL's Independent Baseline Function- Mobility Independent Baseline Function- Other Pain with sleeping due to position Current Functional Impairments (Reported) Functional Limitations- ADL's Difficulty dressing, lifting/ reaching PT-OP-C Subjective Start: 06/06/23 17:36 Freq: Status: Active Protocol: Document 09/03/23 13:01 NM (Rec: 09/03/23 13:48 NM [id number]) OP-PT Subjective Patient Comments Patient Comments Pt reports that she hasn't gotten her new pillow, reports no change in sleeping. Pt reports that her arm is bothering her less during the day, but continues to be most problematic at night. She reports that she only has morning pain which wears off. She reports that she has no pain with reaching or at end range, stiff to reach behind back. States exercises going ok. PT-OP-E Functional Tests Start: 06/06/23 17:36 Freq: Status: Active Protocol: Document 06/07/23 13:49 NM (Rec: 06/07/23 17:40 NM [id number]) Functional Tests Apley's Scratch Test Action 1- Left supraspinatus Action 1- Right post cuff, painful Action 2- Left T4 Action 2- Right T4, painful Action 3- Left T7 Action 3- Right L1, painful PT-OP-F Manual Assessment Start: 06/06/23 17:36 Freq: Status: Active Protocol: Document 06/07/23 13:49 NM (Rec: 06/07/23 17:40 NM [id number]) Manual Assessments Soft Tissue Assessment Soft Tissue Mobility Assessment Restrictions R latissimus, posterior rotator cuff, R upper trapezius. Demos swelling and redness of R forearm and wrist related to previous surgery. Joint Mobility Assessment Joint Mobility Assessment Capsular restrictions R shoulder (Abd, ER, IR). Empty end feel at end range flexion, abduction, ER/IR. Anterior humeral head position bilaterally, increased with Apley IR. Normal AC joint space. Elevated R first rib PT-OP-G Mobility & Gait Start: 06/06/23 17:36 Freq: Status: Active Protocol: Document 06/07/23 13:49 NM (Rec: 06/07/23 17:40 NM [id number]) OP Gait Assessment Gait Gait Assistance Required: Independent Distance (Feet) 150 Comments Gait Comments Decreased arm swing PT-OP-H Neuro Start: 06/06/23 17:36 Freq: Status: Active Protocol: Document 06/07/23 13:49 NM (Rec: 06/07/23 17:40 NM [id number]) Sensation Evaluation Comments Summary Comments Will formally assess in next session. Reports no changes in sensation PT-OP-J Posture/Palpation/Skin Start: 06/06/23 17:36 Freq: Status: Active Protocol: Document 06/07/23 13:49 NM (Rec: 06/07/23 17:40 NM [id number]) Posture Evaluation Position Standing Head/C-Spine Posture Forward Head T-Spine Posture Increased Kyphosis Shoulder Posture (L) Rounded,(R) Rounded Scapula Posture (L) Protracted,(R) Protracted Arm Posture (L) Internally Rotated,(R) Internally Rotated Pelvis Posture Anteriorly Tilted Hip Posture (L) Externally Rotated,(R) Externally Rotated Knee Posture (L) Genu Valgus,(R) Genu Valgus Ankle/Foot Posture (L) Pronated,(R) Pronated Palpation Assessment Location R shoulder Palpation Location rotator cuff, biceps, AC joint , SC joint, pec/lat Palpation Findings Soft Tissue Tightness Palpation Details No tenderness to palpation of biceps or rotator cuff on scapula. Minimal tenderness along posterolateral shoulder. PT-OP-K Range of Motion Start: 06/06/23 17:36 Freq: Status: Active Protocol: Document 09/03/23 13:01 NM (Rec: 09/03/23 13:48 NM [id number]) Shoulder Goniometric Range of Motion Shoulder Right Flexion 150 Extension 55 Abduction 160 External Rotation at 90 degrees 90 Abduction External Rotation at 0 degrees Abduction 60 Internal Rotation 75 Internal Rotation Behind Back (text) T10 Comments most pain with abd; minimal pain with ER at 0 deg abd 07/04/23: 80 deg ER at 0 deg abd , IR to T10, 150 deg abd w/ pulling sensation, 140 deg flexion 07/17/23: 160 deg abd (pulling) , 165 deg flexion, 90 deg ER, T9 IR 07/31/23: 150 deg flex (140), 160 (90), 90 deg ER, T10 IR 09/03/23: T9 IR, 85 deg ER at 90 deg, 80 deg ER at 0 deg, 165 deg flex, 170 deg abd PT-OP-L Special Tests Start: 06/06/23 17:36 Freq: Status: Active Protocol: Document 06/07/23 13:49 NM (Rec: 06/07/23 17:40 NM [id number]) Special Tests Cervical Spine Special Tests Distraction Test Results - Spurling's Test Results - Shoulder Special Tests Lift-Off Rotator Cuff Test Results - Comments Able to resist minimally Drop Arm Rotator Cuff Test Results - External Rotation Lag Sign Test Results - Empty Can Test Results - Jorge Luis's Biceps Test Results - Donovan's Biceps Test Results - Mike Rancho Impingement Test Results - Neer Impingement Test Results + Elevation Impingement Test Results + PT-OP-M Strength Start: 06/06/23 17:36 Freq: Status: Active Protocol: Document 09/03/23 13:01 NM (Rec: 09/03/23 13:48 NM [id number]) Shoulder Strength Shoulder Manual Muscle Testing Right Flexion 4 Good Extension 4 Good Abduction (C5) 4 Good Adduction 4 Good External Rotation 4 Good Internal Rotation 4 Good Horizontal Abduction 4 Good Horizontal Adduction 4 Good Comments Minimal pain with resisted abduction 07/04/23: 4/ for all, no pain 07/17/23: 4/5 for all, no pain but pulling with IR and abduction 07/31/23: 4/5 for all, no pain 09/03/23: 4+/5, no pain but slight pull with abduction PT-OP-Q Treatments Start: 06/06/23 17:36 Freq: Status: Active Protocol: Document 09/03/23 13:01 NM (Rec: 09/03/23 13:48 NM [id number]) Therapeutic Exercises Sidelying Exercises open book Side right Reps/Minutes 1x5 Comments post manual tx, feels good R shld Sidelying Exercise Name flex, HABD, ER Side right Resistance 2# db Reps/Minutes 2x10 Comments pain free; improved scapular position w/o PT cue, no UT comp Standing Exercises thoracic extension Side bilateral Reps/Minutes 1x30 with mobilization landmine press Side right Resistance 5#> 10# dowel on mat Reps/Minutes 1x10 > 1x10 Comments reports fatiguing; pain free, good form Other Exercises self soft tissue mobilization Other Exercise Name subscapularis/lat Side right Resistance L assisting R Reps/Minutes 1 minute total Comments MWM with abd/add/IR/ER, reports symptom reduction Manual Therapy Treatment Soft Tissue Mobilization R shoulder Body Location lat, rotator cuff, deltoid, subscapularis, teres Mobilization Type Rolling,Strumming,Sustained Pressure,Trigger Point Release ,Other Intensity/Depth Moderate Body Position Sidelying Comments Trigger point at teres major/ minor, subscapularis, lat. Performed trigger point release, with palpable muscle relaxation. Reports major decrease in muscle tension and tightness PT-OP-T Assessment and Plan Start: 06/06/23 17:36 Freq: Status: Active Protocol: Document 09/03/23 13:01 NM (Rec: 09/03/23 13:48 NM [id number]) Physical Therapy Assessment Goals 5 Impairment AROM Impairment R shoulder ER 60 deg at 0 deg abd Short Term Goal (STG) Pt will increase R shoulder ER to at least 70 deg in order to demonstrate improved R shoulder AROM for dressing and ADLs 07/04/23: 80 deg at 0 deg abd without pulling sensation today STG Duration 4 weeks [employer] Estate [employer] Goal (LTG) Pt will increase R shoulder ER to at least 80 deg in order to demonstrate improved R shoulder AROM for dressing and ADLs 07/04/23: 80 deg at 0 deg abd without pulling sensation today 07/17/23: 90 deg ER at 0 deg abd w/o pulling sensation 09/03/23: 80 deg ER at 0 deg abd w/o pulling LTG Duration 8 weeks MET 4 Impairment function Impairment pain with sleeping Short Term Goal (STG) Pt will report waking less than 3x due to R shoulder pain in order to demonstrate improved pain management and QOL 07/04/23: none for shoulder pain STG Duration 4 weeks [employer] Goal (LTG) Pt will report not waking due to R shoulder pain in order to demonstrate improved pain management and QOL 07/04/23: none for shoulder pain 09/03/23: Pt reports that she is waking due to pain again in R shoulder, worse in morning LTG Duration 8 weeks PROGRESSING 3 Impairment strength Impairment R shoulder strength 4-/5 for abduction, 4/5 for all other motions Senior Care Goal (LTG) Pt will increase R shoulder strength to at least 4+/5 in order to demonstrate improved strength for lifting, reaching , and ADLs 07/04/23: 4/5 for all, pain free 07/17/23: 4/5 for all, pulling with IR and abduction 07/31/23: 4/5 for all, pain free 09/03/23: 4+/5 for all, pain free but slight pull with abduction resisted LTG Duration 8 weeks PROGRESSING, MET 2 Impairment AROM Impairment Apley IR L1 Short Term Goal (STG) Pt will improve R apley IR to at least T10 with pain <4/10 in order to demonstrate improved ability to dress and QOL 07/04/23: T10 but anterior shoulder pain/bicep pain, 2/10 07/17/23: T9 but anterior shoulder pain 07/27/23: T9 STG Duration 4 weeks MET [employer] Goal (LTG) Pt will improve R apley IR to at least T8 with pain <4/10 in order to demonstrate improved ability to dress and QOL 07/17/23: T9 but anterior shoulder pain 07/31/23: T10 w/ less anterior shoulder pain but still present 09/03/23: T9, no pain but anterior shoulder tight LTG Duration 8 weeks NOT MET 1 Impairment AROM Impairment R shoulder abduction AROM 100 deg Short Term Goal (STG) Pt will increase R shoulder abduction to at least 125 deg without compensation for improved reaching and ADLs 07/04/23: 150 deg but pulling sensation 07/17/23: 165 deg with pulling sensation STG Duration 4 weeks MET [employer] Goal (LTG) Pt will increase R shoulder abduction to at least 140 deg without compensation for improved reaching and ADLs 07/17/23: 165 deg with pulling sensation 07/31/23: 160 deg w/ pulling sensation beginning about 150 deg 09/03/23: 170 deg abd w/o pulling LTG Duration 8 weeks MET Progress Towards Goals Progress Towards Goals Progressing Toward Goals,Goals Met Progress Comments Still progressing toward IR goal, strength goals, sleep goal Assessment Summary Assessment Pt tolerated session well and does not have any increase in pain with exercise. Emphasis on improving thoracic mobility and soft tissue relaxation. Pt responds well to trigger point release of lat/ subscapularis. Educated pt on self mobilization of lat/ subscapularis and trigger point release. Progressed land mine press to 10#, which pt able to do with improved form with cueing. Pt able to progress resistance during sidelying trio with improved form, minimal wrist discomfort , and without any pulling/ discomfort. She has good activation of appropriate muscles with exercises. Physical Therapy Plan Frequency and Duration Frequency of Treatment 1-2/wk Duration of treatment (weeks) 8 Plan of Care Start Date 07/31/23 Plan of Care End Date 09/28/23 Therapeutic Interventions Therapeutic Interventions Aquatic Therapy,Coordination Training,Gait Training,Home Exercise Program,Joint Mobilizations,Manual Therapy, Neuromuscular Re-education, Orthotic/Prosthetic Management ,Patient/Caregiver Education, Self-Care/Home Management, Sensory Integration,Soft Tissue Mobilization,Taping, Therapeutic Activities, Therapeutic Exercises Modalities Biofeedback,Cold Pack/Ice Massage,Electric Stimulation, Hot Packs,Ultrasound, Vasopneumatic Devices Next Visit Focus/Plan Next Note Type Treatment Note Next Visit Plan Cont with thoracic ext/rot, trial eccentric IR and IR mob, plank tap, exercise review for HEP and gym (wants to start) Land mine press, front raise, serratus roll with ball and band, progress s/l trio Next session: Rotator cuff strengthening, front raise with AROM>lvl 1 band, serratus roll with protraction, PNF, trial front raises, Y lift off Manual: mobilizations, soft tissue mobilization Difficulty gripping with R hand
--- NOTE | 2023-09-10 15:44 | PT.OTN ---
Current Diagnoses Pain in right shoulder (09/10/23) Pain in thoracic spine (09/10/23) Weakness (09/10/23) Physical Therapy Treatment Note PT-OP-A Visit Information Start: 06/06/23 17:36 Freq: Status: Active Protocol: Document 09/10/23 13:02 NM (Rec: 09/10/23 13:47 NM [id number]) Out-Patient Physical Therapy Visit Information Visit Information Visit Type Treatment Note Visit Start Time 13:03 Visit Stop Time 13:45 Visit Number 14 PT-OP-B Current Condition Start: 06/06/23 17:36 Freq: Status: Active Protocol: Document 06/07/23 13:49 NM (Rec: 06/07/23 17:40 NM [id number]) Current Condition History of Current Condition Onset Date December 2022-April 2023 Current Complaints R shoulder mobility, weakness History of Current Condition Pt presents with R shoulder pain related to shoulder positioning due to previous R hand surgery. She fell on outstretched hand on 12/15/22. 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 Due to immobilization and then subsequent elevation of arm on pillows and brace for several months, hand was elevated in air in ER with elbow bent until Apr 11 due to swelling. Her shoulder began to bother her at that point in time. She has been doing exercises (e.g . shoulder flexion) prescribed by hand therapist in meantime . Continued to have swelling after removal of hand stitches in April. Currently has difficulty with using R hand post-op and is in OT for her hand. Pt has to wear an extension brace for 30 min 3x/ day, her shoulder hurts during this due to positioning; positioned on a pillow per instructions. She reports difficulty with dressing (e.g bra), reaching (abd, up), movement. No imaging, no prior shoulder/arm injuries or problems. Pt reports no neck or thoracic discomfort, no numbness or tingling. Prior Treatments and Tests Concurrent treatment from OT for hand therapy Prior Functional Status Baseline Function- ADL's Independent Baseline Function- Mobility Independent Baseline Function- Other Pain with sleeping due to position Current Functional Impairments (Reported) Functional Limitations- ADL's Difficulty dressing, lifting/ reaching PT-OP-C Subjective Start: 06/06/23 17:36 Freq: Status: Active Protocol: Document 09/10/23 13:02 NM (Rec: 09/10/23 13:47 NM [id number]) OP-PT Subjective Patient Comments Patient Comments Pt reports no change to her shoulder due to sleeping. Otherwise, she states she reaching better and not stopped by pain, states lifting still difficult. Still in OT for her hand, improving but still limited so unsure how much she can lift with her shoulder due to gripping PT-OP-E Functional Tests Start: 06/06/23 17:36 Freq: Status: Active Protocol: Document 06/07/23 13:49 NM (Rec: 06/07/23 17:40 NM [id number]) Functional Tests Apley's Scratch Test Action 1- Left supraspinatus Action 1- Right post cuff, painful Action 2- Left T4 Action 2- Right T4, painful Action 3- Left T7 Action 3- Right L1, painful PT-OP-F Manual Assessment Start: 06/06/23 17:36 Freq: Status: Active Protocol: Document 06/07/23 13:49 NM (Rec: 06/07/23 17:40 NM [id number]) Manual Assessments Soft Tissue Assessment Soft Tissue Mobility Assessment Restrictions R latissimus, posterior rotator cuff, R upper trapezius. Demos swelling and redness of R forearm and wrist related to previous surgery. Joint Mobility Assessment Joint Mobility Assessment Capsular restrictions R shoulder (Abd, ER, IR). Empty end feel at end range flexion, abduction, ER/IR. Anterior humeral head position bilaterally, increased with Apley IR. Normal AC joint space. Elevated R first rib PT-OP-G Mobility & Gait Start: 06/06/23 17:36 Freq: Status: Active Protocol: Document 06/07/23 13:49 NM (Rec: 06/07/23 17:40 NM [id number]) OP Gait Assessment Gait Gait Assistance Required: Independent Distance (Feet) 150 Comments Gait Comments Decreased arm swing PT-OP-H Neuro Start: 06/06/23 17:36 Freq: Status: Active Protocol: Document 06/07/23 13:49 NM (Rec: 06/07/23 17:40 NM [id number]) Sensation Evaluation Comments Summary Comments Will formally assess in next session. Reports no changes in sensation PT-OP-J Posture/Palpation/Skin Start: 06/06/23 17:36 Freq: Status: Active Protocol: Document 06/07/23 13:49 NM (Rec: 06/07/23 17:40 NM [id number]) Posture Evaluation Position Standing Head/C-Spine Posture Forward Head T-Spine Posture Increased Kyphosis Shoulder Posture (L) Rounded,(R) Rounded Scapula Posture (L) Protracted,(R) Protracted Arm Posture (L) Internally Rotated,(R) Internally Rotated Pelvis Posture Anteriorly Tilted Hip Posture (L) Externally Rotated,(R) Externally Rotated Knee Posture (L) Genu Valgus,(R) Genu Valgus Ankle/Foot Posture (L) Pronated,(R) Pronated Palpation Assessment Location R shoulder Palpation Location rotator cuff, biceps, AC joint , SC joint, pec/lat Palpation Findings Soft Tissue Tightness Palpation Details No tenderness to palpation of biceps or rotator cuff on scapula. Minimal tenderness along posterolateral shoulder. PT-OP-K Range of Motion Start: 06/06/23 17:36 Freq: Status: Active Protocol: Document 09/03/23 13:01 NM (Rec: 09/03/23 13:48 NM [id number]) Shoulder Goniometric Range of Motion Shoulder Right Flexion 150 Extension 55 Abduction 160 External Rotation at 90 degrees 90 Abduction External Rotation at 0 degrees Abduction 60 Internal Rotation 75 Internal Rotation Behind Back (text) T10 Comments most pain with abd; minimal pain with ER at 0 deg abd 07/04/23: 80 deg ER at 0 deg abd , IR to T10, 150 deg abd w/ pulling sensation, 140 deg flexion 07/17/23: 160 deg abd (pulling) , 165 deg flexion, 90 deg ER, T9 IR 07/31/23: 150 deg flex (140), 160 (90), 90 deg ER, T10 IR 09/03/23: T9 IR, 85 deg ER at 90 deg, 80 deg ER at 0 deg, 165 deg flex, 170 deg abd PT-OP-L Special Tests Start: 06/06/23 17:36 Freq: Status: Active Protocol: Document 06/07/23 13:49 NM (Rec: 06/07/23 17:40 NM [id number]) Special Tests Cervical Spine Special Tests Distraction Test Results - Spurling's Test Results - Shoulder Special Tests Lift-Off Rotator Cuff Test Results - Comments Able to resist minimally Drop Arm Rotator Cuff Test Results - External Rotation Lag Sign Test Results - Empty Can Test Results - Speed's Biceps Test Results - Donovan's Biceps Test Results - Mike Rancho Impingement Test Results - Neer Impingement Test Results + Elevation Impingement Test Results + PT-OP-M Strength Start: 06/06/23 17:36 Freq: Status: Active Protocol: Document 09/03/23 13:01 NM (Rec: 09/03/23 13:48 NM [id number]) Shoulder Strength Shoulder Manual Muscle Testing Right Flexion 4 Good Extension 4 Good Abduction (C5) 4 Good Adduction 4 Good External Rotation 4 Good Internal Rotation 4 Good Horizontal Abduction 4 Good Horizontal Adduction 4 Good Comments Minimal pain with resisted abduction 07/04/23: 4/ for all, no pain 07/17/23: 4/5 for all, no pain but pulling with IR and abduction 07/31/23: 4/5 for all, no pain 09/03/23: 4+/5, no pain but slight pull with abduction PT-OP-Q Treatments Start: 06/06/23 17:36 Freq: Status: Active Protocol: Document 09/10/23 13:02 NM (Rec: 09/10/23 13:47 NM [id number]) Therapeutic Exercises Standing Exercises scaption Standing Exercise Name trialed in PT Side right Resistance lvl 1 band > 1# db Reps/Minutes 1. 3 reps, 10 with dumbbell scapular stabilization Standing Exercise Name 1. SA press + trunk rotation away, 2. forearm wall plank tap opp shoulder Side bilateral Equipment Used 1. small blue afghan ball Reps/Minutes 1. 5, 2. 2x10 Comments cued push into wall during both exercises for scapular protraction periscapulars Standing Exercise Name wall W>Y slide then lift off > W > return to Y and slide back to W Side bilateral Equipment Used towel roll in front of head Reps/Minutes 10 Comments pain free when standing closer to wall; cued scapular motion IR towel stretch Side right Resistance AROM with gentle hold Equipment Used towel reps Reps/Minutes 15 with 3 hold Comments ant shoulder tightness Manual Therapy Treatment Soft Tissue Mobilization R shoulder Body Location lat, rotator cuff, deltoid, subscapularis, teres Mobilization Type Rolling,Strumming,Sustained Pressure,Trigger Point Release ,Other Intensity/Depth Moderate Body Position Sidelying Comments Trigger point at teres major/ minor, subscapularis, lat. Performed trigger point release, with palpable muscle relaxation. Reports major decrease in muscle tension and tightness Joint Mobilizations R scapulothoracic Direction add/depression Grade III Reps/Duration 10 ea Comments Improved control, pain free, prior to exercise R shoulder Joint GHJ Direction P-A, A-P Grade III Body Position Sitting Reps/Duration 10 ea Comments Improved humeral positioning. Reports post glide feels good like in position. Biased into ER and IR PT-OP-T Assessment and Plan Start: 06/06/23 17:36 Freq: Status: Active Protocol: Document 09/10/23 13:02 NM (Rec: 09/10/23 13:47 NM [id number]) Physical Therapy Assessment Goals 5 Impairment AROM Impairment R shoulder ER 60 deg at 0 deg abd Short Term Goal (STG) Pt will increase R shoulder ER to at least 70 deg in order to demonstrate improved R shoulder AROM for dressing and ADLs 07/04/23: 80 deg at 0 deg abd without pulling sensation today STG Duration 4 weeks Arts Education Teacher Goal (LTG) Pt will increase R shoulder ER to at least 80 deg in order to demonstrate improved R shoulder AROM for dressing and ADLs 07/04/23: 80 deg at 0 deg abd without pulling sensation today 07/17/23: 90 deg ER at 0 deg abd w/o pulling sensation 09/03/23: 80 deg ER at 0 deg abd w/o pulling LTG Duration 8 weeks MET 4 Impairment function Impairment pain with sleeping Short Term Goal (STG) Pt will report waking less than 3x due to R shoulder pain in order to demonstrate improved pain management and QOL 07/04/23: none for shoulder pain STG Duration 4 weeks Long-Term Goal (LTG) Pt will report not waking due to R shoulder pain in order to demonstrate improved pain management and QOL 07/04/23: none for shoulder pain 09/03/23: Pt reports that she is waking due to pain again in R shoulder, worse in morning LTG Duration 8 weeks PROGRESSING 3 Impairment strength Impairment R shoulder strength 4-/5 for abduction, 4/5 for all other motions Long-Term Goal (LTG) Pt will increase R shoulder strength to at least 4+/5 in order to demonstrate improved strength for lifting, reaching , and ADLs 07/04/23: 4/5 for all, pain free 07/17/23: 4/5 for all, pulling with IR and abduction 07/31/23: 4/5 for all, pain free 09/03/23: 4+/5 for all, pain free but slight pull with abduction resisted LTG Duration 8 weeks PROGRESSING, MET 2 Impairment AROM Impairment Apley IR L1 Short Term Goal (STG) Pt will improve R apley IR to at least T10 with pain <4/10 in order to demonstrate improved ability to dress and QOL 07/04/23: T10 but anterior shoulder pain/bicep pain, 2/10 07/17/23: T9 but anterior shoulder pain 07/27/23: T9 STG Duration 4 weeks MET Arts Education Teacher Goal (LTG) Pt will improve R apley IR to at least T8 with pain <4/10 in order to demonstrate improved ability to dress and QOL 07/17/23: T9 but anterior shoulder pain 07/31/23: T10 w/ less anterior shoulder pain but still present 09/03/23: T9, no pain but anterior shoulder tight LTG Duration 8 weeks NOT MET 1 Impairment AROM Impairment R shoulder abduction AROM 100 deg Short Term Goal (STG) Pt will increase R shoulder abduction to at least 125 deg without compensation for improved reaching and ADLs 07/04/23: 150 deg but pulling sensation 07/17/23: 165 deg with pulling sensation STG Duration 4 weeks MET Arts Education Teacher Goal (LTG) Pt will increase R shoulder abduction to at least 140 deg without compensation for improved reaching and ADLs 07/17/23: 165 deg with pulling sensation 07/31/23: 160 deg w/ pulling sensation beginning about 150 deg 09/03/23: 170 deg abd w/o pulling LTG Duration 8 weeks MET Assessment Summary Assessment Pt tolerated session well. Improved tolerance for IR towel stretch using mobilization vs sustained stretch. Continued with periscapular strengthening, particularly serratus anterior . Progressed to wall plank on elbows with shoulder taps for stabilization. Pt demonstrates tendency for thoracic flexion ; added thoracic extension in sitting to improve interaction along kinetic chain. Trialed level 1 banded scaption, but pt unable to perform with resistance throughout range. However, able to perform pain free with 1# dumbbell. Pt would benefit from skilled PT for R shoulder strengthening in order to improve global strength and ability to participate in activity tolerance. Physical Therapy Plan Frequency and Duration Frequency of Treatment 1-2/wk Duration of treatment (weeks) 8 Plan of Care Start Date 07/31/23 Plan of Care End Date 09/28/23 Therapeutic Interventions Therapeutic Interventions Aquatic Therapy,Coordination Training,Gait Training,Home Exercise Program,Joint Mobilizations,Manual Therapy, Neuromuscular Re-education, Orthotic/Prosthetic Management ,Patient/Caregiver Education, Self-Care/Home Management, Sensory Integration,Soft Tissue Mobilization,Taping, Therapeutic Activities, Therapeutic Exercises Modalities Biofeedback,Cold Pack/Ice Massage,Electric Stimulation, Hot Packs,Ultrasound, Vasopneumatic Devices Next Visit Focus/Plan Next Note Type Treatment Note Next Visit Plan long lever land mine press, arm push up on leg press, scaption. Cont with thoracic ext/rot, trial eccentric IR and IR mob, plank tap Land mine press, front raise, serratus roll with ball and band, progress s/l trio Next session: Rotator cuff strengthening, front raise with AROM>lvl 1 band, serratus roll with protraction, PNF, trial front raises, Y lift off Manual: mobilizations, soft tissue mobilization Difficulty gripping with R hand
--- NOTE | 2023-09-17 13:55 | PT.OTN ---
Current Diagnoses Pain in right shoulder (09/17/23) Pain in thoracic spine (09/17/23) Weakness (09/17/23) Physical Therapy Treatment Note PT-OP-A Visit Information Start: 06/06/23 17:36 Freq: Status: Active Protocol: Document 09/17/23 13:01 NM (Rec: 09/17/23 13:48 NM [id number]) Out-Patient Physical Therapy Visit Information Visit Information Visit Type Treatment Note Visit Start Time 13:03 Visit Stop Time 14:43 Visit Number 15 Evaluation Information Evaluation Date 06/07/23 PT-OP-B Current Condition Start: 06/06/23 17:36 Freq: Status: Active Protocol: Document 06/07/23 13:49 NM (Rec: 06/07/23 17:40 NM [id number]) Current Condition History of Current Condition Onset Date December 2022-April 2023 Current Complaints R shoulder mobility, weakness History of Current Condition Pt presents with R shoulder pain related to shoulder positioning due to previous R hand surgery. She fell on outstretched hand on 12/15/22. 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 Due to immobilization and then subsequent elevation of arm on pillows and brace for several months, hand was elevated in air in ER with elbow bent until Apr 11 due to swelling. Her shoulder began to bother her at that point in time. She has been doing exercises (e.g . shoulder flexion) prescribed by hand therapist in meantime . Continued to have swelling after removal of hand stitches in April. Currently has difficulty with using R hand post-op and is in OT for her hand. Pt has to wear an extension brace for 30 min 3x/ day, her shoulder hurts during this due to positioning; positioned on a pillow per instructions. She reports difficulty with dressing (e.g bra), reaching (abd, up), movement. No imaging, no prior shoulder/arm injuries or problems. Pt reports no neck or thoracic discomfort, no numbness or tingling. Prior Treatments and Tests Concurrent treatment from OT for hand therapy Prior Functional Status Baseline Function- ADL's Independent Baseline Function- Mobility Independent Baseline Function- Other Pain with sleeping due to position Current Functional Impairments (Reported) Functional Limitations- ADL's Difficulty dressing, lifting/ reaching PT-OP-C Subjective Start: 06/06/23 17:36 Freq: Status: Active Protocol: Document 09/17/23 13:01 NM (Rec: 09/17/23 13:48 NM [id number]) OP-PT Subjective Patient Comments Patient Comments Pt reports that she has good and bad days since last session. Overall, states doing better. Just tried pillow to see if better sleeping position. States ok to d/c next session vs continuing with maintenance program PT-OP-E Functional Tests Start: 06/06/23 17:36 Freq: Status: Active Protocol: Document 06/07/23 13:49 NM (Rec: 06/07/23 17:40 NM [id number]) Functional Tests Apley's Scratch Test Action 1- Left supraspinatus Action 1- Right post cuff, painful Action 2- Left T4 Action 2- Right T4, painful Action 3- Left T7 Action 3- Right L1, painful PT-OP-F Manual Assessment Start: 06/06/23 17:36 Freq: Status: Active Protocol: Document 06/07/23 13:49 NM (Rec: 06/07/23 17:40 NM [id number]) Manual Assessments Soft Tissue Assessment Soft Tissue Mobility Assessment Restrictions R latissimus, posterior rotator cuff, R upper trapezius. Demos swelling and redness of R forearm and wrist related to previous surgery. Joint Mobility Assessment Joint Mobility Assessment Capsular restrictions R shoulder (Abd, ER, IR). Empty end feel at end range flexion, abduction, ER/IR. Anterior humeral head position bilaterally, increased with Apley IR. Normal AC joint space. Elevated R first rib PT-OP-G Mobility & Gait Start: 06/06/23 17:36 Freq: Status: Active Protocol: Document 06/07/23 13:49 NM (Rec: 06/07/23 17:40 NM [id number]) OP Gait Assessment Gait Gait Assistance Required: Independent Distance (Feet) 150 Comments Gait Comments Decreased arm swing PT-OP-H Neuro Start: 06/06/23 17:36 Freq: Status: Active Protocol: Document 06/07/23 13:49 NM (Rec: 06/07/23 17:40 NM [id number]) Sensation Evaluation Comments Summary Comments Will formally assess in next session. Reports no changes in sensation PT-OP-J Posture/Palpation/Skin Start: 06/06/23 17:36 Freq: Status: Active Protocol: Document 06/07/23 13:49 NM (Rec: 06/07/23 17:40 NM [id number]) Posture Evaluation Position Standing Head/C-Spine Posture Forward Head T-Spine Posture Increased Kyphosis Shoulder Posture (L) Rounded,(R) Rounded Scapula Posture (L) Protracted,(R) Protracted Arm Posture (L) Internally Rotated,(R) Internally Rotated Pelvis Posture Anteriorly Tilted Hip Posture (L) Externally Rotated,(R) Externally Rotated Knee Posture (L) Genu Valgus,(R) Genu Valgus Ankle/Foot Posture (L) Pronated,(R) Pronated Palpation Assessment Location R shoulder Palpation Location rotator cuff, biceps, AC joint , SC joint, pec/lat Palpation Findings Soft Tissue Tightness Palpation Details No tenderness to palpation of biceps or rotator cuff on scapula. Minimal tenderness along posterolateral shoulder. PT-OP-K Range of Motion Start: 06/06/23 17:36 Freq: Status: Active Protocol: Document 09/17/23 13:01 NM (Rec: 09/17/23 13:48 NM [id number]) Shoulder Goniometric Range of Motion Shoulder Right Flexion 150 Extension 55 Abduction 160 External Rotation at 90 degrees 90 Abduction External Rotation at 0 degrees Abduction 60 Internal Rotation 75 Internal Rotation Behind Back (text) T10 Comments most pain with abd; minimal pain with ER at 0 deg abd 07/04/23: 80 deg ER at 0 deg abd , IR to T10, 150 deg abd w/ pulling sensation, 140 deg flexion 07/17/23: 160 deg abd (pulling) , 165 deg flexion, 90 deg ER, T9 IR 07/31/23: 150 deg flex (140), 160 (90), 90 deg ER, T10 IR 09/03/23: T9 IR, 85 deg ER at 90 deg, 80 deg ER at 0 deg, 165 deg flex, 170 deg abd 09/17/23: 165 flex, 170 abd, 80 deg ER at 90 deg abd, T8 IR behind back PT-OP-L Special Tests Start: 06/06/23 17:36 Freq: Status: Active Protocol: Document 06/07/23 13:49 NM (Rec: 06/07/23 17:40 NM [id number]) Special Tests Cervical Spine Special Tests Distraction Test Results - Spurling's Test Results - Shoulder Special Tests Lift-Off Rotator Cuff Test Results - Comments Able to resist minimally Drop Arm Rotator Cuff Test Results - External Rotation Lag Sign Test Results - Empty Can Test Results - Jorge Luis's Biceps Test Results - Donovan's Biceps Test Results - Mike Rancho Impingement Test Results - Neer Impingement Test Results + Elevation Impingement Test Results + PT-OP-M Strength Start: 06/06/23 17:36 Freq: Status: Active Protocol: Document 09/17/23 13:01 NM (Rec: 09/17/23 13:48 NM [id number]) Shoulder Strength Shoulder Manual Muscle Testing Right Flexion 4 Good Extension 4 Good Abduction (C5) 4 Good Adduction 4 Good External Rotation 4 Good Internal Rotation 4 Good Horizontal Abduction 4 Good Horizontal Adduction 4 Good Comments Minimal pain with resisted abduction 07/04/23: 4/ for all, no pain 07/17/23: 4/5 for all, no pain but pulling with IR and abduction 07/31/23: 4/5 for all, no pain 09/03/23: 4+/5, no pain but slight pull with abduction 09/17/23: 4+/5, no pain PT-OP-Q Treatments Start: 06/06/23 17:36 Freq: Status: Active Protocol: Document 09/17/23 13:01 NM (Rec: 09/17/23 13:48 NM [id number]) Therapeutic Exercises Sitting Exercises ER Sitting Exercise Name 90/90 ER (progressed up from 45 deg to 90 deg abd) Side right Resistance AROM> 1# Equipment Used 1/2 foam roller Reps/Minutes 10 ea level Standing Exercises scaption Standing Exercise Name raises: front and lateral Side right Resistance 1# db Reps/Minutes 8 ea Comments cued for scapular control; pain free; good eccentric lowering thoracic extension Standing Exercise Name seated in chair Equipment Used small foam roller behind back in chair Reps/Minutes 10x3 hold Comments with shoulder flexion landmine press Side right Resistance 5# with trek pole Reps/Minutes 3x8 Comments fatiguing; pain free; good form rotator cuff strengthening Standing Exercise Name 1. 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 snow angels Side bilateral Resistance level 1 band Reps/Minutes 1. 10 ea, 2. 10 Comments cued for form; pain free with rotation IR towel stretch Standing Exercise Name 1. IR/ext lifts behind back, 2 . IR towel mobilization Side right Equipment Used towel for both Reps/Minutes 1. 10, 2. 10x2 hold Comments pain free; Self-Care/Home Management Treatment Education Patient Education Home Exercise Program Other Education HEP: front and lateral raises, ER 90/90 PT-OP-T Assessment and Plan Start: 06/06/23 17:36 Freq: Status: Active Protocol: Document 09/17/23 13:01 NM (Rec: 09/17/23 13:48 NM [id number]) Physical Therapy Assessment Goals 5 Impairment AROM Impairment R shoulder ER 60 deg at 0 deg abd Short Term Goal (STG) Pt will increase R shoulder ER to at least 70 deg in order to demonstrate improved R shoulder AROM for dressing and ADLs 07/04/23: 80 deg at 0 deg abd without pulling sensation today STG Duration 4 weeks [facility] Goal (LTG) Pt will increase R shoulder ER to at least 80 deg in order to demonstrate improved R shoulder AROM for dressing and ADLs 07/04/23: 80 deg at 0 deg abd without pulling sensation today 07/17/23: 90 deg ER at 0 deg abd w/o pulling sensation 09/03/23: 80 deg ER at 0 deg abd w/o pulling LTG Duration 8 weeks MET 4 Impairment function Impairment pain with sleeping Short Term Goal (STG) Pt will report waking less than 3x due to R shoulder pain in order to demonstrate improved pain management and QOL 07/04/23: none for shoulder pain STG Duration 4 weeks Shelter Goal (LTG) Pt will report not waking due to R shoulder pain in order to demonstrate improved pain management and QOL 07/04/23: none for shoulder pain 09/03/23: Pt reports that she is waking due to pain again in R shoulder, worse in morning LTG Duration 8 weeks PROGRESSING 3 Impairment strength Impairment R shoulder strength 4-/5 for abduction, 4/5 for all other motions Shelter Goal (LTG) Pt will increase R shoulder strength to at least 4+/5 in order to demonstrate improved strength for lifting, reaching , and ADLs 07/04/23: 4/5 for all, pain free 07/17/23: 4/5 for all, pulling with IR and abduction 07/31/23: 4/5 for all, pain free 09/03/23: 4+/5 for all, pain free but slight pull with abduction resisted LTG Duration 8 weeks PROGRESSING, MET 2 Impairment AROM Impairment Apley IR L1 Short Term Goal (STG) Pt will improve R apley IR to at least T10 with pain <4/10 in order to demonstrate improved ability to dress and QOL 07/04/23: T10 but anterior shoulder pain/bicep pain, 2/10 07/17/23: T9 but anterior shoulder pain 07/27/23: T9 STG Duration 4 weeks MET [facility] Goal (LTG) Pt will improve R apley IR to at least T8 with pain <4/10 in order to demonstrate improved ability to dress and QOL 07/17/23: T9 but anterior shoulder pain 07/31/23: T10 w/ less anterior shoulder pain but still present 09/03/23: T9, no pain but anterior shoulder tight 09/17/23: T9, no anterior pain LTG Duration 8 weeks NOT MET 1 Impairment AROM Impairment R shoulder abduction AROM 100 deg Short Term Goal (STG) Pt will increase R shoulder abduction to at least 125 deg without compensation for improved reaching and ADLs 07/04/23: 150 deg but pulling sensation 07/17/23: 165 deg with pulling sensation STG Duration 4 weeks MET [facility] Goal (LTG) Pt will increase R shoulder abduction to at least 140 deg without compensation for improved reaching and ADLs 07/17/23: 165 deg with pulling sensation 07/31/23: 160 deg w/ pulling sensation beginning about 150 deg 09/03/23: 170 deg abd w/o pulling LTG Duration 8 weeks MET Assessment Summary Assessment Pt tolerated session well, especially open chain rotator cuff strengthening. Able to progress to 90/90 shoulder ER with resistance, resisted front and lateral raises, and bus drivers. Pt demonstrates good scapular control, pain free with rotator cuff. She fatigues easily. Cued to maintain control with eccentric lowering. Continues to have some anterior shoulder discomfort with IR behind back, but up to T9 now. Pt planning to discharge next session with maintenance HEP vs continuing PT for strengthening with more time between sessions to transition to maintenance program more smoothly. She would benefit from skilled PT for strengthening of R shoulder stabilizes and rotators. Physical Therapy Plan Frequency and Duration Frequency of Treatment 1-2/wk Duration of treatment (weeks) 8 Plan of Care Start Date 07/31/23 Plan of Care End Date 09/28/23 Therapeutic Interventions Therapeutic Interventions Aquatic Therapy,Coordination Training,Gait Training,Home Exercise Program,Joint Mobilizations,Manual Therapy, Neuromuscular Re-education, Orthotic/Prosthetic Management ,Patient/Caregiver Education, Self-Care/Home Management, Sensory Integration,Soft Tissue Mobilization,Taping, Therapeutic Activities, Therapeutic Exercises Modalities Biofeedback,Cold Pack/Ice Massage,Electric Stimulation, Hot Packs,Ultrasound, Vasopneumatic Devices Next Visit Focus/Plan Next Note Type Progress Note Next Visit Plan long lever land mine press, arm push up on leg press, scaption. Cont with thoracic ext/rot, trial eccentric IR and IR mob, plank tap Land mine press, front raise, serratus roll with ball and band, progress s/l trio Next session: Rotator cuff strengthening, front raise with AROM>lvl 1 band, serratus roll with protraction, PNF, trial front raises, Y lift off Manual: mobilizations, soft tissue mobilization Difficulty gripping with R hand
--- NOTE | 2023-09-24 15:32 | PT.OTN ---
Current Diagnoses Pain in right shoulder (09/24/23) Pain in thoracic spine (09/24/23) Weakness (09/24/23) Physical Therapy Treatment Note PT-OP-A Visit Information Start: 06/06/23 17:36 Freq: Status: Active Protocol: Document 09/24/23 13:51 NM (Rec: 09/24/23 14:34 NM [id number]) Out-Patient Physical Therapy Visit Information Visit Information Visit Type Progress Note Visit Start Time 13:51 Visit Stop Time 14:30 Visit Number 16 Evaluation Information Evaluation Date 06/07/23 PT-OP-B Current Condition Start: 06/06/23 17:36 Freq: Status: Active Protocol: Document 06/07/23 13:49 NM (Rec: 06/07/23 17:40 NM [id number]) Current Condition History of Current Condition Onset Date December 2022-April 2023 Current Complaints R shoulder mobility, weakness History of Current Condition Pt presents with R shoulder pain related to shoulder positioning due to previous R hand surgery. She fell on outstretched hand on 12/15/22. 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 Due to immobilization and then subsequent elevation of arm on pillows and brace for several months, hand was elevated in air in ER with elbow bent until Apr 11 due to swelling. Her shoulder began to bother her at that point in time. She has been doing exercises (e.g . shoulder flexion) prescribed by hand therapist in meantime . Continued to have swelling after removal of hand stitches in April. Currently has difficulty with using R hand post-op and is in OT for her hand. Pt has to wear an extension brace for 30 min 3x/ day, her shoulder hurts during this due to positioning; positioned on a pillow per instructions. She reports difficulty with dressing (e.g bra), reaching (abd, up), movement. No imaging, no prior shoulder/arm injuries or problems. Pt reports no neck or thoracic discomfort, no numbness or tingling. Prior Treatments and Tests Concurrent treatment from OT for hand therapy Prior Functional Status Baseline Function- ADL's Independent Baseline Function- Mobility Independent Baseline Function- Other Pain with sleeping due to position Current Functional Impairments (Reported) Functional Limitations- ADL's Difficulty dressing, lifting/ reaching PT-OP-C Subjective Start: 06/06/23 17:36 Freq: Status: Active Protocol: Document 09/24/23 13:51 NM (Rec: 09/24/23 14:34 NM [id number]) OP-PT Subjective Patient Comments Patient Comments Pt reports shoulder doing better, feels better with sleeping only waking her occasionally. She recently started a new BP medication, which makes her tired. Good compliance with HEP, no trouble with new exercises PT-OP-E Functional Tests Start: 06/06/23 17:36 Freq: Status: Active Protocol: Document 06/07/23 13:49 NM (Rec: 06/07/23 17:40 NM [id number]) Functional Tests Apley's Scratch Test Action 1- Left supraspinatus Action 1- Right post cuff, painful Action 2- Left T4 Action 2- Right T4, painful Action 3- Left T7 Action 3- Right L1, painful PT-OP-F Manual Assessment Start: 06/06/23 17:36 Freq: Status: Active Protocol: Document 06/07/23 13:49 NM (Rec: 06/07/23 17:40 NM [id number]) Manual Assessments Soft Tissue Assessment Soft Tissue Mobility Assessment Restrictions R latissimus, posterior rotator cuff, R upper trapezius. Demos swelling and redness of R forearm and wrist related to previous surgery. Joint Mobility Assessment Joint Mobility Assessment Capsular restrictions R shoulder (Abd, ER, IR). Empty end feel at end range flexion, abduction, ER/IR. Anterior humeral head position bilaterally, increased with Apley IR. Normal AC joint space. Elevated R first rib PT-OP-G Mobility & Gait Start: 06/06/23 17:36 Freq: Status: Active Protocol: Document 06/07/23 13:49 NM (Rec: 06/07/23 17:40 NM [id number]) OP Gait Assessment Gait Gait Assistance Required: Independent Distance (Feet) 150 Comments Gait Comments Decreased arm swing PT-OP-H Neuro Start: 06/06/23 17:36 Freq: Status: Active Protocol: Document 06/07/23 13:49 NM (Rec: 06/07/23 17:40 NM [id number]) Sensation Evaluation Comments Summary Comments Will formally assess in next session. Reports no changes in sensation PT-OP-J Posture/Palpation/Skin Start: 06/06/23 17:36 Freq: Status: Active Protocol: Document 06/07/23 13:49 NM (Rec: 06/07/23 17:40 NM [id number]) Posture Evaluation Position Standing Head/C-Spine Posture Forward Head T-Spine Posture Increased Kyphosis Shoulder Posture (L) Rounded,(R) Rounded Scapula Posture (L) Protracted,(R) Protracted Arm Posture (L) Internally Rotated,(R) Internally Rotated Pelvis Posture Anteriorly Tilted Hip Posture (L) Externally Rotated,(R) Externally Rotated Knee Posture (L) Genu Valgus,(R) Genu Valgus Ankle/Foot Posture (L) Pronated,(R) Pronated Palpation Assessment Location R shoulder Palpation Location rotator cuff, biceps, AC joint , SC joint, pec/lat Palpation Findings Soft Tissue Tightness Palpation Details No tenderness to palpation of biceps or rotator cuff on scapula. Minimal tenderness along posterolateral shoulder. PT-OP-K Range of Motion Start: 06/06/23 17:36 Freq: Status: Active Protocol: Document 09/24/23 13:51 NM (Rec: 09/24/23 14:34 NM [id number]) Shoulder Goniometric Range of Motion Shoulder Right Flexion 150 Extension 55 Abduction 160 External Rotation at 90 degrees 90 Abduction External Rotation at 0 degrees Abduction 60 Internal Rotation 75 Internal Rotation Behind Back (text) T10 Comments most pain with abd; minimal pain with ER at 0 deg abd 07/04/23: 80 deg ER at 0 deg abd , IR to T10, 150 deg abd w/ pulling sensation, 140 deg flexion 07/17/23: 160 deg abd (pulling) , 165 deg flexion, 90 deg ER, T9 IR 07/31/23: 150 deg flex (140), 160 (90), 90 deg ER, T10 IR 09/03/23: T9 IR, 85 deg ER at 90 deg, 80 deg ER at 0 deg, 165 deg flex, 170 deg abd 09/24/23, 09/17/23: 165 flex, 170 abd, 80 deg ER at 90 deg abd, T8 IR behind back PT-OP-L Special Tests Start: 06/06/23 17:36 Freq: Status: Active Protocol: Document 06/07/23 13:49 NM (Rec: 06/07/23 17:40 NM [id number]) Special Tests Cervical Spine Special Tests Distraction Test Results - Spurling's Test Results - Shoulder Special Tests Lift-Off Rotator Cuff Test Results - Comments Able to resist minimally Drop Arm Rotator Cuff Test Results - External Rotation Lag Sign Test Results - Empty Can Test Results - Jorge Luis's Biceps Test Results - Davidrsadaf's Biceps Test Results - Mike Rancho Impingement Test Results - Neer Impingement Test Results + Elevation Impingement Test Results + PT-OP-M Strength Start: 06/06/23 17:36 Freq: Status: Active Protocol: Document 09/24/23 13:51 NM (Rec: 09/24/23 14:34 NM [id number]) Shoulder Strength Shoulder Manual Muscle Testing Right Flexion 4 Good Extension 4 Good Abduction (C5) 4 Good Adduction 4 Good External Rotation 4 Good Internal Rotation 4 Good Horizontal Abduction 4 Good Horizontal Adduction 4 Good Comments Minimal pain with resisted abduction 07/04/23: 4/ for all, no pain 07/17/23: 4/5 for all, no pain but pulling with IR and abduction 07/31/23: 4/5 for all, no pain 09/03/23: 4+/5, no pain but slight pull with abduction 09/24/23, 09/17/23: 4+/5, no pain PT-OP-Q Treatments Start: 06/06/23 17:36 Freq: Status: Active Protocol: Document 09/24/23 13:51 NM (Rec: 09/24/23 14:34 NM [id number]) Therapeutic Exercises Supine Exercises pectoralis stretch Supine Exercise Name arms behind head Side bilateral Reps/Minutes 60 Comments post manual tx Standing Exercises scaption Standing Exercise Name raises: front and lateral Side bilateral Resistance 1# db Reps/Minutes 2x10 ea Comments cued for scapular control; pain free; good eccentric lowering thoracic extension Standing Exercise Name seated in chair Equipment Used small foam roller behind back in chair Reps/Minutes 10x3 hold Comments with shoulder flexion rows Standing Exercise Name 1. high rows, 2. mid rows, 3. lat pull down Side bilateral Resistance lvl 3 tb Reps/Minutes 3x8 ea Comments good form, cued dollar bill squeeze for lats R shoulder stretch Standing Exercise Name counter top lat stretch Equipment Used on counter top Reps/Minutes 2x30 Comments feels good Other Exercises self soft tissue mobilization Other Exercise Name with theracane: rhomboids, lat , pec Side bilateral Reps/Minutes 2 minutes Comments edu for use at home Manual Therapy Treatment Soft Tissue Mobilization R shoulder Body Location lat, rotator cuff, deltoid, subscapularis, teres Mobilization Type Rolling,Strumming,Sustained Pressure,Trigger Point Release ,Other Intensity/Depth Moderate Body Position Sidelying Comments Trigger point at teres major/ minor, subscapularis, lat. Performed trigger point release, with palpable muscle relaxation. Reports major decrease in muscle tension and tightness. Educated on performance at home with theracane Self-Care/Home Management Treatment Education Patient Education Home Exercise Program Other Education HEP review and condensed for maintenance program, 3x/wk for 6 months PT-OP-T Assessment and Plan Start: 06/06/23 17:36 Freq: Status: Active Protocol: Document 09/24/23 13:51 NM (Rec: 09/24/23 14:34 NM [id number]) Physical Therapy Assessment Goals 5 Impairment AROM Impairment R shoulder ER 60 deg at 0 deg abd Short Term Goal (STG) Pt will increase R shoulder ER to at least 70 deg in order to demonstrate improved R shoulder AROM for dressing and ADLs 07/04/23: 80 deg at 0 deg abd without pulling sensation today STG Duration 4 weeks Stave And Bolt Equalizer Goal (LTG) Pt will increase R shoulder ER to at least 80 deg in order to demonstrate improved R shoulder AROM for dressing and ADLs 07/04/23: 80 deg at 0 deg abd without pulling sensation today 07/17/23: 90 deg ER at 0 deg abd w/o pulling sensation 09/03/23: 80 deg ER at 0 deg abd w/o pulling LTG Duration 8 weeks MET 4 Impairment function Impairment pain with sleeping Short Term Goal (STG) Pt will report waking less than 3x due to R shoulder pain in order to demonstrate improved pain management and QOL 07/04/23: none for shoulder pain STG Duration 4 weeks Stave And Bolt Equalizer Goal (LTG) Pt will report not waking due to R shoulder pain in order to demonstrate improved pain management and QOL 07/04/23: none for shoulder pain 09/03/23: Pt reports that she is waking due to pain again in R shoulder, worse in morning 09/24/23: reports waking occasionally but not due to pain LTG Duration 8 weeks PARTIALLY MET 3 Impairment strength Impairment R shoulder strength 4-/5 for abduction, 4/5 for all other motions Stave And Bolt Equalizer Goal (LTG) Pt will increase R shoulder strength to at least 4+/5 in order to demonstrate improved strength for lifting, reaching , and ADLs 07/04/23: 4/5 for all, pain free 07/17/23: 4/5 for all, pulling with IR and abduction 07/31/23: 4/5 for all, pain free 09/03/23: 4+/5 for all, pain free but slight pull with abduction resisted 09/24/23: 4+/5 for all, no pulling and pain free LTG Duration 8 weeks MET 2 Impairment AROM Impairment Apley IR L1 Short Term Goal (STG) Pt will improve R apley IR to at least T10 with pain <4/10 in order to demonstrate improved ability to dress and QOL 07/04/23: T10 but anterior shoulder pain/bicep pain, 2/10 07/17/23: T9 but anterior shoulder pain 07/27/23: T9 STG Duration 4 weeks MET Stave And Bolt Equalizer Goal (LTG) Pt will improve R apley IR to at least T8 with pain <4/10 in order to demonstrate improved ability to dress and QOL 07/17/23: T9 but anterior shoulder pain 07/31/23: T10 w/ less anterior shoulder pain but still present 09/03/23: T9, no pain but anterior shoulder tight 09/24/23, 09/17/23: T9, no anterior pain LTG Duration 8 weeks NOT MET 1 Impairment AROM Impairment R shoulder abduction AROM 100 deg Short Term Goal (STG) Pt will increase R shoulder abduction to at least 125 deg without compensation for improved reaching and ADLs 07/04/23: 150 deg but pulling sensation 07/17/23: 165 deg with pulling sensation STG Duration 4 weeks MET Usp Goal (LTG) Pt will increase R shoulder abduction to at least 140 deg without compensation for improved reaching and ADLs 07/17/23: 165 deg with pulling sensation 07/31/23: 160 deg w/ pulling sensation beginning about 150 deg 09/03/23: 170 deg abd w/o pulling LTG Duration 8 weeks MET Progress Towards Goals Progress Towards Goals Progressing Toward Goals,Goals Met Assessment Summary Assessment Pt tolerated session well and continues to make good progress with lifting her R arm against resistance while reaching overhead. Session emphasis on reviewing HEP and condensing for maintenance program. Continued with strengthening of rotator cuff and periscapular muscles. Pt requires minimal cues for form and is pain free in her R shoulder with full ROM during exercises. She is making good progress toward goals, meeting all except ELLI jara behind back. Pt has improved sleeping tolerance but still occasionally limited. Physical Therapy Plan Frequency and Duration Frequency of Treatment 1-2/wk Duration of treatment (weeks) 8 Plan of Care Start Date 07/31/23 Plan of Care End Date 09/28/23 Therapeutic Interventions Therapeutic Interventions Aquatic Therapy,Coordination Training,Gait Training,Home Exercise Program,Joint Mobilizations,Manual Therapy, Neuromuscular Re-education, Orthotic/Prosthetic Management ,Patient/Caregiver Education, Self-Care/Home Management, Sensory Integration,Soft Tissue Mobilization,Taping, Therapeutic Activities, Therapeutic Exercises Modalities Biofeedback,Cold Pack/Ice Massage,Electric Stimulation, Hot Packs,Ultrasound, Vasopneumatic Devices Discharge Physical Therapy Discharge Comments Goals met, plan of care ending and pt elects to d/c with maintenance program over continuing PT Next Visit Focus/Plan Next Visit Plan Discharge from PT
== END 2023-09-25 08:48 | disposition home or self-care (01) ==
LOC: PHYS 13:45
PROVIDERS: Family Provider Internal Medicine; PCP Internal Medicine; Referring Provider Internal Medicine; Visit Provider Internal Medicine
DX: M25.511 Pain in right shoulder (principal); M54.6 Pain in thoracic spine; R53.1 Weakness
CPT/HCPCS: 97110; 97112; 97140; 97161; 97535

== ENCOUNTER → 2023-10-25 13:49 | Outpatient (CLI) | payer MEDICARE, OTHER, SELFPAY ==
[2022-08-25 14:35] VITALS: BMI 37.2
== END ==
PROVIDERS: Family Provider Internal Medicine; PCP Internal Medicine; Referring Provider Physician Assistant Surgical; Visit Provider Physician Assistant Surgical
DX: N89.8 Other specified noninflammatory disorders of vagina (principal)
CPT/HCPCS: 87086; 87210

== ENCOUNTER → 2023-10-29 15:10 | Outpatient (CLI) | payer MEDICARE, OTHER, SELFPAY ==
[2022-08-25 14:35] VITALS: BMI 37.2
== END ==
PROVIDERS: Family Provider Internal Medicine; PCP Internal Medicine; Visit Provider Physician Assistant Surgical
DX: R30.0 Dysuria (principal)
CPT/HCPCS: 87086

== ENCOUNTER → 2023-11-03 07:57 | Outpatient (CLI) | payer MEDICARE, OTHER, SELFPAY ==
[2022-08-25 14:35] VITALS: BMI 37.2
[2023-11-03 08:45] LABS: Add Manual Diff / Slide Review NO; Basophils Absolute Auto 100 /uL (0-100); Eosinophils Absolute Auto 200 /uL (0-450); Hematocrit 37.9 % (36-46); Hemoglobin 13.2 g/dL (12.0-16.0); Lymphocytes Absolute Auto 1400 /uL (1100-4500); Lymphocytes Percent Auto 26.7 % (25-40); Mean Corpuscular HGB Conc 34.7 % (30-36); Mean Corpuscular Volume 89.4 fL (80-100); Monocytes Absolute Auto 600 /uL (0-900); Monocytes Percent Auto 11.9 % (3-14); Neutrophils Absolute Auto 2900 /uL (1500-7000); Neutrophils Percent Auto 56.4 % (50-75); Platelet Count 232 X10^3/uL (150-400); Red Blood Cell Count 4.24 X10^6/uL (4.0-5.2); Red Cell Distribution Width 13.4 % (11.6-14.8); White Blood Cell Count 5.2 X10^3/uL (4.5-11.0)
[2023-11-03 09:24] LABS: Estimated Glomerular Filt Rate 37 mL/min (>60)
[2023-11-03 09:32] LABS: Alanine Aminotransferase 20 IU/L (<35); Albumin 4.4 g/dL (3.5-5.0); Alkaline Phosphatase 68 U/L (38-126); Aspartate Aminotransferase 27 IU/L (14-36); BUN Creatinine Ratio 26.1 (6-22); Bilirubin Total 0.7 mg/dL (0.2-1.3); Blood Urea Nitrogen 40 mg/dL (7-17); Calcium 10.4 mg/dL (8.4-10.2); Carbon Dioxide 27 mmol/L (22-32); Chloride 98 mmol/L (98-107); Cholesterol 246 mg/dL (140-199); Estimated Glomerular Filt Rate 37 mL/min (>60); Globulin 2.2 g/dL (1.7-4.1); Glucose 102 mg/dL (80-110); HDL Cholesterol 83 mg/dL (40-60); HEMOLYSIS < 15 (0-50); LDL Cholesterol Calculated 143 mg/dL (<100); Potassium 3.1 mmol/L (3.4-5.1); Sodium 134 mmol/L (137-145); Total Protein 6.6 g/dL (6.3-8.2); Triglycerides 100 mg/dL (35-150)
== END ==
PROVIDERS: Radiology Diagnostic Radiology; Family Provider Internal Medicine; PCP Internal Medicine; Referring Provider Internal Medicine; Visit Provider Internal Medicine
DX: I10 Essential (primary) hypertension (principal); N18.31 Chronic kidney disease, stage 3a; E78.5 Hyperlipidemia, unspecified; D64.9 Anemia, unspecified; R10.2 Pelvic and perineal pain
CPT/HCPCS: 36415; 80053; 80061; 82565; 85025

== ENCOUNTER → 2023-11-06 06:58 | Outpatient (CLI) | payer MEDICARE, OTHER, SELFPAY ==
[2022-08-25 14:35] VITALS: BMI 37.2
--- NOTE | 2023-11-06 07:00 | DI.CT.S_ITS ---
PROCEDURE: CT ABDOMEN PELVIS W CON INDICATIONS: pelvic pain TECHNIQUE: After the administration of intravenous contrast, axial sections acquired from the lung bases to the pubic symphysis. Coronal and sagittal reformats were performed. For radiation dose reduction, the following was used: automated exposure control, adjustment of mA and/or kV according to patient size. COMPARISON: None. FINDINGS: Image quality: Diagnostic Lower chest: Mild scattered atelectasis/scarring. Mild nonspecific wall thickening at the gastroesophageal junction. Liver: Unremarkable Gallbladder and biliary system: Unremarkable, nondilated Pancreas: No ductal dilation Spleen: Nonenlarged Adrenals: No discrete nodules Kidneys: No solid mass or hydronephrosis. Scattered cysts. Subcentimeter lesions are too small to characterize, usually also cysts. No complicated or solid lesion requiring follow-up. Vessels and lymph nodes: The main portal vein appears patent. No abdominal aortic aneurysm or pathologic lymph nodes by size criteria. Bowel and peritoneum: There is possible thickening of the gastric wall, which may be an artifact of under distention. Colonic diverticula are seen. There is no evidence of acute inflammation. No pathologic ascites or drainable abscess. No small bowel obstruction Body wall: Unremarkable Pelvis: Bladder is unremarkable. Unremarkable limited assessment of the adnexal structures and uterus on CT Bones: Degenerative changes, no acute or suspicious osseous findings. IMPRESSION: No acute abdominal pelvic abnormality. Unremarkable limited CT assessment of the adnexal structures and uterus, consider pelvic ultrasound if there is further concern for pelvic pathology. Possible wall thickening of the proximal stomach and gastroesophageal junction, not well evaluated and may be an artifact of under distention. Consider endoscopy if there is clinical concern. Other findings as above. Dictated by: Sudarshan Holden M.D. on 11/06/2023 at 10:38 Approved by: Sudarshan Holden M.D. on 11/06/2023 at 10:43
--- NOTE | 2023-12-26 11:39 | P.MR.ANES_ITS ---
Operative Date/Time/Diagnoses Date of procedure: 01/07/24 Note Pt is scheduled for a hysteroscopy, D&C in January 2024. She had multiple concerns and questions about her anesthesia care and requested a phone call prior. I contacted her by phone yesterday afternoon. Of note, pt reports she has a hx of extremely high BP postoperatively, 220s/110s, requiring multiple doses of pressors and lengthy postop stays. She has a PMH of HTN and is on multiple meds for this. She reports that her prior surgery here at [facility] around January of 2023 was the exception to this. She says that prior to that surgery, she did take her ramipril, which she has stopped for other surgeries. She requests permission to take the ramipril, and I agreed that in her case, this is a good idea. Pt should take ALL her BP meds preop as usual. Pt had questions about her Eliquis. I referred her to Dr. Aguilar's office and her director of food and nutrition services. I told her to expect not to take it for about three days prior to surgery, but that decision should be made between her surgeon and the prescriber for her Eliquis. Pt voiced understanding and agreement and will contact Dr. Aguilar's office. Pt also had questions regarding multiple supplements. She has a hx of hypokalemia and requested to continue her potassium. She gets leg cramps when she doesn't take magnesium and requested to continue that. I agreed that pt could both of these supplements as well as calcium and vitamin D if she desires.
== END ==
PROVIDERS: Family Provider Internal Medicine; PCP Internal Medicine; Referring Provider Internal Medicine; Visit Provider Internal Medicine
DX: K57.90 Diverticulosis of intestine, part unspecified, without perforation or abscess without bleeding (principal); N28.1 Cyst of kidney, acquired; R10.2 Pelvic and perineal pain
CPT/HCPCS: 74177; Q9967

== ENCOUNTER → 2024-01-04 11:58 | Outpatient (CLI) | payer MEDICARE, OTHER, SELFPAY ==
[2022-08-25 14:35] VITALS: BMI 37.2
[2024-01-04 13:07] LABS: BUN Creatinine Ratio 23.5 (6-22); Blood Urea Nitrogen 38 mg/dL (7-17); Calcium 10.9 mg/dL (8.4-10.2); Carbon Dioxide 28 mmol/L (22-32); Chloride 92 mmol/L (98-107); Estimated Glomerular Filt Rate 34 mL/min (>60); Glucose 110 mg/dL (80-110); HEMOLYSIS < 15 (0-50); Potassium 4.1 mmol/L (3.4-5.1); Sodium 128 mmol/L (137-145)
== END ==
PROVIDERS: Family Provider Internal Medicine; PCP Internal Medicine; Referring Provider Internal Medicine Cardiovascular Disease; Visit Provider Internal Medicine Cardiovascular Disease
DX: I10 Essential (primary) hypertension (principal)
CPT/HCPCS: 36415; 80048

== ENCOUNTER 2024-01-07 10:49 | Day surgery (SDC) | payer MEDICARE, OTHER, SELFPAY ==
[2022-08-25 14:35] VITALS: BMI 37.2
[2024-01-03 15:01] VITALS: BMI 41.8
[2024-01-07] VITALS (10 sets, daily range): BP systolic 106–155; BP diastolic 60–75; PULSE 53–67; RESP 12–19; TEMP 36.1–36.3; O2SAT 94–99; BMI 41.8
--- NOTE | 2024-01-07 | PATH_ITS ---
[facility] Accession Number: [id number] No. of containers..01 Tissue . 01 Material submitted: . endometrium - ENDOMETRIAL CURETTINGS . 01 Diagnosis: ENDOMETRIUM, CURETTINGS: Rare strips of benign inactive/atrophic endometrium, specimen is overall suboptimal to evaluate for endometrial pathologies. Predominantly atrophic ectocervical tissue present. MRV 01/09/2024 1338 Local . 01 Electronically signed: . Aydee Dow MD, Pathologist NPI- [id number] . 01 Gross description: . Received in formalin with two patient identifiers and endometrial curettings, are multiple cabrera soft tissue fragments admixed with mucohemorrhagic material aggregating to 2.5 x 1.3 x 0.3 cm. Filtered and submitted in A1. ([id number]) /MRV 01/08/2024 1617 Local . 01 Pathologist provided ICD-10: R93.5 . 01 CPT . 265982 Specimen Comment: A courtesy copy of this report has been sent to [facility] Pathology Performed at: [address] [address], [place], [place] [id number] MD Jesse Springer MD Phone: [phone]
--- NOTE | 2024-01-07 11:29 | EKG_ITS ---
[address] [address] [address] [address] Test Date: 2024-01-07 Pat Name: Kelsie Miramontes Department: Room: Gender: Female Hyperbaric Technician: Donnell FONG : 1955 Requested By: Order Number: [id number] Reading MD: Raymundo Cintron MD Measurements Intervals Navarro Rate: 65 P: -17 [place]: 188 QRS: 12 QRSD: 92 T: 34 QT: 432 QTc: 449 Interpretive Statements Normal sinus rhythm Electronically Signed On 01-07-2024 13:42:51 PDT by Raymundo Cintron MD
[2024-01-07] MEDS: LACTATED RINGERS 1,000 ML 42 ML IV (11:38)
--- NOTE | 2024-01-07 11:44 | PM.GYNHP.1 ---
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 Pt denies any significant interval changes in personal or family health history since time of last encounter. She does disclose today that her own mother took JARRETT during her . Affirms desire to proceed with procedure as scheduled. Noted Afib on arrival to preoperative area today, asymptomatic with adequate rate control and ok to proceed with procedure as scheduled per anesthesia [facility] Medical History (Updated 01/03/24 @ 15:12 by Chrissy Muñiz, RN) Normal cardiac ejection fraction (~08/23/22) A-fib HLD (hyperlipidemia) HTN (hypertension) Abnormal ultrasound of endometrium Chronic renal failure, stage 3a Near sighted Migraines Fractures (~2010) Measles (~1964) Chicken pox (~1962) Endometriosis (~1995) Frequent UTI Ovarian cyst (~1995) Chronic migraine Cataracts, bilateral (~2017) Urinary incontinence (~2001) Diverticular disease of colon (~1987) Essential hypertension (~1989) Surgical History Anesthesia History of foot surgery (~2010) Status post right oophorectomy (~1995) Status post appendectomy (~1995) Family History (Updated 01/11/23 @ 13:29 by Talisha Reynolds PA-C) Father History of heart disease Hypertension Hyperlipidemia Mother Breast cancer Stroke Brother History of heart disease Hyperlipidemia Hypertension Brother Diabetes mellitus Hypertension Grandfather History of heart disease Hyperlipidemia Hypertension Grandmother Stroke Grandfather History of heart disease Hyperlipidemia Hypertension Grandmother Tuberculosis Aunt Breast cancer Social History household members: spouse Smoking Status: Never smoker alcohol intake: current Meds Home Medications and Allergies Home Medications Medication Instructions Recorded Confirmed Type Calcium Carbonate 1 tab PO DAILY 03/17/21 01/04/24 History Magnesium Malate 1 tab PO DAILY 03/17/21 01/04/24 History Probiotic 10 Capsule 1 tab PO DAILY 03/17/21 01/04/24 History Vitamin D 1 tab PO DAILY 03/17/21 01/04/24 History ascorbic acid (vitamin C) 1,000 mg 1 g PO DAILY 03/17/21 01/04/24 History tablet cranberry extract 650 mg capsule 650 mg PO DAILY 03/17/21 01/04/24 History multivitamin 1 tab PO DAILY 03/17/21 01/04/24 History nystatin 100,000 unit/gram topical 1 applic topical TID #60 grams 06/29/22 01/04/24 Rx powder red yeast rice 600 mg capsule 600 mg PO BID 11/27/22 01/04/24 History ramipril 10 mg capsule 10 mg PO BID #180 caps 01/09/23 01/07/24 Rx terazosin 10 mg capsule 10 mg PO BID #180 caps 01/09/23 01/07/24 Rx Chromium Mineral 1 tab PO DAILY 05/08/23 01/04/24 History diltiazem HCl 120 mg 120 mg PO QPM 11/02/23 01/07/24 History capsule,extended release 24 hr diltiazem HCl 180 mg 180 mg PO QAM #180 caps 11/02/23 01/07/24 Rx capsule,extended release 24 hr potassium chloride 20 mEq 20 meq PO DAILY #90 tabs 11/05/23 01/04/24 Rx tablet,extended release apixaban 5 mg tablet (Eliquis) 5 mg PO BID #180 tabs 11/08/23 01/07/24 Rx hydralazine 50 mg tablet 50 mg PO BID 01/04/24 01/07/24 History Allergies Allergy/AdvReac Type Severity Reaction Status Date / Time guanfacine [From Tenex] AdvReac Intermediate arrythmia Verified 01/07/24 11:12 Review of Systems Review of Systems ROS: Yes All systems reviewed with the patient and are negative except as otherwise documented Exam Vital Signs (past 8 hours): - 01/07/24 11:20 Temperature 97.4 F L Pulse Rate 63 Respiratory Rate 16 Blood Pressure 106/60 Pulse Oximetry 97 Oxygen Delivery Method Room Air Oxygen Delivery Method Room Air Const General: cooperative and comfortable Nutritional Appearance: obese Orientation: alert, awake and oriented x3 Resp Effort & Inspection: normal respiratory effort and able to speak in complete sentences Other: deferred Skin General: no rashes or lesions noted Neuro General: patient alert, patient awake and patient oriented x3 Extrem General: normal to inspection Psych Mental Status: mental status grossly normal Attitude: cooperative Judgment: judgment good Assessment & Plan Assessment and plan (1) Abnormal ultrasound of endometrium: Status: Acute Plan 68yo nulliparous female with recent abnormal pelvic US Abnormal pelvic US pt affirms desire to proceed may resume eliquis this evening anticipated postoperative course reviewed anticipate dc to home following procedure dispo: to OR Time-Based Coding :: [TOTAL MINUTES] spent with patient and on the chart (including review of chart, obtaining history, exam, reviewing outside data, placing orders, documenting exam and treatment plan, and counseling patient) on [DATE].
--- NOTE | 2024-01-07 11:49 | PM.PREOP ---
Pre-operative Note Interval Note History & Physical reviewed/Exam performed by Physician: Yes Changes to H&P: No ASA Class (for procedural sedation): III
--- NOTE | 2024-01-07 12:15 | SUR.OPER ---
Lithotomy on padded OR bed, head on pillow, arms secured on padded arm boards at <90 degrees abduction. Legs secured in padded yellow fins stirrups.
[2024-01-07] MEDS: SILVER NITRATE STICK 3 EACH TOP (12:23)
--- NOTE | 2024-01-07 12:36 | PM.GYNOP.1 ---
Operative Date/Time/Diagnoses Date of procedure: 01/07/24 Time of procedure: 12:52 Pre-op diagnosis: abnormal pelvic US Post-op diagnosis: same Procedure & Clinicians Procedure: Procedures Operation Date: 01/07/24 12:15 Actual Procedure Side Surgeon p Hysteroscopy D&C Not Applicable Jenna Aguilar MD Indications: abnormal pelvic imaging Surgeon: Jenna Aguilar Anesthesia Type: General Operative Notes Findings: normal external female genitalia, perineum and anus severely anterior/retracted cervix, visually wnl endometrium visualized with scant vesicular appearing endometrium, generally atrophic in appearance, bilateral ostia visualized Closure Type: not applicable Specimen(s): endometrial curettings Estimated blood loss (mL): 5 Blood products transfused: none Procedure in detail: Pt was taken to the operating room, transferred to OR table and anesthesia was induced with placement of LMA.? Pt had her legs placed in Yasmany stirrups and an exam under anesthesia was performed. The patient was prepped and draped in a sterile fashion.? A time out was performed. ?The bladder was not emptied per surgeon preference due to severe anteflexion of uterus with desired distension effect of full bladder. A sterile speculum was inserted into the vagina.? The cervix was visualized with some difficulty secondary to severe anteflexion of the uterus; the cervix was grasped anteriorly using a single tooth tenaculum.? The uterus sounded to 7 cm and the cervical os was serially dilated using Johnston dilators up to 17f to allow for passage of the hysteroscope.? The 5mm 0 degree hysteroscope was then inserted into the uterus with findings as noted.? The hysteroscope was removed and the uterus was sharply curetted until a gritty texture was noted throughout.? The tenaculum was removed and hemostasis was noted at insertion sites following application of silver nitrate.? The speculum was removed and hemostasis was again noted to be excellent.? The patient then had her legs taken out of stirrups.? The patient tolerated the procedure well and without difficulty.? The patient was awakened from anesthesia and taken to PACU in stable condition. Complications: none Post-operative Condition: stable Disposition: PACU Plan for aftercare: dc to home, routine postop f/u in office as scheduled
[2024-01-07] MEDS: ACETAMINOPHEN 325 MG TABLET 650 MG PO (12:44)
[2024-01-07] MEDS: OXYCODONE IR 5 MG TABLET PO (12:44)
[2024-01-07] MEDS: HYDROMORPHONE 1 MG INJ IV ×2 (12:45→12:55)
[2024-01-07] MEDS: hydrOXYzine 50 MG/ML INJ 25 MG IM (12:46)
== END 2024-01-07 15:25 | disposition home or self-care (01) ==
PROVIDERS: Family Provider Internal Medicine; PCP Internal Medicine; Referring Provider Obstetrics & Gynecology; Visit Provider Obstetrics & Gynecology
PROC: 0UDB8ZZ Extraction of Endometrium, Via Natural or Artificial Opening Endoscopic (ICD-10-PCS; CPT 58558; principal; 2024-01-07 12:15)
DX: R93.5 Abnormal findings on diagnostic imaging of other abdominal regions, including retroperitoneum (principal); I48.91 Unspecified atrial fibrillation
CPT/HCPCS: 58558; 93005; 93010; J1171; J2405; J2704; J3010; J3410

== ENCOUNTER → 2024-01-17 14:54 | Outpatient (CLI) | payer MEDICARE, OTHER, SELFPAY ==
[2022-08-25 14:35] VITALS: BMI 37.2
[2024-01-17 15:38] LABS: Influenza A - CEPHEID Flu A NEGATIVE (NEGATIVE); Influenza B - CEPHEID Flu B NEGATIVE (NEGATIVE); Respiratory Syncytial Virus Negative (Negative)
[2024-01-17 15:39] LABS: COVID-19 CEPHEID 4-PLEX PCR Negative (Negative)
== END ==
PROVIDERS: Family Provider Internal Medicine; PCP Internal Medicine; Visit Provider Physician Assistant Medical
DX: R50.9 Fever, unspecified (principal)
CPT/HCPCS: 0241U; 87086

== ENCOUNTER → 2024-01-17 16:07 | Outpatient (CLI) | payer MEDICARE, OTHER, SELFPAY ==
[2022-08-25 14:35] VITALS: BMI 37.2
[2024-01-17 17:53] LABS: BUN Creatinine Ratio 13.1 (6-22); Blood Urea Nitrogen 16 mg/dL (7-17); Calcium 9.4 mg/dL (8.4-10.2); Carbon Dioxide 23 mmol/L (22-32); Chloride 97 mmol/L (98-107); Estimated Glomerular Filt Rate 48 mL/min (>60); Glucose 116 mg/dL (80-110); HEMOLYSIS < 15 (0-50); Magnesium 1.7 mg/dL (1.6-2.3); Sodium 127 mmol/L (137-145)
== END ==
PROVIDERS: Family Provider Internal Medicine; PCP Internal Medicine; Referring Provider Internal Medicine; Visit Provider Internal Medicine
DX: I12.9 Hypertensive chronic kidney disease with stage 1 through stage 4 chronic kidney disease, or unspecified chronic kidney disease (principal); N18.31 Chronic kidney disease, stage 3a; R50.9 Fever, unspecified
CPT/HCPCS: 0241U; 36415; 80048; 83735; 87086

== ENCOUNTER 2024-01-18 17:31 | Emergency (ER) | payer MEDICARE, OTHER, SELFPAY ==
[2022-08-25 14:35] VITALS: BMI 37.2
[2024-01-18] VITALS (8 sets, daily range): BP systolic 149–180; BP diastolic 69–81; PULSE 62–78; RESP 16–20; TEMP 37.1–37.9; O2SAT 95–99; BMI 35.7
[2024-01-18 18:44] LABS: Add Manual Diff / Slide Review NO; Basophils Absolute Auto 0 /uL (0-100); Basophils Percent Auto 0.2 % (0-2); Eosinophils Absolute Auto 100 /uL (0-450); Eosinophils Percent Auto 0.9 % (2-4); Hematocrit 34.5 % (36-46); Hemoglobin 11.9 g/dL (12.0-16.0); Lymphocytes Absolute Auto 200 /uL (1100-4500); Lymphocytes Percent Auto 2.3 % (25-40); Mean Corpuscular HGB Conc 34.5 % (30-36); Mean Corpuscular Hemoglobin 31.4 PG (26-34); Monocytes Absolute Auto 700 /uL (0-900); Monocytes Percent Auto 9.5 % (3-14); Neutrophils Absolute Auto 6800 /uL (1500-7000); Neutrophils Percent Auto 87.1 % (50-75); Platelet Count 159 X10^3/uL (150-400); Red Blood Cell Count 3.79 X10^6/uL (4.0-5.2); Red Cell Distribution Width 13.7 % (11.6-14.8); White Blood Cell Count 7.8 X10^3/uL (4.5-11.0)
[2024-01-18 18:54] LABS: Alanine Aminotransferase 76 IU/L (<35); Albumin 3.9 g/dL (3.5-5.0); Albumin Globulin Ratio 1.8 (1.0-2.8); Alkaline Phosphatase 142 U/L (38-126); Aspartate Aminotransferase 63 IU/L (14-36); BUN Creatinine Ratio 15.1 (6-22); Bilirubin Total 0.5 mg/dL (0.2-1.3); Blood Urea Nitrogen 16 mg/dL (7-17); Calcium 9.5 mg/dL (8.4-10.2); Carbon Dioxide 23 mmol/L (22-32); Chloride 98 mmol/L (98-107); Estimated Glomerular Filt Rate 57 mL/min (>60); Globulin 2.2 g/dL (1.7-4.1); Glucose 120 mg/dL (80-110); HEMOLYSIS < 15 (0-50); Potassium 3.4 mmol/L (3.4-5.1); Sodium 129 mmol/L (137-145); Total Protein 6.1 g/dL (6.3-8.2)
--- NOTE | 2024-01-18 20:20 | PC.NURSE ---
Pt ambulatory to restroom without difficulty or assistance.
[2024-01-18 20:54] LABS: Lipase 41 U/L (23-300)
--- NOTE | 2024-01-18 21:00 | ED.FEVER ---
HPI - Fever General Chief Complaint: Fever Stated Complaint: fever, tylenol not working Time Seen by Provider: 01/18/24 18:01 Source: patient Mode of arrival: Ambulatory Limitations: no limitations History of Present Illness HPI Narrative: 68-year-old female history of atrial fibrillation,, hypertension on Eliquis, multiple blood pressure medications who presents with complaint of fever for the past several days. Patient states she has had some muscle aches, generally felt unwell decreased appetite nausea which has not improved. She notes she had a hysteroscopy on 01/07/2024 states she is had some bleeding initially thereafter he would improved but he is continued to have some mild spotting. She states no discharge or foul odor. Denies any cold cough or congestion symptoms did have influenza/RSV/COVID swab yesterday which was negative. Patient states no sore throat, no chest pain or shortness of breath, no neck pain, no abdominal back or flank pain. No dysuria urgency or frequency. She did have a urine sample yesterday and was started on Cipro and had 2 doses which she was stopped feels like she was having some Achilles tendon pain. Patient denies any diarrhea or constipation. No black or bloody stools. No rash or skin changes. Patient has been taking Tylenol for her fever, last dose was at 2:00 p.m. today but has had persistent fevers. She has been eating and drinking has had decreased appetite. Guanfacine as noted as allergy. No tobacco, occasional alcohol, no recreational drugs. Related Data Home Medications Medication Instructions Recorded Confirmed Calcium Carbonate 1 tab PO DAILY 03/17/21 01/17/24 Magnesium Malate 1 tab PO DAILY 03/17/21 01/17/24 Probiotic 10 Capsule 1 tab PO DAILY 03/17/21 01/17/24 Vitamin D 1 tab PO DAILY 03/17/21 01/17/24 ascorbic acid (vitamin C) 1,000 mg 1 g PO DAILY 03/17/21 01/17/24 tablet cranberry extract 650 mg capsule 650 mg PO DAILY 03/17/21 01/17/24 multivitamin 1 tab PO DAILY 03/17/21 01/17/24 red yeast rice 600 mg capsule 600 mg PO BID 11/27/22 01/17/24 Chromium Mineral 1 tab PO DAILY 05/08/23 01/17/24 hydralazine 50 mg tablet 50 mg PO BID 01/04/24 01/17/24 diltiazem HCl 120 mg 120 mg PO BID 01/08/24 01/17/24 capsule,extended release 24 hr furosemide 20 mg tablet 20 mg PO DAILY 01/17/24 01/17/24 Previous Rx's Medication Instructions Recorded nystatin 100,000 unit/gram topical 1 applic topical TID #60 grams 06/29/22 powder apixaban 5 mg tablet (Eliquis) 5 mg PO BID #180 tabs 11/08/23 ramipril 10 mg capsule 10 mg PO BID #180 caps 01/09/24 terazosin 10 mg capsule 10 mg PO BID #180 caps 01/09/24 ciprofloxacin HCl 250 mg tablet 250 mg PO BID #14 tabs 01/17/24 doxycycline hyclate 100 mg tablet 100 mg PO BID #20 tabs 01/18/24 nystatin 100,000 unit/mL oral 1 ml buccal BID #60 mL 01/18/24 suspension Allergies Allergy/AdvReac Type Severity Reaction Status Date / Time guanfacine [From Tenex] AdvReac Intermediate arrythmia Verified 01/18/24 17:55 Review of Systems Review of Systems ROS Unobtainable: All systems reviewed & are unremarkable except as noted in HPI and below Patient History Medical History Normal cardiac ejection fraction (~08/23/22) A-fib HLD (hyperlipidemia) HTN (hypertension) Abnormal ultrasound of endometrium Chronic renal failure, stage 3a Near sighted Migraines Fractures (~2010) Measles (~1964) Chicken pox (~1962) Endometriosis (~1995) Frequent UTI Ovarian cyst (~1995) Chronic migraine Cataracts, bilateral (~2017) Urinary incontinence (~2001) Diverticular disease of colon (~1987) Essential hypertension (~1989) Surgical History Anesthesia History of foot surgery (~2010) Status post right oophorectomy (~1995) Status post appendectomy (~1995) Family History Father History of heart disease Hypertension Hyperlipidemia Mother Breast cancer Stroke Brother History of heart disease Hyperlipidemia Hypertension Brother Diabetes mellitus Hypertension Grandfather History of heart disease Hyperlipidemia Hypertension Grandmother Stroke Grandfather History of heart disease Hyperlipidemia Hypertension Grandmother Tuberculosis Aunt Breast cancer Social History household members: spouse Smoking Status: Never smoker alcohol intake: current Smoking Status: Never smoker alcohol intake frequency: holidays/special occasions only Substance Use Type: does not use Exam Narrative Exam Narrative: GEN: well nourished, well appearing female, alert and oriented x 3, patient appears to be in mild distress. Patient does feel warm to the touch. HEENT: Atraumatic, pupils are equal round reactive to light, extraocular movements are intact, nares are clear, TMs are clear with no fluid, there is no conjunctival pallor. Throat is clear without any exudates, erythema, tonsillar enlargement or uvular deviation HEART: Regular rate and rhythm without murmur, clicks, rubs. Pulses are equal in upper and lower extremities LUNGS:Lungs clear to auscultation, no wheezes, rales, crackles, chest moves symmetrically ABD:bowel sounds normal, nondistended. Soft, non-tender, no guarding, rebound, rigidity, no masses noted, no hepatosplenomegaly :No CVA tenderness. Female: externa vaginal examl normal, scant red blood, patient has thick green chunky discharge, no foul odor, no cervical motion tenderness, normal speculum exam, no adnexal tenderness/mass. Bimanual exam is normal, no enlarged or tender uterus. Non-gravid. MSCL: Non-tender, no muscle atrophy, muscles strength 5/5 upper and lower extremities, full range of motion, normal gait NEURO:CN 2-12 intact, sensation normal Initial Vital Signs Initial Vital Signs: Vital Signs Temperature 98.7 F 01/18/24 17:48 Pulse Rate 78 01/18/24 17:48 Respiratory Rate 16 01/18/24 17:48 Blood Pressure 164/72 H 01/18/24 17:48 Pulse Oximetry 97 01/18/24 17:48 Oxygen Delivery Method Room Air 01/18/24 17:48 Course Orders Ordered: ED Orders 01/18/24 20:30 Urine Culture Stat Urine Microscopic Stat 01/18/24 21:23 CT abdomen pelvis w con Stat 01/18/24 21:28 Lactate (Lactic Acid) Stat Procalcitonin Stat 01/18/24 21:55 Blood Culture Stat 01/18/24 22:25 Genital Culture Stat Wet Prep Tric BV Batsheva Stat Discontinued Medications Acetaminophen (Acetaminophen 325 Mg Tablet) 650 mg PO NOW ONE Stop: 01/18/24 21:24 Last Admin: 01/18/24 22:13 Dose: 650 mg Documented By: MARLIN Doxycycline Hyclate (Doxycycline Hyclate 100 Mg Tablet) 100 mg PO NOW ONE Stop: 01/18/24 22:36 Last Admin: 01/18/24 23:04 Dose: 100 mg Documented By: MARLIN Ceftriaxone Sodium 2,000 mg/ (Sodium Chloride) 100 mls @ 200 mls/hr IV NOW ONE Stop: 01/18/24 22:36 Last Admin: 01/18/24 23:04 Dose: 200 mls/hr Documented By: MARLIN Vital Signs Vital signs: Vital Signs - 8 hr 01/18/24 22:09 01/18/24 22:10 01/18/24 22:11 Temperature 100.2 F H Pulse Rate 68 Respiratory Rate 16 Blood Pressure 174/77 H Pulse Oximetry 99 95 Oxygen Delivery Method Room Air 01/18/24 23:11 Temperature 99.8 F H Pulse Rate 62 Respiratory Rate 18 Blood Pressure 149/69 H Pulse Oximetry 96 Oxygen Delivery Method Room Air MDM - Fever Lab Data 01/18/24 18:25 01/18/24 18:25 Labs: Lab Results 01/18/24 01/18/24 01/18/24 Range/Units 18:25 20:30 21:28 WBC 7.8 (4.5-11.0) X10^3/uL RBC 3.79 L (4.0-5.2) X10^6/uL Hgb 11.9 L (12.0-16.0) g/dL Hct 34.5 L (36-46) % MCV 91.0 (80-100) fL MCH 31.4 (26-34) PG MCHC 34.5 (30-36) % RDW 13.7 (11.6-14.8) % Plt Count 159 (150-400) X10^3/uL Neut % (Auto) 87.1 H (50-75) % Lymph % (Auto) 2.3 L (25-40) % [place] % (Auto) 9.5 (3-14) % Eos % (Auto) 0.9 L (2-4) % Baso % (Auto) 0.2 (0-2) % Neut # (Auto) 6800 (4938-3576) /uL Lymph # (Auto) 200 L (3766-1755) /uL [place] # (Auto) 700 (0-900) /uL Eos # (Auto) 100 (0-450) /uL Baso # (Auto) 0 (0-100) /uL Sodium 129 L (137-145) mmol/L Potassium 3.4 (3.4-5.1) mmol/L Chloride 98 (98-107) mmol/L Carbon Dioxide 23 (22-32) mmol/L BUN 16 (7-17) mg/dL Creatinine 1.06 H (0.52-1.04) mg/dL Estimated GFR 57 L (>60) mL/min BUN/Creatinine Ratio 15.1 (6-22) Glucose 120 H (80-110) mg/dL Lactate 0.6 L (0.7-2.1) mmol/L Calcium 9.5 (8.4-10.2) mg/dL Total Bilirubin 0.5 (0.2-1.3) mg/dL AST 63 H (14-36) IU/L ALT 76 H (<35) IU/L Alkaline Phosphatase 142 H (38-126) U/L Total Protein 6.1 L (6.3-8.2) g/dL Albumin 3.9 (3.5-5.0) g/dL Globulin 2.2 (1.7-4.1) g/dL Albumin/Globulin Ratio 1.8 (1.0-2.8) Lipase 41 (23-300) U/L Procalcitonin 0.335 (<0.5) ng/mL Urine RBC 0-1/hpf (0-5/HPF) Urine WBC 1-5/hpf (0-5/HPF) Ur Squamous Epith Cells 1-5 /hpf (0-5/HPF) Urine Bacteria Few (2-10) H (None) Ur Culture Indicated? Specimen cultured Vol Urine Centrifuged 10ml (spun) Urine Dip Bedside Urine Glucose Negative Bedside Urine Bilirubin - Negative Bedside Urine Ketone +/- 5 Urine Specific Osteen 1.010 Bedside Urine Occult Blood - Negative Bedside Urine pH 6.0 Bedside Urine Protein - Negative Bedside Urine Urobilinogen - Negative Bedside Urine Nitrite - Negative Bedside Urine Leukocytes + [address] scan - abdomen/pelvis: Radiologist's Impression: Close Abdomen/Pelvis CT (Signed) Memo Mariee - 01/18/24 Abdomen/Pelvis CT (Signed) NavinSudarshan - 11/06/23 Mammogram Diagnostic (Signed) Henrry Edwards - 02/02/23 Wrist MRI (Signed) Jorge Fisher - 01/19/23 Wrist X-Ray (Signed) Kamille Payton - 12/28/22 Myocardial Perfusion Scan Nuc Med (Signed) Deja Andrews - 08/23/22 Vascular Ultrasound (Signed) MacarioTabitha - 07/19/22 Echocardiogram Ultrasound (Signed) Deja Andrews - 07/04/22 Telemetry Strips 07/04/22 Chest X-Ray (Signed) Micky Hollins - 07/04/22 Vascular Ultrasound (Signed) Lester Garduno - 06/30/22 Mammogram Screening (Signed) Audi Moore - 12/23/21 Launch?[place] [address] CT Scan Report Signed Patient: Kelsie Miramontes MR#: [id number] : 1955 Acct:[id number] Age/Sex: 68 / F Date of Service: 01/18/24 Loc: ED Accession Number: [id number] Procedure: CT abdomen pelvis w con Ordering Provider: Jessica Vallejo D.O. PROCEDURE: CT ABDOMEN PELVIS W CON INDICATIONS: fever, s/p hysteroscopy 01/06 TECHNIQUE: After the administration of intravenous contrast, axial sections acquired from the lung bases to the pubic symphysis. Coronal and sagittal reformats were performed. For radiation dose reduction, the following was used: automated exposure control, adjustment of mA and/or kV according to patient size. COMPARISON: [facility], CT, CT ABDOMEN PELVIS W CON, 11/06/2023, 8:16. FINDINGS: Image quality: Diagnostic, although there is poor contrast opacification. Peritoneum: No pneumoperitoneum or ascites. Bones: No acute osseous abnormality. Lower Chest: Trace bilateral pleural effusions. Mild cardiomegaly. Liver: Normal in size and contour. Gallbladder: No stones or pericholecystic fluid. Biliary tree: No intrahepatic or extrahepatic biliary ductal dilatation. Pancreas: Within normal limits. Spleen: Normal in size and contour. Kidneys: No hydronephrosis or obstructive urolithiasis. Bilateral simple renal cysts, including a 2.9 cm right renal cyst (2/81). Adrenals: No adrenal nodularity. Bladder: Normal in size and wall thickness. : Anteverted uterus. No abnormal adnexal masses. No fluid in the pouch of Ed. No drainable fluid collection. Stomach: Normal in size and contour. Bowel: Normal in diameter without any bowel obstruction. Status post appendectomy. Scattered colonic diverticulosis. Lymph Nodes: No retroperitoneal, mesenteric, or inguinal lymphadenopathy. Vascular: No abdominal aortic aneurysm. The visualized arterial vasculature is patent, within the limits of this examination. Mild aortoiliac atherosclerosis. Soft Tissues: No acute abnormality. IMPRESSION: 1. No acute CT abnormality of the abdomen/pelvis. 2. Trace bilateral pleural effusions and mild cardiomegaly. Dictated by: Memo Mariee M.D. on 01/18/2024 at 22:25 Approved by: Memo Mariee M.D. on 01/18/2024 at 22:30 [facility] Narrative Medical decision making narrative: CBC shows a white count of 7.8 hemoglobin 11.9 platelets of 159. Sodium is 129 was 127 on 01/16 128 on 01/04/2024, potassium 3.4 chloride 98 CO2 is 23 BUN 16 creatinine 1.06 with a glucose of 120, bilirubin is 0.5, AST 63 AST 76 alk-phos is 142 lipase is 41. Lactate, procalcitonin blood cultures added on. Point of care urine shows leukocyte esterase +70, no nitrates. Micro shows few bacteria 1-5 white cells 0-1 RBCs 1-5 squamous was sent for culture. Culture from yesterday has no growth up to this point. CT abdomen pelvis shows no acute abdominal change, patient has trace bilateral pleural effusions and mild cardiomegaly. Based on patient's history and recent intervention with hysteroscopy felt appropriate to obtain pelvic exam. Discharge Plan Departure Patient Disposition: Home Clinical Impression: Cervicitis Activity Restrictions/Additional Instructions: Your workup today shows likely pelvic infection, take antibiotics until completed. There are cultures pending if these show resistance you will be contacted, there is blood cultures, genital culture and urine culture all pending. You continue with Tylenol as needed for fevers. Take antibiotics until completed prescription was sent to [facility] in [place]/ There has also a prescription for the nystatin if you develop thrush. Please return for worsening symptoms new abdominal back or flank pain, worsening fevers lightheaded or passing out, difficulty with breathing, persistent vomiting or any other new or concerning changes. Prescriptions: New doxycycline hyclate 100 mg tablet 100 mg PO BID Qty: 20 0RF nystatin 100,000 unit/mL suspension 1 ml buccal BID Qty: 60 0RF Rx Instructions: administer 1/2 of dose in each side of the mouth No Action furosemide 20 mg tablet 20 mg PO DAILY ciprofloxacin HCl 250 mg tablet 250 mg PO BID Qty: 14 0RF Eliquis 5 mg tablet 5 mg PO BID Qty: 180 3RF diltiazem HCl 120 mg capsule,extended release 24hr 120 mg PO BID ramipril 10 mg capsule 10 mg PO BID Qty: 180 3RF terazosin 10 mg capsule 10 mg PO BID Qty: 180 3RF Calcium Carbonate 1,200 mg 1 tab PO DAILY multivitamin Tablet 1 tab PO DAILY Vitamin D 60 mcg 1 tab PO DAILY ascorbic acid (vitamin C) 1,000 mg tablet 1 g PO DAILY cranberry extract 650 mg capsule 650 mg PO DAILY Rx Instructions: administer with a meal Magnesium Malate 625 mg 1 tab PO DAILY Probiotic 10 Capsule 170 mg 1 tab PO DAILY nystatin 100,000 unit/gram powder 1 applic topical TID Qty: 60 3RF red yeast rice 600 mg capsule 600 mg PO BID Rx Instructions: give with meal/snack Chromium Mineral 25 mcg 1 tab PO DAILY hydralazine 50 mg tablet 50 mg PO BID Referrals: Raymundo Cintron MD [Primary Care Provider] - Stand Alone Forms: Patient Portal/API
[2024-01-18 21:13] LABS: Bacteria Urine Few (2-10); Culture Indicated Urine Specimen Cultured; RBC Urine 0-1/HPF (0-5/HPF); Squamous Epithelial Cell Urine 1-5 /HPF (0-5/HPF); Urine Volume 10mL (spun); WBC Urine 1-5/HPF (0-5/HPF)
--- NOTE | 2024-01-18 21:23 | DI.CT.S_ITS ---
PROCEDURE: CT ABDOMEN PELVIS W CON INDICATIONS: fever, s/p hysteroscopy 01/06 TECHNIQUE: After the administration of intravenous contrast, axial sections acquired from the lung bases to the pubic symphysis. Coronal and sagittal reformats were performed. For radiation dose reduction, the following was used: automated exposure control, adjustment of mA and/or kV according to patient size. COMPARISON: [facility], CT, CT ABDOMEN PELVIS W CON, 11/06/2023, 8:16. FINDINGS: Image quality: Diagnostic, although there is poor contrast opacification. Peritoneum: No pneumoperitoneum or ascites. Bones: No acute osseous abnormality. Lower Chest: Trace bilateral pleural effusions. Mild cardiomegaly. Liver: Normal in size and contour. Gallbladder: No stones or pericholecystic fluid. Biliary tree: No intrahepatic or extrahepatic biliary ductal dilatation. Pancreas: Within normal limits. Spleen: Normal in size and contour. Kidneys: No hydronephrosis or obstructive urolithiasis. Bilateral simple renal cysts, including a 2.9 cm right renal cyst (2/81). Adrenals: No adrenal nodularity. Bladder: Normal in size and wall thickness. : Anteverted uterus. No abnormal adnexal masses. No fluid in the pouch of Ed. No drainable fluid collection. Stomach: Normal in size and contour. Bowel: Normal in diameter without any bowel obstruction. Status post appendectomy. Scattered colonic diverticulosis. Lymph Nodes: No retroperitoneal, mesenteric, or inguinal lymphadenopathy. Vascular: No abdominal aortic aneurysm. The visualized arterial vasculature is patent, within the limits of this examination. Mild aortoiliac atherosclerosis. Soft Tissues: No acute abnormality. IMPRESSION: 1. No acute CT abnormality of the abdomen/pelvis. 2. Trace bilateral pleural effusions and mild cardiomegaly. Dictated by: Memo Mariee M.D. on 01/18/2024 at 22:25 Approved by: Memo Mariee M.D. on 01/18/2024 at 22:30
[2024-01-18 21:51] LABS: Lactate (Lactic Acid) 0.6 mmol/L (0.7-2.1)
[2024-01-18 22:02] LABS: Procalcitonin 0.335 ng/mL (<0.5)
[2024-01-18] MEDS: ACETAMINOPHEN 325 MG TABLET 650 MG PO (22:13)
[2024-01-18] MEDS: cefTRIAXone 2,000 MG in SODIUM CHLORIDE 0.9% 100 ML 200 MG IV (23:04)
[2024-01-18] MEDS: DOXYCYCLINE HYCLATE 100 MG TABLET PO (23:04)
== END 2024-01-18 23:38 | disposition home or self-care (01) ==
PROVIDERS: Emergency Medicine; Emergency Provider Emergency Medicine; Family Provider Internal Medicine; PCP Internal Medicine
DX: N72 Inflammatory disease of cervix uteri (principal); I10 Essential (primary) hypertension; I48.91 Unspecified atrial fibrillation; Z79.01 Long term (current) use of anticoagulants; Z90.710 Acquired absence of both cervix and uterus; J90 Pleural effusion, not elsewhere classified; I51.7 Cardiomegaly
CPT/HCPCS: 36415; 74177; 80053; 81003; 81015; 83605; 83690; 84145; 85025; 87040; 87070; 87086; 87205; 87210; 96365; 99284; J0696; Q9967

== ENCOUNTER → 2024-01-24 10:52 | Outpatient (CLI) | payer MEDICARE, OTHER, SELFPAY ==
[2022-08-25 14:35] VITALS: BMI 37.2
[2024-01-24 12:52] LABS: Appearance Urine UA CLEAR; Bilirubin Urine UA NEGATIVE (NEGATIVE); Color Urine UA YELLOW; Glucose Urine UA NEGATIVE (Negative); Ketones Urine UA NEGATIVE (NEGATIVE); Leukocyte Esterase Urine UA NEGATIVE (NEGATIVE); Nitrite Urine UA NEGATIVE (Negative); Occult Blood Urine UA NEGATIVE (Negative); Protein Urine UA TRACE (Negative); Specific Gravity Urine UA <=1.005 (1.000-1.035); Urobilinogen Urine UA 0.2 E.U./dL (0.2)
[2024-01-24 13:12] LABS: Bacteria Urine None Seen; Culture Indicated Urine Cult Not Indicated; RBC Urine None Seen (0-5/HPF); Squamous Epithelial Cell Urine None Seen (0-5/HPF); Urine Volume 10mL (spun); WBC Urine None Seen (0-5/HPF)
== END ==
PROVIDERS: Family Provider Internal Medicine; PCP Internal Medicine; Visit Provider Internal Medicine
DX: R50.9 Fever, unspecified (principal); R30.0 Dysuria
CPT/HCPCS: 81001

== ENCOUNTER → 2024-01-24 11:28 | Outpatient (CLI) | payer MEDICARE, OTHER, SELFPAY ==
[2022-08-25 14:35] VITALS: BMI 37.2
[2024-01-24 12:44] LABS: Add Manual Diff / Slide Review NO; Basophils Absolute Auto 0 /uL (0-100); Basophils Percent Auto 0.4 % (0-2); Eosinophils Absolute Auto 100 /uL (0-450); Hematocrit 31.8 % (36-46); Hemoglobin 10.8 g/dL (12.0-16.0); Lymphocytes Absolute Auto 500 /uL (1100-4500); Lymphocytes Percent Auto 4.2 % (25-40); Mean Corpuscular HGB Conc 33.9 % (30-36); Mean Corpuscular Hemoglobin 30.7 PG (26-34); Mean Corpuscular Volume 90.7 fL (80-100); Monocytes Absolute Auto 1300 /uL (0-900); Monocytes Percent Auto 11.7 % (3-14); Neutrophils Absolute Auto 9300 /uL (1500-7000); Neutrophils Percent Auto 82.7 % (50-75); Platelet Count 360 X10^3/uL (150-400); Red Blood Cell Count 3.51 X10^6/uL (4.0-5.2); Red Cell Distribution Width 14.3 % (11.6-14.8); White Blood Cell Count 11.2 X10^3/uL (4.5-11.0)
[2024-01-24 13:06] LABS: Erythrocyte Sedimentation Rate 41 MM/HR (0-20)
[2024-01-24 13:22] LABS: Alanine Aminotransferase 197 IU/L (<35); Albumin 3.8 g/dL (3.5-5.0); Albumin Globulin Ratio 1.4 (1.0-2.8); Alkaline Phosphatase 463 U/L (38-126); Aspartate Aminotransferase 73 IU/L (14-36); BUN Creatinine Ratio 14.9 (6-22); Bilirubin Total 0.7 mg/dL (0.2-1.3); Blood Urea Nitrogen 14 mg/dL (7-17); C-Reactive Protein Quant 0.7 mg/dL (<1.0); Carbon Dioxide 24 mmol/L (22-32); Chloride 99 mmol/L (98-107); Estimated Glomerular Filt Rate > 60 mL/min (>60); Globulin 2.8 g/dL (1.7-4.1); Glucose 117 mg/dL (80-110); HEMOLYSIS < 15 (0-50); Potassium 3.8 mmol/L (3.4-5.1); Sodium 130 mmol/L (137-145); Total Protein 6.6 g/dL (6.3-8.2)
== END ==
PROVIDERS: Family Provider Internal Medicine; PCP Internal Medicine; Referring Provider Internal Medicine; Visit Provider Internal Medicine
DX: I12.9 Hypertensive chronic kidney disease with stage 1 through stage 4 chronic kidney disease, or unspecified chronic kidney disease (principal); N18.31 Chronic kidney disease, stage 3a; I48.0 Paroxysmal atrial fibrillation; R50.9 Fever, unspecified; R30.0 Dysuria
CPT/HCPCS: 80053; 81001; 85025; 85651; 86140; 87040

== ENCOUNTER → 2024-01-28 07:28 | Outpatient (CLI) | payer MEDICARE, OTHER, SELFPAY ==
[2022-08-25 14:35] VITALS: BMI 37.2
--- NOTE | 2024-01-28 07:29 | DI.US.S_ITS ---
PROCEDURE: US ABDOMEN LIMITED INDICATIONS: elevated liver enzymes TECHNIQUE: Real-time focused scanning was performed of the abdomen, with image documentation. COMPARISON: [facility], CT, CT ABDOMEN PELVIS W CON, 01/18/2024, 21:30. FINDINGS: The liver demonstrates mildly enlarged size. The liver demonstrates generalized mildly increased echogenicity. This decreases ultrasound sensitivity for detection of hepatic masses. No findings of gallstones or sludge are seen. The gallbladder wall is not thickened, measuring 3 mm or less. No specific pericholecystic fluid is seen. The sonographic Durán sign is negative. There is no biliary dilatation, the common bile duct measures 6 mm. No significant pancreatic abnormality is seen on these images. IMPRESSION: Mildly enlarged, mildly fatty infiltrated liver. Dictated by: Jag Becker M.D. on 01/28/2024 at 13:37 Approved by: Jag Becker M.D. on 01/28/2024 at 13:38
== END ==
PROVIDERS: Family Provider Internal Medicine; PCP Internal Medicine; Referring Provider Internal Medicine; Visit Provider Internal Medicine
DX: R74.8 Abnormal levels of other serum enzymes (principal); K76.0 Fatty (change of) liver, not elsewhere classified
CPT/HCPCS: 76705

== ENCOUNTER 2024-01-28 08:31 | Emergency (ER) | payer MEDICARE, OTHER, SELFPAY ==
[2022-08-25 14:35] VITALS: BMI 37.2
[2024-01-28] VITALS (18 sets, daily range): BP systolic 143–165; BP diastolic 67–83; PULSE 60–86; RESP 14–26; TEMP 36.6; O2SAT 95–98; BMI 34.9
--- NOTE | 2024-01-28 08:54 | ED_ITS ---
HPI - SOB/Dyspnea General Chief Complaint: Shortness of Breath/Dyspnea Stated Complaint: fever, SOB, seen here last Time Seen by Provider: 01/28/24 08:54 Source: patient, RN notes reviewed and old records reviewed Mode of arrival: Ambulatory Limitations: no limitations History of Present Illness HPI Narrative: 60-year-old female history of atrial fibrillation, hypertension on Eliquis, multiple blood pressure medications presents with complaint of shortness of breath. Patient states started feeling short of breath in the last 24-48 hours. Patient was seen here on 01/18/2024 for persistent fevers and generally feeling unwell was found to have cervicitis after hysteroscopy had doxycycline and states her fevers has been improving she has been afebrile for what sounds like at least 48 hours. She states no cold cough or congestion symptoms. No chest pain or pressure, she does feel short of breath that is worse with exertion. Does help if she rests but even today feel short of breath at rest. She notes orthopnea and feels worse if she was lying flat versus being upright. Denies any nausea or vomiting. States her abdominal discomfort from before has not improved. States he has had regular bowel movements. Denies any new urinary changes. No rash or skin changes. Patient notes no new swelling of her extremities currently. After her hysteroscopy she did have quite a bit of swelling of her lower extremities they attributed this to IV fluids had about 4 days of diuretic which she then stopped because her swelling improved. She states her extremities do not seem more swollen today. No tobacco, alcohol or recreational drugs. Patient does have concerns about potential COVID. She is accompanied by her . Related Data Home Medications Medication Instructions Recorded Confirmed Calcium Carbonate 1 tab PO DAILY 03/17/21 01/24/24 Magnesium Malate 1 tab PO DAILY 03/17/21 01/24/24 Probiotic 10 Capsule 1 tab PO DAILY 03/17/21 01/24/24 Vitamin D 1 tab PO DAILY 03/17/21 01/24/24 ascorbic acid (vitamin C) 1,000 mg 1 g PO DAILY 03/17/21 01/24/24 tablet cranberry extract 650 mg capsule 650 mg PO DAILY 03/17/21 01/24/24 multivitamin 1 tab PO DAILY 03/17/21 01/24/24 red yeast rice 600 mg capsule 600 mg PO BID 11/27/22 01/24/24 Chromium Mineral 1 tab PO DAILY 05/08/23 01/24/24 hydralazine 50 mg tablet 50 mg PO BID 01/04/24 01/24/24 diltiazem HCl 120 mg 120 mg PO BID 01/08/24 01/24/24 capsule,extended release 24 hr furosemide 20 mg tablet 20 mg PO DAILY 01/17/24 01/24/24 Previous Rx's Medication Instructions Recorded nystatin 100,000 unit/gram topical 1 applic topical TID #60 grams 06/29/22 powder apixaban 5 mg tablet (Eliquis) 5 mg PO BID #180 tabs 11/08/23 ramipril 10 mg capsule 10 mg PO BID #180 caps 01/09/24 terazosin 10 mg capsule 10 mg PO BID #180 caps 01/09/24 doxycycline hyclate 100 mg tablet 100 mg PO BID #20 tabs 01/18/24 nystatin 100,000 unit/mL oral 1 ml buccal BID #60 mL 01/18/24 suspension furosemide 20 mg tablet (Lasix) 20 mg PO DAILY #7 tabs 01/28/24 Allergies Allergy/AdvReac Type Severity Reaction Status Date / Time guanfacine [From Tenex] AdvReac Intermediate arrythmia Verified 01/28/24 08:54 Review of Systems Review of Systems ROS Unobtainable: All systems reviewed & are unremarkable except as noted in HPI and below Patient History Medical History Normal cardiac ejection fraction (~08/23/22) A-fib HLD (hyperlipidemia) HTN (hypertension) Chronic renal failure, stage 3a Near sighted Migraines Fractures (~2010) Measles (~1964) Chicken pox (~1962) Endometriosis (~1995) Frequent UTI Ovarian cyst (~1995) Chronic migraine Cataracts, bilateral (~2017) Urinary incontinence (~2001) Diverticular disease of colon (~1987) Essential hypertension (~1989) Surgical History Anesthesia History of foot surgery (~2010) Status post right oophorectomy (~1995) Status post appendectomy (~1995) Family History Father History of heart disease Hypertension Hyperlipidemia Mother Breast cancer Stroke Brother History of heart disease Hyperlipidemia Hypertension Brother Diabetes mellitus Hypertension Grandfather History of heart disease Hyperlipidemia Hypertension Grandmother Stroke Grandfather History of heart disease Hyperlipidemia Hypertension Grandmother Tuberculosis Aunt Breast cancer Social History household members: spouse Smoking Status: Never smoker alcohol intake: current Smoking Status: Never smoker alcohol intake frequency: holidays/special occasions only Substance Use Type: does not use Exam Narrative Exam Narrative: GENERAL: Alert and oriented x three, female in mild distress HEENT: Head normocephalic, atraumatic, EOMI, pupils reactive, face symmetric, moist mucous membranes, no nasal congestion NECK: Supple, full range of motion CARDIOVASCULAR: Regular rate and rhythm without murmurs, rubs or gallops. No JVD. No edema bilateral lower extremities. RESPIRATORY: Breath sounds equal bilaterally, no wheezes or rhonchi. Patient does have some crackles in the left lower lung. No tachypnea or accessory muscle use. Patient's speaks in full sentences. ABDOMEN: Soft, nontender. Normoactive bowel sounds all 4 quadrants. No guarding or rebound, rigidity, no mass : No CVA tenderness EXTREMITIES: Normal range of motion, no clubbing or edema. Neurovascularly intact NEUROLOGICAL: Cranial nerves II through XII grossly intact. Moving all extremities SKIN: Warm, dry, no petechiae, no rashes or lesions. Initial Vital Signs Initial Vital Signs: Vital Signs Temperature 97.8 F 01/28/24 08:35 Pulse Rate 75 01/28/24 08:35 Respiratory Rate 17 01/28/24 08:35 Blood Pressure 151/69 H 01/28/24 08:35 Pulse Oximetry 97 01/28/24 08:35 Oxygen Delivery Method Room Air 01/28/24 08:35 Course Orders Ordered: Discontinued Medications Furosemide (Furosemide 40 Mg/4 Ml Vial) 40 mg IV NOW ONE Stop: 01/28/24 10:28 Last Admin: 01/28/24 10:37 Dose: 40 mg Documented By: JENNIFER Vital Signs Vital signs: Vital Signs - 8 hr 01/28/24 11:00 01/28/24 11:00 01/28/24 11:10 Pulse Rate 60 Respiratory Rate 14 Blood Pressure 160/74 H 161/67 H Pulse Oximetry 96 01/28/24 11:10 01/28/24 11:30 01/28/24 11:30 Pulse Rate 76 62 Respiratory Rate 18 21 Blood Pressure 164/74 H Pulse Oximetry 96 97 01/28/24 12:06 01/28/24 12:07 01/28/24 12:07 Pulse Rate 64 62 Respiratory Rate 24 20 Blood Pressure 158/75 H Pulse Oximetry 96 96 01/28/24 12:34 01/28/24 12:40 01/28/24 12:40 Pulse Rate 80 71 Respiratory Rate 20 Blood Pressure 149/67 H Pulse Oximetry 98 97 01/28/24 12:52 01/28/24 13:00 01/28/24 13:00 Pulse Rate 86 66 Respiratory Rate 22 17 Blood Pressure 156/72 H Pulse Oximetry 96 96 MDM - SOB/Dyspnea Lab Data 01/28/24 09:30 01/28/24 09:30 Labs: Lab Results 01/28/24 01/28/24 Range/Units 09:22 09:30 WBC 9.4 (4.5-11.0) X10^3/uL RBC 3.02 L (4.0-5.2) X10^6/uL Hgb 9.3 L (12.0-16.0) g/dL Hct 27.1 L (36-46) % MCV 89.9 (80-100) fL MCH 30.9 (26-34) PG MCHC 34.4 (30-36) % RDW 14.4 (11.6-14.8) % Plt Count 415 H (150-400) X10^3/uL Neut % (Auto) 77.1 H (50-75) % Lymph % (Auto) 6.6 L (25-40) % [place] % (Auto) 12.3 (3-14) % Eos % (Auto) 3.1 (2-4) % Baso % (Auto) 0.9 (0-2) % Neut # (Auto) 7300 H (9831-3736) /uL Lymph # (Auto) 600 L (1100-7171) /uL [place] # (Auto) 1200 H (0-900) /uL Eos # (Auto) 300 (0-450) /uL Baso # (Auto) 100 (0-100) /uL Sodium 134 L (137-145) mmol/L Potassium 3.6 (3.4-5.1) mmol/L Chloride 105 (98-107) mmol/L Carbon Dioxide 24 (22-32) mmol/L BUN 14 (7-17) mg/dL Creatinine 0.90 (0.52-1.04) mg/dL Estimated GFR > 60 (>60) mL/min BUN/Creatinine Ratio 15.6 (6-22) Glucose 106 (80-110) mg/dL Calcium 9.6 (8.4-10.2) mg/dL Total Bilirubin 0.5 (0.2-1.3) mg/dL AST 29 (14-36) IU/L ALT 84 H (<35) IU/L Alkaline Phosphatase 282 H (38-126) U/L Total Creatine Kinase 43 (30-135) U/L Troponin I 0.020 (0.01-0.034) ng/mL NT-Pro-B Natriuret Pep 3980 H (<125) pg/mL Total Protein 6.0 L (6.3-8.2) g/dL Albumin 3.3 L (3.5-5.0) g/dL Globulin 2.7 (1.7-4.1) g/dL Albumin/Globulin Ratio 1.2 (1.0-2.8) Lipase 147 D (23-300) U/L Chlamy pneumoniae PCR Not detected (Not Detect) Adenovirus (PCR) Not detected (Not Detect) B. pertussis DNA (PCR) Not detected (Not Detect) B.parapertussis DNA PCR Not detected (Not Detecte) Coronavirus OC43 (PCR) Not detected (Not Detect) Coronavirus HKU1 (PCR) Not detected (Not Detect) Coronavirus 229E (PCR) Not detected (Not Detect) SARS-CoV-2 (PCR) Not detected (Not Detecte) Coronavirus NL63 (PCR) Not detected (Not Detect) Human Metapneumovir PCR Not detected (Not Detect) Influenza Type A (PCR) Not detected (Not Detect) Influenza Type B (PCR) Not detected (Not Detect) M. pneumoniae (PCR) Not detected (Not Detect) Parainfluenza 1 (PCR) Not detected (Not Detect) Parainfluenza 2 (PCR) Not detected (Not Detect) Parainfluenza 3 (PCR) Not detected (Not Detect) Parainfluenza 4 (PCR) Not detected (Not Detect) RSV (PCR) Not detected (Not Detect) Entero/Rhino (PCR) Not detected (Not Detect) Imaging Data Chest x-ray: Radiologist's Impression: Close Chest X-Ray (Signed) Mitesh Rose - 01/28/24 Abdomen Ultrasound 01/28/24 Abdomen/Pelvis CT (Signed) Memo Mariee - 01/18/24 Abdomen/Pelvis CT (Signed) Sudarshan Holden - 11/06/23 Mammogram Diagnostic (Signed) Henrry Edwards - 02/02/23 Wrist MRI (Signed) Jorge Fisher - 01/19/23 Wrist X-Ray (Signed) Kamille Payton - 12/28/22 Myocardial Perfusion Scan Nuc Med (Signed) Deja Andrews - 08/23/22 Vascular Ultrasound (Signed) Tabitha Sorto - 07/19/22 Echocardiogram Ultrasound (Signed) Deja Andrews - 07/04/22 Telemetry Strips 07/04/22 Chest X-Ray (Signed) Micky Hollins - 07/04/22 Vascular Ultrasound (Signed) Lester Garduno - 06/30/22 Mammogram Screening (Signed) Audi Moore - 12/23/21 [facility] [address] XRay Report Signed Patient: Kelsie Miramontes MR#: [id number] : 1955 Acct:[id number] Age/Sex: 68 / F Date of Service: 01/28/24 Loc: ED Accession Number: [id number] Procedure: XR chest 2V Ordering Provider: Jessica Vallejo D.O. PROCEDURE: XR CHEST 2V INDICATIONS: SOB TECHNIQUE: 2 views of the chest were acquired. COMPARISON: [facility], CT, CT ABDOMEN PELVIS W CON, 01/18/2024, 21:30. [facility], CR, XR CHEST 1V, 07/04/2022, 11:50. FINDINGS: Surgical changes and devices: None. Lungs and pleura: Pulmonary venous congestion. No acute infiltrate. No pleural effusions or pneumothorax. Mediastinum: Mediastinal contours are normal. Mild cardiomegaly. Bones and chest wall: No suspicious bony abnormalities. Soft tissues appear unremarkable. IMPRESSION: Mild cardiomegaly, pulmonary venous congestion. Dictated by: Mitesh Rose M.D. on 01/28/2024 at 9:20 Approved by: Mitesh Rose M.D. on 01/28/2024 at 9:22 ECG Data Attestation: I personally reviewed and interpreted this ECG as follows: Prior ECG tracings: available for review Interpretation: Sinus rhythm rate of 66 VT 194 QRS of 102 QTC 444, no acute ST elevation depression noted. Patient has prior from 01/07/2024 appears similar to today. MDM Narrative Medical decision making narrative: 60-year-old female recent visit with persistent fevers was found to have cervicitis on pelvic exam. Genital culture showed mixed cyrus, wet prep showed multiple white cells but no other changes blood culture was negative. Patient describes feeling short of breath did have what sounds like CHF type symptoms after her hysteroscopy was swelling of her extremities did seem to respond to Lasix. She does note she has been drinking about 96 fluid oz of water daily to hydrate drinking every 2 hours. Patient is slightly hypertensive on her initial vitals but not hypoxic no tachypnea normal respirations. Does have some mild crackles on exam particularly on the left. Labs white count of 9.4 hemoglobin is 9.3 was 10.8 on 01/23, platelets are 415, sodium is 134 potassium 3.6 chloride 105 CO2 is 24 BUN 14 creatinine 0.9 glucose of 106 AST ALT are mildly elevated 84 with a alk-phos of 282 although improved from priors and bilirubin and AST of normalized, lipase is normal 147, troponin 0.02 with a BNP of 3980. EKG sinus rhythm, no acute changes appears similar to prior from 2026. Chest x-ray shows mild cardiomegaly, pulmonary venous congestion. Respiratory panel is negative. Patient's symptoms do seem consistent with fluid overload and CHF, she notes she has had a significant intake of oral hydration at home. Was given Lasix 40 mg. Patinent had at least 400mL urine output. Patient had ambulatory pulse ox was in the mid 90s, no tachycardia. Patient is felt appropriate for discharge home but with a short course of diuretic and follow up with primary care. Patient notes she had a short course of Lasix 20 mg after her procedure when she likely has a lot of IV fluids and became swollen. Discussed with patient we will continue with the 20 mg Lasix and repeat this with patient to follow up with primary care. Discharge Plan Departure Patient Disposition: Home Clinical Impression: CHF exacerbation Instructions: Congestive Heart Failure (Alternative Therapy) Activity Restrictions/Additional Instructions: Your workup today shows that you appear to have some fluid overload or congestive heart failure. Please follow up with Dr. Cintron for recheck. You has been prescribed a short course of diuretic, take this once daily until completed. Follow up with Dr. Cintron to decide if this medication should be continued or stopped. Prescription sent to [facility] in [place]. Please return for new or worsening symptoms, chest pain, worsening shortness of breath, lightheadedness or passing out, new swelling in extremities, fevers, persistent vomiting, or other new or concerning changes. Prescriptions: New furosemide [Lasix] 20 mg tablet 20 mg PO DAILY Qty: 7 0RF No Action furosemide 20 mg tablet 20 mg PO DAILY Eliquis 5 mg tablet 5 mg PO BID Qty: 180 3RF diltiazem HCl 120 mg capsule,extended release 24hr 120 mg PO BID ramipril 10 mg capsule 10 mg PO BID Qty: 180 3RF terazosin 10 mg capsule 10 mg PO BID Qty: 180 3RF Calcium Carbonate 1,200 mg 1 tab PO DAILY multivitamin Tablet 1 tab PO DAILY Vitamin D 60 mcg 1 tab PO DAILY ascorbic acid (vitamin C) 1,000 mg tablet 1 g PO DAILY cranberry extract 650 mg capsule 650 mg PO DAILY Rx Instructions: administer with a meal Magnesium Malate 625 mg 1 tab PO DAILY Probiotic 10 Capsule 170 mg 1 tab PO DAILY nystatin 100,000 unit/gram powder 1 applic topical TID Qty: 60 3RF red yeast rice 600 mg capsule 600 mg PO BID Rx Instructions: give with meal/snack Chromium Mineral 25 mcg 1 tab PO DAILY doxycycline hyclate 100 mg tablet 100 mg PO BID Qty: 20 0RF nystatin 100,000 unit/mL suspension 1 ml buccal BID Qty: 60 0RF Rx Instructions: administer 1/2 of dose in each side of the mouth hydralazine 50 mg tablet 50 mg PO BID Referrals: Raymundo Cintron MD [Primary Care Provider] - Stand Alone Forms: Patient Portal/API
--- NOTE | 2024-01-28 09:35 | EKG_ITS ---
[address] [address] Test Date: 2024-01-28 Pat Name: Kelsie Miramontes Department: Room: Gender: Female Molder: ABRIL : 1955 Requested By: Order Number: [id number] Reading MD: Willy Rivera Measurements Intervals [place] Rate: 66 P: 39 LA: 194 QRS: 12 QRSD: 102 T: 32 QT: 424 QTc: 444 Interpretive Statements Normal sinus rhythm Possible Anterior infarct , age undetermined Electronically Signed On 01-29-2024 14:44:01 PDT by Willy Rivera
[2024-01-28 09:47] LABS: Add Manual Diff / Slide Review NO; Basophils Absolute Auto 100 /uL (0-100); Basophils Percent Auto 0.9 % (0-2); Eosinophils Absolute Auto 300 /uL (0-450); Eosinophils Percent Auto 3.1 % (2-4); Hematocrit 27.1 % (36-46); Hemoglobin 9.3 g/dL (12.0-16.0); Lymphocytes Absolute Auto 600 /uL (1100-4500); Lymphocytes Percent Auto 6.6 % (25-40); Mean Corpuscular HGB Conc 34.4 % (30-36); Mean Corpuscular Hemoglobin 30.9 PG (26-34); Mean Corpuscular Volume 89.9 fL (80-100); Monocytes Absolute Auto 1200 /uL (0-900); Monocytes Percent Auto 12.3 % (3-14); Neutrophils Absolute Auto 7300 /uL (1500-7000); Neutrophils Percent Auto 77.1 % (50-75); Platelet Count 415 X10^3/uL (150-400); Red Blood Cell Count 3.02 X10^6/uL (4.0-5.2); Red Cell Distribution Width 14.4 % (11.6-14.8); White Blood Cell Count 9.4 X10^3/uL (4.5-11.0)
[2024-01-28 09:58] LABS: Alanine Aminotransferase 84 IU/L (<35); Albumin 3.3 g/dL (3.5-5.0); Albumin Globulin Ratio 1.2 (1.0-2.8); Alkaline Phosphatase 282 U/L (38-126); Aspartate Aminotransferase 29 IU/L (14-36); BUN Creatinine Ratio 15.6 (6-22); Bilirubin Total 0.5 mg/dL (0.2-1.3); Blood Urea Nitrogen 14 mg/dL (7-17); Calcium 9.6 mg/dL (8.4-10.2); Carbon Dioxide 24 mmol/L (22-32); Chloride 105 mmol/L (98-107); Creatine Kinase 43 U/L (30-135); Estimated Glomerular Filt Rate > 60 mL/min (>60); Globulin 2.7 g/dL (1.7-4.1); Glucose 106 mg/dL (80-110); HEMOLYSIS < 15 (0-50); Lipase 147 U/L (23-300); Potassium 3.6 mmol/L (3.4-5.1); Sodium 134 mmol/L (137-145)
[2024-01-28 10:09] LABS: NT-proBNP (BNP-Adult 18+) 3980 pg/mL (<125)
[2024-01-28 10:16] LABS: Adenovirus Not Detected (Not Detect); B. parapertussis Not Detected (Not Detecte); Bordetella pertussis Not Detected (Not Detect); Chlamydophila pneumoniae Not Detected (Not Detect); Coronavirus 229E Not Detected (Not Detect); Coronavirus HKU1 Not Detected (Not Detect); Coronavirus NL 63 Not Detected (Not Detect); Coronavirus OC43 Not Detected (Not Detect); Human Metapneumovirus Not Detected (Not Detect); Human Rhinovirus/Enterovirus Not Detected (Not Detect); Influenza A Not Detected (Not Detect); Influenza B Not Detected (Not Detect); Mycoplasma pneumoniae Not Detected (Not Detect); Parainfluenza Virus 1 Not Detected (Not Detect); Parainfluenza Virus 2 Not Detected (Not Detect); Parainfluenza Virus 3 Not Detected (Not Detect); Parainfluenza Virus 4 Not Detected (Not Detect); Respiratory Syncytial Virus Not Detected (Not Detect); SARS- CoV-2 Not Detected (Not Detecte)
[2024-01-28] MEDS: FUROSEMIDE 40 MG/4 ML VIAL IV (10:37)
== END 2024-01-28 13:11 | disposition home or self-care (01) ==
PROVIDERS: Emergency Provider Emergency Medicine; Family Provider Internal Medicine; PCP Internal Medicine
DX: I50.9 Heart failure, unspecified (principal); R50.9 Fever, unspecified; Z90.710 Acquired absence of both cervix and uterus; Z79.01 Long term (current) use of anticoagulants; Z11.52 Encounter for screening for COVID-19; K76.0 Fatty (change of) liver, not elsewhere classified; R74.8 Abnormal levels of other serum enzymes
CPT/HCPCS: 36415; 71046; 76705; 80053; 82550; 83690; 83880; 84484; 85025; 87633; 93005; 96374; 99284; J1940

== ENCOUNTER → 2024-02-04 07:37 | Outpatient (CLI) | payer MEDICARE, OTHER, SELFPAY ==
[2022-08-25 14:35] VITALS: BMI 37.2
[2024-02-04 09:58] LABS: BUN Creatinine Ratio 14.9 (6-22); Blood Urea Nitrogen 20 mg/dL (7-17); Calcium 9.9 mg/dL (8.4-10.2); Carbon Dioxide 24 mmol/L (22-32); Chloride 104 mmol/L (98-107); Estimated Glomerular Filt Rate 43 mL/min (>60); Glucose 106 mg/dL (80-110); HEMOLYSIS < 15 (0-50); Magnesium 2.1 mg/dL (1.6-2.3); Potassium 3.9 mmol/L (3.4-5.1); Sodium 136 mmol/L (137-145)
== END ==
PROVIDERS: Family Provider Internal Medicine; PCP Internal Medicine; Referring Provider Internal Medicine; Visit Provider Internal Medicine
DX: I50.9 Heart failure, unspecified (principal); I48.0 Paroxysmal atrial fibrillation; I12.9 Hypertensive chronic kidney disease with stage 1 through stage 4 chronic kidney disease, or unspecified chronic kidney disease; N18.31 Chronic kidney disease, stage 3a; I13.0 Hypertensive heart and chronic kidney disease with heart failure and stage 1 through stage 4 chronic kidney disease, or unspecified chronic kidney disease
CPT/HCPCS: 36415; 80048; 83735

== ENCOUNTER → 2024-02-05 12:51 | Outpatient (CLI) | payer MEDICARE, OTHER, SELFPAY ==
[2022-08-25 14:35] VITALS: BMI 37.2
--- NOTE | 2024-02-05 12:53 | DI.MG.S_ITS ---
BILATERAL DIGITAL SCREENING MAMMOGRAM 3D/2D WITH CAD: 02/05/2024 CLINICAL: Routine screening. Family history of breast cancer. Comparison is made to exams dated: 02/02/2023 mammogram, 12/23/2021 mammogram - [facility], 11/26/2020 mammogram, and 10/07/2019 mammogram - outside facility. The breasts are heterogeneously dense, which may obscure small masses (category c / 51-75% glandular tissue). Current study was also evaluated with a Computer Aided Detection (CAD) system. No significant masses, calcifications, or other findings are seen in either breast. There has been no significant interval change. IMPRESSION: NEGATIVE There is no mammographic evidence of malignancy. A 1 year screening mammogram is recommended. Based on Tyrer-Cuzick model (a risk assessment model), the patient's lifetime risk is 23.1% and her 10 year risk is 13.6%. If a patient has an elevated risk, a more comprehensive evaluation should be considered and/or a referral to a genetic counselor. The [place] [employer], [place] [employer], and NCCN Guidelines advise the consideration of Breast MRI as an adjunct to screening mammography in patients whose Lifetime risk to develop breast cancer is 20% or higher. This exam was interpreted at Station ID: [id number]. NOTE: For mammograms, a report in lay terms will be sent to the patient. Approximately 15% of breast malignancies will not be visualized mammographically. In the management of a palpable breast mass, a negative mammogram must not discourage biopsy of a clinically suspicious lesion. Electronically Signed By: Micky isaac/lina:02/05/2024 13:45:21 letter sent: Normal Exam ACR BI-RADS Category 1: Negative
== END ==
PROVIDERS: Family Provider Internal Medicine; PCP Internal Medicine; Referring Provider Internal Medicine; Visit Provider Internal Medicine
DX: Z12.31 Encounter for screening mammogram for malignant neoplasm of breast (principal); Z80.3 Family history of malignant neoplasm of breast; R92.333 Mammographic heterogeneous density, bilateral breasts
CPT/HCPCS: 77063; 77067

== ENCOUNTER → 2024-02-18 07:30 | Outpatient (CLI) | payer MEDICARE, OTHER, SELFPAY ==
[2022-08-25 14:35] VITALS: BMI 37.2
[2024-02-18 08:13] LABS: Add Manual Diff / Slide Review NO; Basophils Absolute Auto 100 /uL (0-100); Basophils Percent Auto 1.9 % (0-2); Eosinophils Absolute Auto 300 /uL (0-450); Eosinophils Percent Auto 6.7 % (2-4); Hematocrit 34.6 % (36-46); Hemoglobin 11.8 g/dL (12.0-16.0); Lymphocytes Absolute Auto 900 /uL (1100-4500); Lymphocytes Percent Auto 22.3 % (25-40); Mean Corpuscular HGB Conc 34.1 % (30-36); Mean Corpuscular Hemoglobin 30.9 PG (26-34); Mean Corpuscular Volume 90.7 fL (80-100); Monocytes Absolute Auto 600 /uL (0-900); Monocytes Percent Auto 14.4 % (3-14); Neutrophils Absolute Auto 2100 /uL (1500-7000); Neutrophils Percent Auto 54.7 % (50-75); Platelet Count 260 X10^3/uL (150-400); Red Blood Cell Count 3.82 X10^6/uL (4.0-5.2); Red Cell Distribution Width 14.7 % (11.6-14.8); White Blood Cell Count 3.9 X10^3/uL (4.5-11.0)
[2024-02-18 08:30] LABS: HEMOLYSIS < 15 (0-50); Iron 76 ug/dL (37-170)
[2024-02-18 08:34] LABS: Alanine Aminotransferase 33 IU/L (<35); Albumin 3.9 g/dL (3.5-5.0); Albumin Globulin Ratio 1.7 (1.0-2.8); Alkaline Phosphatase 102 U/L (38-126); Aspartate Aminotransferase 27 IU/L (14-36); BUN Creatinine Ratio 17.7 (6-22); Bilirubin Total 0.5 mg/dL (0.2-1.3); Bilirubin Unconjugated 0.2 mg/dL (0.0-1.1); Blood Urea Nitrogen 26 mg/dL (7-17); Calcium 9.8 mg/dL (8.4-10.2); Carbon Dioxide 23 mmol/L (22-32); Chloride 107 mmol/L (98-107); Estimated Glomerular Filt Rate 39 mL/min (>60); Globulin 2.3 g/dL (1.7-4.1); Glucose 105 mg/dL (80-110); HEMOLYSIS < 15 (0-50); Potassium 4.3 mmol/L (3.4-5.1); Sodium 136 mmol/L (137-145); Total Protein 6.2 g/dL (6.3-8.2)
[2024-02-18 08:40] LABS: NT-proBNP (BNP-Adult 18+) 523 pg/mL (<125)
[2024-02-18 08:41] LABS: Percent Iron Saturation 27 % (15-50); Total Iron Binding Capacity 282 ug/dL (265-497); Transferrin 225 mg/dL (206-381)
== END ==
PROVIDERS: Family Provider Internal Medicine; PCP Internal Medicine; Referring Provider Internal Medicine; Visit Provider Internal Medicine
DX: I13.0 Hypertensive heart and chronic kidney disease with heart failure and stage 1 through stage 4 chronic kidney disease, or unspecified chronic kidney disease (principal); N18.31 Chronic kidney disease, stage 3a; I50.9 Heart failure, unspecified; D64.9 Anemia, unspecified; I48.0 Paroxysmal atrial fibrillation
CPT/HCPCS: 36415; 80048; 80076; 83540; 83550; 83880; 85025

== ENCOUNTER → 2024-02-25 06:53 | Outpatient (CLI) | payer MEDICARE, OTHER, SELFPAY ==
[2022-08-25 14:35] VITALS: BMI 37.2
--- NOTE | 2024-02-25 06:54 | DI.ECHO.S_ITS ---
[facility] +---------+ [facility] : : [address] : : [place] : : [id number] : : Phone: [phone] Echocardiogram Report + + :Name: JACQUELYN PANCHAL Study Date: 02/25/2024 Height: 68 in : :Hospital ReadingLocation: Weight: 222 lb : : Gender: Female BSA: 2.1 m2 : :: 1955 Age: 68 yrs BP: 178/98 mmHg: :Reason For Study: FEVER, ATRIAL FIBRILLATION, EDEMA : :Ordering Physician: MICHAEL, : :THOM [place] Performed By: Ragini Baeza : :Referring: DONNY JEREZ : + + Interpretation Summary The left ventricle is normal in size. Left ventricular systolic function appears normal without focal wall motion abnormalities. The ejection fraction is estimated to be 60-65%. Diastolic parameters suggest probable normal left ventricular diastolic function and normal filling pressures. The right ventricle is at the upper limits of normal in size. The right ventricular systolic function is normal. The right ventricular systolic pressure is estimated to be at least 29 mmHg based on an estimated right atrial pressure of 3 mm Hg. The left atrium is moderately dilated. There is trace aortic regurgitation. The aortic root is normal size. No obvious vegetative masses. Procedure: A two-dimensional transthoracic echocardiogram with color flow and Doppler was performed. The study quality was technically adequate. Comparison is made with the echocardiogram of 07/05/2022. The patient was in sinus bradycardia with heart rates between 54-60 bpm during the exam. Left Ventricle: The left ventricle is normal in size. There is mild concentric left ventricular hypertrophy. Left ventricular systolic function appears normal without focal wall motion abnormalities. The ejection fraction is estimated to be 60-65%. Diastolic parameters suggest probable normal left ventricular diastolic function and normal filling pressures. Right Ventricle: The right ventricle is at the upper limits of normal in size. The right ventricular systolic function is normal. Atria: The left atrium is moderately dilated. The right atrium is mildly dilated. There is no Doppler evidence for an interatrial shunt. Mitral Valve: The mitral valve is normal in structure but abnormal in function. There is mild mitral regurgitation. The mitral regurgitant jet is eccentrically directed. Aortic Valve: The aortic valve is slightly calcified. The aortic valve opens well. There is mild aortic valve sclerosis. There is no aortic valve stenosis. The peak aortic velocity is 2.0 m/sec. The aortic valve mean gradient is 8 mmHg. The calculated aortic valve area is 2.0 cm2. There is trace aortic regurgitation. Tricuspid Valve: The tricuspid valve is normal in structure and function. There is mild tricuspid regurgitation. The right ventricular systolic pressure is estimated to be at least 29 mmHg based on an estimated right atrial pressure of 3 mm Hg. Pulmonic Valve: The pulmonic valve leaflets are thin and pliable; valve motion is normal. There is no pulmonic valvular regurgitation. Great Vessels: The aortic root is normal size. The dimensions of the ascending aorta are normal. The IVC is of normal diameter and collapses greater than 50% with a sniff. This suggests a low right atrial pressure of 3 mm Hg. Pericardium/ Pleura There is no pericardial effusion. There is no pleural effusion. MMode/2D Measurements & Calculations LVIDd: 5.5 cm LVOT diam: 2.1 cm LVIDs: 3.6 cm Ao root diam: 2.8 cm FS: 34.5 % asc Aorta Diam: 3.4 cm EPSS: 0.50 cm Ao Arch Diam (Prox Trans): 2.7 cm IVSd: 1.2 cm LVPWd: 1.1 cm LV hinds. diameter/BSA (cm/m^2): 2.6 LV sys. diameter/BSA (cm/m^2): 1.7 LA A2 area: 27.4 cm2 RA long axis: 5.2 cm LA A4 area: 23.5 cm2 RA area: 21.4 cm2 LA length (vol): 5.8 cm RA vol: 74.3 ml LA vol: 94.6 ml RA : 34.8 ml/m2 LA vol index: 44.3 ml/m2 IVC diam: 1.8 cm RVD1 (basal): 4.5 cm TAPSE: 2.6 cm Doppler Measurements & Calculations Ao V2 max: 200.5 cm/sec LVOT Max Ayaan: 111.9 cm/sec Ao V2 mean: 132.1 cm/sec LV V1 max P.0 mmHg Ao max P.1 mmHg LV V1 VTI: 28.9 cm Ao mean P.0 mmHg SRINIVAS(I,D): 2.1 cm2 Ao V2 VTI: 47.7 cm SRINIVAS(V,D): 2.0 cm2 sev ratio: 0.61 SRINIVAS indexed to BSA (cm^2/m^2): 0.99 MV E max ayaan: 83.0 cm/sec TR max ayaan: 255.8 cm/sec MV A max ayaan: 79.3 cm/sec TR max P.2 mmHg MV E/A: 1.0 PA V2 max: 149.6 cm/sec Med Peak E' Ayaan: 5.7 cm/sec PA V2 mean: 102.5 cm/sec E/E' med: 14.6 PA mean P.6 mmHg Lat Peak E' Ayaan: 7.3 cm/sec PA pr(Accel): 24.2 mmHg E/E' lat: 11.4 E/e' average: 13.0 MV dec time: 0.28 sec SV(LVOT): 101.3 ml Reading Physician:04:39 PM
== END ==
LOC: ECHO 06:54
PROVIDERS: Family Provider Internal Medicine; PCP Internal Medicine; Referring Provider Internal Medicine; Visit Provider Internal Medicine
DX: I48.0 Paroxysmal atrial fibrillation (principal); I51.7 Cardiomegaly; I08.3 Combined rheumatic disorders of mitral, aortic and tricuspid valves
CPT/HCPCS: 93306

== ENCOUNTER → 2024-03-04 14:51 | Outpatient (CLI) | payer MEDICARE, OTHER, SELFPAY ==
[2022-08-25 14:35] VITALS: BMI 37.2
[2024-03-04 15:24] LABS: Appearance Urine UA CLEAR; Bilirubin Urine UA NEGATIVE (NEGATIVE); Color Urine UA YELLOW; Glucose Urine UA NEGATIVE (Negative); Ketones Urine UA TRACE (NEGATIVE); Leukocyte Esterase Urine UA NEGATIVE (NEGATIVE); Nitrite Urine UA NEGATIVE (Negative); Occult Blood Urine UA NEGATIVE (Negative); Protein Urine UA NEGATIVE (Negative); Urobilinogen Urine UA 0.2 E.U./dL (0.2)
[2024-03-04 15:33] LABS: pH Urine UA 5.5 (4.5-8.0)
[2024-03-04 15:44] LABS: Bacteria Urine None Seen; RBC Urine None Seen (0-5/HPF); Squamous Epithelial Cell Urine 1-5 /HPF (0-5/HPF); Urine Volume 10mL (spun); WBC Urine 0-1/HPF (0-5/HPF)
[2024-03-04 15:45] LABS: Culture Indicated Urine Cult Not Indicated; Transitional Epi Cells Urine 1-5/HPF (0-5/HPF)
[2024-03-04 15:53] LABS: Alanine Aminotransferase 31 IU/L (<35); Albumin Globulin Ratio 1.6 (1.0-2.8); Alkaline Phosphatase 80 U/L (38-126); Aspartate Aminotransferase 30 IU/L (14-36); BUN Creatinine Ratio 23.9 (6-22); Bilirubin Total 0.5 mg/dL (0.2-1.3); Blood Urea Nitrogen 43 mg/dL (7-17); Calcium 9.8 mg/dL (8.4-10.2); Carbon Dioxide 23 mmol/L (22-32); Chloride 106 mmol/L (98-107); Estimated Glomerular Filt Rate 30 mL/min (>60); Globulin 2.5 g/dL (1.7-4.1); Glucose 113 mg/dL (80-110); HEMOLYSIS < 15 (0-50); Potassium 3.8 mmol/L (3.4-5.1); Sodium 136 mmol/L (137-145); Total Protein 6.5 g/dL (6.3-8.2)
[2024-03-04 16:45] LABS: Erythrocyte Sedimentation Rate 15 MM/HR (0-20)
== END ==
PROVIDERS: Family Provider Internal Medicine; PCP Internal Medicine; Referring Provider Specialist; Visit Provider Specialist
DX: N18.31 Chronic kidney disease, stage 3a (principal)
CPT/HCPCS: 36415; 80053; 81001; 85651

== ENCOUNTER → 2024-04-03 14:02 | Outpatient (CLI) | payer MEDICARE, OTHER, SELFPAY ==
[2022-08-25 14:35] VITALS: BMI 37.2
== END ==
PROVIDERS: Family Provider Internal Medicine; PCP Internal Medicine; Visit Provider Nurse Practitioner Family
DX: R30.0 Dysuria (principal)
CPT/HCPCS: 87086

== ENCOUNTER → 2024-04-03 14:15 | Outpatient (CLI) | payer MEDICARE, OTHER, SELFPAY ==
[2022-08-25 14:35] VITALS: BMI 37.2
--- NOTE | 2024-04-03 14:19 | DI.RAD.S_ITS ---
PROCEDURE: XR TOE RT MIN 2V INDICATIONS: Fourth toe injury TECHNIQUE: 3 views of the 4th toe(s) acquired. COMPARISON: None. FINDINGS: Bones: No displaced fracture or dislocation. Subtle cortical irregularity and radiolucency involving 4th proximal phalangeal base medial aspect, a subtle nondisplaced fracture cannot be entirely excluded.. No suspicious bony lesions. Soft tissues: No suspicious soft tissue densities. IMPRESSION: No displaced 4th toe fracture or dislocation. Questionable nondisplaced or incomplete fracture involving medial aspect of 4th proximal phalangeal base suggest clinical correlation for focal pain in this area. Dictated by: Jorge Fisher M.D. on 04/04/2024 at 10:12 Approved by: Jorge Fisher M.D. on 04/04/2024 at 10:14
== END ==
PROVIDERS: Family Provider Internal Medicine; PCP Internal Medicine; Referring Provider Internal Medicine; Visit Provider Internal Medicine
DX: S90.121A Contusion of right lesser toe(s) without damage to nail, initial encounter (principal); R30.0 Dysuria; X58.XXXA Exposure to other specified factors, initial encounter
CPT/HCPCS: 73660; 87077; 87086; 87186

== ENCOUNTER 2024-05-20 17:32 | Emergency (ER) | payer MEDICARE, OTHER, SELFPAY ==
[2022-08-25 14:35] VITALS: BMI 37.2
[2024-05-20 17:35] VITALS: BP 180/80; PULSE 73; RESP 18; TEMP 37; O2SAT 97; BMI 32.1
--- NOTE | 2024-05-20 18:07 | ED.FEMALEGU ---
HPI - Female Genitourinary <Yisel Liang PA-C - Last Filed: 05/20/24 18:24> General Chief complaint: Urogenital-Female Stated complaint: urinary problem Time Seen by Provider: 05/20/24 17:59 Source: patient Mode of arrival: Ambulatory History of Present Illness HPI Narrative: 68-year-old female with past medical history atrial fibrillation, hypertension, CKD presents to the ED with 1 day of dysuria, urinary frequency, urinary urgency. No fever, chills, nausea, vomiting. No flank pain, abdominal pain. Patient states she had a UTI on 04/03/2024 for which she was given a course of cefdinir which seemed to work well for her. Related Data Home Medications Medication Instructions Recorded Confirmed Calcium Carbonate 1 tab PO DAILY 03/17/21 04/03/24 Magnesium Malate 1 tab PO DAILY 03/17/21 04/03/24 Probiotic 10 Capsule 1 tab PO DAILY 03/17/21 04/03/24 Vitamin D 1 tab PO DAILY 03/17/21 04/03/24 ascorbic acid (vitamin C) 1,000 mg 1 g PO DAILY 03/17/21 04/03/24 tablet cranberry extract 650 mg capsule 650 mg PO DAILY 03/17/21 04/03/24 multivitamin 1 tab PO DAILY 03/17/21 04/03/24 Chromium Mineral 1 tab PO DAILY 05/08/23 04/03/24 hydralazine 50 mg tablet 50 mg PO TID 02/05/24 04/03/24 diltiazem HCl 120 mg 120 mg PO QPM 03/04/24 04/03/24 capsule,extended release 24 hr (Cartia XT) diltiazem HCl 180 mg 180 mg PO DAILY 03/04/24 04/03/24 capsule,extended release 24 hr Previous Rx's Medication Instructions Recorded nystatin 100,000 unit/gram topical 1 applic topical TID #60 grams 06/29/22 powder apixaban 5 mg tablet (Eliquis) 5 mg PO BID #180 tabs 11/08/23 ramipril 10 mg capsule 10 mg PO BID #180 caps 01/09/24 terazosin 10 mg capsule 10 mg PO BID #180 caps 01/09/24 nystatin 100,000 unit/mL oral 1 ml buccal BID #60 mL 01/18/24 suspension cefdinir 300 mg capsule 300 mg PO BID #10 caps 04/03/24 cefdinir 300 mg capsule 300 mg PO Q12H 14 days #28 caps 05/20/24 fluconazole 150 mg tablet 150 mg PO Q3D 2 doses #2 tabs 05/20/24 Allergies Allergy/AdvReac Type Severity Reaction Status Date / Time latex Allergy Verified 05/20/24 17:35 guanfacine [From Tenex] AdvReac Intermediate arrythmia Verified 04/03/24 13:29 Review of Systems <Yisel Liang PA-C - Last Filed: 05/20/24 18:24> Constitutional Constitutional: Denies chills, Denies fatigue, Denies fever(s), Denies frequent falls, Denies lethargy and Denies weakness Eyes Eyes: Denies change in vision, Denies eye discharge, Denies irritation and Denies loss of vision ENT Ears, Nose, Mouth, and Throat: Denies change in voice, Denies dizziness, Denies neck pain, Denies sore throat and Denies throat swelling Cardiovascular Cardiovascular: Denies chest pain, Denies irregular heart rhythm, Denies lightheadedness, Denies palpitations, Denies dyspnea, Denies dyspnea on exertion and Denies orthopnea Respiratory Respiratory: Denies cough, Denies dyspnea, Denies dyspnea on exertion and Denies wheezing Gastrointestinal Gastrointestinal: Denies abdominal pain, Denies change in bowel habits, Denies diarrhea, Denies nausea and Denies vomiting Genitourinary Genitourinary: Reports dysuria and Reports urinary urgency Comments: Urinary frequency Musculoskeletal Musculoskeletal: Denies neck pain and Denies numbness Integumentary/Breasts Skin/Breast: Denies pruritus, Denies erythema, Denies rash and Denies wounds Neurologic Neurologic: Denies behavioral changes, Denies confusion, Denies dizziness, Denies frequent falls, Denies loss of vision, Denies numbness and Denies weakness Psychiatric Psychiatric: Denies anxiety, Denies behavioral changes, Denies confusion, Denies depression, Denies homicidal ideation and Denies suicidal ideation Endocrine Endocrine: Denies fatigue, Denies flushing and Denies palpitations Hematologic/Lymphatic Hematologic/Lymphatic: Denies easy bruising Allergic/Immunologic Allergic/Immunologic: Denies urticaria, Denies throat swelling and Denies wheezing Patient History <KEMI Young Last Filed: 05/20/24 18:24> Medical History Normal cardiac ejection fraction (~08/23/22) A-fib HLD (hyperlipidemia) HTN (hypertension) Chronic renal failure, stage 3a Near sighted Migraines Fractures (~2010) Measles (~1964) Chicken pox (~1962) Endometriosis (~1995) Frequent UTI Ovarian cyst (~1995) Chronic migraine Cataracts, bilateral (~2017) Urinary incontinence (~2001) Diverticular disease of colon (~1987) Essential hypertension (~1989) Surgical History Anesthesia History of foot surgery (~2010) Status post right oophorectomy (~1995) Status post appendectomy (~1995) Family History Father History of heart disease Hypertension Hyperlipidemia Mother Breast cancer Stroke Brother History of heart disease Hyperlipidemia Hypertension Brother Diabetes mellitus Hypertension Grandfather History of heart disease Hyperlipidemia Hypertension Grandmother Stroke Grandfather History of heart disease Hyperlipidemia Hypertension Grandmother Tuberculosis Aunt Breast cancer Exam <Yisel Liang PA-C - Last Filed: 05/20/24 18:24> Narrative Exam Narrative: Const General:?cooperative, healthy appearing and comfortable [facility] Head:?normal to inspection Ears:?hearing grossly normal bilaterally Nose:?external nose normal Face and sinus:?normal facial exam and sinuses nontender Mouth:?oral mucosae normal Throat:?posterior oropharynx normal Eyes General:?appearance normal, both eyes and all related structures Neck Neck:?normal visual inspection and no lymphadenopathy noted Resp Effort & Inspection:?normal respiratory effort Auscultation:?clear to auscultation bilaterally Cardio Rate:?regular rate Rhythm:?regular rhythm GI No CVA tenderness Neuro General:?patient alert, patient awake and patient oriented x3 Initial Vital Signs Initial Vital Signs: Vital Signs Temperature 98.6 F 05/20/24 17:35 Pulse Rate 73 05/20/24 17:35 Respiratory Rate 18 05/20/24 17:35 Blood Pressure 180/80 H 05/20/24 17:35 Pulse Oximetry 97 05/20/24 17:35 Oxygen Delivery Method Room Air 05/20/24 17:35 <Keri Mcgee DO - Last Filed: 05/24/24 12:57> Initial Vital Signs Initial Vital Signs: Vital Signs Temperature 98.6 F 05/20/24 17:35 Pulse Rate 73 05/20/24 17:35 Respiratory Rate 18 05/20/24 17:35 Blood Pressure 180/80 H 05/20/24 17:35 Pulse Oximetry 97 05/20/24 17:35 Oxygen Delivery Method Room Air 05/20/24 17:35 Course <Yisel Liang PA-C - Last Filed: 05/20/24 18:24> Orders Ordered: ED Orders 05/20/24 17:40 Urine Culture Stat Urine Microscopic Stat Vital Signs Vital signs: Vital Signs - 8 hr 05/20/24 17:35 Temperature 98.6 F Pulse Rate 73 Respiratory Rate 18 Blood Pressure 180/80 H Pulse Oximetry 97 Oxygen Delivery Method Room Air <Keri Mcgee DO - Last Filed: 05/24/24 12:57> Orders Ordered: ED Orders 05/20/24 17:40 Urine Culture Stat Urine Microscopic Stat Vital Signs Vital signs: Vital Signs - 8 hr 05/20/24 17:35 Temperature 98.6 F Pulse Rate 73 Respiratory Rate 18 Blood Pressure 180/80 H Pulse Oximetry 97 Oxygen Delivery Method Room Air MDM - Female Genitourinary <KEMI Young Last Filed: 05/20/24 18:24> Lab Data Labs: Lab Results 05/20/24 Range/Units 17:40 Urine RBC None seen (0-5/HPF) Urine WBC 10-30/hpf H (0-5/HPF) Ur Squamous Epith Cells 5-10 /hpf H (0-5/HPF) Urine Bacteria Moderate (10-30) H (None) Ur Culture Indicated? Specimen cultured Vol Urine Centrifuged 10ml (spun) Urine Dip Bedside Urine Glucose Negative Bedside Urine Bilirubin - Negative Bedside Urine Ketone - Negative Urine Specific Surveyor 1.030 Bedside Urine Occult Blood - Negative Bedside Urine pH 5.5 Bedside Urine Protein + 30 Bedside Urine Urobilinogen - Negative Bedside Urine Nitrite - Negative Bedside Urine Leukocytes ++ 125 Esterase MDM Narrative Medical decision making narrative: 68-year-old female with past medical history atrial fibrillation, hypertension, CKD presents to the ED with 1 day of dysuria, urinary frequency, urinary urgency. Patient's symptoms consistent with a UTI. Urine POC positive for leukocyte esterase, negative for nitrites. Will obtain UA and sent for culture. UA positive for WBCs. Antibiotics prescribed. Patient also has a tendency to develop thrush with antibiotics. Prescribed fluconazole. Recommend follow-up with PCP as soon as possible. ED return precautions discussed with patient. Patient verbalized understanding. Medical records reviewed: Yes <Keri Everardo, DO - Last Filed: 05/24/24 12:57> Lab Data Labs: Lab Results 05/20/24 Range/Units 17:40 Urine RBC None seen (0-5/HPF) Urine WBC 10-30/hpf H (0-5/HPF) Ur Squamous Epith Cells 5-10 /hpf H (0-5/HPF) Urine Bacteria Moderate (10-30) H (None) Ur Culture Indicated? Specimen cultured Vol Urine Centrifuged 10ml (spun) Urine Dip Bedside Urine Glucose Negative Bedside Urine Bilirubin - Negative Bedside Urine Ketone - Negative Urine Specific Surveyor 1.030 Bedside Urine Occult Blood - Negative Bedside Urine pH 5.5 Bedside Urine Protein + 30 Bedside Urine Urobilinogen - Negative Bedside Urine Nitrite - Negative Bedside Urine Leukocytes ++ 125 Esterase Discharge Plan Departure Patient Disposition: Home Clinical Impression: UTI (urinary tract infection) Qualifiers: Urinary tract infection type: acute cystitis Hematuria presence: without hematuria Qualified Code(s): N30.00 - Acute cystitis without hematuria Instructions: DI for Urinary Tract Infection (UTI) Activity Restrictions/Additional Instructions: Were evaluated in the ED today for urinary symptoms. You are being prescribed an antibiotic for a UTI. Please take the antibiotic as prescribed. Please follow-up with your PCP as soon as possible. Return to the ED if you have worsening symptoms. Prescriptions: New cefdinir 300 mg capsule 300 mg PO Q12H 14 Days Qty: 28 0RF fluconazole 150 mg tablet 150 mg PO Q3D Qty: 2 0RF Rx Instructions: may repeat second dose 72 hrs after first dose if symptoms persist No Action cefdinir 300 mg capsule 300 mg PO BID Qty: 10 0RF Eliquis 5 mg tablet 5 mg PO BID Qty: 180 3RF ramipril 10 mg capsule 10 mg PO BID Qty: 180 3RF terazosin 10 mg capsule 10 mg PO BID Qty: 180 3RF diltiazem HCl 180 mg capsule,extended release 24hr 180 mg PO DAILY Calcium Carbonate 1,200 mg 1 tab PO DAILY multivitamin Tablet 1 tab PO DAILY Vitamin D 60 mcg 1 tab PO DAILY ascorbic acid (vitamin C) 1,000 mg tablet 1 g PO DAILY cranberry extract 650 mg capsule 650 mg PO DAILY Rx Instructions: administer with a meal Magnesium Malate 625 mg 1 tab PO DAILY Probiotic 10 Capsule 170 mg 1 tab PO DAILY nystatin 100,000 unit/gram powder 1 applic topical TID Qty: 60 3RF Chromium Mineral 25 mcg 1 tab PO DAILY diltiazem HCl [Cartia XT] 120 mg capsule,extended release 24hr 120 mg PO QPM nystatin 100,000 unit/mL suspension 1 ml buccal BID Qty: 60 0RF Rx Instructions: administer 1/2 of dose in each side of the mouth hydralazine 50 mg tablet 50 mg PO TID Referrals: Raymundo Cintron MD [Primary Care Provider] - Stand Alone Forms: Patient Portal/API/Survey ED Sign-out <Keri Mcgee DO - Last Filed: 05/24/24 12:57> Cosign ED Attending Cosignature Attestation: I was available for consultation.
[2024-05-20 18:21] LABS: Bacteria Urine Moderate (10-30); Culture Indicated Urine Specimen Cultured; RBC Urine None Seen (0-5/HPF); Squamous Epithelial Cell Urine 5-10 /HPF (0-5/HPF); Urine Volume 10mL (spun); WBC Urine 10-30/HPF (0-5/HPF)
== END 2024-05-20 18:30 | disposition home or self-care (01) ==
PROVIDERS: Emergency Medicine; Emergency Provider Student in an Organized Health Care Education/Training Program; Family Provider Internal Medicine; PCP Internal Medicine
DX: N30.00 Acute cystitis without hematuria (principal); I48.91 Unspecified atrial fibrillation; I10 Essential (primary) hypertension; N18.9 Chronic kidney disease, unspecified
CPT/HCPCS: 81003; 81015; 87077; 87086; 87186; 99281; 99282

== ENCOUNTER → 2024-07-05 10:30 | Outpatient (CLI) | payer MEDICARE, OTHER, SELFPAY ==
[2022-08-25 14:35] VITALS: BMI 37.2
[2024-07-05 10:54] LABS: Chloride 105 mmol/L (98-107); HEMOLYSIS < 15 (0-50)
[2024-07-05 10:57] LABS: Albumin 4.3 g/dL (3.5-5.0); Albumin Globulin Ratio 1.8 (1.0-2.8); Alkaline Phosphatase 62 U/L (38-126); BUN Creatinine Ratio 18.9 (6-22); Bilirubin Total 0.7 mg/dL (0.2-1.3); Blood Urea Nitrogen 24 mg/dL (7-17); Carbon Dioxide 25 mmol/L (22-32); Cholesterol 240 mg/dL (140-199); Estimated Glomerular Filt Rate 46 mL/min (>60); Globulin 2.4 g/dL (1.7-4.1); Glucose 109 mg/dL (80-110); HDL Cholesterol 81 mg/dL (40-60); LDL Cholesterol Calculated 144 mg/dL (<100); Potassium 3.7 mmol/L (3.4-5.1); Sodium 139 mmol/L (137-145); Total Protein 6.7 g/dL (6.3-8.2); Triglycerides 74 mg/dL (35-150)
[2024-07-05 15:31] LABS: Vitamin D 25 Hydroxy (D3) 37.1 ng/mL (30.0-100.0)
[2024-07-05 15:51] LABS: Alanine Aminotransferase 22 IU/L (<35); Aspartate Aminotransferase 33 IU/L (14-36)
== END ==
PROVIDERS: Family Provider Internal Medicine; PCP Internal Medicine; Referring Provider Internal Medicine; Visit Provider Internal Medicine
DX: I12.9 Hypertensive chronic kidney disease with stage 1 through stage 4 chronic kidney disease, or unspecified chronic kidney disease (principal); N18.31 Chronic kidney disease, stage 3a; I48.0 Paroxysmal atrial fibrillation; E55.9 Vitamin D deficiency, unspecified
CPT/HCPCS: 36415; 80053; 80061; 82306

== ENCOUNTER → 2025-02-13 17:08 | Outpatient (CLI) | payer MEDICARE, OTHER, SELFPAY ==
[2022-08-25 14:35] VITALS: BMI 37.2
--- NOTE | 2025-02-13 17:09 | DI.MG.S_ITS ---
MM screening mammo BI: 02/13/2025. BI-RADS: 1 CLINICAL: 69-year old female for bilateral screening mammogram. Tyrer-Cuzick lifetime risk of 22.9%. Current reported family history of breast cancer: mother, maternal aunt and second maternal aunt. PRIOR EXAMS 02/05/2024, 02/02/2023, 12/23/2021. MAMMOGRAPHY TECHNIQUE: 2D and 3D (tomosynthesis) digital mammographic views obtained, with additional images as needed for full coverage. Current study was also evaluated with a Computer Aided Detection (CAD) system. DENSITY C. The breasts are heterogeneously dense, which may obscure small masses. MAMMOGRAPHY FINDINGS Bilateral: No suspicious mass, asymmetry, microcalcification, or other abnormality seen. IMPRESSION: * No evidence of malignancy. RECOMMENDATIONS Bilateral * According to the Tyrer-Cuzick Risk Assessment Model, based on the information provided your patient has a greater than 20% lifetime risk for developing breast cancer. Consider supplemental screening with breast MRI and participation in a high risk screening program. * Annual screening mammography. OVERALL ASSESSMENT CATEGORY BI-RADS-1: Negative. [employer] recommends annual screening mammography beginning at age 40 for women with average risk of breast cancer. ELECTRONICALLY SIGNED: Princess Medina M.D. on 02/16/2025 at 04:04:19 PM PT Interpreting Station ID: [id number]
== END ==
LOC: MAMMO 17:08
PROVIDERS: Family Provider Internal Medicine; PCP Internal Medicine; Referring Provider Internal Medicine; Visit Provider Internal Medicine
DX: Z12.31 Encounter for screening mammogram for malignant neoplasm of breast (principal); R92.333 Mammographic heterogeneous density, bilateral breasts; Z80.3 Family history of malignant neoplasm of breast
CPT/HCPCS: 77063; 77067